=== PATIENT | female | born 1960 | race Caucasian/White ===

== ENCOUNTER 2024-07-15 13:06 | Emergency (ER) | payer BC, MEDICARE, SELFPAY ==
--- NOTE | ~2024-07-15 | CT_ITS ---
EXAMINATION: CTA chest PE abdomen pel DATE: 07/15/2024 15:34 INDICATION: Heart palpitations with elevated d-dimer. Possible incarcerated hernia with nausea, vomit ing and diarrhea. TECHNIQUE: Computed tomography (CT) pulmonary angiogram of the chest was performed with 100 mL Omnipa que-350 intravenous contrast. Additional 3D reconstructions utilizing coronal maximum intensity proje ction (MIP) were performed. CT of the abdomen and pelvis was performed with intravenous contrast util izing the same contrast bolus following a short delay. Automated exposure control and iterative recon struction technique were employed. The dose-length product was 1867.28 mGy-cm. COMPARISON: None FINDINGS: Chest: No pulmonary embolism. Minimal left basilar atelectasis. No pneumonia, pulmonary edema, pleural effus ion or pneumothorax. Heart size is normal. Small amount of atherosclerotic coronary artery calcificat ion. No pericardial effusion. Thoracic aorta is normal in caliber with no dissection. No pathological ly enlarged thoracic lymphadenopathy. Mild upper thoracic levocurvature with severe lower cervical an d upper thoracic spondylosis. Abdomen/pelvis: Liver, gallbladder, spleen, pancreas, bilateral adrenal glands and kidneys are normal. Bladder is nor mal. 8.4 x 4.6 x 6.7 cm umbilical hernia containing omental fat and extending to a 1.5 x 2.5 similar orifice.. Bowels are unremarkable with no herniated bowel or obstruction. The uterus is not identifie d and has likely been surgically resected. Decompressed bladder is unremarkable. No free intraperiton eal gas or fluid. No pathologically enlarged abdominal or pelvic lymphadenopathy. IMPRESSION: 1. No pulmonary embolism or other acute cardiopulmonary disease. 2. Moderate-sized fat-containing umbilical hernia. No herniated bowel or other acute intra-abdominal/ pelvic process. Reviewed, dictated and finalized at location B. IMPRESSION: 1. No pulmonary embolism or other acute cardiopulmonary disease. 2. Moderate-sized fat-containing umbilical hernia. No herniated bowel or other acute intra-abdominal/pelvic process.
[2024-07-15 13:11] VITALS: BP 151/114; PULSE 134; RESP 20; TEMP 36.6; O2SAT 97
--- NOTE | 2024-07-15 13:11 | ECG_ITS ---
Test Date: 2024-07-15 13:17:16 Measurements Intervals Fowler Rate: 123 P: 9 OH: 162 QRS: 5 QRSD: 86 T: 52 QT: 412 QTc: 591 Interpretive Statements SINUS TACHYCARDIA DELAYED PRECORDIAL R/S TRANSITION LEFT VENTRICULAR HYPERTROPHY WITH ST-T CHANGE BASELINE ARTIFACT- I, II, III, AVR, AVL, AVF, V1-V6 ABNORMAL ECG No previous ECG available for comparison Electronically Signed On 07-15-2024 13:21:15 CDT by Nasir Campos D.O.
--- NOTE | 2024-07-15 13:11 | ED.ARRPALP ---
HPI - Arrhythmia/Palpitations General Chief Complaint: Arrhythmia/Palpitations Stated Complaint: fast HR, high BP Time Seen by Provider: 07/15/24 13:15 Focused HPI: Pt is a 63-year-old female who presents to the ER with chest palpations and shortness of breath. She was recently started on Wegovy by her PCP. Pt took her first injection on Monday morning. On Monday morning she experienced headache, nausea, vomiting and racing heart rate. She reports she can't keep anything down. Pt reports she has a history of herniated discs, umbilical hernia, high blood pressure, depression, anxiety, and pre-diabetes. She reports she was at urgent care earlier today and they her here for evaluation. Pt endorses palpations but denies chest pain and denies fevers. GENERAL: Well-appearing, well-nourished, and in no acute distress. HEAD: Normocephalic, atraumatic. CHEST: Clear to auscultation. ?No respiratory distress. HEART: Tachycardia, regular rhythm, mild bilateral lower extremity swelling. NEURO: ?Alert and oriented x3. Patient screened in triage and initial orders placed.? ?Additional care and disposition to be based upon?diagnostic testing and treatment. Related Data Home Medications Medication Instructions Recorded Confirmed alprazolam 0.25 mg tablet (Xanax) 0.25 mg PO DAILY 07/19/21 07/22/21 amitriptyline 25 mg tablet 25 mg PO QHS 07/19/21 07/22/21 benzonatate 200 mg capsule 200 mg PO BID PRN 07/19/21 07/22/21 cefuroxime axetil 500 mg tablet 500 mg PO Q12H 07/19/21 07/22/21 cyclobenzaprine 10 mg tablet 10 mg PO TID 07/19/21 07/22/21 eszopiclone 3 mg tablet (Lunesta) 3 mg PO QHS 07/19/21 07/22/21 gabapentin 300 mg capsule 300 mg PO DAILY 07/19/21 07/22/21 hydrochlorothiazide 25 mg tablet 25 mg PO DAILY 07/19/21 07/22/21 hydrocodone 5 mg-acetaminophen 325 1 tablet PO Q8H PRN 07/19/21 07/22/21 mg tablet lisinopril 20 mg tablet 20 mg PO DAILY 07/19/21 07/22/21 omeprazole 40 mg capsule,delayed 40 mg PO DAILY 07/19/21 07/22/21 release ondansetron HCl 4 mg tablet 4 mg PO Q8H 07/19/21 07/22/21 (Zofran) sucralfate 1 gram tablet (Carafate) PO PRN 07/19/21 07/22/21 trazodone 50 mg tablet 50 mg PO QHS PRN 07/19/21 07/22/21 Allergies Allergy/AdvReac Type Severity Reaction Status Date / Time latex Allergy Unknown Hives Verified 07/15/24 14:10 [facility] Past Medical History Medical History (Updated 07/15/24 @ 18:04 by Raulito Sapp MD) Depression Fibromyalgia AMANDA (generalized anxiety disorder) GERD (gastroesophageal reflux disease) Hypertension Surgical History Surgical History H/O hemorrhoidectomy History of appendectomy History of partial hysterectomy Family History Family History Father Acute myocardial infarction Mother Lung cancer Social History Social History Smoking status: Never smoker Alcohol intake: current Living arrangements: with family Occupation/Education: occupation Additional occupation/education comments: [employer] Course Vital Signs Vital signs: Vital Signs Temperature 97.8 F 07/15/24 13:11 Pulse Rate 134 H 07/15/24 13:11 Respiratory Rate 20 07/15/24 13:11 Blood Pressure 151/114 H 07/15/24 13:11 Pulse Oximetry 97 07/15/24 13:11 Oxygen Delivery Room Air 07/15/24 13:11 Temperature 97.9 F 07/15/24 17:08 Pulse Rate 102 H 07/15/24 17:08 Respiratory Rate 16 07/15/24 17:08 Blood Pressure 136/94 H 07/15/24 17:08 Pulse Oximetry 100 07/15/24 17:08 Oxygen Delivery Room Air 07/15/24 14:11 MDM - Arrhythmia/Palpitations Lab Data 07/15/24 13:55 07/15/24 13:23 Labs: Lab Results 09/16/24 09/16/24 09/16/24 Range/Units 13:23 13:23 13:55 WBC 9.4 (4.5-10.0) K/mm3 RBC 5.08 (4.2-5.4) M/mm3 Hgb 15.8 H (12.0-15.
[2024-07-15] MEDS: ASPIRIN 81 MG CHEWABLE TABLET 324 MG PO (13:44)
[2024-07-15] MEDS: ONDANSETRON HCL ODT 4 MG TABLET PO (13:44)
[2024-07-15 13:55] LABS: Alanine Aminotransferase 18 U/L (6-35); Albumin Level 4.5 g/dL (3.5-5.1); Alkaline Phosphatase 100 U/L (38-126); Anion Gap 14 mmol/L (4-12); Aspartate Amino Transferase 30 U/L (14-36); Blood Urea Nitrogen 11 mg/dL (7-17); Calcium 9.4 mg/dL (8.4-10.2); Carbon Dioxide 21 mmol/L (22-30); Chloride 103 mmol/L (98-107); Estimated CRCL calculation 86 ml/min; Estimated Glomerular Filt Rate > 60; Glucose 124 mg/dL (65-110); Lipase 44 U/L (23-300); Potassium 3.6 mmol/L (3.4-5.0); Sodium 138 mmol/L (137-145)
[2024-07-15 14:05] LABS: NT Pro B Type Natriuretic Pept 332 pg/mL (19.9-100)
[2024-07-15 14:05] LABS: Basophils Percent Auto 0.1 % (0.2-1.2); Eosinophils Absolute Auto 0.1 K/mm3 (0-0.3); Eosinophils Percent Auto 1.3 % (0-4.4); Hematocrit 46.2 % (37.0-47.0); Hemoglobin 15.8 g/dL (12.0-15.0); Immature Granulocyte Absolute 0.03 K/mm3 (0.00-0.031); Immature Granulocyte Percent A 0.3 % (0-0.5); Lymphocytes Absolute Auto 1.87 K/mm3 (0.9-3.2); Lymphocytes Percent Auto 19.9 % (18.3-44.2); Mean Corpuscular HGB Conc 34.2 g/dl (32-36); Mean Corpuscular Hemoglobin 31.1 pg (26-34); Mean Corpuscular Volume 90.9 fl (80-100); Mean Platelet Volume 11.6 fl (7.4-10.4); Monocytes Absolute Auto 0.8 K/mm3 (0.1-0.6); Monocytes Percent Auto 8.2 % (2.6-8.5); Neutrophils Absolute Auto 6.6 K/mm3 (1.3-6.7); Neutrophils Percent Auto 70.2 % (45.5-73.1); Platelet Count Result 245 k/mm3 (150-375); Red Blood Count 5.08 M/mm3 (4.2-5.4); Red Cell Distribution Width 12.7 % (11.5-14.5); White Blood Count 9.4 K/mm3 (4.5-10.0)
[2024-07-15 14:11] VITALS: BP 136/106; PULSE 131; RESP 18; O2SAT 97
[2024-07-15 14:15] VITALS: PULSE 128
[2024-07-15 14:16] LABS: Influenza A QL RT-PCR Negative (Negative); Influenza B QL RT-PCR Negative (Negative); RSV RNA, RT-PCR Negative (Negative); SARS-CoV-2 RNA PCR Negative (Negative)
[2024-07-15 14:16] LABS: Prothrombin Time 13.2 Seconds (11.1-14.7)
[2024-07-15 14:17] LABS: Partial Thromboplastin Time 28.5 Seconds (22.3-36.8)
[2024-07-15 14:23] LABS: D Dimer 0.87 ug/mL (<0.48)
[2024-07-15] MEDS: SODIUM CHLORIDE 0.9% IV 1,000 ML 999 ML IV CONT (14:23)
[2024-07-15] MEDS: MORPHINE SULFATE (*CRX) 4 MG/ML INJ IV PUSH (14:24)
[2024-07-15 14:44] LABS: Add Urine Microscopic? YES; Appearance Urine Clear (Clear); Bacteria Urine None Seen /hpf; Bilirubin Urine Negative (Negative); Blood Urine Negative (Negative); Color Urine Dark Yellow (Yellow); Glucose Urine UA Negative (Negative); Hyaline Casts Urine Present /lpf; Ketones Urine Trace mg/dL (Negative); Leukocyte Esterase Ur Trace LEU/UL (Negative); Need Manual Microscopic Reviewed; Nitrate Urine Negative (Negative); Protein Urine 1+ mg/dL (Negative); RBC Urine 0-2 /hpf (0-2); Specific Grav Ur 1.017 (1.001-1.035); Squamous Epithelial Cell Urine Occasional /hpf (Few); WBC Urine 21-50 /hpf (0-3); pH Urine 5.5 (5.0-9.0)
[2024-07-15 17:08] VITALS: BP 136/94; PULSE 102; RESP 16; TEMP 36.6; O2SAT 100
[2024-07-15] MEDS: SODIUM CHLORIDE 0.9% IV 500 ML 999 ML IV CONT (17:08)
== END 2024-07-15 18:47 | disposition home or self-care (01) ==
PROVIDERS: Registered Nurse; Emergency Provider Emergency Medicine; PCP Physician Assistant Medical
DX: R00.2 Palpitations (principal); R06.02 Shortness of breath; R11.2 Nausea with vomiting, unspecified; T50.995A Adverse effect of other drugs, medicaments and biological substances, initial encounter; E86.0 Dehydration; Z20.822 Contact with and (suspected) exposure to COVID-19; I10 Essential (primary) hypertension; R73.03 Prediabetes; K42.9 Umbilical hernia without obstruction or gangrene; K21.9 Gastro-esophageal reflux disease without esophagitis; M79.7 Fibromyalgia; F32.A Depression, unspecified; F41.1 Generalized anxiety disorder; Z79.899 Other long term (current) drug therapy; Z90.711 Acquired absence of uterus with remaining cervical stump; R00.0 Tachycardia, unspecified; I51.7 Cardiomegaly
CPT/HCPCS: 36415; 71275; 74177; 80053; 81001; 83690; 83735; 83880; 84443; 85025; 85380; 85610; 85730; 87086; 87637; 93005; 96361; 96374; 99284; A9270; J2270; J7030; J7040; Q9967

== ENCOUNTER 2024-07-23 09:37 | Emergency (ER) | payer BC, MEDICARE, SELFPAY ==
--- NOTE | ~2024-07-23 | CT_ITS ---
CT of the Abdomen and Pelvis: Indication: Abdominal pain Technique: 2.5 mm axial scans were obtained through the abdomen and pelvis following intravenous adm inistration of 100 cc of Omnipaque 350. Dose reduction technique was used on this scan by utilizing a utomated exposure control and iterative reconstruction technique. The dose-length product (DLP) was 1 418.87 mGy-cm. COMPARISON: 07/15/2024 Findings: Scans through the lung bases are unremarkable. The liver, spleen, pancreas, gallbladder, right adrenal gland, and kidneys are within normal limits. Small left adrenal myelolipoma noted. There are atherosclerotic calcifications of the aorta. No lymp hadenopathy. There are minimally distended, fluid-filled small bowel loops. No bowel obstruction. There is no evid ence to suggest acute appendicitis. Moderate fat-containing umbilical hernia present. Images through the pelvis were performed. Urinary bladder unremarkable. No pelvic mass seen. Impression: Possible subtle nonspecific small bowel enteritis or diarrheal illness. Moderate fat-containing umbilical hernia. Reviewed, dictated and finalized at [facility]. Impression: Possible subtle nonspecific small bowel enteritis or diarrheal illness. Moderate fat-containing umbilical hernia.
[2024-07-23 09:42] VITALS: BP 137/82; PULSE 70; RESP 16; TEMP 36.6; O2SAT 100
[2024-07-23 10:03] LABS: Basophils Absolute Auto 0.1 K/mm3 (0.0-0.1); Basophils Percent Auto 0.7 % (0.2-1.2); Eosinophils Percent Auto 7.4 % (0-4.4); Hemoglobin 16.2 g/dL (12.0-15.0); Immature Granulocyte Absolute 0.22 K/mm3 (0.00-0.031); Immature Granulocyte Percent A 1.7 % (0-0.5); Lymphocytes Absolute Auto 3.06 K/mm3 (0.9-3.2); Mean Corpuscular HGB Conc 33.8 g/dl (32-36); Mean Corpuscular Hemoglobin 30.9 pg (26-34); Mean Corpuscular Volume 91.6 fl (80-100); Mean Platelet Volume 11.6 fl (7.4-10.4); Monocytes Percent Auto 7.8 % (2.6-8.5); Neutrophils Absolute Auto 7.9 K/mm3 (1.3-6.7); Neutrophils Percent Auto 59.4 % (45.5-73.1); Platelet Count Result 325 k/mm3 (150-375); Red Blood Count 5.24 M/mm3 (4.2-5.4); Red Cell Distribution Width 13.6 % (11.5-14.5); White Blood Count 13.3 K/mm3 (4.5-10.0)
--- NOTE | 2024-07-23 10:08 | ED.NAVMDI ---
HPI - Nausea/Vomiting/Diarrhea General Chief complaint: Nausea/Vomiting/Diarrhea Stated complaint: N/V, abd pain Time Seen by Provider: 07/23/24 10:06 Source: patient Mode of arrival: ambulatory Limitations: no limitations History of Present Illness HPI Narrative: Patient is a 63-year-old female who presents the ED with report of abdominal pain, nausea, vomiting. Patient reports she took a first trial dose of Wegovy on 07/12. She developed nausea, vomiting, diarrhea, abdominal pain the next day. She was seen in the ED here on 07/15, was given fluids/antiemetics, had negative CT scan of her chest/abd/pelvis. Symptoms were thought to be r/t to medication. Patient has not had any further doses of the Wegovy, but states over the past 3-4 days, symptoms have resumed. She c/o N/V, difficulty keeping down food or drink, diffuse abd pain, diarrhea. Denies rectal bleeding, melena, fevers. Denies cough or cold sx's. Related Data Home Medications Medication Instructions Recorded Confirmed alprazolam 0.25 mg tablet (Xanax) 0.25 mg PO DAILY 07/19/21 07/22/21 amitriptyline 25 mg tablet 25 mg PO QHS 07/19/21 07/22/21 benzonatate 200 mg capsule 200 mg PO BID PRN 07/19/21 07/22/21 cefuroxime axetil 500 mg tablet 500 mg PO Q12H 07/19/21 07/22/21 cyclobenzaprine 10 mg tablet 10 mg PO TID 07/19/21 07/22/21 eszopiclone 3 mg tablet (Lunesta) 3 mg PO QHS 07/19/21 07/22/21 gabapentin 300 mg capsule 300 mg PO DAILY 07/19/21 07/22/21 hydrochlorothiazide 25 mg tablet 25 mg PO DAILY 07/19/21 07/22/21 hydrocodone 5 mg-acetaminophen 325 1 tablet PO Q8H PRN 07/19/21 07/22/21 mg tablet lisinopril 20 mg tablet 20 mg PO DAILY 07/19/21 07/22/21 omeprazole 40 mg capsule,delayed 40 mg PO DAILY 07/19/21 07/22/21 release ondansetron HCl 4 mg tablet 4 mg PO Q8H 07/19/21 07/22/21 (Zofran) sucralfate 1 gram tablet (Carafate) PO PRN 07/19/21 07/22/21 trazodone 50 mg tablet 50 mg PO QHS PRN 07/19/21 07/22/21 Allergies Allergy/AdvReac Type Severity Reaction Status Date / Time latex Allergy Unknown Hives Verified 07/23/24 09:46 Review of Systems Review of Systems: All systems reviewed & are unremarkable except as noted in HPI. 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 HEAD: Normocephalic, atraumatic. RESPIRATORY: Airway patent, respirations nonlabored. Clear to auscultation bilaterally, no rales, rhonchi, wheezing. CARDIOVASCULAR: Regular rate and rhythm without murmurs, rubs, or gallops. ABDOMINAL: Soft, diffuse tenderness in several quadrants, no significant focal tenderness. Periumbilical hernia with tenderness, soft. Not easily reducible but again soft. No overlying skin changes. Hyperactive BS. MUSCULOSKELETAL: Moves all extremities. No gross deformities. SKIN: Warm, dry, normal color. NEURO: A&O X3. Speech clear. Cranial nerves II-XII grossly intact. Steady gait. No ataxic movements. PSYCHIATRIC: Appropriate mood and affect. Normal interaction. Course Vital Signs Vital signs:
[2024-07-23 10:16] LABS: Alanine Aminotransferase 23 U/L (6-35); Albumin Level 4.6 g/dL (3.5-5.1); Alkaline Phosphatase 99 U/L (38-126); Anion Gap 11 mmol/L (4-12); Aspartate Amino Transferase 52 U/L (14-36); Bilirubin,Total 0.6 mg/dL (0.2-1.3); Blood Urea Nitrogen 26 mg/dL (7-17); Calcium 9.5 mg/dL (8.4-10.2); Carbon Dioxide 28 mmol/L (22-30); Chloride 96 mmol/L (98-107); Estimated CRCL calculation 59 ml/min; Estimated Glomerular Filt Rate 45; Glucose 122 mg/dL (65-110); Lipase 395 U/L (23-300); Potassium 3.5 mmol/L (3.4-5.0); Sodium 135 mmol/L (137-145)
[2024-07-23] MEDS: SODIUM CHLORIDE 0.9% IV 1,000 ML 999 ML IV CONT (10:45)
[2024-07-23] MEDS: MORPHINE SULFATE (*CRX) 4 MG/ML INJ IV PUSH (10:46)
[2024-07-23] MEDS: PANTOPRAZOLE SODIUM IV 40 MG VIAL IV PUSH (10:46)
[2024-07-23 10:47] LABS: Magnesium 2.1 mg/dL (1.6-2.3)
[2024-07-23] MEDS: ONDANSETRON INJ 4 MG/2 ML VIAL IV PUSH (10:47)
[2024-07-23 11:24] LABS: Add Urine Microscopic? YES; Appearance Urine Clear (Clear); Bacteria Urine None Seen /hpf; Bilirubin Urine Negative (Negative); Blood Urine Negative (Negative); Color Urine Yellow (Yellow); Glucose Urine UA Negative (Negative); Ketones Urine Trace mg/dL (Negative); Leukocyte Esterase Ur 1+ LEU/UL (Negative); Need Manual Microscopic Reviewed; Nitrate Urine Negative (Negative); Protein Urine Trace mg/dL (Negative); RBC Urine 0-2 /hpf (0-2); Specific Grav Ur 1.018 (1.001-1.035); Squamous Epithelial Cell Urine Few /hpf (Few); pH Urine 5.5 (5.0-9.0)
[2024-07-23 11:45] LABS: Influenza A QL RT-PCR Negative (Negative); Influenza B QL RT-PCR Negative (Negative); RSV RNA, RT-PCR Negative (Negative); SARS-CoV-2 RNA PCR Negative (Negative)
[2024-07-23 12:52] VITALS: BP 108/87; PULSE 86; RESP 20; O2SAT 96
[2024-07-23 14:12] VITALS: BP 137/82; PULSE 61; RESP 18; O2SAT 100
[2024-07-23] MEDS: CIPROFLOXACIN 500 MG TAB PO (14:12)
[2024-07-23] MEDS: metroNIDAZOLE 500 MG TABLET PO (14:12)
[2024-07-23] MEDS: DICYCLOMINE HCL 10 MG CAPSULE 20 MG PO (14:12)
[2024-07-23 14:32] VITALS: BP 137/82
== END 2024-07-23 14:33 | disposition home or self-care (01) ==
PROVIDERS: Emergency Medicine; Emergency Provider Physician Assistant; PCP Physician Assistant Medical
DX: K52.9 Noninfective gastroenteritis and colitis, unspecified (principal); E86.0 Dehydration; R11.2 Nausea with vomiting, unspecified; K42.9 Umbilical hernia without obstruction or gangrene; Z20.822 Contact with and (suspected) exposure to COVID-19; F32.A Depression, unspecified; M79.7 Fibromyalgia; F41.9 Anxiety disorder, unspecified; K21.9 Gastro-esophageal reflux disease without esophagitis; I10 Essential (primary) hypertension; R82.998 Other abnormal findings in urine
CPT/HCPCS: 36415; 74177; 80053; 81001; 83690; 83735; 85025; 87086; 87637; 96361; 96374; 96375; 99284; A9270; J2270; J2405; J2470; J7030; Q9967

== ENCOUNTER 2025-04-06 16:52 | Emergency (ER) | payer MEDICARE, SELFPAY ==
--- NOTE | ~2025-04-06 | XR_ITS ---
EXAM: XR knee RT 3V DATE: 04/06/2025 17:28 HISTORY: ALL OVER PAIN AFTER TWISTING . COMPARISON: None available. FINDINGS: Osteopenia. No fracture or dislocation. Loss of the normal valgus alignment. Mild lateral subluxation of the tibia. No lytic or blastic lesion. Tricompartmental knee osteoarthritic arthritis, severe in the patellofemoral compartment and moderate in the medial and lateral compartments. Modera te volume joint effusion. No erosion or periosteal change. Soft tissues within normal limits. IMPRESSION: No acute osseous finding in the right knee. Reviewed, dictated and finalized at location K.
--- OUTSIDE RECORDS SUMMARY | 2025-04-06 16:55 | XMS_ITS | Clinical Summary ---
Author Organization [facility] [address] [facility] Address [address] [place] [address] Care Team Providers Care Shopper'S Aide Name Role Phone Jhon Gatica Primary Care Provider [phone] Natan Pepe MD Unavailable [phone] Bernie Monahan MD Unavailable [phone] Roe Ferrer DO Unavailable [phone] Allergies Active Allergy Reactions Criticality Noted Date Comments Latex Hives Medium 05/20/2019 Whelps Other Swelling Medium 07/22/2019 Lectin Rubber, Unspecified Other (See comments) Low 11/19/2024 whelps Tomato Other (See comments) Low 04/08/2024 Causes joints to be inflamed Semaglutide (Weight Loss) Diarrhea Medium 07/30/2024 Headache, vomiting, diarrhea, palpitations Wool Hives Medium 05/20/2019 Whelps Medications clotrimazole 1 % creamIndications:Tinea pedis of left foot APPLY TO AFFECTED AREA TWICE A DAY 30 g 1 2020 Active potassium chloride ER 10 mEq CR tablet TAKE 1 TABLET (10 MEQ TOTAL) BY MOUTH DAILY 90 tablet 1 2021 Active econazole 1 % cream APPLY TO AFFECTED AREA TWICE A DAY 60 g 1 2021 Active loratadine (CLARITIN) 10 mg tablet TAKE 1 TABLET BY MOUTH EVERY DAY 90 tablet 1 2023 Active sertraline (ZOLOFT) 100 mg tabletIndications:Mode rate episode of recurrent major depressive disorder (HCC) TAKE 1 TABLET BY MOUTH EVERY DAY 90 tablet 2023 Active ondansetron ODT (ZOFRAN-ODT) 4 mg disintegrating tabletIndications:Intr actable vomiting with nausea TAKE 1 TABLET BY MOUTH EVERY 8 HOURS NEEDED FOR NAUSEA AND VOMITING 18 tablet 4 2023 Active hydroCHLOROthiazide (HYDRODIURIL) 25 mg tabletIndications:Pepe gn essential HTN TAKE 1 TABLET BY MOUTH EVERY DAY IN THE MORNING 90 tablet 1 2023 Active amitriptyline (ELAVIL) 25 mg tabletIndications:Prim janet insomnia TAKE 1 TABLET BY MOUTH EVERY DAY AT NIGHT 90 tablet 1 2023 Active lisinopriL (PRINIVIL,ZESTRIL) 40 mg tabletIndications:Esse ntial (primary) hypertension Take 1 tablet (40 mg total) by mouth daily 90 tablet 3 2023 Active omeprazole (PriLOSEC) 40 mg capsuleIndications:Gas troesophageal reflux disease without esophagitis TAKE 1 CAPSULE (40 MG TOTAL) BY MOUTH DAILY. 90 capsule 1 2023 Active furosemide (LASIX) 40 mg tabletIndications:Pepe gn essential HTN TAKE 1 TABLET BY MOUTH EVERY DAY 90 tablet 1 2023 Active gabapentin (NEURONTIN) 300 mg capsuleIndications:Fib romyalgia TAKE 1 CAPSULE (300 MG TOTAL) BY MOUTH 2 TIMES A DAY. 180 capsule 1 2023 Active dicyclomine (BENTYL) 20 mg tabletIndications:Abdo biju cramping Take 1 tablet (20 mg total) by mouth every 8 (eight) hours 90 tablet 2 2023 Active atorvastatin (LIPITOR) 40 mg tabletIndications:Pure hypercholesterolemia TAKE 1 TABLET BY MOUTH EVERY DAY 90 tablet 1 2023 Active celecoxib (CeleBREX) 100 mg capsuleIndications:Fib romyalgia TAKE 1 CAPSULE BY MOUTH EVERY DAY 100 capsule 1 2023 Active propranoloL (INDERAL) 20 mg tabletIndications:Esse ntial tremor TAKE 1 TABLET BY MOUTH TWICE A DAY 180 tablet 1 2023 Active eszopiclone (LUNESTA) 3 mg tabletIndications:Prim janet insomnia Take 1 tablet (3 mg total) by mouth nightly Take immediately before bedtime 90 tablet 2024 Active rimegepant (NURTEC ODT) tablet,disintegratingI ndications:Migraine with aura and without status migrainosus, not intractable Take 1 tablet (75 mg total) by mouth every other day 16 tablet 11 2024 Active albuterol HFA (PROVENTIL HFA,VENTOLIN HFA,PROAIR HFA) 90 mcg/actuation inhaler Inhale 2 puffs every 6 (six) hours as needed for wheezing 3 each 4 11/26 Active benzonatate (TESSALON) 200 mg capsule Take 1 capsule (200 mg total) by mouth 3 (three) times a day as needed for cough 60 capsule 2024 Active ipratropium-albuteroL (DUO-NEB) 0.5-2.5 mg/3 mL nebulizer solutionIndications:Pn eumonia of right lower lobe due to infectious organism INHALE 3 ML BY NEBULIZATION EVERY 6 HOURS NEEDED FOR WHEEZE OR FOR SHORTNESS OF BREATH 90 mL 2 2024 Active busPIRone (BUSPAR) 10 mg tabletIndications:AMANDA (generalized anxiety disorder) TAKE 1 TABLET BY MOUTH TWICE A DAY 180 tablet 2024 Active traMADoL (ULTRAM) 50 mg tablet Take 1 tablet (50 mg total) by mouth every 4 (four) hours as needed for pain 10 tablet 2024 Active tamoxifen (NOLVADEX) 10 mg tabletIndications:Horm one Receptor Positive Breast Cancer Take 1 tablet (10 mg total) by mouth daily Start April 29 tablet 1 2024 Active SUMAtriptan (IMITREX) 100 mg tabletIndications:Migr andre with aura, not intractable, without status migrainosus TAKE 1 TABLET BY MOUTH ONCE NEEDED FOR MIGRAINE MAY REPEAT DOSE ONCE IN 2 HOURS IF NO RELIEF. DO NOT EXCEED 2 DOSES IN 24 HOURS. 9 tablet 1 2024 Active triamcinolone (KENALOG) 0.1 % cream Apply topically 3 (three) times a day 30 g 1 2024 Active azithromycin (ZITHROMAX) 500 mg tablet Take 1 tablet (500 mg total) by mouth daily 6 tablet 2024 Active levothyroxine (SYNTHROID) 50 mcg tabletIndications:Acqu ired hypothyroidism TAKE 1 TABLET BY MOUTH EVERY DAY 90 tablet 1 2024 Active HYDROcodone-acetaminop hen (NORCO) 10-325 mg per tabletIndications:Pain Take 0.5 tablets by mouth every 8 (eight) hours as needed for pain 45 tablet 2024 Active cyclobenzaprine (FLEXERIL) 10 mg tabletIndications:Bila teral sacroiliitis TAKE 1 TABLET BY MOUTH THREE TIMES A DAY NEEDED FOR MUSCLE SPASM 90 tablet 3 2024 Active traZODone (DESYREL) 50 mg tabletIndications:Prim janet insomnia TAKE 1 TABLET (50 MG TOTAL) BY MOUTH NIGHTLY NEEDED FOR SLEEP FOR SLEEP 90 tablet 1 2024 Active traZODone (DESYREL) 50 mg tabletIndications:Prim janet insomnia TAKE 1 TABLET (50 MG TOTAL) BY MOUTH NIGHTLY NEEDED FOR SLEEP FOR SLEEP 90 tablet 1 03/28 Discontinued levothyroxine (SYNTHROID) 50 mcg tabletIndications:Acqu ired hypothyroidism TAKE 1 TABLET BY MOUTH EVERY DAY 90 tablet 1 03/13 Discontinued cyclobenzaprine (FLEXERIL) 10 mg tabletIndications:Bila teral sacroiliitis TAKE 1 TABLET BY MOUTH THREE TIMES A DAY NEEDED FOR MUSCLE SPASM 90 tablet 3 03/26 Discontinued HYDROcodone-acetaminop hen (NORCO) 10-325 mg per tabletIndications:Pain Take 0.5 tablets by mouth every 8 (eight) hours as needed for pain 45 tablet 03/25 Discontinued( Reorder) Active Problems Problem Noted Date Diagnosed Date Malignant neoplasm of left b reast in female, estrogen receptor positive 12/13/2024 Cancer Staging:Pathologic stage from 02/24/2025:Stage IA(pT1b, pN0(sn), cM0, G1, ER+, SC+, HER2-) - Unsigned 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 11/18/2023 Cancer Staging:Clinical stage from 09/18/2024:Stage 0(cTis (DCIS), cN0, cM0, GX, ER+, SC: Not Assessed, HER2: Not Assessed) - Signed by Laduzinsky, Bernie J., MD on 09/18/2024 Left breast mass 07/30/2024 Assessment & Plan (07/30/2024 9:42 AM CDT): Sched for diagnsotic and ultrasound Umbilical hernia without obstruction and without gangrene 07/30/2024 Assessment & Plan (07/30/2024 9:49 AM CDT): Chronic occasionally painful Refer to general surgery Pure hypercholesterolemia 04/08/2024 Borderline diabetic 04/08/2024 Assessment & Plan (11/13/2024 3:16 PM BONE CHAR KILN OPERATOR): Poct A1c today Gastroesophageal reflux disease without esophagi tis 06/05/2023 Assessment & Plan (06/05/2023 11:35 PM CDT): Chornic stable and well controlled Continue omeprazole Moderate episode of recurrent major depressive d isorder 01/23/2023 Assessment & Plan (10/05/2023 9:36 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): Chronic and not well controlled Increase sertraline 100mg Assessment & Plan (06/05/2023 9:57 AM CDT): Chronic stable and well controlled Recent complication with loss of . Continue sertraline Assessment & Plan (01/23/2023 2:14 PM CDT): Chronic uncontrolled Start zoloft 25mg for 4 weeks then increase to 50mg Morbid obesity with BMI of 45.0-49.9, adult 09/30 Assessment & Plan (07/30/2024 9:46 AM CDT): Chronic and not well controlled Intolerant to wegovy with severe gi complications D/c wegovy and add to allergy list Assessment & Plan (07/09/2024 10:04 AM CDT): Chronic and not well controlled Failed multiple diet and unable to exercise. Sample and start wegovy Assessment & Plan (04/08/2024 10:52 AM CDT): Chronic and not well controlled Failed multiple diet and unable to exercise. Start zepbound Assessment & Plan (01/05/2024 10:50 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): Chronic condition she has lost 30 lb in the last 6 months continue with dietary restrictions. Assessment & Plan (10/20/2021 2:49 PM BONE CHAR KILN OPERATOR): Chronic condition she has lost 30 lb in the last 6 months continue with dietary restrictions. Fibromyalgia 04/13/2021 Assessment & Plan (06/05/2023 9:56 AM CDT): Chronic stable and waxes and wanes. Continue celebrex and gabapentin Assessment & Plan (07/14/2021 10:32 AM CDT): Chronic persistnet Start elavil 25mg qhs Assessment & Plan (04/13/2021 2:49 PM CDT): Chronic condition Uncontrolled Start savella. Lymphedema of both lower extremities 01/19/2021 Assessment & Plan (04/13/2021 2:44 PM CDT): Order p.t. for lymphedema and for lymphedema pump Assessment & Plan (01/19/2021 10:42 AM CDT): Patient would benefit form lymphedema pump/compression however her insurance will not cover. Primary insomnia 01/21/2019 Assessment & Plan (11/13/2024 3:14 PM BONE CHAR KILN OPERATOR): Chronic persistent but improved with lunesta Continue current dosing Assessment & Plan (07/30/2024 11:58 PM CDT): Chronic persistent but improved with lunesta Continue current dosing Assessment & Plan (10/05/2023 9:35 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): Chronic not well controlled with increased stress D/c trazadone Continue lunesta Assessment & Plan (06/05/2023 9:55 AM CDT): Chronic persistent Improved with use of lunesta and elavil Continue current regimen Assessment & Plan (01/19/2021 10:44 AM CDT): Chronic condition Stable and responds well to lunesta. Assessment & Plan (10/13/2020 2:27 PM BONE CHAR KILN OPERATOR): Start trazadone 50mg Assessment & Plan (04/06/2020 5:20 PM CDT): Well controlled on current regimen, no rx changes needed. Continue lifestyle modifications AMANDA (generalized anxiety disorder) 09/26/2018 Assessment & Plan (11/13/2024 3:14 PM BONE CHAR KILN OPERATOR): Chronic not well controlled Start buspar 10mg bid Assessment & Plan (04/08/2024 10:50 AM CDT): Chronic and not well controlled with breakthrough anxiety situational Start atarax 25mg every day prn #30 Refer to rosa baca in [facility] Assessment & Plan (10/20/2021 2:50 PM BONE CHAR KILN OPERATOR): Chronic condition Refill Xanax for Assessment & Plan (07/14/2021 10:31 AM CDT): Chronic persistent Refill medications Assessment & Plan (01/19/2021 10:44 AM CDT): Chronic condition Stable and responds well to xanax prn Assessment & Plan (04/06/2020 5:19 PM CDT): Well controlled on current regimen, no rx changes needed. Continue lifestyle modifications Migraine with aura and witho ut status migrainosus, not intractable 09/26/2018 Assessment & Plan (11/13/2024 3:20 PM BONE CHAR KILN OPERATOR): Chronic not well controlled Start Assessment & Plan (10/20/2021 2:50 PM BONE CHAR KILN OPERATOR): Chronic condition not well controlled will increase Imitrex 100 mg Assessment & Plan (04/06/2020 5:20 PM CDT): Well controlled on current regimen, no rx changes needed. Continue lifestyle modifications Thyroid nodule 01/10/2018 Lumbar spondylosis 01/01/2018 Assessment & Plan (07/14/2021 10:34 AM CDT): Chronic persistent . Refill gabapentin. Assessment & Plan (04/06/2020 5:19 PM CDT): Well controlled on current regimen, no rx changes needed. Continue lifestyle modifications Panic disorder without agoraphobia 01/11/2017 Assessment & Plan (04/06/2020 5:20 PM CDT): Well controlled on current regimen, no rx changes needed. Continue lifestyle modifications Bilateral sacroiliitis 10/12/2016 Assessment & Plan (06/05/2023 9:55 AM CDT): Chronic persistent Continue with flexeril Essential (primary) hypertension 09/12/2016 Assessment & Plan (04/08/2024 10:43 AM CDT): Chronic and not well controlled Continue hctz and inderal Increase lisinopril 40mg Labs in 2 weeks Assessment & Plan (07/14/2021 10:31 AM CDT): Chronic condition uncontrolled Start lisinopril 20mg Assessment & Plan (04/14/2021 7:52 AM CDT): Chronic condition stable at goal continue current regimen Assessment & Plan (01/19/2021 10:43 AM CDT): Chronic Condition Stable and well controlled Assessment & Plan (04/06/2020 5:19 PM CDT): Well controlled on current regimen, no rx changes needed. Continue lifestyle modifications Hypothyroidism, unspecified 09/12/2016 Assessment & Plan (07/09/2024 10:04 AM CDT): Chronic not at goal Increaese levothyroxine 50mcg Assessment & Plan (04/06/2020 5:19 PM CDT): Well controlled on current regimen, no rx changes needed. Continue lifestyle modifications Encounters Date Type Department Care Team Description 03/27/2025 7:[address] [facility] Office Building 2 Radiation Oncology [address] [place] [phone] Bernie Monahan MD 03/27/2025 Completion of Therapy [facility] 2 Radiation Oncology [address] [place] [address] [phone] Bernie Monahan MD 03/27/2025 Orders Only RAD ONC TREATMENTS Miscellaneous, Not In File 03/26/2025 8:[address] [facility] Office [facility] 2 Radiation Oncology [address] [place] [phone] 03/26/2025 OTV [facility] 2 Radiation Oncology [address] [place] [address] [phone] Bernie Monahan MD Malignant neoplasm of upper-outer quadrant of left breast in female, estrogen receptor positive (HCC) (Primary Dx) 03/26/2025 Orders Only RAD ONC TREATMENTS Miscellaneous, Not In File 03/25/2025 9:[address] [facility] Office Building 2 Radiation Oncology [address] [place] [phone] 03/25/2025 Orders Only RAD ONC TREATMENTS Miscellaneous, Not In File 03/20/2025 9:[address] [facility] Office [facility] 2 Radiation Oncology [address] [place] [address] [phone] 03/20/2025 Orders Only RAD ONC TREATMENTS Miscellaneous, Not In File 03/19/2025 9:30 AM CDT Treatment [facility] Building 2 Radiation Oncology [address] [place] [phone] 03/19/2025 Orders Only RAD ONC TREATMENTS Miscellaneous, Not In File 03/19/[address] [facility] Medical Office Building 2 Radiation Oncology [address] [place] [phone] Bernie Monahan MD Malignant neoplasm of upper-outer quadrant of left breast in female, estrogen receptor positive (HCC) (Primary Dx) 03/18/2025 9:30 AM CDT Treatment [facility] Office Building 2 Radiation Oncology [address] [place] [address] [phone] 03/18/2025 Orders Only RAD ONC TREATMENTS Miscellaneous, Not In File 03/17/2025 9:30 AM T Treatment [facility] Office Building 2 Radiation Oncology [address] [place] [address] [phone] 03/17/2025 Orders Only RAD ONC TREATMENTS Miscellaneous, Not In File 03/14/2025 9:30 AM T [facility] Office Building 2 Radiation Oncology [address] [place] [phone] 03/14/2025 Orders Only RAD ONC TREATMENTS Miscellaneous, Not In File 03/13/2025 9:30 AM T [facility] Office Building 2 Radiation Oncology [address] [place] [phone] 03/13/2025 Orders Only RAD ONC TREATMENTS Miscellaneous, Not In File 03/12/2025 9:30 AM T [facility] Office Building 2 Radiation Oncology [address] [place] [phone] Malignant neoplasm of upper-outer quadrant of left breast in female, estrogen receptor positive (HCC) (Primary Dx) 03/12/[address] [facility] Office Building 2 Radiation Oncology [address] [place] [address] [phone] Bernie Monahan MD 03/12/2025 Orders Only RAD ONC TREATMENTS Miscellaneous, Not In File 03/10/2025 9:30 AM CDT Treatment [facility] Office Building 2 Radiation Oncology [address] [place] [address] [phone] 03/10/2025 Orders Only RAD ONC TREATMENTS Miscellaneous, Not In File 03/07/2025 9:30 AM CDT Treatment [facility] Office Building 2 Radiation Oncology [address] [place] [address] [phone] 03/07/2025 Orders Only RAD ONC TREATMENTS Miscellaneous, Not In File 03/06/2025 9:30 AM CDT Treatment [facility] Office Building 2 Radiation Oncology [address] [place] [phone] 03/06/2025 Orders Only RAD ONC TREATMENTS Miscellaneous, Not In File 03/05/2025 8:15 AM CDT Treatment [facility] Office Building 2 Radiation Oncology [address] [place] [address] [phone] 03/05/2025 OTV [facility] Office Building 2 Radiation Oncology [address] [place] [address] [phone] Bernie Monahan MD Malignant neoplasm of upper-outer quadrant of left breast in female, estrogen receptor positive (HCC) (Primary Dx) 03/05/2025 Orders Only RAD ONC TREATMENTS Miscellaneous, Not In File 03/04/2025 9:45 AM CDT Treatment [facility] Office Building 2 Radiation Oncology [address] [place] [address] [phone] Bernie Monahan MD 03/04/2025 9:30 AM CDT Treatment [facility] Office Building 2 Radiation Oncology [address] [place] [address] [phone] Bernie Monahan MD 03/04/2025 Orders Only RAD ONC TREATMENTS Miscellaneous, Not In File 02/25/2025 7:45 PM CDT Treatment [facility] Office Building 2 Radiation Oncology [address] [place] [address] [phone] 02/24/2025 9:30 AM CDT Treatment [facility] Office Building 2 Radiation Oncology [address] [place] [address] [phone] Bernie Monahan MD 02/24/2025 9:00 AM CDT Office Visit [facility] Office Building 2 Radiation Oncology [address] [place] [address] [phone] Bernie Monahan MD Malignant neoplasm of upper-outer quadrant of left breast in female, estrogen receptor positive (HCC) (Primary Dx) 02/17/2025 10:15 AM CDT Office Visit [facility] Oncology [address] [place] [phone] Roe Ferrer DO Malignant neoplasm of left breast in female, estrogen receptor positive, unspecified site of breast (HCC) (Primary Dx); Ductal carcinoma in situ (DCIS) of left breast 02/03/[address] [facility] Office Building 2 Radiation Oncology [address] [place] [phone] Polina Parker 01/23/2025 11:00 AM CDT - 01/23/2025 12:30 PM CDT Surgery [facility] OR [address] [place] [phone] Natan Pepe MD LEFT BREAST RE EXCISION LUMPECTOMY 01/23/2025 10:38 AM CDT Anesthesia Event [facility] OR [address] [place] [phone] Adarsh Alegria MD Lee, Walter, MD 01/23/2025 8:36 AM CDT - 01/23/2025 1:30 PM CDT Hospital Encounter [facility] OR [address] [place] [phone] Natan Pepe MD History of left breast cancer Discharge Disposition: Discharge to home or self care 01/20/2025 1:15 PM CDT Lab [facility] Outpatient Lab at [address] [phone] 01/20/2025 1:14 PM CDT - 01/20/2025 11:59 PM CDT Hospital Encounter [address] [address] Pre-op testing Discharge Disposition: Discharge to home or self care 01/20/2025 Orders Only [facility] Pre Admit Testing [address] [place] [address] Adarsh Alegria MD Pre-op testing (Primary Dx) 01/08/2025 7:33 AM CDT - 01/08/2025 11:59 PM CDT Hospital Encounter [facility] Medical Office Bl 1 Breast [facility] [address] [place] [address] Menopausal and perimenopausal disorder Discharge Disposition: Discharge to home or self care from Last 3 Months Immunizations Immunization Administration Dates Next Due Influenza, Quadrivalent, Spl it, Preservative Free, Intramuscular 08/24/2019 Influenza, Unspecified 07/30/2024(Deferr ed: Patient Refused),01/05/2024(Deferred: Patient decision),01/19/2021(Deferred: Patient Refused) Pneumococcal Conjugate Pcv20 01/05/2024 Surgical History Surgery Date Site/Laterality Comments APPENDECTOMY HYSTERECTOMY Ovaries intact BREAST BIOPSY 09/03/2024 Left BREAST SURGERY 10/16/2024 [facility] Left Breast Lumpectomy Needle localization, excision left sentinel node BREAST LUMPECTOMY 01/23/2025 Left Medical History Medical History Date Comments Bulging lumbar disc chronic pain --takes hydrocodone Sciatica Hypothyroidism Essential hypertension PONV (postoperative nausea and vomiting) Motion sickness Sleep apnea does not use cpa p GERD (gastroesophageal reflux disease) Pneumonia had after Covid infection in 2020--still needs occasional neb tx Umbilical hernia Fibromyalgia Family History Medical History Relation Name Comments Breast cancer Daughter 1 Natividad Lupus Daughter 1 Natividad Non-Hodgkin's Lymphoma Daughter 1 Natividad lupus Daughter 1 Natividad No Known Problems Daughter 2 Heart attack Father Breast cancer Grandchild Frandy Alexandra stage 3 Early Grandchild Frandy Alexandra Breast Cance r No Known Problems Maternal Grandfather No Known Problems Maternal Grandmother Lung cancer Mother Cause of Breast cancer Mother's Sister Several mat ernal aunts with h/o breast cancer Bone cancer Other No Known Problems Paternal Grandfather Coronary artery disease Paternal Grandmother No Known Problems Son Relation Name Status Comments Daughter 1 Natividad Alive Daughter 2 Alive Father Grandchild Frandy Alexandra Maternal Grandfather Maternal Grandmother Mother Mother's Sister Other Paternal Grandfather Paternal Grandmother Son Alive Social History Tobacco Use Types Packs/Day Years Used Date Smoking Tobacco: Never Passive Smoke Exposure: Past Smokeless Tobacco: Never Tobacco Cessation:Counseling Given: Not Answered Comments:Was around second hand smoke mostly all her life Alcohol Use Standard Drinks/Week Comments Yes 1 (1 standard drink = 0.6 oz pur e alcohol) on ocassion AUDIT-C Answer Date Recorded Q1: How often do you have a drink containing alc ohol? Monthly or less 01/23/2025 Q2: How many drinks containi ng alcohol do you have on a typical day when you are drinking? 1 or 2 01/23/2025 Q3: How often do you have si x or more drinks on one occasion? Never 01/23/2025 PHQ-2 Answer Date Recorded PHQ-2 Total Score 5 04/08/2024 PHQ-9 Answer Date Recorded PHQ-9 Total Score 18 04/08/2024 Personal Safety Answer Date Recorded Have you ever been in or are you currently in a harmful physical or emotional relationship or is someone making you feel afraid or unsafe? 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 Not on file Not on file Not on file Obstetrics History Para Term AB IAB SAB Ectopic Multiple Livin g Live Births 3 3 3 Date Outcome GA Total Labor Labor/2nd/3rd Weight Sex Type Anes PTL Penny A1 A5 Name Clin Term Term Term Last Filed Vital Signs Vital Sign Reading Time Taken Comments Blood Pressure 135/84 03/26/2025 9:11 AM CDT Pulse 72 03/26/2025 9:11 AM CDT Temperature 36.6 C (97.8 F) 02/17/2025 10:30 AM CDT Respiratory Rate 18 02/17/2025 10:3 0 AM CDT Oxygen Saturation 98% 03/26/2025 9:11 AM CDT Inhaled Oxygen Concentration - - Weight 139.1 kg (306 lb 9.6 oz) 03/26/2025 9:11 AM CDT Height 162.6 cm (5' 4) 01/23/2025 8:44 AM CDT Body Mass Index 52.63 01/23/2025 8:44 AM CDT Plan of Treatment Health Maintenance Due Date Last Done Comments DTaP/Tdap/Td Vaccine (1 - Tdap) 1969 Hepatitis B Screening 1976 Zoster Vaccine (1 of 2) 1977 Covid-19 Vaccine (4 - 2023-2 5 season) 2024 11/18/2021, 05/16/2021, 04/25/2021 Depression Screening 04/08/2025 04/08/2024, 04/08/2024, 10/05/2023, Additional history exists Well Visit 65+ 04/08/2025 04/08/2024 Influenza Vaccine (Season Ended) 2025 08/24/20 19 Breast Cancer Screening-Mammogram 07/26/2025 024 Fall Risk Assessment 01/23/2026 01/23/2025, 09/23/2024, 04/08/2024, Additional history exists Osteoporosis Screening-Bone Density Scan 01/08/2027 01/08/2025 Colon Cancer Screening-DNA Stool 02/05/2027 02/06/20 24 Hepatitis C Screening Completed 01/05/2024 Pneumococcal vaccine 65+ Completed 01/05/2024 Colon Cancer Screening-FIT Discontinued 02/06/2024 Medical Devices Implanted Type Area Wardrobe Image Consultant Device Identifier Shelf Expiration Date Model / Serial / Lot [employer] [employer] 911 [employer] Partnership [employer] 13cm Rigid End Bioabsorbable Net Top It Program Engagement Director Breast Latex Free Bypzs-Cmizg-2b-13 - [id number] Implanted:Qty: 1 on 09/03/2024 by Natan Pepe MD at [facility] Left: Breast [employer] [id number] 11/23/2024 SMARK-ELLEN VA-2S-13 / / [id number] Dyeing Machine [employer] [place] 20ga 5cm Reposition J Curve Wire [employer] Stabilizer [id number] - [id number] Implanted:Qty: 1 on 10/16/2024 by Adam Ford MD at [facility] Left: Breast [employer] [id number] 05/24/2029 [id number] / / [id number] Procedures Procedure Name Priority Date/Time Associated Diagnosis Comments RAD ONC ARIA SESSION SUMMARY 03/27/2025 7:31 AM CDT RAD ONC ARIA SESSION SUMMARY 03/26/2025 8:56 AM CDT RAD ONC ARIA SESSION SUMMARY 03/25/2025 9:37 AM CDT RAD ONC ARIA SESSION SUMMARY 03/20/2025 9:32 AM CDT RAD ONC ARIA SESSION SUMMARY 03/19/2025 9:38 AM CDT RAD ONC ARIA SESSION SUMMARY 03/18/2025 10:02 AM CDT RAD ONC ARIA SESSION SUMMARY 03/17/2025 9:40 AM CDT RAD ONC ARIA SESSION SUMMARY 03/14/2025 9:34 AM CDT RAD ONC ARIA SESSION SUMMARY 03/13/2025 8:55 AM CDT RAD ONC ARIA SESSION SUMMARY 03/12/2025 9:14 AM CDT RAD ONC ARIA SESSION SUMMARY 03/10/2025 9:42 AM CDT RAD ONC ARIA SESSION SUMMARY 03/07/2025 9:44 AM CDT RAD ONC ARIA SESSION SUMMARY 03/06/2025 9:34 AM CDT RAD ONC ARIA SESSION SUMMARY 03/05/2025 8:28 AM CDT RAD ONC ARIA SESSION SUMMARY 03/04/2025 9:36 AM CDT SC AN PROCEDURE PLACEHOLDER Routine 01/23/2025 10:57 AM CDT SC AN ELECTIVE SUPRAGLOTTIC AIRWAY Routine 01/23/2025 10:57 AM CDT SURGICAL PATHOLOGY Routine 01/23/2025 10:53 AM CDT History of left breast cancer LUMPECTOMY 01/23/2025 10:38 AM CDT LEFT BREAST CANCER EGFR Routine 01/20/2025 1:14 PM CDT Pre-op testing BASIC METABOLIC PANEL Routine 01/20/2025 1:14 PM CDT Pre-op testing DEXA AXIAL SKELETON BONE DENSITY 1 OR MORE SITES Schedule Routine, Read Routine (OP Routine) 01/08/2025 7:46 AM CDT Menopausal and perimenopausal disorder SCREENING MAMMOGRAM BILATERAL W JC Schedule Routine, Read Routine (OP Routine) 07/26/2024 8:50 AM CDT Screening mammogram, encounter for STOOL DNA COLOGUARD Routine 02/06/2024 10:30 AM CDT Screening for colon cancer HEPATITIS C ANTIBODY Routine 01/05/2024 11:53 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 Need for hepatitis C screening test from Last 3 Months or Most Recently Relevant to Health Maintenance Results * RAD ONC ARIA SESSION SUMMARY (03/27/2025 7:31 AM CDT) Course Name C1_L_Breast _2024 ARIA Course Plan Date 02/24/2025 10:42 AM ARIA Elapsed Days 23 ARIA Treatment Start Date 03/04/2025 ARIA Treatment Site PRONE LT BREAST ARIA Dose Given To Date (cGy) 4,005 ARIA Session Dosage Given (cGy) 267 ARIA Plan ID PRNE LT BRST ARIA Fractions Treated 15 ARIA Prescribed Dose Per Fraction (cGy) 267 ARIA Prescribed Total Dose (cGy) 4,005 ARIA 03/27/2025 7:31 AM CDT us Not In File Miscellaneous RADIATION ONCOLOGY ORD ERABLES Final Result ARIA * RAD ONC ARIA SESSION SUMMARY (03/26/2025 8:56 AM CDT) Course Name C1_L_Breast _2024 ARIA Course Plan Date 02/24/2025 10:42 AM ARIA Elapsed Days 22 ARIA Treatment Start Date 03/04/2025 ARIA Treatment Site PRONE LT BREAST ARIA Dose Given To Date (cGy) 3,738 ARIA Session Dosage Given (cGy) 267 ARIA Plan ID PRNE LT BRST ARIA Fractions Treated 14 ARIA Prescribed Dose Per Fraction (cGy) 267 ARIA Prescribed Total Dose (cGy) 4,005 ARIA 03/26/2025 8:56 AM CDT us Not In File Miscellaneous RADIATION ONCOLOGY ORD ERABLES Final Result Performing Organization Address [facility] de Phone Number ARIA * RAD ONC ARIA SESSION SUMMARY (03/25/2025 9:37 AM CDT) Course Name C1_L_Breast _2024 ARIA Course Plan Date 02/24/2025 10:42 AM ARIA Elapsed Days 21 ARIA Treatment Start Date 03/04/2025 ARIA Treatment Site PRONE LT BREAST ARIA Dose Given To Date (cGy) 3,471 ARIA Session Dosage Given (cGy) 267 ARIA Plan ID PRNE LT BRST ARIA Fractions Treated 13 ARIA Prescribed Dose Per Fraction (cGy) 267 ARIA Prescribed Total Dose (cGy) 4,005 ARIA 03/25/2025 9:37 AM CDT us Not In File Miscellaneous RADIATION ONCOLOGY ORD ERABLES Final Result ARIA * RAD ONC ARIA SESSION SUMMARY (03/20/2025 9:32 AM CDT) Course Name C1_L_Breast ARIA Course Plan Date 02/24/2025 10:42 AM ARIA Elapsed Days 16 ARIA Treatment Start Date 03/04/2025 ARIA Treatment Site PRONE LT BREAST ARIA Dose Given To Date (cGy) 3,204 ARIA Session Dosage Given (cGy) 267 ARIA Plan ID PRNE LT BRST ARIA Fractions Treated 12 ARIA Prescribed Dose Per Fraction (cGy) 267 ARIA Prescribed Total Dose (cGy) 4,005 ARIA 03/20/2025 9:32 AM CDT us Not In File Miscellaneous RADIATION ONCOLOGY ORD ERABLES Final Result Performing Organization Address [facility]/ZIP Co de Phone Number ARIA * RAD ONC ARIA SESSION SUMMARY (03/19/2025 9:38 AM CDT) Course Name C1_L_Breast ARIA Course Plan Date 02/24/2025 10:42 AM ARIA Elapsed Days 15 ARIA Treatment Start Date 03/04/2025 ARIA Treatment Site PRONE LT BREAST ARIA Dose Given To Date (cGy) 2,937 ARIA Session Dosage Given (cGy) 267 ARIA Plan ID PRNE LT BRST ARIA Fractions Treated 11 ARIA Prescribed Dose Per Fraction (cGy) 267 ARIA Prescribed Total Dose (cGy) 4,005 ARIA 03/19/2025 9:38 AM CDT us Not In File Miscellaneous RADIATION ONCOLOGY ORD ERABLES Final Result ARIA * RAD ONC ARIA SESSION SUMMARY (03/18/2025 10:02 AM CDT) Course Name C1_L_Breast ARIA Course Plan Date 02/24/2025 10:42 AM ARIA Elapsed Days 14 ARIA Treatment Start Date 03/04/2025 ARIA Treatment Site PRONE LT BREAST ARIA Dose Given To Date (cGy) 2,670 ARIA Session Dosage Given (cGy) 267 ARIA Plan ID PRNE LT BRST ARIA Fractions Treated 10 ARIA Prescribed Dose Per Fraction (cGy) 267 ARIA Prescribed Total Dose (cGy) 4,005 ARIA 03/18/2025 10:0 2 AM CDT us Not In File Miscellaneous RADIATION ONCOLOGY ORD ERABLES Final Result Performing Organization Address City/[facility] Co de Phone Number ARIA * RAD ONC ARIA SESSION SUMMARY (03/17/2025 9:40 AM CDT) Course Name C1_L_Breast _2024 ARIA Course Plan Date 02/24/2025 10:42 AM ARIA Elapsed Days 13 ARIA Treatment Start Date 03/04/2025 ARIA Treatment Site PRONE LT BREAST ARIA Dose Given To Date (cGy) 2,403 ARIA Session Dosage Given (cGy) 267 ARIA Plan ID PRNE LT BRST ARIA Fractions Treated 9 ARIA Prescribed Dose Per Fraction (cGy) 267 ARIA Prescribed Total Dose (cGy) 4,005 ARIA 03/17/2025 9:40 AM CDT us Not In File Miscellaneous RADIATION ONCOLOGY ORD ERABLES Final Result Performing Organization Address [facility] Co de Phone Number ARIA * RAD ONC ARIA SESSION SUMMARY (03/14/2025 9:34 AM CDT) Course Name C1_L_Breast _2024 ARIA Course Plan Date 02/24/2025 10:42 AM ARIA Elapsed Days 10 ARIA Treatment Start Date 03/04/2025 ARIA Treatment Site PRONE LT BREAST ARIA Dose Given To Date (cGy) 2,136 ARIA Session Dosage Given (cGy) 267 ARIA Plan ID PRNE LT BRST ARIA Fractions Treated 8 ARIA Prescribed Dose Per Fraction (cGy) 267 ARIA Prescribed Total Dose (cGy) 4,005 ARIA 03/14/2025 9:34 AM CDT us Not In File Miscellaneous RADIATION ONCOLOGY ORD ERABLES Final Result Performing Organization Address [facility] de Phone Number ARIA * RAD ONC ARIA SESSION SUMMARY (03/13/2025 8:55 AM CDT) Course Name C1_L_Breast _2024 ARIA Course Plan Date 02/24/2025 10:42 AM ARIA Elapsed Days 9 ARIA Treatment Start Date 03/04/2025 ARIA Treatment Site PRONE LT BREAST ARIA Dose Given To Date (cGy) 1,869 ARIA Session Dosage Given (cGy) 267 ARIA Plan ID PRNE LT BRST ARIA Fractions Treated 7 ARIA Prescribed Dose Per Fraction (cGy) 267 ARIA Prescribed Total Dose (cGy) 4,005 ARIA 03/13/2025 8:55 AM CDT us Not In File Miscellaneous RADIATION ONCOLOGY ORD ERABLES Final Result Performing Organization Address [facility] de Phone Number ARIA * RAD ONC ARIA SESSION SUMMARY (03/12/2025 9:14 AM CDT) Course Name C1_L_Breast ARIA Course Plan Date 02/24/2025 10:42 AM ARIA Elapsed Days 8 ARIA Treatment Start Date 03/04/2025 ARIA Treatment Site PRONE LT BREAST ARIA Dose Given To Date (cGy) 1,602 ARIA Session Dosage Given (cGy) 267 ARIA Plan ID PRNE LT BRST ARIA Fractions Treated 6 ARIA Prescribed Dose Per Fraction (cGy) 267 ARIA Prescribed Total Dose (cGy) 4,005 ARIA 03/12/2025 9:14 AM CDT us Not In File Miscellaneous RADIATION ONCOLOGY ORD ERABLES Final Result Performing Organization Address [facility] Co de Phone Number ARIA * RAD ONC ARIA SESSION SUMMARY (03/10/2025 9:42 AM CDT) Course Name C1_L_Breast ARIA Course Plan Date 02/24/2025 10:42 AM ARIA Elapsed Days 6 ARIA Treatment Start Date 03/04/2025 ARIA Treatment Site PRONE LT BREAST ARIA Dose Given To Date (cGy) 1,335 ARIA Session Dosage Given (cGy) 267 ARIA Plan ID PRNE LT BRST ARIA Fractions Treated 5 ARIA Prescribed Dose Per Fraction (cGy) 267 ARIA Prescribed Total Dose (cGy) 4,005 ARIA 03/10/2025 9:42 AM CDT us Not In File Miscellaneous RADIATION ONCOLOGY ORD ERABLES Final Result ARIA * RAD ONC ARIA SESSION SUMMARY (03/07/2025 9:44 AM CDT) Course Name C1_L_Breast _2024 ARIA Course Plan Date 02/24/2025 10:42 AM ARIA Elapsed Days 3 ARIA Treatment Start Date 03/04/2025 ARIA Treatment Site PRONE LT BREAST ARIA Dose Given To Date (cGy) 1,068 ARIA Session Dosage Given (cGy) 267 ARIA Plan ID PRNE BRST ARIA Fractions Treated 4 ARIA Prescribed Dose Per Fraction (cGy) 267 ARIA Prescribed Total Dose (cGy) 4,005 ARIA 03/07/2025 9:44 AM CDT us Not In File Miscellaneous RADIATION ONCOLOGY ORD ERABLES Final Result ARIA * RAD ONC ARIA SESSION SUMMARY (03/06/2025 9:34 AM CDT) Course Name C1_L_Breast _2024 ARIA Course Plan Date 02/24/2025 10:42 AM ARIA Elapsed Days 2 ARIA Treatment Start Date 03/04/2025 ARIA Treatment Site PRONE LT BREAST ARIA Dose Given To Date (cGy) 801 ARIA Session Dosage Given (cGy) 267 ARIA Plan ID PRNE LT BRST ARIA Fractions Treated 3 ARIA Prescribed Dose Per Fraction (cGy) 267 ARIA Prescribed Total Dose (cGy) 4,005 ARIA 03/06/2025 9:34 AM CDT us Not In File Miscellaneous RADIATION ONCOLOGY ORD ERABLES Final Result Performing Organization Address City/[facility] Co de Phone Number ARIA * RAD ONC ARIA SESSION SUMMARY (03/05/2025 8:28 AM CDT) Course Name C1_L_Breast _2024 ARIA Course Plan Date 02/24/2025 10:42 AM ARIA Elapsed Days 1 ARIA Treatment Start Date 03/04/2025 ARIA Treatment Site PRONE LT BREAST ARIA Dose Given To Date (cGy) 534 ARIA Session Dosage Given (cGy) 267 ARIA Plan ID PRNE LT BRST ARIA Fractions Treated 2 ARIA Prescribed Dose Per Fraction (cGy) 267 ARIA Prescribed Total Dose (cGy) 4,005 ARIA 03/05/2025 8:28 AM CDT us Not In File Miscellaneous RADIATION ONCOLOGY ORD ERABLES Final Result Performing Organization Address [facility] de Phone Number ARIA * RAD ONC ARIA SESSION SUMMARY (03/04/2025 9:36 AM CDT) Course Name C1_L_Breast ARIA Course Plan Date 02/24/2025 10:42 AM ARIA Elapsed Days 0 ARIA Treatment Start Date 03/04/2025 ARIA Treatment Site PRONE LT BREAST ARIA Dose Given To Date (cGy) 267 ARIA Session Dosage Given (cGy) 267 ARIA Plan ID PRNE LT BRST ARIA Fractions Treated 1 ARIA Prescribed Dose Per Fraction (cGy) 267 ARIA Prescribed Total Dose (cGy) 4,005 ARIA 03/04/2025 9:36 AM CDT us Not In File Miscellaneous RADIATION ONCOLOGY ORD ERABLES Final Result ARIA * SC AN ELECTIVE SUPRAGLOTTIC AIRWAY, SC AN PROCEDURE PLACEHOLDER (01/23/2025 10:57 AM CDT) Narrative Suguitan, Sunitha E., MILL TURNER - 01/23/2025 10:57 AM CDT Sunitha Morle CRNA 01/23/2025 10:57 AM Airway Patient location: OR Urgency: elective Indications for airway management: anesthesia Difficult airway: no Staff: Supervising provider: Adarsh Alegria MD Placed by: MILL TURNER: Sunitha Morel CRNA Emergent airway documentation: Risks and benefits discussed: yes Consent obtained: yes Consent given by: patient Airway prep: Preoxygenated: yes Patient position: sniffing Mask difficulty assessment: 0 - not attempted Spontaneous ventilation during airway: absent Sedation level during airway: deep Final airway details: Final airway type: supraglottic airway Final supraglottic airway: IGel SGA size: 4 Number of attempts: 1 Planned trial extubation: yes us Adarsh Alegria MD ANESTHESIA ORDERAB LES Final Result * Surgical pathology (01/23/2025 10:53 AM CDT) Tissue specimen (specimen) (Breast Additional Margin) 01/23/2025 10:53 AM CDT Narrative PATHOLOGY [facility] - 01/29/2025 10:12 AM CDT [facility] Department of Pathology [address] [place] [address] Note to Patients: This report may contain a detailed description of human tissue sent by a health care provider to the laboratory for pathologic evaluation. The content of this report is essential for diagnosis and may provide important critical findings. This information may be unfamiliar to patients to review without a medical professional present. It is advised that the patient review this report in the presence of a health care provider who can answer questions and explain the details. Final Report Patient Name: ROMANA CARTER : 1960 (Age: 64) Gender: F Address: [facility] [address] [place] [address] Hospital #: [id number] Service: Surgery Location: Patient Type: [facility] OUT[facility] Taken: 01/23/2025 Received: 01/23/2025 Accessioned: 01/23/2025 Reported: 01/29/2025 Physician(s): Giacomo Abel P.A. Diagnosis: Left breast, additional inferior margin, margin re-excision - Benign breast tissue with fibrosis, fat necrosis, and changes consistent with prior surgical procedure - Negative for atypia or malignancy Freida Yates M.D. Report Electronically Reviewed and Signed Out By Freida Yates M.D. 01/29/2025 10:12:20 Specimen(s) Received: A: LEFT BREAST ADDITIONAL INFERIOR MARGIN Microscopic Description: No atypical hyperplasia, carcinoma in situ, or carcinoma is identified. No atypical hyperplasia, carcinoma in situ, or carcinoma is identified. Clinical History: The patient is a 64-year-old woman with left breast cancer. Operative procedure: left breast reexcision lumpectomy. Gross Description Received in a single formalin filled container labeled with the patient's identifiers and left breast additional inferior margin is a 4.7 x 4.0 x 1.8 cm, unoriented, roughly ring shaped portion of friable fibrofatty tissue with multiple defects that was. Inked black. Radially sectioned to show fibrofatty tissue. Labeled A1 to A6. Jar 0. mns12/[id number]/2701/24/2025 10:35 Yanely Erwin MS, PA (ASC Microscopic slide review and interpretation for this case was performed at [facility], Department of Surgical Pathology, [address] [facility] [place], [place] [id number] [address] CLIA # [id number] Natan Pepe MD LAB PATHOLOGY ORDERABLES Final Result PATHOLOGY [facility] * eGFR (01/20/2025 1:14 PM CDT) eGFR 86 >=60 mL/min/1. 73 m2 Comment: Interpretive Data Reference Interval Normal >/= 90 mL/min/1.73m2 Mildly decreased* 60 - 89 mL/min/1.73m2 Mildly to moderately decreased 45 - 59 mL/min/1.73m2 Moderately to severely decreased 30 - 44 mL/min/1.73m2 Severely decreased 15 - 29 mL/min/1.73m2 Kidney Failure < 15 mL/min/1.73m2 *Relative to young adult level Estimated glomerular filtration rate is determined by the 2020 CKD-EPI equation recommended by the National Kidney Foundation (A Unifying Approach to GFR Estimation: Recommendations of the NKF-ASK Task Force on Reassessing the Inclusion of Race in Diagnosing Kidney Disease, JASN 2020). The CKD-EPI equation should not be used for patients with unstable renal function and has not been validated in children and those over 70. Current interpretive data was last reviewed 2021. Blood 01/20/2025 1:14 PM CDT 01/20/2025 8:42 PM CDT us Adarsh Alegria MD LAB BLOOD ORDERABL ES Final Result [facility] [address] Department [place] [address] * Basic metabolic panel (01/20/2025 1:14 PM CDT) Sodium 142 135 - 145 mmol/L Potassium, pl 4.5 3.3 - 4.9 mmol/L [facility] Chloride 102 97 - 110 mmol/L [facility] CO2 27 22 - 32 mmol/L [facility] Anion gap 13 2 - 15 mmol/L [facility] BUN 18 6 - 25 mg/dL [facility] Creatinine 0.76 0.60 - 1.10 mg/dL [facility] Glucose 105 70 - 199 mg/dL [facility] Comment: Interpretive Data Fasting glucose >/= 126 mg/dl is diagnostic for diabetes. Fasting is defined as no caloric intake for at least 8 hours. Fasting glucose between 100 mg/dl to 125 mg/dl is diagnostic of prediabetes. In a patient with classic symptoms of hyperglycemia or hyperglycemic crisis, a random glucose >/= 200 mg/dl is diagnostic for diabetes. In the absence of unequivocal hyperglycemia, results should be confirmed by repeat testing. The classification and Diagnosis of Diabetes Diabetes Care 2021; 46: S19-S40. Current interpretive data was last revised 2022. 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 CLINICAL INFORMATION: Current height: 66 inches Maximum height: 66 inches Weight: 297 pounds Risk factors: Postmenopausal, cancer COMPARISON: 08/29/2007 Dissimilar scan types or analysis methods precludes assessment for calculating a significant change. FINDINGS: AP LUMBAR SPINE L1-L4: Total BMD is 1.079 g/cm2 T-score is 0.3 LEFT HIP: Total BMD is 0.882 g/cm2 T-score is -0.5 Femoral neck BMD is 0.735 g/cm2 T-score is -1.0 FRAX: FRAX not reported due to T-scores of hip, femoral neck and/or spine being at or above -1.0 (Normal). IMPRESSION: Normal bone mass. REFERENCE: Bone mineral density: T-Score: Normal (T-score above or = -1.0) Low bone mass (T-score between -1.0 and -2.5) replaces the previously used term osteopenia Osteoporosis (T-score = or below -2.5) Z-Score: Within the expected range for age (Z-score above -2.0) Below the expected range for age (Z-score is -2.0 or below) Please see below follow up recommendations. Medical evaluation for secondary causes of low bone mineral density may be appropriate. FRAX is a World Health Organization validated fracture risk assessment tool that calculates a person's 10 year probability of a major osteoporosis related fracture and hip fracture. According to the National Osteoporosis Foundation guidelines, postmenopausal women and men age 50 or older with low bone mass and a 10 year probability of a major osteoporosis related fracture = or greater than 20% or a 10 year probability of a hip fracture = or greater than 3% should be considered for pharmacological treatment for the prevention of osteoporosis. For further information, including treatment recommendations, please refer to the 2019 ISCD Official Positions (http://www.iscd.org) and the NOF's Clinician's Guide to Prevention and Treatment of Osteoporosis (http://www.nof.org/professionals/clinical-guidelines) THIS IS AN ELECTRONICALLY VERIFIED FINAL REPORT 01/09/2025 2:47 PM - Electronically signed by Natan Block M.D. 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 CLINICAL INFORMATION: Current height: 66 inches Maximum height: 66 inches Weight: 297 pounds Risk factors: Postmenopausal, cancer COMPARISON: 08/29/2007 Dissimilar scan types or analysis methods precludes assessment for calculating a significant change. FINDINGS: AP LUMBAR SPINE L1-L4: Total BMD is 1.079 g/cm2 T-score is 0.3 LEFT HIP: Total BMD is 0.882 g/cm2 T-score is -0.5 Femoral neck BMD is 0.735 g/cm2 T-score is -1.0 FRAX: FRAX not reported due to T-scores of hip, femoral neck and/or spine beingat or above -1.0 (Normal). IMPRESSION: Normal bone mass. REFERENCE: Bone mineral density: T-Score: Normal (T-score above or = -1.0) Low bone mass (T-score between -1.0 and -2.5) replaces thepreviously used term osteopenia Osteoporosis (T-score = or below -2.5) Z-Score: Within the expected range for age (Z-score above -2.0) Below the expected range for age (Z-score is -2.0 or below) Please see below follow up recommendations. Medical evaluation forsecondary causes of low bone mineral density may be appropriate. FRAX is a World Health Organization validated fracture risk assessmenttool that calculates a person's 10 year probability of a major osteoporosisrelated fracture and hip fracture. According to the National OsteoporosisFoundation guidelines, postmenopausal women and men age 50 or older with low bonemass and a 10 year probability of a major osteoporosis related fracture = or greater than 20% or a 10 year probability of a hip fracture = or greaterthan 3% should be considered for pharmacological treatment for the preventionof osteoporosis. For further information, including treatment recommendations, please referto the 2019 ISCD Official Positions (http://www.iscd.org) and the NOF's Clinician's Guide to Prevention and Treatment of Osteoporosis (http://www.nof.org/professionals/clinical-guidelines) THIS IS AN ELECTRONICALLY VERIFIED FINAL REPORT 01/09/2025 2:47 PM - Electronically signed by Natan Block M.D. MF: [email or web address] Report ID: [id number] Reading Location: [place] [address] Jhon CHAN IMSumanth DXA PROCEDURES Final Result * (ABNORMAL) Screening Mammogram Bilateral W Jc (07/26/2024 8:50 AM CDT) Anatomical Region Laterality Modality Breast Bilateral Mammography Impressions 07/26/2024 9:23 AM CDT BI-RADS ATLAS category (overall): 0 - Incomplete: Needs Additional Imaging Evaluation 1. Left breast spiculated mass.Further evaluation with diagnostic left mammography and possible diagnostic left breast ultrasound is recommended. 2. No mammographic evidence of malignancy in the right breast. Routine screening mammography of the right breast is recommended in 1 year. The patient has been or will be contacted. Narrative 07/26/2024 9:23 AM CDT Screening Mammogram Bilateral W Jc: 07/26/24 The study was acquired using full field digital technology and interpreted from soft copy. 2D digital mammographic views, as well as 3D digital tomosynthesis were performed in the CC and MLO projections. CLINICAL: Screening mammogram, encounter for (imaging center [facility]). No relevant medical history has been documented for this patient. History of breast cancer in Daughter, Mother's Sister, Grandchild. COMPARISONS: 08/01/2007 Screening Mammogram 2D Bilateral BREAST TISSUE: There are scattered areas of fibroglandular density. FINDINGS: There is a spiculated mass in the upper outer left breast, middle breast. There is no new suspicious finding in the right breast on mammogram. us Jhon CHAN IMG MAMMO PROCEDURES Final Resu lt * Stool DNA - Cologuard (02/06/2024 10:30 AM CDT) Stool DNA - Cologuard Negative Negative [employer] (CLIA #:[id number]) Comment: NEGATIVE TEST RESULT. A negative Cologuard result indicates a low likelihood that a colorectal cancer (CRC) or advanced adenoma (adenomatous polyps with more advanced pre-malignant features) is present. The chance that a person with a negative Cologuard test has a colorectal cancer is less than 1 in 1500 (negative predictive value >99.9%) or has an advanced adenoma is less than 5.3% (negative predictive value 94.7%). These data are based on a prospective cross-sectional study of 10,000 individuals at average risk for colorectal cancer who were screened with both Cologuard and colonoscopy. (Yahir Naik al, N Engl J Med 2014;370(14):4778-3036) The normal value (reference range) for this assay is negative. COLOGUARD RE-SCREENING RECOMMENDATION: Periodic colorectal cancer screening is an important part of preventive healthcare for asymptomatic individuals at average risk for colorectal cancer. Following a negative Cologuard result, the [place] [employer] and U.S. Multi-Society Task Force screening guidelines recommend a Cologuard re-screening interval of 3 years. References: [place] [employer] Guideline for Colorectal Cancer Screening: https://www.cancer.org/cancer/oyyzb-yoaslq-pembkb/uwsjwtfql-lhpggmmhd-vyqqiid/ac s-rec ommendations.html.; Donell DK, Evelio CR, Trino AvelarK, Colorectal Cancer Screening: Recommendations for Physicians and Patients from the U.S. Multi-Society Task Force on Colorectal Cancer Screening , Am J Gastroenterology 2017; 112:4153-7399. TEST DESCRIPTION: Composite algorithmic analysis of stool DNA-biomarkers with hemoglobin immunoassay. Quantitative values of individual biomarkers are not reportable and are not associated with individual biomarker result reference ranges. Cologuard is intended for colorectal cancer screening of adults of either sex, 45 years or older, who are at average-risk for colorectal cancer (CRC). Cologuard has been approved for use by the [place] FDA. The performance of Cologuard was established in a cross sectional study of average-risk adults aged 50-84. Cologuard performance in patients ages 45 to 49 years was estimated by sub-group analysis of near-age groups. Colonoscopies performed for a positive result may find as the most clinically significant lesion: colorectal cancer [4.0%], advanced adenoma (including sessile serrated polyps greater than or equal to 1cm diameter) [20%] or non- advanced adenoma [31%]; or no colorectal neoplasia [45%]. These estimates are derived from a prospective cross-sectional screening study of 10,000 individuals at average risk for colorectal cancer who were screened with both Cologuard and colonoscopy. (Yahir Naik al, N Engl J Med 2014;370(14):4968-5244.) Cologuard may produce a false negative or false positive result (no colorectal cancer or precancerous polyp present at colonoscopy follow up). A negative Cologuard test result does not guarantee the absence of CRC or advanced adenoma (pre-cancer). The current Cologuard screening interval is every 3 years. ([place] [employer] and U.S. Multi-Society Task Force). Cologuard performance data in a 10,000 patient pivotal study using colonoscopy as the reference method can be accessed at the following location: www.[employer].com/results. Additional description of the Cologuard test process, warnings and precautions can be found at www.cologuard.com. Stool 02/06/2024 10:3 0 AM CDT 02/07/2024 10:09 AM CDT [facility] [place] Final Result [facility] (CLIA #:[id number]) [address] [place] [address] * Hepatitis C antibody Blood (01/05/2024 11:53 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) Hep C Ab Nonreactive Nonreactive Comment: Antibodies to HCV not detected. Does NOT exclude the possibility of recent exposure to HCV. Current interpretive data was last revised on 22 Interpretive Data Nonreactive: Antibodies to HCV not detected. Does NOT exclude the possibility of recent exposure to HCV. Equivocal: Equivocal for HCV antibodies. Supplemental molecular testing will be automatically performed to determine infection status in accordance with current CDC screening recommendations. Reactive: Positive for HCV antibodies. This may represent current or past HCV infection. Supplemental molecular testing will be automatically performed to determine current infection status in accordance with current CDC screening recommendations. Interpretive data was last revised on 2020. Blood 01/05/2024 11:5 3 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 01/05/2024 12:37 PM BONE CHAR KILN OPERATOR us [facility] MICROBIOLOGY - GENERAL ORDTricia RABNEHA Final Result [facility] [address] [facility] Department [place] [address] from Last 3 Months or Most Recently Relevant to Health Maintenance Insurance [facility] MEDICARE ADVANTAGE [facility] MEDICARE ADVANTAGE [place] [employer] [facility] Advance Directives For more information, please contact: [phone] * Full Code (Latest Code Status on File) Date Activated Date Inactivated Comments 01/23/2025 11:14 AM 01/23/2025 5:41 PM * Full Code Date Activated Date Inactivated Comments 10/16/2024 2:46 PM 10/16/2024 10:06 PM Care Teams Shopper'S Aide Relationship Specialty Start Date End Date Jhon Gatica PA PCP - General Family Medicine 07/26/22 Natan Pepe MD [address] [place] [address] [address] [place], [place] [id number] Surgeon General Surgery 09/12/24 Bernie Monahan MD [address] [place] [id number] Radiation Oncologist Radiation Oncology 09/12/24 Roe Ferrer DO [address] [place] [address] [id number] Medical Oncologist/Cath Lab Radiology Technician Hematology and Oncology 02/24/25
--- OUTSIDE RECORDS SUMMARY | 2025-04-06 16:55 | XMS_ITS | Referral Summary ---
Author Organization [facility] [address] [facility] Address [address] [place] [address] Care Team Providers Care Drum Attendant Name Role Phone Jhon Gatica Primary Care Provider [phone] Natan Pepe MD Unavailable [phone] Bernie Monahan MD Unavailable [phone] Roe Ferrer DO Unavailable [phone] Encounters Date Type Department Care Team Description 03/27/[address] [facility] Office Building 2 Radiation Oncology [address] [place] [address] Bernie Monahan MD 03/27/2025 Orders Only RAD ONC TREATMENTS Miscellaneous, Not In File 03/27/2025 7:[address] [facility] Office Building 2 Radiation Oncology [address] [place] [address] Bernie Monahan MD 03/26/[address] [facility] Office Building 2 Radiation Oncology [address] [place] [address] Bernie Monahan MD Malignant neoplasm of upper-outer quadrant of left breast in female, estrogen receptor positive (HCC) (Primary Dx) 03/26/2025 Orders Only RAD ONC TREATMENTS Miscellaneous, Not In File 03/26/2025 8:45 AM CDT Treatment [facility] Office Building 2 Radiation Oncology [address] [place] [address] 03/25/2025 Orders Only RAD ONC TREATMENTS Miscellaneous, Not In File 03/25/2025 9:30 AM CDT Treatment [facility] Office Building 2 Radiation Oncology [address] [place] [address] 86607 03/20/2025 Orders Only RAD ONC TREATMENTS Miscellaneous, Not In File 03/20/2025 9:30 AM CDT Treatment [facility] Office Building 2 Radiation Oncology [address] [place] [address] 57[address] 03/19/2025 Orders Only RAD ONC TREATMENTS Miscellaneous, Not In File 03/19/2025 OTV [facility] Office Building 2 Radiation Oncology [address] [place] [address] 9[address]35 Bernie Monahan MD Malignant neoplasm of upper-outer quadrant of left breast in female, estrogen receptor positive (HCC) (Primary Dx) 03/19/2025 9:30 AM CDT Treatment [facility] Office Building 2 Radiation Oncology [address] [place] [address] 03/18/2025 Orders Only RAD ONC TREATMENTS Miscellaneous, Not In File 03/18/2025 9:30 AM CDT Treatment [facility] Office Building 2 Radiation Oncology [address] [place] [address] 43835 03/17/2025 Orders Only RAD ONC TREATMENTS Miscellaneous, Not In File 03/17/2025 9:30 AM CDT Treatment [facility] Office Building 2 Radiation Oncology [address] [place] [address] 66616 03/14/2025 Orders Only RAD ONC TREATMENTS Miscellaneous, Not In File 03/14/2025 9:30 AM CDT Treatment [facility] Office Building 2 Radiation Oncology [address] [place] [address] 53232 03/13/2025 Orders Only RAD ONC TREATMENTS Miscellaneous, Not In File 03/13/2025 9:30 AM CDT Treatment [facility] Office Building 2 Radiation Oncology [address] [place] [address] 31591 03/12/2025 [facility] Building 2 Radiation Oncology [address] [place] [address] 86526 Bernie Monahan MD 03/12/2025 Orders Only RAD ONC TREATMENTS Miscellaneous, Not In File 03/12/2025 9:30 AM CDT Treatment [facility] Office Building 2 Radiation Oncology [address] [place] [address] 49482 Malignant neoplasm of upper-outer quadrant of left breast in female, estrogen receptor positive (HCC) (Primary Dx) 03/10/2025 Orders Only RAD ONC TREATMENTS Miscellaneous, Not In File 03/10/2025 9:30 AM T [facility] Medical Office [facility] 2 Radiation Oncology [address] [place] [address] 25023 03/07/2025 Orders Only RAD ONC TREATMENTS Miscellaneous, Not In File 03/07/2025 9:30 AM CDT Treatment [facility] Medical Office [facility] 2 Radiation Oncology [address] [place] [address] 76436 03/06/2025 Orders Only RAD ONC TREATMENTS Miscellaneous, Not In File 03/06/2025 9:30 AM T [facility] Medical Office Building 2 Radiation Oncology [address] [place] [address] 62[address] 03/05/2025 [facility] Office Building 2 Radiation Oncology [address] [place] [address] Bernie Monahan MD Malignant neoplasm of upper-outer quadrant of left breast in female, estrogen receptor positive (HCC) (Primary Dx) 03/05/2025 Orders Only RAD ONC TREATMENTS Miscellaneous, Not In File 03/05/2025 8:15 AM T Treatment [facility] Office Building 2 Radiation Oncology [address] [place] [address] 25346 03/04/2025 Orders Only RAD ONC TREATMENTS Miscellaneous, Not In File 03/04/2025 9:30 AM CDT Treatment [facility] Office Building 2 Radiation Oncology [address] [place] [address] 079[address] Bernie Monahan MD 03/04/2025 9:45 AM CDT Treatment [facility] Office Building 2 Radiation Oncology [address] [place] [address] 54452 Bernie Monahan MD 02/25/2025 7:45 PM CDT Treatment [facility] Office Building 2 Radiation Oncology [address] [place] [address] 58682 02/24/2025 9:30 AM CDT Treatment [facility] Office Building 2 Radiation Oncology [address] [place] [address] 29558 Bernie Monahan MD 02/24/2025 9:00 AM CDT Office Visit [facility] Office Building 2 Radiation Oncology [address] [place] [address] 12170 Bernie Monahan MD Malignant neoplasm of upper-outer quadrant of left breast in female, estrogen receptor positive (HCC) (Primary Dx) 02/17/2025 10:15 AM CDT Office Visit [facility] Oncology [address] [place] [phone] Roe Ferrer DO Malignant neoplasm of left breast in female, estrogen receptor positive, unspecified site of breast (HCC) (Primary Dx); Ductal carcinoma in situ (DCIS) of left breast 02/03/2025 Telephone [facility] Office Building 2 Radiation Oncology [address] [place] [address] Polina Parker 01/23/2025 11:00 AM CDT - 01/23/2025 12:30 PM CDT Surgery [facility] Main OR [facility] [place] [address] Natan Pepe MD LEFT BREAST RE EXCISION LUMPECTOMY 01/23/2025 10:38 AM CDT Anesthesia Event [facility] Main OR [address] [place] [address] Adarsh Alegria MD Lee, Walter, MD 01/23/2025 8:36 AM CDT - 01/23/2025 1:30 PM CDT Hospital Encounter [facility] Main OR [address] [place] [address] Natan Pepe MD History of left breast cancer Discharge Disposition: Discharge to home or self care 01/20/2025 1:14 PM CDT - 01/20/2025 11:59 PM CDT Hospital Encounter [address] [address] Pre-op testing Discharge Disposition: Discharge to home or self care 01/20/2025 1:15 PM CDT Lab [facility] Outpatient Lab at [address] [phone] 01/20/2025 Orders Only [facility] Pre Admit Testing [address] [place] [address] Adarsh Alegria MD Pre-op testing (Primary Dx) 01/08/2025 7:33 AM CDT - 01/08/2025 11:59 PM CDT Hospital Encounter [facility] Medical Office Bl 1 [facility] [address] [address] Menopausal and perimenopausal disorder Discharge Disposition: Discharge to home or self care from Last 3 Months Allergies Active Allergy Reactions Criticality Noted Date [...] from 02/24/2025:Stage IA(pT1b, pN0(sn), cM0, G1, ER+, WV+, HER2-) - Unsigned 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 11/18/2023 Cancer Staging:Clinical stage from 09/18/2024:Stage 0(cTis (DCIS), cN0, cM0, GX, ER+, WV: Not Assessed, HER2: Not Assessed) - Signed by eBrnie Monahan MD on 09/18/2024 Left breast mass 07/30/2024 Assessment & Plan (07/30/2024 9:42 AM CDT): Sched for diagnsotic and ultrasound Umbilical hernia without obstruction and without gangrene 07/30/2024 Assessment & Plan (07/30/2024 9:49 AM CDT): Chronic occasionally painful Refer to general surgery Pure hypercholesterolemia 04/08/2024 Borderline diabetic 04/08/2024 Assessment & Plan (11/13/2024 3:16 PM PRODUCT MANAGER): Poct A1c today Gastroesophageal reflux disease without esophagi tis 06/05/2023 Assessment & Plan (06/05/2023 11:35 PM CDT): Chornic stable and well controlled Continue omeprazole Moderate episode of recurrent major depressive d isorder 01/23/2023 Assessment & Plan (10/05/2023 9:36 AM PRODUCT MANAGER): Chronic and not well controlled Increase sertraline [...] zepbound Assessment & Plan (01/05/2024 10:50 AM PRODUCT MANAGER): Chronic condition she has lost 30 lb in the last 6 months continue with dietary restrictions. Assessment & Plan (10/20/2021 2:49 PM PRODUCT MANAGER): Chronic condition she has lost 30 lb in the last 6 months continue with dietary restrictions. Fibromyalgia 04/13/2021 Assessment & Plan (06/05/2023 9:56 AM CDT): Chronic stable and waxes and wanes. Continue celebrex and gabapentin Assessment & Plan (07/14/2021 10:32 AM CDT): Chronic persistnet Start elavil 25mg q Assessment & Plan (04/13/2021 2:49 PM CDT): Chronic condition Uncontrolled Start savella. Lymphedema of both lower extremities 01/19/2021 Assessment & Plan (04/13/2021 2:44 PM CDT): Order p.t. for lymphedema and for lymphedema pump Assessment & Plan (01/19/2021 10:42 AM CDT): Patient would benefit form lymphedema pump/compression however her insurance will not cover. Primary insomnia 01/21/2019 Assessment & Plan (11/13/2024 3:14 PM PRODUCT MANAGER): Chronic persistent but improved with lunesta Continue current dosing Assessment & Plan (07/30/2024 11:58 PM CDT): Chronic persistent but improved with lunesta Continue current dosing Assessment & Plan (10/05/2023 9:35 AM PRODUCT MANAGER): Chronic not well controlled with increased stress D/c trazadone Continue lunesta Assessment & Plan (06/05/2023 9:55 AM CDT): Chronic persistent Improved with use of lunesta and elavil Continue current regimen Assessment & Plan (01/19/2021 10:44 AM CDT): Chronic condition Stable and responds well to lunesta. Assessment & Plan (10/13/2020 2:27 PM PRODUCT MANAGER): Start trazadone 50mg Assessment & Plan (04/06/2020 5:20 PM CDT): Well controlled on current regimen, no rx changes needed. Continue lifestyle modifications AMANDA (generalized anxiety disorder) 09/26/2018 Assessment & Plan (11/13/2024 3:14 PM PRODUCT MANAGER): Chronic not well controlled Start buspar 10mg bid Assessment & Plan (04/08/2024 10:50 AM CDT): Chronic and not well controlled with breakthrough anxiety situational Start atarax 25mg every day prn #30 Refer to rosa baca in [facility] Assessment & Plan (10/20/2021 2:50 PM PRODUCT MANAGER): Chronic condition Refill Xanax for Assessment & [...] 09/26/2018 Assessment & Plan (11/13/2024 3:20 PM PRODUCT MANAGER): Chronic not well controlled Start Assessment & Plan (10/20/2021 2:50 PM PRODUCT MANAGER): Chronic condition not well controlled will increase [...] no rx changes needed. 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 Not on file Not on file Not on file Last Filed Vital Signs Vital Sign Reading [...] 01/23/2025 8:44 AM CDT Plan of Treatment Not on file Medical Devices Implanted Type Area Rn Occupational Health Device Identifier Shelf Expiration Date Model / Serial / Lot [employer] 13cm Rigid End Bioabsorbable Net Top Sales Service Executive Breast Latex Free [id number] - [id number] Implanted:Qty: 1 on 09/03/2024 by Natan Pepe MD at [facility] Left: Breast [employer] [id number] 11/23/2024 SMARK[employer]ELLEN VA-2S-[id number] / / [id number] 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 [employer] [place] 20ga 5cm Reposition J Curve Wire [employer] Stabilizer [id number] - [id number] Implanted:Qty: 1 on 10/16/2024 by Adam Ford MD at [facility] Left: Breast [employer] [id number] 05/24/2029 [id number] / / [id number] Procedures Procedure Name Priority Date/Time Associated Diagnosis [...] ARIA SESSION SUMMARY 03/04/2025 9:36 AM CDT WV AN PROCEDURE PLACEHOLDER Routine 01/23/2025 10:57 AM CDT WV AN ELECTIVE SUPRAGLOTTIC AIRWAY Routine 01/23/2025 10:57 [...] HEPATITIS C ANTIBODY Routine 01/05/2024 11:53 AM PRODUCT MANAGER Need for hepatitis C screening test from [...] (03/26/2025 8:56 AM CDT) Course Name C1_L_Breast _2025 ARIA Course Plan Date 02/24/2025 10:42 AM [...] ORD ERABLES Final Result Performing Organization Address City/[facility]/ZIP Co de Phone Number ARIA * RAD ONC ARIA SESSION SUMMARY (03/25/2025 9:37 AM CDT) Course Name C1_L_Breast ARIA Course [...] ORD ERABLES Final Result Performing Organization Address City/[facility] Co de Phone Number NAV * RAD ONC ARIA SESSION SUMMARY (03/19/2025 9:38 AM CDT) Course Name C1_L_Breast _2024 ARIA [...] ORD ERABLES Final Result Performing Organization Address [facility] de Phone Number NAV * RAD ONC ARIA SESSION SUMMARY (03/18/2025 10:02 AM CDT) Course Name C1_L_Breast _2024 ARIA [...] Miscellaneous RADIATION ONCOLOGY ORD ERABLES Final Result NAV * RAD ONC ARIA SESSION SUMMARY (03/17/2025 9:40 AM CDT) Course Name C1_L_Breast ARIA Course [...] ORD ERABLES Final Result Performing Organization Address [facility] Co de Phone Number ARIA * RAD ONC ARIA SESSION SUMMARY (03/14/2025 9:34 AM CDT) Course Name C1_L_Breast ARIA Course [...] (03/13/2025 8:55 AM CDT) Course Name C1_L_Breast ARIA Course Plan Date 02/24/2025 10:42 AM ARIA Elapsed Days 9 ARIA Treatment Start Date 03/04/2025 ARIA Treatment Site PRONE LT BREAST ARIA Dose Given To Date (cGy) 1,869 ARIA Session Dosage Given (cGy) 267 ARIA Plan ID PRNE BRST ARIA Fractions Treated 7 ARIA Prescribed Dose Per Fraction (cGy) 267 ARIA Prescribed Total Dose (cGy) 4,005 ARIA 03/13/2025 8:55 AM CDT us Not In File Miscellaneous RADIATION ONCOLOGY ORD ERABLES Final Result Performing Organization Address [facility] Co de Phone Number ARIA * RAD ONC ARIA SESSION SUMMARY (03/12/2025 9:14 AM CDT) Course Name C1_L_Breast _2024 ARIA Course Plan Date 02/24/2025 10:42 AM ARIA Elapsed Days 8 ARIA Treatment Start Date 03/04/2025 ARIA Treatment Site PRONE LT BREAST ARIA Dose Given To Date (cGy) 1,602 ARIA Session Dosage Given (cGy) 267 ARIA [facility] ARIA Fractions Treated 6 ARIA Prescribed Dose Per Fraction (cGy) 267 ARIA Prescribed Total Dose (cGy) 4,005 ARIA 03/12/2025 9:14 AM CDT us Not In File Miscellaneous RADIATION ONCOLOGY ORD ERABLES Final Result Performing Organization Address [facility] de Phone Number ARIA * RAD ONC ARIA SESSION SUMMARY (03/10/2025 9:42 AM CDT) Course Name C1_L_Breast _2024 ARIA [...] ORD ERABLES Final Result Performing Organization Address City/[facility]/ZIP Co de Phone Number NAV * RAD ONC ARIA SESSION SUMMARY (03/07/2025 9:44 AM CDT) Course Name C1_L_Breast _2024 ARIA Course Plan Date 02/24/2025 10:42 AM ARIA Elapsed Days 3 ARIA Treatment Start Date 03/04/2025 ARIA Treatment Site PRONE LT BREAST ARIA Dose Given To Date (cGy) 1,068 ARIA Session Dosage Given (cGy) 267 ARIA Plan ID PRNE LT BRST ARIA Fractions Treated 4 ARIA Prescribed Dose Per Fraction (cGy) 267 ARIA Prescribed Total Dose (cGy) 4,005 ARIA 03/07/2025 9:44 AM CDT us Not In File Miscellaneous RADIATION ONCOLOGY ORD ERABLES Final Result Performing Organization Address [facility] de Phone Number ARIChaya * RAD ONC ARIA SESSION SUMMARY (03/06/2025 9:34 AM CDT) Course Name C1_L_Breast ARIA Course [...] ORD ERABLES Final Result Performing Organization Address City/[facility] Co de Phone Number ARIA * RAD ONC ARIA SESSION SUMMARY (03/05/2025 8:28 AM CDT) Course Name C1_L_Breast _2025 ARIA Course Plan Date 02/24/2025 10:42 AM [...] Miscellaneous RADIATION ONCOLOGY ORD ERABLES Final Result ARIChaya * RAD ONC ARIA SESSION SUMMARY (03/04/2025 9:36 AM CDT) Course Name C1_L_Breast _2024 ARIA [...] ONCOLOGY ORD ERABLES Final Result ARIA * WV AN ELECTIVE SUPRAGLOTTIC AIRWAY, WV AN PROCEDURE PLACEHOLDER (01/23/2025 10:57 AM CDT) Narrative Sunitha Morel CRNA - 01/23/2025 10:57 AM CDT Sunitha Morel CRNA 01/23/2025 10:57 AM Airway Patient location: OR Urgency: elective Indications for airway management: anesthesia Difficult airway: no Staff: Supervising provider: Adarsh Alegria MD Placed by: ZEKE: Sunitha Morel CRNA Emergent airway documentation: Risks [...] of attempts: 1 Planned trial extubation: yes Adarsh Alegria MD ANESTHESIA ORDERAB LES Final Result * Surgical pathology (01/23/2025 10:53 AM CDT) Tissue specimen (specimen) (Breast Additional Margin) 01/23/2025 10:53 AM CDT Narrative PATHOLOGY [facility] - 01/29/2025 10:12 AM CDT [facility] Department of Pathology [address] [place] [address] Note to Patients: This report may contain [...] : 1960 (Age: 64) Gender: F Address: [address] [place] [address] [place] [address] Hospital #: [id number] Service: Surgery Location: Patient Type: [facility] OUTPATIENT Taken: 01/23/2025 Received: 01/23/2025 Accessioned: 01/23/2025 [...] interpretation for this case was performed at [facility], Department of Surgical Pathology, [address] [facility] [place], [place] [id number], [place] [address] CLIA # [id number] Natan Pepe MD LAB PATHOLOGY ORDERABLES Final Result PATHOLOGY [facility] * eGFR (01/20/2025 1:14 PM CDT) [...] 1:14 PM CDT 01/20/2025 8:42 PM CDT Adarsh Alegria MD LAB BLOOD ORDERABL ES Final Result Performing Organization Address City/[facility]/ZIP Co de Phone Number [facility] [address] [place] [address] * Basic metabolic panel (01/20/2025 1:14 PM CDT) Sodium 142 135 - 145 mmol/L Potassium, pl 4.5 3.3 - 4.9 mmol/L [facility] Chloride 102 97 - 110 mmol/L [facility] CO2 27 22 - 32 mmol/L [facility] Anion gap 13 2 - 15 mmol/L [facility] BUN 18 6 - 25 mg/dL [facility] Creatinine 0.76 0.60 - 1.10 mg/dL [facility] Glucose 105 70 - 199 mg/dL [facility] Comment: Interpretive Data Fasting glucose >/= [...] classification and Diagnosis of Diabetes Diabetes Care 202; 46: S19-S40. Current interpretive data was last revised 2022. Calcium 9.5 8.5 - 10.3 mg/dL [facility] Blood 01/20/2025 1:14 PM CDT 01/20/2025 8:38 PM CDT us Adarsh Alegria MD LAB BLOOD ORDERABL ES Final Result [facility] [address] [address] [place] [address] * Dexa Axial Skeleton Bone Density 1 or 2 Site (01/08/2025 7:46 AM CDT) Anatomical Region Laterality Modality Body N/A Mammography 01/09/2025 2:45 PM CDT Narrative 01/09/2025 2:47 PM CDT EXAM DESCRIPTION: DEXA AXIAL SKELETON BONE DENSITY 1 OR MORE SITES REASON FOR STUDY: 64 y/o year old F with given history of: screening Rn Occupational Health/Model: Antengo A (S/N [id number]) Facility LSC value of 0.022 for the [...] Natan Block M.D. 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 MF: LEONILA Report ID: [id number] Reading Location: [place] [address] Jhon CHAN IM DXA PROCEDURES Final Result * (ABNORMAL) Screening [...] Screening mammogram, encounter for (imaging center [facility]). No relevant medical history has been documented [...] CDT) Stool DNA - Cologuard Negative Negative [facility] (CLIA #:[id number]) Comment: NEGATIVE TEST RESULT. A negative Cologuard [...] screened with both Cologuard and colonoscopy. (Yahir Watt et al, N Engl J Med 2014;370(14):8638-8000) The normal value (reference range) for this assay is negative. COLOGUARD RE-SCREENING RECOMMENDATION: Periodic colorectal cancer screening is an important part of preventive healthcare for asymptomatic individuals at average risk for colorectal cancer. Following a negative Cologuard result, the [place] Cancer Society and U.S. Multi-Society Task Force screening guidelines recommend a Cologuard re-screening interval of 3 years. References: [place] [employer] Guideline for Colorectal Cancer Screening: https://www.cancer.org/cancer/soppf-kikyua-mgwtqt/wcvqzopky-mkmgfbulb-iblvuek/ac s-rec ommendations.html.; Donell DK, Evelio GAINES, Dominitz JK, Colorectal Cancer Screening: Recommendations for Physicians and Patients from the U.S. Multi-Society Task Force on Colorectal Cancer Screening , Am J Gastroenterology 2017; 112:7206-9746. TEST DESCRIPTION: Composite algorithmic analysis of stool [...] screened with both Cologuard and colonoscopy. (Yahir Vasquez. et al, N Engl J Med 2014;370(14):7826-5875.) Cologuard may produce a false negative or false positive result (no colorectal cancer or precancerous polyp present at colonoscopy follow up). A negative Cologuard test result does not guarantee the absence of CRC or advanced adenoma (pre-cancer). The current Cologuard screening interval is every 3 years. ([place] [employer] Society and U.S. Multi-Society Task Force). Cologuard performance data in a 10,000 patient pivotal study using colonoscopy as the reference method can be accessed at the following location: www.[employer]/results. Additional description of the Cologuard test process, warnings and precautions can be found at www.cartmioguard.com. Stool 02/06/2024 10:3 0 AM CDT 02/07/2024 10:09 AM CDT Jhon CHAN LAB BODY FLUIDS AND STOOLS BONG [place] Final Result [employer]. (CLIA #:[id number]) [place] [address] * Hepatitis C antibody Blood (01/05/2024 11:53 AM PRODUCT MANAGER) Hep C Ab Nonreactive Nonreactive Comment: Antibodies [...] on 2020. Blood 01/05/2024 11:5 3 AM PRODUCT MANAGER 01/05/2024 12:37 PM PRODUCT MANAGER Jhon CHAN LAB MICROBIOLOGY - GENERAL BONG [place] Final Result Performing Organization Address [facility] Co de Phone Number JOHN [address] [facility] Department [place] [address] from Last 3 Months or Most Recently Relevant to Health Maintenance Insurance [facility] MEDICARE ADVANTAGE [facility] MEDICARE ADVANTAGE BLUE ACCESS OOS Advance Directives For more information, please contact: [phone] * Full Code (Latest Code Status on File) Date Activated Date Inactivated Comments 01/23/2025 11:14 AM 01/23/2025 5:41 PM * Full Code Date Activated Date Inactivated Comments 10/16/2024 2:46 PM 10/16/2024 10:06 PM Care Teams Drum Attendant Relationship Specialty Start Date End Date Jhon Gatica PA PCP - General Family Medicine 07/26/22 Natan Pepe MD [address] [place] [address] Surgeon General Surgery 09/12/24 Bernie Monahan MD [address] [place] [address] [address] [place] [address] Radiation Oncologist Radiation Oncology 09/12/24 Roe Ferrer DO [address] [place] [address] Medical Oncologist/Repair Specialist Hematology and Oncology 02/24/25
--- OUTSIDE RECORDS SUMMARY | 2025-04-06 16:55 | XMS_ITS | Encounter Summary ---
Author Organization [facility] Care Team Providers Care Hat Lining Paster Name Role Phone Nathan Johnson MD Primary Care Provider [phone] Jhon Gatica Primary Care Provider [phone] Natan Pepe MD Unavailable [phone] Bernie Monahan MD Unavailable [phone] Roe Ferrer DO Unavailable [phone] Encounter Details Date Type Department Care Team (Latest Contact Info) Description 08/20/2018 Orders Only [facility]G CLINCONV ProviderJazlyn MD [address] [place] [address] Social History Tobacco Use Types Packs/Day Years Used Date Smoking Tobacco: Never Assessed Comments Unknown Sex and Gender Information Value Date Recorded Sex Assigned at Not on file Legal Sex Female 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 Historical Provider Final Res ult documented in this encounter Visit Diagnoses Not on filedocumented in this encounter Additional Health Concerns Infection Onset Date Last Indicated Resolved Time COVID: Suspected 01/03/2023 01/03/2023 01/03/2023 10:35 AM HARVEST WORKER FIELD CROP COVID: Suspected 01/03/2023 01/03/2023 01/03/2023 10:37 AM HARVEST WORKER FIELD CROP COVID: Suspected 10/13/2023 10/13/2023 10/13/2023 4:05 PM HARVEST WORKER FIELD CROP COVID: Suspected 12/20/2024 12/20/2024 12/20/2024 12:05 PM HARVEST WORKER FIELD CROP documented as of this encounter Care Teams Hat Lining Paster Relationship Specialty Start Date End Date Nathan Johnson MD PCP - General Family Medicine 01/21/19 07/25/22 Jhon Gatica PA PCP - General Family Medicine 07/26/22 Natan Pepe MD [address] [place] [address] [id number] Surgeon General Surgery 09/12/24 Bernie Mnoahan MD [address] [place] [address] [address] [place], [place] [id number] Radiation Oncologist Radiation Oncology 09/12/24 Roe Ferrer DO [address] [place] [id number] Medical Oncologist/Finish Opener Hematology and Oncology 02/24/25 documented as of this encounter
--- OUTSIDE RECORDS SUMMARY | 2025-04-06 16:55 | XMS_ITS ---
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, estrogen receptor positive 12/13/2024 Cancer Staging:Pathologic stage from 02/24/2025:Stage IA(pT1b, pN0(sn), cM0, G1, ER+, NE+, HER2-) - Unsigned 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 11/18/2023 Cancer Staging:Clinical stage from 09/18/2024:Stage 0(cTis (DCIS), cN0, cM0, GX, ER+, NE: Not Assessed, HER2: Not Assessed) - Signed by Bernie Monahan MD on 09/18/2024 Left breast mass 07/30/2024 Assessment & Plan (07/30/2024 9:42 AM CDT): Sched for diagnsotic and ultrasound Umbilical hernia without obstruction and without gangrene 07/30/2024 Assessment & Plan (07/30/2024 9:49 AM CDT): Chronic occasionally painful Refer to general surgery Pure hypercholesterolemia 04/08/2024 Borderline diabetic 04/08/2024 Assessment & Plan (11/13/2024 3:16 PM SOFTWARE TEST SPECIALIST): Poct A1c today Gastroesophageal reflux disease without esophagi tis 06/05/2023 Assessment & Plan (06/05/2023 11:35 PM CDT): Chornic stable and well controlled Continue omeprazole Moderate episode of recurrent major depressive d isorder 01/23/2023 Assessment & Plan (10/05/2023 9:36 AM SOFTWARE TEST SPECIALIST): Chronic and not well controlled Increase sertraline [...] zepbound Assessment & Plan (01/05/2024 10:50 AM SOFTWARE TEST SPECIALIST): Chronic condition she has lost 30 lb in the last 6 months continue with dietary restrictions. Assessment & Plan (10/20/2021 2:49 PM SOFTWARE TEST SPECIALIST): Chronic condition she has lost 30 lb [...] 01/21/2019 Assessment & Plan (11/13/2024 3:14 PM SOFTWARE TEST SPECIALIST): Chronic persistent but improved with lunesta Continue current dosing Assessment & Plan (07/30/2024 11:58 PM CDT): Chronic persistent but improved with lunesta Continue current dosing Assessment & Plan (10/05/2023 9:35 AM SOFTWARE TEST SPECIALIST): Chronic not well controlled with increased stress D/c trazadone Continue lunesta Assessment & Plan (06/05/2023 9:55 AM CDT): Chronic persistent Improved with use of lunesta and elavil Continue current regimen Assessment & Plan (01/19/2021 10:44 AM CDT): Chronic condition Stable and responds well to lunesta. Assessment & Plan (10/13/2020 2:27 PM SOFTWARE TEST SPECIALIST): Start trazadone 50mg Assessment & Plan (04/06/2020 5:20 PM CDT): Well controlled on current regimen, no rx changes needed. Continue lifestyle modifications AMANDA (generalized anxiety disorder) 09/26/2018 Assessment & Plan (11/13/2024 3:14 PM SOFTWARE TEST SPECIALIST): Chronic not well controlled Start buspar 10mg bid Assessment & Plan (04/08/2024 10:50 AM CDT): Chronic and not well controlled with breakthrough anxiety situational Start atarax 25mg every day prn #30 Refer to rosa baca in [facility] Assessment & Plan (10/20/2021 2:50 PM SOFTWARE TEST SPECIALIST): Chronic condition Refill Xanax for Assessment & [...] 09/26/2018 Assessment & Plan (11/13/2024 3:20 PM SOFTWARE TEST SPECIALIST): Chronic not well controlled Start Assessment & Plan (10/20/2021 2:50 PM SOFTWARE TEST SPECIALIST): Chronic condition not well controlled will increase [...] no rx changes needed. Continue lifestyle modifications Current Treatment and Therapy Plans No current plan information found. Past Treatment and Therapy Plans No past plan information found. Current Radiation Episodes * Radiation Oncology - Radiation Therapy - January 2025Overview* First Treatment Date Latest Treatment Date Treatment Site Technique Goal Episode Provider 03/04/2025 03/27/2025 Treatment Courses* Course [id number]_202403/04/2025 - 03/27/2025 Treatment Period Fraction Dose Fractions Total Dose Plans Planned PRNE LT BRST 03/04/2025 - 03/27/2025 267 15 / ,005 Reference Points Delivered PRONE LT BREAST 03/04/2025 - 03/27/2025 4,005
--- OUTSIDE RECORDS SUMMARY | 2025-04-06 16:55 | XMS_ITS | Continuity of Care Document ---
Author Organization [facility] Address [address] [place] [address] Phone Care Team Providers Care Educational Program Director Name Role Phone [facility] Unavailable Unavail able Isabel Conteh Unavailable Unavailable Procedures Procedure Date Vision Svcs Frames Purchases Progressive Lens, Polycarb Anti-reflective Coating Tax - Medical Advance Directives Directive Yes / No Effective Date File Name No Information Encounters Encounter Description Practice Location Reason(s) For Visit Diagnoses Date Provider Providers Copied on Encounter [facility], [address] [place] [address] [address], [place], [place], [id number], [place] tel:[phone] [facility] [place] No Information [address] [facility] [address] [facility], [facility] [address], [place], [place], [id number] , [place]. tel:[phone] Referring Provider: Nathan Tate MD , [address] [facility] [address], [place], [address]. tel:[phone] g Provider: Isabel Conteh, [address] [place] [address], [address]. tel:[phone] Family History Family Member Type Diagnosis Age [...]
--- OUTSIDE RECORDS SUMMARY | 2025-04-06 16:55 | XMS_ITS | Encounter Summary ---
Author Organization [facility] Care Team Providers Care Chemistry Research Assistant Name Role Phone Nathan Johnson MD Primary Care Provider [phone] Jhon Gatica Primary Care Provider [phone] Natan Pepe MD Unavailable [phone] Bernie Monahan MD Unavailable [phone] Roe Ferrer DO Unavailable [phone] Encounter Details Date Type Department Care Team (Latest Contact Info) Description 02/08/2018 Orders Only [facility]G CLINCONV ProviderJazlyn MD [address] [place] [address] Social History Tobacco Use Types Packs/Day Years Used Date Smoking Tobacco: Never Assessed Comments Unknown Sex and Gender Information Value Date Recorded Sex Assigned at Not on file Legal Sex Female 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 Historical Provider Final Res ult documented in this encounter Visit Diagnoses Not on filedocumented in this encounter Additional Health Concerns Infection Onset Date Last Indicated Resolved Time COVID: Suspected 01/03/2023 01/03/2023 01/03/2023 10:35 AM RADIOTELEGRAPH OPERATOR COVID: Suspected 01/03/2023 01/03/2023 01/03/2023 10:37 AM RADIOTELEGRAPH OPERATOR COVID: Suspected 10/13/2023 10/13/2023 10/13/2023 4:05 PM RADIOTELEGRAPH OPERATOR COVID: Suspected 12/20/2024 12/20/2024 12/20/2024 12:05 PM RADIOTELEGRAPH OPERATOR documented as of this encounter Care Teams Chemistry Research Assistant Relationship Specialty Start Date End Date Nathan Johnson MD PCP - General Family Medicine 01/21/19 07/25/22 Jhon Gatica PA PCP - General Family Medicine 07/26/22 Natan Pepe MD [address] [place] [address] [address] [place], [place] [id number] Surgeon General Surgery 09/12/24 Bernie Monahan MD [address] [place] [address] [address] [place], [place] [address] Radiation Oncologist Radiation Oncology 09/12/24 Roe Ferrer DO [address] [place] [id number] Medical Oncologist/Cake Tester Hematology and Oncology 02/24/25 documented as of this encounter
--- OUTSIDE RECORDS SUMMARY | 2025-04-06 16:55 | XMS_ITS | Encounter Summary ---
Author Organization [facility] Facility Care Team Providers Care Knockout Machine Operator Name Role Phone Nathan Johnson MD Primary Care Provider [phone] Jhon Gatica Primary Care Provider [phone] Natan Pepe MD Unavailable [phone] Bernie Monahan MD Unavailable [phone] Roe Ferrer DO Unavailable [phone] Encounter Details Date Type Department Care Team (Latest Contact Info) Description 11/21/2017 Orders Only MMG CLINCONV ProviderJazlyn MD [address] [place] [address] Social History Tobacco Use Types Packs/Day Years Used Date Smoking Tobacco: Never Assessed Comments Unknown Sex and Gender Information Value Date Recorded Sex Assigned at Not on file Legal Sex Female 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 us Historical Provider Final Res ult * SCAN - LABS (11/22/2017 12:00 AM BATTERY LOADER) Narrative 11/22/2017 12:00 AM BATTERY LOADER Ordered by an unspecified provider. Historical Provider Final Res ult documented in this encounter Visit Diagnoses Not on filedocumented in this encounter Additional Health Concerns Infection Onset Date Last Indicated Resolved Time COVID: Suspected 01/03/2023 01/03/2023 01/03/2023 10:35 AM BATTERY LOADER COVID: Suspected 01/03/2023 01/03/2023 01/03/2023 10:37 AM BATTERY LOADER COVID: Suspected 10/13/2023 10/13/2023 10/13/2023 4:05 PM BATTERY LOADER COVID: Suspected 12/20/2024 12/20/2024 12/20/2024 12:05 PM BATTERY LOADER documented as of this encounter Care Teams Knockout Machine Operator Relationship Specialty Start Date End Date Nathan Johnson MD PCP - General Family Medicine 01/21/19 07/25/22 Jhon Gatica PA PCP - General Family Medicine 07/26/22 Natan Pepe MD [facility] [address] [place], [place] [id number] Surgeon General Surgery 09/12/24 Bernie Monahan MD [address] [facility] [address] [place] [address] Radiation Oncologist Radiation Oncology 09/12/24 Roe Ferrer DO [address] [facility] [address] [place], [place] [phone] Medical Oncologist/Tank Builder Hematology and Oncology 02/24/25 documented as of this encounter
[2025-04-06 17:09] VITALS: BP 136/85; PULSE 118; TEMP 36.2; O2SAT 96
--- NOTE | 2025-04-06 17:12 | ED.LOWEXIN ---
HPI - Extremity Injury (Lower) General Chief Complaint: Extremity Injury, Lower Stated Complaint: twisted R. knee Time Seen by Provider: 04/06/25 17:06 Source: patient Mode of arrival: ambulatory Limitations: no limitations History of Present Illness HPI Narrative: TWISTED RIGHT KNEE WHILE COMING OUT OF A TRUCK 3 DAYS AGO. RIGHT KNEE PAIN, UNABLE TO PUT WEIGHT ON IT. Related Data Home Medications ?Medication ?Instructions ?Recorded ?Confirmed ?Last Taken ?Type alprazolam 0.25 mg tablet (Xanax) 0.25 mg PO DAILY 07/19/21 07/22/21 Unknown History amitriptyline 25 mg tablet 25 mg PO QHS 07/19/21 07/22/21 Unknown History benzonatate 200 mg capsule 200 mg PO BID PRN 07/19/21 07/22/21 Unknown History cefuroxime axetil 500 mg tablet 500 mg PO Q12H 07/19/21 07/22/21 Unknown History cyclobenzaprine 10 mg tablet 10 mg PO TID 07/19/21 07/22/21 Unknown History eszopiclone 3 mg tablet (Lunesta) 3 mg PO QHS 07/19/21 07/22/21 Unknown History gabapentin 300 mg capsule 300 mg PO DAILY 07/19/21 07/22/21 Unknown History hydrochlorothiazide 25 mg tablet 25 mg PO DAILY 07/19/21 07/22/21 Unknown History hydrocodone 5 mg-acetaminophen 325 1 tablet PO Q8H PRN 07/19/21 07/22/21 Unknown History mg tablet lisinopril 20 mg tablet 20 mg PO DAILY 07/19/21 07/22/21 Unknown History omeprazole 40 mg capsule,delayed 40 mg PO DAILY 07/19/21 07/22/21 Unknown History release ondansetron HCl 4 mg tablet 4 mg PO Q8H 07/19/21 07/22/21 Unknown History (Zofran) sucralfate 1 gram tablet (Carafate) PO PRN 07/19/21 07/22/21 Unknown History trazodone 50 mg tablet 50 mg PO QHS PRN 07/19/21 07/22/21 Unknown History Allergies Allergy/AdvReac Type Severity Reaction Status Date / Time tomato Allergy Severe Swelling Verified 04/06/25 16:56 of Lip/Tongue/Throat wool Allergy Intermediate Hives Verified 04/06/25 16:56 semaglutide (From Wegovy) Allergy Mild Vomiting Verified 04/06/25 16:56 latex Allergy Unknown Hives Verified 04/06/25 16:56 Review of Systems Review of Systems: All systems reviewed & are unremarkable except as noted in HPI and below PMFSH Past Medical History Medical History Fibromyalgia Hypertension GERD (gastroesophageal reflux disease) AMANDA (generalized anxiety disorder) Depression Surgical History Surgical History History of appendectomy History of partial hysterectomy H/O hemorrhoidectomy Family History Family History Father Acute myocardial infarction Mother Lung cancer Social History Social History Smoking status: Never smoker Alcohol intake: current Living arrangements: with family Occupation/Education: occupation 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 MUSCULOSKELETAL: RIGHT KNEE EXAM SHOWED DIFFUSE TENDERNESS MEDIALLY AND POSTERIORLY, NO SWELLING, NO BRUISES, NO DEFORMITY NEUROLOGIC: ALERT AND ORIENTED ?3, SENIOR SQL DBA IS NORMAL TESTED, NO GROSS MOTOR DEFICIT Course Vital Signs Vital signs: Vital Signs Temperature 36.2 C L 04/06/25 17:09 Pulse Rate 118 H 04/06/25 17:09 Blood Pressure 136/85 04/06/25 17:09 Pulse Oximetry 96 04/06/25 17:09 Temperature 36.2 C L 04/06/25 17:09 Pulse Rate 118 H 04/06/25 17:09 Blood Pressure 136/85 04/06/25 17:09 Pulse Oximetry 96 04/06/25 17:09 MDM - Extremity Injury (Lower) MDM Narrative Medical decision making narrative: DIFFERENTIAL DIAGNOSIS INCLUDES SPRAIN/STRAIN VERSUS FRACTURE X-RAY OF THE RIGHT KNEE SHOWED NO ACUTE OSSEOUS ABNORMALITY DISCHARGED ON IMMOBILIZER, TYLENOL, ANTI-INFLAMMATORY MEDICINE THERE IS NO IMPROVEMENT IN 1 WEEK TO FOLLOW-UP WITH ORTHOPEDIC FOR POSSIBLE MRI Imaging Data Radiologist's impression: Impressions Knee X-Ray 04/06/25 17:55 IMPRESSION: No acute osseous finding in the right knee. Critical Care Time Critical Care Time Critical Care Time: No Discharge Plan Discharge Clinical Impression: Right knee sprain Patient Disposition: Home Condition: Stable Instructions: Knee Sprain (ED) Patient Language: Palestinian Prescriptions: No Action eszopiclone [Lunesta] 3 mg tablet 3 mg PO QHS alprazolam [Xanax] 0.25 mg tablet 0.25 mg PO DAILY amitriptyline 25 mg tablet 25 mg PO QHS benzonatate 200 mg capsule 200 mg PO BID PRN cefuroxime axetil 500 mg tablet 500 mg PO Q12H cyclobenzaprine 10 mg tablet 10 mg PO TID hydrocodone-acetaminophen 5-325 mg tablet 1 tablet PO Q8H PRN ondansetron HCl [Zofran] 4 mg tablet 4 mg PO Q8H hydrochlorothiazide 25 mg tablet 25 mg PO DAILY gabapentin 300 mg capsule 300 mg PO DAILY lisinopril 20 mg tablet 20 mg PO DAILY omeprazole 40 mg capsule,delayed release(DR/EC) 40 mg PO DAILY sucralfate [Carafate] 1 gram tablet PO PRN trazodone 50 mg tablet 50 mg PO QHS PRN dicyclomine 20 mg tablet 20 mg PO QID Qty: 20 0RF ondansetron 4 mg tablet,disintegrating 4 mg PO Q6H PRN (Reason: nausea and vomiting) Qty: 10 0RF dicyclomine 20 mg tablet 20 mg PO TID PRN (Reason: Abdominal Discomfort) Qty: 15 0RF ondansetron 4 mg tablet,disintegrating 4 mg PO Q8H PRN (Reason: nausea and vomiting) Qty: 15 0RF metronidazole 500 mg tablet 500 mg PO Q8H 7 Days Qty: 21 0RF ciprofloxacin HCl 500 mg tablet 500 mg PO Q12H 7 Days Qty: 14 0RF Follow-up/Referrals: En,DUSTIN Ferreira [Primary Care Provider] - Stand Alone Forms: Work/School Release IP
--- OUTSIDE RECORDS SUMMARY | 2025-04-06 17:20 | XMS_ITS | Clinical Summary ---
Author Organization [facility] [address] [facility] Address [address] [place] [address] Care Team Providers Care Software Requirements Engineer Name Role Phone Jhon Gatica Primary Care Provider [phone] Natan Pepe MD Unavailable [phone] Bernie Monahan MD Unavailable [phone] Roe Ferrer DO Unavailable [phone] Allergies Active Allergy Reactions Criticality Noted Date [...] from 02/24/2025:Stage IA(pT1b, pN0(sn), cM0, G1, ER+, AL+, HER2-) - Unsigned 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 11/18/2023 Cancer Staging:Clinical stage from 09/18/2024:Stage 0(cTis (DCIS), cN0, cM0, GX, ER+, AL: Not Assessed, HER2: Not Assessed) - Signed [...] Assessment & Plan (11/13/2024 3:16 PM SOFTWARE ENGINEERING SUPERVISOR): Poct A1c today Gastroesophageal reflux disease without esophagi tis 06/05/2023 Assessment & Plan (06/05/2023 11:35 PM CDT): Chornic stable and well controlled Continue omeprazole Moderate episode of recurrent major depressive d isorder 01/23/2023 Assessment & Plan (10/05/2023 9:36 AM SOFTWARE ENGINEERING SUPERVISOR): Chronic and not well controlled Increase sertraline [...] Assessment & Plan (01/05/2024 10:50 AM SOFTWARE ENGINEERING SUPERVISOR): Chronic condition she has lost 30 lb in the last 6 months continue with dietary restrictions. Assessment & Plan (10/20/2021 2:49 PM SOFTWARE ENGINEERING SUPERVISOR): Chronic condition she has lost 30 lb [...] Assessment & Plan (11/13/2024 3:14 PM SOFTWARE ENGINEERING SUPERVISOR): Chronic persistent but improved with lunesta Continue current dosing Assessment & Plan (07/30/2024 11:58 PM CDT): Chronic persistent but improved with lunesta Continue current dosing Assessment & Plan (10/05/2023 9:35 AM SOFTWARE ENGINEERING SUPERVISOR): Chronic not well controlled with increased stress D/c trazadone Continue lunesta Assessment & Plan (06/05/2023 9:55 AM CDT): Chronic persistent Improved with use of lunesta and elavil Continue current regimen Assessment & Plan (01/19/2021 10:44 AM CDT): Chronic condition Stable and responds well to lunesta. Assessment & Plan (10/13/2020 2:27 PM SOFTWARE ENGINEERING SUPERVISOR): Start trazadone 50mg Assessment & Plan (04/06/2020 5:20 PM CDT): Well controlled on current regimen, no rx changes needed. Continue lifestyle modifications AMANDA (generalized anxiety disorder) 09/26/2018 Assessment & Plan (11/13/2024 3:14 PM SOFTWARE ENGINEERING SUPERVISOR): Chronic not well controlled Start buspar 10mg bid Assessment & Plan (04/08/2024 10:50 AM CDT): Chronic and not well controlled with breakthrough anxiety situational Start atarax 25mg every day prn #30 Refer to rosa baca in [facility] Assessment & Plan (10/20/2021 2:50 PM SOFTWARE ENGINEERING SUPERVISOR): Chronic condition Refill Xanax for Assessment & [...] Assessment & Plan (11/13/2024 3:20 PM SOFTWARE ENGINEERING SUPERVISOR): Chronic not well controlled Start Assessment & Plan (10/20/2021 2:50 PM SOFTWARE ENGINEERING SUPERVISOR): Chronic condition not well controlled will increase [...] Team Description 03/27/2025 7:15 AM CDT Treatment [facility] Office Building 2 Radiation Oncology [address] [place] [address] Bernie Monahan MD 03/27/2025 Completion of Therapy [facility] 2 Radiation Oncology [address] [place] [address] 760[address] Bernie Monahan MD 03/27/2025 Orders Only RAD ONC TREATMENTS Miscellaneous, Not In File 03/26/2025 8:45 AM CDT Treatment [facility] Office [facility] 2 Radiation Oncology [address] [place] [address] 546[address] 03/26/2025 OTV [facility] 2 Radiation Oncology [address] [place] [address] 76033 Bernie Monahan MD Malignant neoplasm of upper-outer quadrant of left breast in female, estrogen receptor positive (HCC) (Primary Dx) 03/26/2025 Orders Only RAD ONC TREATMENTS Miscellaneous, Not In File 03/25/2025 9:30 AM CDT Treatment [facility] Office Building 2 Radiation Oncology [address] [place] [address] 95959 03/25/2025 Orders Only RAD ONC TREATMENTS Miscellaneous, Not In File 03/20/2025 9:30 AM CDT Treatment [facility] Office [facility] 2 Radiation Oncology [address] [place] [address] 43196 03/20/2025 Orders Only RAD ONC TREATMENTS Miscellaneous, Not In File 03/19/2025 9:30 AM CDT Treatment [facility] Office Building 2 Radiation Oncology [address] [place] [address] 89085 03/19/2025 Orders Only RAD ONC TREATMENTS Miscellaneous, Not In File 03/19/2025 [facility] Office Building 2 Radiation Oncology [address] [place] [address] 65204 Bernie Monahan MD Malignant neoplasm of upper-outer quadrant of left breast in female, estrogen receptor positive (HCC) (Primary Dx) 03/18/2025 9:30 AM CDT Treatment [facility] Medical Office Building 2 Radiation Oncology [address] [place] [address] 07757 03/18/2025 Orders Only RAD ONC TREATMENTS Miscellaneous, Not In File 03/17/2025 9:30 AM T Treatment [facility] Medical Office Building 2 Radiation Oncology [address] [place] [address] 28567 03/17/2025 Orders Only RAD ONC TREATMENTS Miscellaneous, Not In File 03/14/2025 9:30 AM T [facility] Medical Office Building 2 Radiation Oncology [address] [place] [address] 68873 03/14/2025 Orders Only RAD ONC TREATMENTS Miscellaneous, Not In File 03/13/2025 9:30 AM T [facility] Medical Office Building 2 Radiation Oncology [address] [place] [address] 15199 03/13/2025 Orders Only RAD ONC TREATMENTS Miscellaneous, Not In File 03/12/2025 9:30 AM T [facility] Medical Office Building 2 Radiation Oncology [address] [place] [address] 31308 Malignant neoplasm of upper-outer quadrant of left breast in female, estrogen receptor positive (HCC) (Primary Dx) 03/12/2025 [facility] Office Building 2 Radiation Oncology [address] [place] [address] 44648 Bernie Monahan MD 03/12/2025 Orders Only RAD ONC TREATMENTS Miscellaneous, Not In File 03/10/2025 9:30 AM CDT Treatment [facility] Medical Office Building 2 Radiation Oncology [address] [place] [address] 31876 03/10/2025 Orders Only RAD ONC TREATMENTS Miscellaneous, Not In File 03/07/2025 9:30 AM CDT Treatment [facility] Medical Office Building 2 Radiation Oncology [address] [place] [address] 94881 03/07/2025 Orders Only RAD ONC TREATMENTS Miscellaneous, Not In File 03/06/2025 9:30 AM CDT Treatment [facility] Medical Office Building 2 Radiation Oncology [address] [place] [address] 85065 03/06/2025 Orders Only RAD ONC TREATMENTS Miscellaneous, Not In File 03/05/2025 8:15 AM CDT Treatment [facility] Medical Office Building 2 Radiation Oncology [address] [place] [address] 48683 03/05/2025 OTV [facility] Medical Office Building 2 Radiation Oncology [address] [place] [address] 76251 Bernie Monahan MD Malignant neoplasm of upper-outer quadrant of left breast in female, estrogen receptor positive (HCC) (Primary Dx) 03/05/2025 Orders Only RAD ONC TREATMENTS Miscellaneous, Not In File 03/04/2025 9:45 AM CDT Treatment [facility] Medical Office Building 2 Radiation Oncology [address] [place] [address] 31877 Bernie Monahan MD 03/04/2025 9:30 AM CDT Treatment [facility] Medical Office Building 2 Radiation Oncology [address] [place] [address] 24162 Bernie Monahan MD 03/04/2025 Orders Only RAD ONC TREATMENTS Miscellaneous, Not In File 02/25/2025 7:45 PM CDT Treatment [facility] Medical Office Building 2 Radiation Oncology [address] [place] [address] 98241 02/24/2025 9:30 AM CDT Treatment [facility] Medical Office Building 2 Radiation Oncology [address] [place] [address] 02338 Bernie Monahan MD 02/24/2025 9:00 AM CDT Office Visit [facility] Office Building 2 Radiation Oncology [address] [place] [address] 61560 Bernie Monahan MD Malignant neoplasm of upper-outer quadrant of left breast in female, estrogen receptor positive (HCC) (Primary Dx) 02/17/2025 10:15 AM CDT Office Visit [facility] Oncology [address] [place] [phone] Roe Ferrer DO Malignant neoplasm of left breast in female, estrogen receptor positive, unspecified site of breast (HCC) (Primary Dx); Ductal carcinoma in situ (DCIS) of left breast 02/03/2025 Telephone [facility] Office Building 2 Radiation Oncology [address] [place] [address] 07019 Polina Parker 01/23/2025 11:00 AM CDT - 01/23/2025 12:30 PM CDT Surgery [facility] [place] [address] [place] [address] 66[address] Natan Pepe MD LEFT BREAST RE EXCISION LUMPECTOMY 01/23/2025 10:38 AM CDT Anesthesia Event [facility] [place] [address] [place] [address] 54368 Adarsh Alegria MD Lee, Walter, MD 01/23/2025 8:36 AM CDT - 01/23/2025 1:30 PM CDT Hospital Encounter [facility] [place] [address] [place] [address] 59655 Natan Pepe MD History of left breast cancer Discharge Disposition: Discharge to home or self care 01/20/2025 1:[address] [facility] Outpatient Lab at [address] [phone] 01/20/2025 1:14 PM CDT - 01/20/2025 11:59 PM CDT Hospital Encounter [address] [address] Pre-op testing Discharge Disposition: Discharge to home or self care 01/20/2025 Orders Only [facility] Pre Admit Testing [address] [place] [address] Adarsh Alegria MD Pre-op testing (Primary Dx) 01/08/2025 7:33 AM CDT - 01/08/2025 11:59 PM CDT Hospital Encounter [facility] Medical Office Bl 1 Breast [facility] [address] [place] [address] Menopausal and perimenopausal disorder Discharge Disposition: Discharge [...] on file Legal Sex Female 2:20 PM SOFTWARE ENGINEERING SUPERVISOR Gender Identity Not on file Sexual Orientation [...] Discontinued 02/06/2024 Medical Devices Implanted Type Area Executive Talent Acquisition Consultant Device Identifier Shelf Expiration Date Model / Serial / Lot Hol[employer] Securmark 13cm Rigid End Bioabsorbable Net [employer] Mill Order Scheduler Breast Latex Free Onhlb-Korgv-2e-13 - [id number] Implanted:Qty: 1 on 09/03/2024 by Natan Pepe MD at [facility] Left: Breast [employer] [id number] 11/23/2024 SMARK-ELLEN VA-2S-13 / / [id number] [employer] Excav[employer] [place] 20ga 5cm Reposition J Curve Wire Centimeter Davidson Stabilizer [id number] - [id number] Implanted:Qty: 1 on 10/16/2024 by Adam Ford MD at [facility] Left: Breast [employer] [id number] 05/24/2029 [id number] / / [id number] Procedures Procedure Name Priority Date/Time Associated Diagnosis [...] ARIA SESSION SUMMARY 03/04/2025 9:36 AM CDT AL AN PROCEDURE PLACEHOLDER Routine 01/23/2025 10:57 AM CDT AL AN ELECTIVE SUPRAGLOTTIC AIRWAY Routine 01/23/2025 10:57 [...] HEPATITIS C ANTIBODY Routine 01/05/2024 11:53 AM SOFTWARE ENGINEERING SUPERVISOR Need for hepatitis C screening test from [...] ORD ERABLES Final Result Performing Organization Address [facility] de Phone Number ARIA * RAD [...] ORD ERABLES Final Result Performing Organization Address [facility]/ZIP Co de Phone Number ARIA * RAD [...] ORD ERABLES Final Result Performing Organization Address City/[facility] Co de Phone Number ARIA * RAD [...] ORD ERABLES Final Result Performing Organization Address [facility] Co de Phone Number ARIA * RAD [...] ORD ERABLES Final Result Performing Organization Address [facility] de Phone Number ARIA * RAD [...] ORD ERABLES Final Result Performing Organization Address [facility] de Phone Number ARIA * RAD [...] ORD ERABLES Final Result Performing Organization Address [facility] Co de Phone Number ARIA * RAD [...] ORD ERABLES Final Result Performing Organization Address City/[facility] Co de Phone Number ARIA * RAD [...] ORD ERABLES Final Result Performing Organization Address [facility] de Phone Number ARIA * RAD [...] ONCOLOGY ORD ERABLES Final Result ARIA * AL AN ELECTIVE SUPRAGLOTTIC AIRWAY, AL AN PROCEDURE PLACEHOLDER (01/23/2025 10:57 AM CDT) Narrative Suguitan, Sunitha E., RAGS LABORER - 01/23/2025 10:57 AM CDT Sunitha Morel CRNA 01/23/2025 10:57 AM Airway Patient location: OR Urgency: elective Indications for airway management: anesthesia Difficult airway: no Staff: Supervising provider: Adarsh Alegria MD Placed by: RAGS LABORER: Sunitha Morel CRNA Emergent airway documentation: Risks [...] Margin) 01/23/2025 10:53 AM CDT Narrative PATHOLOGY [facility] - 01/29/2025 10:12 AM CDT [facility] Department of Pathology [address] [place] [address] Note to Patients: This report may contain [...] : 1960 (Age: 64) Gender: F Address: [facility] [address] [place] [address] Hospital #: [id number] Service: Surgery Location: Patient Type: [facility] OUTPATIENT Taken: 01/23/2025 Received: 01/23/2025 Accessioned: 01/23/2025 [...] interpretation for this case was performed at [facility], Department of Surgical Pathology, [address] [facility] [place], [place] [id number] [address] CLIA # [id number] Natan Pepe MD LAB PATHOLOGY ORDERABLES Final Result PATHOLOGY [facility] * eGFR (01/20/2025 1:14 PM CDT) eGFR [...] LAB BLOOD ORDERABL ES Final Result [facility] [address] [address] Department [place] [address] * Basic metabolic panel (01/20/2025 1:14 PM CDT) Sodium 142 135 - 145 mmol/L Potassium, pl 4.5 3.3 - 4.9 mmol/L [facility] Chloride 102 97 - 110 mmol/L [facility] CO2 27 22 - 32 mmol/L [facility] Anion gap 13 2 - 15 mmol/L [facility] BUN 18 6 - 25 mg/dL [facility] Creatinine 0.76 0.60 - 1.10 mg/dL [facility] Glucose 105 70 - 199 mg/dL [facility] Comment: Interpretive Data Fasting glucose >/= 126 [...] 2022. Calcium 9.5 8.5 - 10.3 mg/dL [facility] Blood 01/20/2025 1:14 PM CDT 01/20/2025 8:38 PM CDT us Adarsh Alegria MD LAB BLOOD ORDERABL ES Final Result [facility] [address] [address] [place] [address] * Dexa Axial Skeleton Bone Density 1 or 2 Site (01/08/2025 7:46 AM CDT) Anatomical Region Laterality Modality Body N/A Mammography 01/09/2025 2:45 PM CDT Narrative 01/09/2025 2:47 PM CDT EXAM DESCRIPTION: DEXA AXIAL SKELETON BONE DENSITY 1 OR MORE SITES REASON FOR STUDY: 64 y/o year old F with given history of: screening Executive Talent Acquisition Consultant/Model: Tupalo A (S/N [id number]) Facility LSC value of 0.022 for the [...] Natan Block M.D. MF: [email or web address] Report ID: [id number] Reading Location: [place] [address] Procedure Note Natan Block MD - 01/09/2025 EXAM DESCRIPTION: DEXA AXIAL SKELETON BONE DENSITY 1 OR MORE SITES REASON FOR STUDY: 64 y/o year old F with given history of: screening Executive Talent Acquisition Consultant/Model: Tupalo A (S/N [id number]) Facility LSC value of 0.022 for the [...] 01/09/2025 2:47 PM - Electronically signed by aNtan Block M.D. MF: [email or web address] Report ID: [id number] Reading Location: [place] [address] Jhon [facility] IMSum[facility] DXA PROCEDURES Final Result [...] CDT) Stool DNA - Cologuard Negative Negative [facility] (CLIA #:[id number]) Comment: NEGATIVE TEST RESULT. A negative Cologuard [...] (Yahir Naik al, N Engl J Med 2014;370(14):7524-8740) The normal value (reference range) for this assay is negative. COLOGUARD RE-SCREENING RECOMMENDATION: Periodic colorectal cancer screening is an important part of preventive healthcare for asymptomatic individuals at average risk for colorectal cancer. Following a negative Cologuard result, the [place] Cancer Society and U.S. Multi-Society Task Force screening guidelines recommend a Cologuard re-screening interval of 3 years. References: [place] [employer] Guideline for Colorectal Cancer Screening: https://www.cancer.org/cancer/vrxxa-fdqcnl-xfvatx/twxogxwwn-byyxsecgk-xbkmekq/ac s-rec ommendations.html.; Donell DK, Evelio CR, Trino AvelarK, Colorectal Cancer Screening: Recommendations for Physicians and Patients from the U.S. Multi-Society Task Force on Colorectal Cancer Screening , Am J Gastroenterology 2017; 112:3107-6348. TEST DESCRIPTION: Composite algorithmic analysis of stool [...] (Yahir Naik al, N Engl J Med 2014;370(14):0473-7567.) Cologuard may produce a false negative or false positive result (no colorectal cancer or precancerous polyp present at colonoscopy follow up). A negative Cologuard test result does not guarantee the absence of CRC or advanced adenoma (pre-cancer). The current Cologuard screening interval is every 3 years. ([place] [employer] Society and U.S. Multi-Society Task Force). Cologuard performance data in a 10,000 patient pivotal study using colonoscopy as the reference method can be accessed at the following location: www.Spontaneously.com/results. Additional description of the Cologuard test process, warnings and precautions can be found at www.cologuard.com. Stool 02/06/2024 10:3 0 AM CDT 02/07/2024 10:09 AM CDT Jhon [facility] LAB BODY FLUIDS AND STOOLS BONG [place] Final Result [facility] (CLIA #:[id number]) [place] [place] [address] * Hepatitis C antibody Blood (01/05/2024 11:53 AM SOFTWARE ENGINEERING SUPERVISOR) Hep C Ab Nonreactive Nonreactive Comment: Antibodies [...] on 2020. Blood 01/05/2024 11:5 3 AM SOFTWARE ENGINEERING SUPERVISOR 01/05/2024 12:37 PM SOFTWARE ENGINEERING SUPERVISOR us Jhon [facility] LAB MICROBIOLOGY - GENERAL ORDTricia RABNEHA Final Result [facility] [address] [facility] [place] [address] from Last 3 Months or Most Recently Relevant to Health Maintenance Insurance [facility] MEDICARE ADVANTAGE [facility] MEDICARE ADVANTAGE [place] [facility] Advance Directives For more information, please contact: [phone] * Full Code (Latest Code Status on File) Date Activated Date Inactivated Comments 01/23/2025 11:14 AM 01/23/2025 5:41 PM * Full Code Date Activated Date Inactivated Comments 10/16/2024 2:46 PM 10/16/2024 10:06 PM Care Teams Software Requirements Engineer Relationship Specialty Start Date End Date Jhon Gatica PA PCP - General Family Medicine 07/26/22 Natan Pepe MD [address] [place] [address] [address] [place], [place] [id number] Surgeon General Surgery 09/12/24 Bernie Monahan MD [address] [place] [address] Radiation Oncologist Radiation Oncology 09/12/24 Roe Ferrer DO [address] [place] [address] [phone] Medical Oncologist/Surgical Rn Hematology and Oncology 02/24/25
--- OUTSIDE RECORDS SUMMARY | 2025-04-06 17:20 | XMS_ITS | Referral Summary ---
Author Organization [facility] [facility] Address [address] [place] [address] Care Team Providers Care Weaving Teacher Name Role Phone Jhon Gatica Primary Care Provider [phone] Natan Pepe MD Unavailable [phone] Bernie Monahan MD Unavailable [phone] Roe Ferrer DO Unavailable [phone] Encounters Date Type Department Care Team Description 03/27/2025 Completion of Therapy [facility] Office Building 2 Radiation Oncology [address] [place] [address] Bernie Monahan MD 03/27/2025 Orders Only RAD ONC TREATMENTS Miscellaneous, Not In File 03/27/2025 7:15 AM CDT Treatment [facility] 2 Radiation Oncology [address] [place] [address] Bernie Monahan MD 03/26/2025 OTV [facility] Building 2 Radiation Oncology [address] [place] [address] 10553 Bernie Monahan MD Malignant neoplasm of upper-outer quadrant of left breast in female, estrogen receptor positive (HCC) (Primary Dx) 03/26/2025 Orders Only RAD ONC TREATMENTS Miscellaneous, Not In File 03/26/2025 8:45 AM CDT Treatment [facility] Office Building 2 Radiation Oncology [address] [place] [address] 03/25/2025 Orders Only RAD ONC TREATMENTS Miscellaneous, Not In File 03/25/2025 9:30 AM CDT Treatment [facility] Office Building 2 Radiation Oncology [address] [place] [address] 38343 03/20/2025 Orders Only RAD ONC TREATMENTS Miscellaneous, Not In File 03/20/2025 9:30 AM CDT Treatment [facility] Office Building 2 Radiation Oncology [address] [place] [address] 29987 03/19/2025 Orders Only RAD ONC TREATMENTS Miscellaneous, Not In File 03/19/2025 OTV [facility] Office Building 2 Radiation Oncology [address] [place] [address] Bernie Monahan MD Malignant neoplasm of upper-outer quadrant of left breast in female, estrogen receptor positive (HCC) (Primary Dx) 03/19/2025 9:30 AM CDT Treatment [facility] Office Building 2 Radiation Oncology [address] [place] [address] 6[address] 03/18/2025 Orders Only RAD ONC TREATMENTS Miscellaneous, Not In File 03/18/2025 9:30 AM CDT Treatment [facility] Office Building 2 Radiation Oncology [address] [place] [address] 71034 03/17/2025 Orders Only RAD ONC TREATMENTS Miscellaneous, Not In File 03/17/2025 9:30 AM CDT Treatment [facility] Office Building 2 Radiation Oncology [address] [place] [address] 12080 03/14/2025 Orders Only RAD ONC TREATMENTS Miscellaneous, Not In File 03/14/2025 9:30 AM CDT Treatment [facility] Office Building 2 Radiation Oncology [address] [place] [address] 95862 03/13/2025 Orders Only RAD ONC TREATMENTS Miscellaneous, Not In File 03/13/2025 9:30 AM CDT Treatment [facility] Office Building 2 Radiation Oncology [address] [place] [address] 59169 03/12/2025 [facility] 2 Radiation Oncology [address] [place] [address] 13794 Bernie Monahan MD 03/12/2025 Orders Only RAD ONC TREATMENTS Miscellaneous, Not In File 03/12/2025 9:30 AM CDT Treatment [facility] Office Building 2 Radiation Oncology [address] [place] [address] Malignant neoplasm of upper-outer quadrant of left breast in female, estrogen receptor positive (HCC) (Primary Dx) 03/10/2025 Orders Only RAD ONC TREATMENTS Miscellaneous, Not In File 03/10/2025 9:30 AM T [facility] 2 Radiation Oncology [address] [place] [address] 58535 03/07/2025 Orders Only RAD ONC TREATMENTS Miscellaneous, Not In File 03/07/2025 9:30 AM CDT Treatment [facility] Office [facility] 2 Radiation Oncology [address] [place] [address] 21187 03/06/2025 Orders Only RAD ONC TREATMENTS Miscellaneous, Not In File 03/06/2025 9:30 AM T [facility] Office Building 2 Radiation Oncology [address] [place] [address] 637[address] 03/05/2025 [facility] Building 2 Radiation Oncology [address] [place] [address] 59511 Bernie Monahan MD Malignant neoplasm of upper-outer quadrant of left breast in female, estrogen receptor positive (HCC) (Primary Dx) 03/05/2025 Orders Only RAD ONC TREATMENTS Miscellaneous, Not In File 03/05/2025 8:15 AM T Treatment [facility] Office Building 2 Radiation Oncology [address] [place] [address] 93406 03/04/2025 Orders Only RAD ONC TREATMENTS Miscellaneous, Not In File 03/04/2025 9:30 AM CDT Treatment [facility] Office Building 2 Radiation Oncology [address] [place] [address] 45884 Bernie Monahan MD 03/04/2025 9:45 AM CDT Treatment [facility] Building 2 Radiation Oncology [address] [place] [address] 36739 Bernie Monahan MD 02/25/2025 7:45 PM CDT Treatment [facility] Office Building 2 Radiation Oncology [address] [place] [address] 73102 02/24/2025 9:30 AM CDT Treatment [facility] Building 2 Radiation Oncology [address] [place] [address] 14320 Bernie Monahan MD 02/24/2025 9:00 AM CDT Office Visit [facility] Office Building 2 Radiation Oncology [address] [place] [address] 22131 Bernie Monahan MD Malignant neoplasm of upper-outer quadrant of left breast in female, estrogen receptor positive (HCC) (Primary Dx) 02/17/2025 10:15 AM CDT Office Visit [facility] Oncology [address] [place] [phone] Roe Ferrer DO Malignant neoplasm of left breast in female, estrogen receptor positive, unspecified site of breast (HCC) (Primary Dx); Ductal carcinoma in situ (DCIS) of left breast 02/03/2025 Telephone [facility] Office Building 2 Radiation Oncology [address] [place] [address] Polina Parker 01/23/2025 11:00 AM CDT - 01/23/2025 12:30 PM CDT Surgery [facility] Main OR [facility] [place] [address] Natan Pepe MD LEFT BREAST RE EXCISION LUMPECTOMY 01/23/2025 10:38 AM CDT Anesthesia Event [facility] Main OR [address] [place] [address] Adarsh Alegria MD Lee, Walter, MD 01/23/2025 8:36 AM CDT - 01/23/2025 1:30 PM CDT Hospital Encounter [facility] Main OR [address] [place] [address] Natan Pepe MD History of left breast cancer Discharge Disposition: Discharge to home or self care 01/20/2025 1:14 PM CDT - 01/20/2025 11:59 PM CDT Hospital Encounter [address] [address] Pre-op testing Discharge Disposition: Discharge to home or self care 01/20/2025 1:15 PM CDT Lab [facility] Out[facility] Lab at [address] [phone] 01/20/2025 Orders Only [facility] Pre Admit Testing [address] [place] [address] Adarsh Alegria MD Pre-op testing (Primary Dx) 01/08/2025 7:33 AM CDT - 01/08/2025 11:59 PM CDT Hospital Encounter [facility] Office Bl 1 [facility] [address] [address] Menopausal and perimenopausal disorder Discharge Disposition: Discharge [...] from 02/24/2025:Stage IA(pT1b, pN0(sn), cM0, G1, ER+, IL+, HER2-) - Unsigned 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 11/18/2023 Cancer Staging:Clinical stage from 09/18/2024:Stage 0(cTis (DCIS), cN0, cM0, GX, ER+, IL: Not Assessed, HER2: Not Assessed) - Signed by Bernie Monahan MD on 09/18/2024 Left breast mass 07/30/2024 Assessment & Plan (07/30/2024 9:42 AM CDT): Sched for diagnsotic and ultrasound Umbilical hernia without obstruction and without gangrene 07/30/2024 Assessment & Plan (07/30/2024 9:49 AM CDT): Chronic occasionally painful Refer to general surgery Pure hypercholesterolemia 04/08/2024 Borderline diabetic 04/08/2024 Assessment & Plan (11/13/2024 3:16 PM [employer]): Poct A1c today Gastroesophageal reflux disease without esophagi tis 06/05/2023 Assessment & Plan (06/05/2023 11:35 PM CDT): Chornic stable and well controlled Continue omeprazole Moderate episode of recurrent major depressive d isorder 01/23/2023 Assessment & Plan (10/05/2023 9:36 AM [employer]): Chronic and not well controlled Increase sertraline [...] zepbound Assessment & Plan (01/05/2024 10:50 AM [employer]): Chronic condition she has lost 30 lb in the last 6 months continue with dietary restrictions. Assessment & Plan (10/20/2021 2:49 PM [employer]): Chronic condition she has lost 30 lb [...] 01/21/2019 Assessment & Plan (11/13/2024 3:14 PM [employer]): Chronic persistent but improved with lunesta Continue current dosing Assessment & Plan (07/30/2024 11:58 PM CDT): Chronic persistent but improved with lunesta Continue current dosing Assessment & Plan (10/05/2023 9:35 AM [employer]): Chronic not well controlled with increased stress D/c trazadone Continue lunesta Assessment & Plan (06/05/2023 9:55 AM CDT): Chronic persistent Improved with use of lunesta and elavil Continue current regimen Assessment & Plan (01/19/2021 10:44 AM CDT): Chronic condition Stable and responds well to lunesta. Assessment & Plan (10/13/2020 2:27 PM [employer]): Start trazadone 50mg Assessment & Plan (04/06/2020 5:20 PM CDT): Well controlled on current regimen, no rx changes needed. Continue lifestyle modifications AMANDA (generalized anxiety disorder) 09/26/2018 Assessment & Plan (11/13/2024 3:14 PM [employer]): Chronic not well controlled Start buspar 10mg bid Assessment & Plan (04/08/2024 10:50 AM CDT): Chronic and not well controlled with breakthrough anxiety situational Start atarax 25mg every day prn #30 Refer to rosa baca in [facility] Assessment & Plan (10/20/2021 2:50 PM [employer]): Chronic condition Refill Xanax for Assessment & [...] 09/26/2018 Assessment & Plan (11/13/2024 3:20 PM [employer]): Chronic not well controlled Start Assessment & Plan (10/20/2021 2:50 PM [employer]): Chronic condition not well controlled will increase [...] on file Legal Sex Female 2:20 PM [employer] Gender Identity Not on file Sexual Orientation [...] on file Medical Devices Implanted Type Area Leaf Sucker Operator Device Identifier Shelf Expiration Date Model / Serial / Lot [employer] 13cm Rigid End Bioabsorbable Net Top Surgery Manager Breast Latex Free [id number] - [id number] Implanted:Qty: 1 on 09/03/2024 by Natan Pepe MD at [facility] Left: Breast [employer] [id number] 11/23/2024 SMARK-ELLEN VA-2S-13 / / [id number] Color Control Operator [employer] [place] 20ga 5cm Reposition J Curve Wire [employer] Stabilizer [id number] - [id number] Implanted:Qty: 1 on 10/16/2024 by Adam Ford MD at [facility] Left: Breast [employer] [id number] 05/24/2029 [id number] / / [id number] Procedures Procedure Name Priority Date/Time Associated Diagnosis [...] ARIA SESSION SUMMARY 03/04/2025 9:36 AM CDT [place] AN PROCEDURE PLACEHOLDER Routine 01/23/2025 10:57 AM CDT [place] AN ELECTIVE SUPRAGLOTTIC AIRWAY Routine 01/23/2025 10:57 [...] HEPATITIS C ANTIBODY Routine 01/05/2024 11:53 AM [employer] Need for hepatitis C screening test from [...] ORD ERABLES Final Result Performing Organization Address City/[facility]/ZIP Co de Phone Number ARIA * RAD [...] ORD ERABLES Final Result Performing Organization Address City/[facility] Co de Phone Number NAV * RAD [...] ORD ERABLES Final Result Performing Organization Address [facility] de Phone Number NAV * RAD ONC [...] ORD ERABLES Final Result Performing Organization Address [facility] Co de Phone Number ARIA * RAD [...] ORD ERABLES Final Result Performing Organization Address [facility] Co de Phone Number ARIA * RAD ONC ARIA SESSION SUMMARY (03/12/2025 9:14 AM CDT) Course Name [id number] _2024 ARIA Course Plan Date 02/24/2025 10:42 AM ARIA Elapsed Days 8 ARIA Treatment Start Date 03/04/2025 ARIA Treatment Site PRONE LT BREAST ARIA Dose Given To Date (cGy) 1,602 ARIA Session Dosage Given (cGy) 267 ARIA Plan ID [facility] ARIA Fractions Treated 6 ARIA Prescribed Dose Per Fraction (cGy) 267 ARIA Prescribed Total Dose (cGy) 4,005 ARIA 03/12/2025 9:14 AM CDT us Not In File Miscellaneous RADIATION ONCOLOGY ORD ERABLES Final Result Performing Organization Address [facility] de Phone Number ARIA * RAD [...] ORD ERABLES Final Result Performing Organization Address City/[facility]/ZIP Co de Phone Number NAV * RAD [...] ORD ERABLES Final Result Performing Organization Address [facility] de Phone Number ARIChaya * RAD ONC [...] ORD ERABLES Final Result Performing Organization Address City/[facility] Co de Phone Number ARIA * RAD [...] ONCOLOGY ORD ERABLES Final Result ARIA * [place] AN ELECTIVE SUPRAGLOTTIC AIRWAY, [place] AN PROCEDURE PLACEHOLDER (01/23/2025 10:57 AM CDT) [...] Margin) 01/23/2025 10:53 AM CDT Narrative PATHOLOGY [facility] - 01/29/2025 10:12 AM CDT [facility] Department of Pathology [address] [place] [address] Note to Patients: This report may contain [...] : 1960 (Age: 64) Gender: F Address: [address] [place] [address] [place] [address] Hospital #: [id number] Service: Surgery Location: [facility] Taken: 01/23/2025 Received: 01/23/2025 Accessioned: [...] interpretation for this case was performed at [facility], Department of Surgical Pathology, [address] [facility] [place], [place] [id number], [place] [address] CLIA # [id number] Natan Pepe MD LAB PATHOLOGY ORDERABLES Final Result PATHOLOGY [facility] * eGFR (01/20/2025 1:14 PM [...] ORDERABL ES Final Result Performing Organization Address City/[facility]/ZIP Co de Phone Number [facility] [address] [place] [address] * Basic metabolic panel (01/20/2025 1:14 PM CDT) Sodium 142 135 - 145 mmol/L Potassium, pl 4.5 3.3 - 4.9 mmol/L [facility] Chloride 102 97 - 110 mmol/L [facility] CO2 27 22 - 32 mmol/L [facility] Anion gap 13 2 - 15 mmol/L [facility] BUN 18 6 - 25 mg/dL [facility] Creatinine 0.76 0.60 - 1.10 mg/dL [facility] Glucose 105 70 - 199 mg/dL [facility] Comment: Interpretive Data Fasting glucose >/= 126 [...] 2022. Calcium 9.5 8.5 - 10.3 mg/dL [facility] Blood 01/20/2025 1:14 PM CDT 01/20/2025 8:38 PM CDT us Adarsh Alegria MD LAB BLOOD ORDERABL ES Final Result [facility] [address] [place] [address] * Dexa Axial Skeleton Bone Density 1 or 2 Site (01/08/2025 7:46 AM CDT) Anatomical Region Laterality Modality Body N/A Mammography 01/09/2025 2:45 PM CDT Narrative 01/09/2025 2:47 PM CDT EXAM DESCRIPTION: DEXA AXIAL SKELETON BONE DENSITY 1 OR MORE SITES REASON FOR STUDY: 64 y/o year old F with given history of: screening Leaf Sucker Operator/Model: Armor5 A (S/N [id number]) Facility LSC value of 0.022 for the [...] Natan Block M.D. MF: LEONILA Report ID: [id number] Reading Location: [place] [address] Procedure Note Natan Block MD - 01/09/2025 EXAM DESCRIPTION: DEXA AXIAL SKELETON BONE DENSITY 1 OR MORE SITES REASON FOR STUDY: 64 y/o year old F with given history of: screening Leaf Sucker Operator/Model: Armor5 A (S/N [id number]) Facility LSC value of 0.022 for the [...] Natan Block M.D. MF: LEONILA Report ID: [id number] Reading Location: [place] [address] Jhon CHAN IM DXA PROCEDURES Final Result [...] CDT) Stool DNA - Cologuard Negative Negative [employer] (CLIA #:[id number]) Comment: NEGATIVE TEST RESULT. A negative Cologuard [...] Watt et al, N Engl J Med 2014;370(14):1809-7480) The normal value (reference range) for this assay is negative. COLOGUARD RE-SCREENING RECOMMENDATION: Periodic colorectal cancer screening is an important part of preventive healthcare for asymptomatic individuals at average risk for colorectal cancer. Following a negative Cologuard result, the [employer] Cancer Society and U.S. Multi-Society Task Force screening guidelines recommend a Cologuard re-screening interval of 3 years. References: [place] Guideline for Colorectal Cancer Screening: https://www.cancer.org/cancer/fldjs-ojuqss-omfzkr/bmqpcflwh-sumxvafqv-xrvtuks/ac s-rec ommendations.html.; Donell DK, Evelio GAINES, Dominitz JK, Colorectal Cancer Screening: Recommendations for Physicians and Patients from the U.S. Multi-Society Task Force on Colorectal Cancer Screening , Am J Gastroenterology 2017; 112:1695-3578. TEST DESCRIPTION: Composite algorithmic analysis of stool [...] Vasquez. et al, N Engl J Med 2014;370(14):7067-2833.) Cologuard may produce a false negative or false positive result (no colorectal cancer or precancerous polyp present at colonoscopy follow up). A negative Cologuard test result does not guarantee the absence of CRC or advanced adenoma (pre-cancer). The current Cologuard screening interval is every 3 years. ([employer] Cancer Society and U.S. Multi-Society Task Force). Cologuard performance data in a 10,000 patient pivotal study using colonoscopy as the reference method can be accessed at the following location: www.Pipewise/results. Additional description of the Cologuard test process, warnings and precautions can be found at www.Rerecipeoguard.com. Stool 02/06/2024 10:3 0 AM CDT 02/07/2024 10:09 AM CDT Jhon CHAN LAB BODY FLUIDS AND STOOLS BONG [place]YTON Final Result [employer] (CLIA #:[id number]) [place] [address] * Hepatitis C antibody Blood (01/05/2024 11:53 AM [employer]) Hep C Ab Nonreactive Nonreactive Comment: Antibodies [...] on 2020. Blood 01/05/2024 11:5 3 AM [employer] 01/05/2024 12:37 PM [employer] Jhon CHAN LAB MICROBIOLOGY - GENERAL BONG TATA Final Result Performing Organization Address [facility] Co de Phone Number JOHN [address] [facility] Department [place] [address] from Last 3 Months or Most Recently Relevant to Health Maintenance Insurance [facility] MEDICARE ADVANTAGE [facility]ICARE Address: [address] [address] [place] [address] [facility] MEDICARE ADVANTAGE [facility]IC[facility] Address: [address] [address] [place] [address] BLUE ACCESS [employer] Advance Directives For more information, please contact: [phone] * Full Code (Latest Code Status on File) Date Activated Date Inactivated Comments 01/23/2025 11:14 AM 01/23/2025 5:41 PM * Full Code Date Activated Date Inactivated Comments 10/16/2024 2:46 PM 10/16/2024 10:06 PM Care Teams Weaving Teacher Relationship Specialty Start Date End Date Jhon Gatica PA PCP - General Family Medicine 07/26/22 Natan Pepe MD [address] [place] [address] Surgeon General Surgery 09/12/24 Bernie Monahan MD [address] [place] [address] [address] [place] [address] Radiation Oncologist Radiation Oncology 09/12/24 Roe Ferrer DO [address] [place] [address] Medical Oncologist/Psychologist Educational Hematology and Oncology 02/24/25
--- OUTSIDE RECORDS SUMMARY | 2025-04-06 17:20 | XMS_ITS ---
Author Organization [facility] [address] [facility] Address [address] [place] [address] Care Team Providers Care Strap Buckler Machine Name Role Phone Jhon Gatica Primary Care Provider [phone] Natan Pepe MD Unavailable [phone] Bernie Monahan MD Unavailable [phone] Roe Ferrer DO Unavailable [phone] Active Problems Problem Noted Date Diagnosed Date Malignant neoplasm of left b reast in female, estrogen receptor positive 12/13/2024 Cancer Staging:Pathologic stage from 02/24/2025:Stage IA(pT1b, pN0(sn), cM0, G1, ER+, OR+, HER2-) - Unsigned 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 11/18/2023 Cancer Staging:Clinical stage from 09/18/2024:Stage 0(cTis (DCIS), cN0, cM0, GX, ER+, OR: Not Assessed, HER2: Not Assessed) - Signed by Bernie Monahan MD on 09/18/2024 Left breast mass 07/30/2024 Assessment & Plan (07/30/2024 9:42 AM CDT): Sched for diagnsotic and ultrasound Umbilical hernia without obstruction and without gangrene 07/30/2024 Assessment & Plan (07/30/2024 9:49 AM CDT): Chronic occasionally painful Refer to general surgery Pure hypercholesterolemia 04/08/2024 Borderline diabetic 04/08/2024 Assessment & Plan (11/13/2024 3:16 PM INSIDE TECHNICAL SALES REPRESENTATIVE): Poct A1c today Gastroesophageal reflux disease without esophagi tis 06/05/2023 Assessment & Plan (06/05/2023 11:35 PM CDT): Chornic stable and well controlled Continue omeprazole Moderate episode of recurrent major depressive d isorder 01/23/2023 Assessment & Plan (10/05/2023 9:36 AM INSIDE TECHNICAL SALES REPRESENTATIVE): Chronic and not well controlled Increase sertraline [...] zepbound Assessment & Plan (01/05/2024 10:50 AM INSIDE TECHNICAL SALES REPRESENTATIVE): Chronic condition she has lost 30 lb in the last 6 months continue with dietary restrictions. Assessment & Plan (10/20/2021 2:49 PM INSIDE TECHNICAL SALES REPRESENTATIVE): Chronic condition she has lost 30 lb [...] 01/21/2019 Assessment & Plan (11/13/2024 3:14 PM INSIDE TECHNICAL SALES REPRESENTATIVE): Chronic persistent but improved with lunesta Continue current dosing Assessment & Plan (07/30/2024 11:58 PM CDT): Chronic persistent but improved with lunesta Continue current dosing Assessment & Plan (10/05/2023 9:35 AM INSIDE TECHNICAL SALES REPRESENTATIVE): Chronic not well controlled with increased stress D/c trazadone Continue lunesta Assessment & Plan (06/05/2023 9:55 AM CDT): Chronic persistent Improved with use of lunesta and elavil Continue current regimen Assessment & Plan (01/19/2021 10:44 AM CDT): Chronic condition Stable and responds well to lunesta. Assessment & Plan (10/13/2020 2:27 PM INSIDE TECHNICAL SALES REPRESENTATIVE): Start trazadone 50mg Assessment & Plan (04/06/2020 5:20 PM CDT): Well controlled on current regimen, no rx changes needed. Continue lifestyle modifications AMANDA (generalized anxiety disorder) 09/26/2018 Assessment & Plan (11/13/2024 3:14 PM INSIDE TECHNICAL SALES REPRESENTATIVE): Chronic not well controlled Start buspar 10mg bid Assessment & Plan (04/08/2024 10:50 AM CDT): Chronic and not well controlled with breakthrough anxiety situational Start atarax 25mg every day prn #30 Refer to rosa baca in [facility] Assessment & Plan (10/20/2021 2:50 PM INSIDE TECHNICAL SALES REPRESENTATIVE): Chronic condition Refill Xanax for Assessment & [...] 09/26/2018 Assessment & Plan (11/13/2024 3:20 PM INSIDE TECHNICAL SALES REPRESENTATIVE): Chronic not well controlled Start Assessment & Plan (10/20/2021 2:50 PM INSIDE TECHNICAL SALES REPRESENTATIVE): Chronic condition not well controlled will increase [...]
--- OUTSIDE RECORDS SUMMARY | 2025-04-06 17:20 | XMS_ITS | Continuity of Care Document ---
Author Organization [facility] Address [address] [place] [address] Phone Care Team Providers Care Licensing Services Clerk Name Role Phone [facility] Unavailable Unavail able Isabel Conteh Unavailable Unavailable Procedures Procedure Date Vision Svcs Frames Purchases Progressive Lens, Polycarb Anti-reflective Coating Tax - Medical Advance Directives Directive Yes / No Effective Date File Name No Information Encounters Encounter Description Practice Location Reason(s) For Visit Diagnoses Date Provider Providers Copied on Encounter [facility], [address] [place] [address] [address], [place], [place], [id number], [place] tel:[phone] [facility] [place] No Information [address] [facility] [address] [facility], [facility] [address], [place], [place], [id number] , [place]. tel:[phone] Referring Provider: Nathan Tate MD , [address] [facility] [address], [place], [address]. tel:[phone] g Provider: Isabel Conteh, [address] [place] [address], [address]. tel:[phone] Family History Family Member Type Diagnosis Age [...]
--- OUTSIDE RECORDS SUMMARY | 2025-04-06 17:20 | XMS_ITS | Encounter Summary ---
Author Organization [facility] Facility Care Team Providers Care Agricultural Produce Packer Name Role Phone Nathan Johnson MD Primary Care Provider [phone] Jhon Gatica Primary Care Provider [phone] Natan Pepe MD Unavailable [phone] Bernie Monahan MD Unavailable [phone] Roe Ferrer DO Unavailable [phone] Encounter Details Date Type Department Care Team (Latest Contact Info) Description 02/08/2018 Orders Only [facility] CLINCONV ProviderJazlyn MD [address] [place] [address] Social History Tobacco Use Types Packs/Day Years Used Date Smoking Tobacco: Never Assessed Comments Unknown Sex and Gender Information Value Date Recorded Sex Assigned at Not on file Legal Sex Female 2:20 PM PATTERN WORKER Gender Identity Not on file Sexual Orientation [...] COVID: Suspected 01/03/2023 01/03/2023 01/03/2023 10:35 AM PATTERN WORKER COVID: Suspected 01/03/2023 01/03/2023 01/03/2023 10:37 AM PATTERN WORKER COVID: Suspected 10/13/2023 10/13/2023 10/13/2023 4:05 PM PATTERN WORKER COVID: Suspected 12/20/2024 12/20/2024 12/20/2024 12:05 PM PATTERN WORKER documented as of this encounter Care Teams Agricultural Produce Packer Relationship Specialty Start Date End Date Nathan Johnson MD PCP - General Family Medicine 01/21/19 07/25/22 Jhon Gatica PA PCP - General Family Medicine 07/26/22 Natan Pepe MD [address] [place] [address] [address] [place], [place] [phone] Surgeon General Surgery 09/12/24 Bernie Monahan MD [address] [place] [address] [address] [place], [place] [address] Radiation Oncologist Radiation Oncology 09/12/24 Roe Ferrer DO [address] [place] [address] Medical Oncologist/Community Services Manager Hematology and Oncology 02/24/25 documented as of this encounter
--- OUTSIDE RECORDS SUMMARY | 2025-04-06 17:20 | XMS_ITS | Encounter Summary ---
Author Organization [facility] Facility Care Team Providers Care Grinder Operator Automatic Name Role Phone Nathan Johnson MD Primary Care Provider [phone] Jhon Gatica Primary Care Provider [phone] Natan Pepe MD Unavailable [phone] Bernie Monahan MD Unavailable [phone] Roe Ferrer DO Unavailable [phone] Encounter Details Date Type Department Care Team (Latest Contact Info) Description 08/20/2018 Orders Only [facility] CLINCONV ProviderJazlyn MD [address] [place] [address] Social History Tobacco Use Types Packs/Day Years Used Date Smoking Tobacco: Never Assessed Comments Unknown Sex and Gender Information Value Date Recorded Sex Assigned at Not on file Legal Sex Female 2:20 PM SOFTWARE BUSINESS ANALYST Gender Identity Not on file Sexual Orientation [...] COVID: Suspected 01/03/2023 01/03/2023 01/03/2023 10:35 AM SOFTWARE BUSINESS ANALYST COVID: Suspected 01/03/2023 01/03/2023 01/03/2023 10:37 AM SOFTWARE BUSINESS ANALYST COVID: Suspected 10/13/2023 10/13/2023 10/13/2023 4:05 PM SOFTWARE BUSINESS ANALYST COVID: Suspected 12/20/2024 12/20/2024 12/20/2024 12:05 PM SOFTWARE BUSINESS ANALYST documented as of this encounter Care Teams Grinder Operator Automatic Relationship Specialty Start Date End Date Nathan Johnson MD PCP - General Family Medicine 01/21/19 07/25/22 Jhon Gatica PA PCP - General Family Medicine 07/26/22 Natan Pepe MD [address] [place] [id number] Surgeon General Surgery 09/12/24 Bernie Monahan MD [address] [place] [address] [address] [place], [place] [address] Radiation Oncologist Radiation Oncology 09/12/24 Roe Ferrer DO [address] [place] [address] Medical Oncologist/Conference Director Hematology and Oncology 02/24/25 documented as of this encounter
--- OUTSIDE RECORDS SUMMARY | 2025-04-06 17:20 | XMS_ITS | Encounter Summary ---
Author Organization [facility] Facility Care Team Providers Care Aluminum Welder Name Role Phone Nathan Johnson MD Primary Care Provider [phone] Jhon Gatica Primary Care Provider [phone] Natan Pepe MD Unavailable [phone] Bernie Monahan MD Unavailable [phone] Roe Ferrer DO Unavailable [phone] Encounter Details Date Type Department Care Team (Latest Contact Info) Description 11/21/2017 Orders Only [facility] CLINCONV ProviderJazlyn MD [address] [place] [address] Social History Tobacco Use Types Packs/Day Years Used Date Smoking Tobacco: Never Assessed Comments Unknown Sex and Gender Information Value Date Recorded Sex Assigned at Not on file Legal Sex Female 2:20 PM GENERAL UTILITY MACHINE OPERATOR Gender Identity Not on file Sexual Orientation Not on file documented as of this encounter Plan of Treatment Not on file documented as of this encounter Procedures Procedure Name Priority Date/Time Associated Diagnosis Comments SCAN - LABS 11/23/2017 12:00 AM GENERAL UTILITY MACHINE OPERATOR SCAN - LABS 11/22/2017 12:00 AM GENERAL UTILITY MACHINE OPERATOR documented in this encounter Results * SCAN - LABS (11/23/2017 12:00 AM GENERAL UTILITY MACHINE OPERATOR) Narrative 11/23/2017 12:00 AM GENERAL UTILITY MACHINE OPERATOR Ordered by an unspecified provider. us Historical Provider Final Res ult * SCAN - LABS (11/22/2017 12:00 AM GENERAL UTILITY MACHINE OPERATOR) Narrative 11/22/2017 12:00 AM GENERAL UTILITY MACHINE OPERATOR Ordered by an unspecified provider. Historical Provider Final Res ult documented in this encounter Visit Diagnoses Not on filedocumented in this encounter Additional Health Concerns Infection Onset Date Last Indicated Resolved Time COVID: Suspected 01/03/2023 01/03/2023 01/03/2023 10:35 AM GENERAL UTILITY MACHINE OPERATOR COVID: Suspected 01/03/2023 01/03/2023 01/03/2023 10:37 AM GENERAL UTILITY MACHINE OPERATOR COVID: Suspected 10/13/2023 10/13/2023 10/13/2023 4:05 PM GENERAL UTILITY MACHINE OPERATOR COVID: Suspected 12/20/2024 12/20/2024 12/20/2024 12:05 PM GENERAL UTILITY MACHINE OPERATOR documented as of this encounter Care Teams Aluminum Welder Relationship Specialty Start Date End Date Nathan Johnson MD PCP - General Family Medicine 01/21/19 07/25/22 Jhon Gatica PA PCP - General Family Medicine 07/26/22 Natan Pepe MD [facility] [address] [place], [place] [phone] Surgeon General Surgery 09/12/24 Bernie Monahan MD [address] [facility] 160 [place] [address] Radiation Oncologist Radiation Oncology 09/12/24 Roe Ferrer DO [address] [facility] 180 [place], [place] [phone] Medical Oncologist/Water Resources Business Segment Leader Hematology and Oncology 02/24/25 documented as of this encounter
[2025-04-06] MEDS: HYDROcodone/acetaminophen (*CRX) 5-325 MG TABLET 1 TAB PO (18:52)
[2025-04-06] MEDS: IBUPROFEN 600 MG TABLET PO (18:53)
== END 2025-04-06 19:11 | disposition home or self-care (01) ==
PROVIDERS: Emergency Provider Emergency Medicine; PCP Physician Assistant Medical
DX: S83.91XA Sprain of unspecified site of right knee, initial encounter (principal); X50.1XXA Overexertion from prolonged static or awkward postures, initial encounter; I10 Essential (primary) hypertension; K21.9 Gastro-esophageal reflux disease without esophagitis; F41.8 Other specified anxiety disorders
CPT/HCPCS: 73562; 99283; A9270

== ENCOUNTER 2025-06-19 19:09 | Inpatient (IN) | payer BC, MEDICARE, SELFPAY ==
--- OUTSIDE RECORDS SUMMARY | 2007-05-18 04:51 | XMS_ITS | Continuity of Care Document ---
Author Organization [facility] Address [address] [place] [address] Phone Care Team Providers Care Glove Printer Name Role Phone [facility] Unavailable Unavail able Isabel Conteh Unavailable Unavailable Procedures Procedure Date Vision Svcs Frames Purchases Progressive Lens, Polycarb Anti-reflective Coating Tax - Medical Advance Directives Directive Yes / No Effective Date File Name No Information Encounters Encounter Description Practice Location Reason(s) For Visit Diagnoses Date Provider Providers Copied on Encounter [facility], [address] [place] [address] [address], [place], [place], [id number], [place] tel:[phone] SEC [facility] No Information [address] [facility] [address] [facility], [facility] [address], [place], [place], [address] , [place]. tel:[phone] Referring Provider: Nathan Tate MD , [address] [facility] [address], [place], [address]. tel:[phone] g Provider: Isabel Conteh, [address] [place] [address], [address]. tel:[phone] Family History Family Member Type Diagnosis Age At Onset No Information Payers Payer name Insurance type Covered green party ID Authoriza tion(s) No Information Social History Type Description Quantity Date Captured Comments Sex Female Smoking Status No Information Chief Complaint And Reason For Visit No Information Reason For Referral Reason For Referral No Information History Of Present Illness Encounter Date Complaint History Of Prese nt Illness No Information Functional Status Date Functional Assessmen t No Information Instructions Date Instruction Additional Infor mation No Information Assessments Type Assessment Date No Information Patient Care Teams Name Effective Dates (start - stop) Status Members No Information
--- OUTSIDE RECORDS SUMMARY | 2007-05-18 04:51 | XMS_ITS | Continuity of Care Document ---
Author Organization [facility] Address [address] [place] [address] Phone Care Team Providers Care Ramp Service Agent Name Role Phone [facility] Unavailable Unavail able Isabel Conteh Unavailable Unavailable Procedures Procedure Date [facility] S[facility]cs Frames Purchases Progressive Lens, Polycarb Anti-reflective Coating Tax - Medical Advance Directives Directive Yes / No Effective Date File Name No Information Encounters Encounter Description Practice Location Reason(s) For Visit Diagnoses Date Provider Providers Copied on Encounter [facility], [address] [place] [address] [address], [place], [place], [id number], [place] tel:[phone] SEC [facility] No Information 0[address] [facility] [address] [facility], [facility] [address], [place], [place], [address] , [place]. tel:[phone] Referring Provider: Nathan Tate MD , [address] [facility] [address], [place], [address]. tel:[phone] g Provider: Isabel Conteh, [address] [place] [address], [address]. tel:[phone] Family History Family Member Type Diagnosis Age At Onset No Information Payers Payer name Insurance type Covered republican ID Authoriza tion(s) No Information Social History [...]
--- OUTSIDE RECORDS SUMMARY | 2007-05-18 04:51 | XMS_ITS | Continuity of Care Document ---
Author Organization [facility] Address [address] [place] [address] Phone Care Team Providers Care Sprigger Name Role Phone [facility] Unavailable Unavail able Isabel Conteh Unavailable Unavailable Procedures Procedure Date [facility] Frames Purchases Progressive Lens, Polycarb Anti-reflective Coating Tax - Medical Advance Directives Directive Yes / No Effective Date File Name No Information Encounters Encounter Description Practice Location Reason(s) For Visit Diagnoses Date Provider Providers Copied on Encounter [facility], [address] [place] [address] [address], [place], [place], [id number], [place] tel:[phone] SEC [facility] No Information [address] [facility] [address] [facility], [facility] [address], [place], [place], [address] , [place]. tel:[phone] Referring Provider: Nathan Tate MD , [address] [facility] [address], [place], [address]. tel:[phone] g Provider: Isabel Conteh, [address] [place] [address], [address]. tel:[phone] Family History Family Member Type Diagnosis Age [...]
--- NOTE | ~2025-06-19 | CT_ITS ---
CLINICAL INDICATION: Periumbilical pain COMPARISON: 07/23/2024. TECHNIQUE: Multiple contiguous axial images of the abdomen and pelvis were performed following the administration of with 100 mL Omnipaque-350 intravenous contrast The dose-length product (DLP) was 1421.18 mGy-cm. Automated exposure control and iterative reconstruction technique were employed. FINDINGS/OBSERVATIONS: Visualized lower thorax: The bilateral lung bases are clear. The heart is of enlarged, without pericardial effusion. Small hiatal hernia is present. Liver: The liver demonstrates homogeneous enhancement and is enlarged measuring 21 cm in longitudinal dimension, unchanged from prior. Gallbladder and biliary system: The gallbladder is only minimally distended, and otherwise unremarkable. Pancreas: Fatty atrophy of the pancreas. Spleen: The spleen enhances homogeneously and is not enlarged. Kidneys: The bilateral kidneys enhance symmetrically without hydronephrosis or renal calculi. Adrenal glands: Unremarkable. Gastrointestinal tract: Redemonstration of a fat-containing umbilical hernia, now containing a short segment of mid transverse colon with significant fluid-filled dilatation and distal decompression consistent with a high-grade bowel obstruction and possible strangulation given the degree of surrounding inflammatory change within the hernia sac. Skin induration is identified surrounding the umbilical hernia with edematous mural thickening of the distal transverse colon. The short segment of transverse colon within the hernia sac demonstrates hyperemia, suggesting venous compression. Appendix: Surgically absent. Vasculature: Unremarkable. Lymph nodes: No pathologically enlarged or morphologically suspicious lymph nodes within the retroperitoneum or at the root of the mesentery. Pelvic structures: The bladder is decompressed, limiting its evaluation. The uterus is surgically absent. Musculoskeletal: Age-appropriate degenerative disease within the lower thoracic and lumbosacral spines. IMPRESSION: High-grade bowel obstruction secondary to an umbilical hernia containing a short segment of transverse colon which demonstrates significant hyperemia suggesting venous compression, for which early strangulation is suspected. Reviewed, dictated and finalized at location A. IMPRESSION: High-grade bowel obstruction secondary to an umbilical hernia containing a shor t segment of transverse colon which demonstrates significant hyperemia suggesti ng venous compression, for which early strangulation is suspected.
--- OUTSIDE RECORDS SUMMARY | 2025-06-19 19:12 | XMS_ITS | Encounter Summary ---
Author Organization [facility] Facility Care Team Providers Care Booking Prizer Name Role Phone Nathan Johnson MD Primary Care Provider [phone] Jhon Gatica Primary Care Provider [phone] Natan Pepe MD Unavailable [phone] Bernie Monahan MD Unavailable [phone] Roe Ferrer DO Unavailable [phone] Encounter Details Date Type Department Care Team (Latest Contact Info) Description 08/20/2018 Orders Only [facility] CLINCONV ProviderJazlyn MD [address] [place] [address] Social History Tobacco Use Types Packs/Day Years Used Date Smoking Tobacco: Never Assessed Comments Unknown Sex and Gender Information Value Date Recorded Sex Assigned at Not on file Legal Sex Female 2:20 PM HEEL WASHER STRINGING MACHINE OPERATOR Gender Identity Not on file [...] COVID: Suspected 01/03/2023 01/03/2023 01/03/2023 10:35 AM HEEL WASHER STRINGING MACHINE OPERATOR COVID: Suspected 01/03/2023 01/03/2023 01/03/2023 10:37 AM HEEL WASHER STRINGING MACHINE OPERATOR COVID: Suspected 10/13/2023 10/13/2023 10/13/2023 4:05 PM HEEL WASHER STRINGING MACHINE OPERATOR COVID: Suspected 12/20/2024 12/20/2024 12/20/2024 12:05 PM HEEL WASHER STRINGING MACHINE OPERATOR documented as of this encounter Care Teams Booking Prizer Relationship Specialty Start Date End Date Nathan Johnson MD PCP - General Family Medicine 01/21/19 07/25/22 Jhon Gatica PA PCP - General Family Medicine 07/26/22 Natan Pepe MD [address] [place] [address] [address] [place], [place] [id number] Surgeon General Surgery 09/12/24 Bernie Monahan MD [address] [place] [address] [address] [place], [place] [address] Radiation Oncologist Radiation Oncology 09/12/24 Roe Ferrer DO [facility]8 [facility] 180 [place], [place] [address] Medical Oncologist/Well Logging Operator Mud Analysis Hematology and Oncology 02/24/25 documented as of this encounter
--- OUTSIDE RECORDS SUMMARY | 2025-06-19 19:12 | XMS_ITS | Encounter Summary ---
Author Organization [facility] Facility Care Team Providers Care Scarf And Anneal Operator Name Role Phone Nathan Johnson MD Primary Care Provider [phone] Jhon Gatica Primary Care Provider [phone] Natan Pepe MD Unavailable [phone] Bernie Monahan MD Unavailable [phone] Roe Ferrer DO Unavailable [phone] Encounter Details Date Type Department Care Team (Latest Contact Info) Description 11/21/2017 Orders Only [facility] CLINCONV ProviderJazlyn MD [address] [place], [place] [id number] Social History Tobacco Use Types Packs/Day Years Used Date Smoking Tobacco: Never Assessed Comments Unknown Sex and Gender Information Value Date Recorded Sex Assigned at Not on file Legal Sex Female 2:20 PM PASTRY COOK HELPER Gender Identity Not on file Sexual Orientation Not on file documented as of this encounter Plan of Treatment Not on file documented as of this encounter Procedures Procedure Name Priority Date/Time Associated Diagnosis Comments SCAN - LABS 11/23/2017 12:00 AM PASTRY COOK HELPER SCAN - LABS 11/22/2017 12:00 AM PASTRY COOK HELPER documented in this encounter Results * SCAN - LABS (11/23/2017 12:00 AM PASTRY COOK HELPER) Narrative 11/23/2017 12:00 AM PASTRY COOK HELPER Ordered by an unspecified provider. us Historical Provider Final Res ult * SCAN - LABS (11/22/2017 12:00 AM PASTRY COOK HELPER) Narrative 11/22/2017 12:00 AM PASTRY COOK HELPER Ordered by an unspecified provider. us Historical Provider Final Res ult documented in this encounter Visit Diagnoses Not on filedocumented in this encounter Additional Health Concerns Infection Onset Date Last Indicated Resolved Time COVID: Suspected 01/03/2023 01/03/2023 01/03/2023 10:35 AM PASTRY COOK HELPER COVID: Suspected 01/03/2023 01/03/2023 01/03/2023 10:37 AM PASTRY COOK HELPER COVID: Suspected 10/13/2023 10/13/2023 10/13/2023 4:05 PM PASTRY COOK HELPER COVID: Suspected 12/20/2024 12/20/2024 12/20/2024 12:05 PM PASTRY COOK HELPER documented as of this encounter Care Teams Scarf And Anneal Operator Relationship Specialty Start Date End Date Nathan Johnson MD PCP - General Family Medicine 01/21/19 07/25/22 Jhon Gatica PA PCP - General Family Medicine 07/26/22 Natan Pepe MD [facility] 330 [place], [place] [address] Surgeon General Surgery 09/12/24 Bernie Monahan MD [address] [facility] 160 [place], [place] [phone] Radiation Oncologist Radiation Oncology 09/12/24 Roe Ferrer DO 14[address] [facility] 180 [place], [place] [phone] Medical Oncologist/Tire Classifier Hematology and Oncology 02/24/25 documented as of this encounter
--- OUTSIDE RECORDS SUMMARY | 2025-06-19 19:12 | XMS_ITS | Clinical Summary ---
Author Organization [address] Address [address] [place] [address] Care Team Providers Care Aircraft Electronics Technical Officer Name Role Phone Jhon Gatica Primary Care Provider [phone] Natan Pepe MD Unavailable [phone] Bernie Monahan MD Unavailable [phone] Roe Ferrer DO Unavailable [phone] Allergies Active Allergy Reactions Criticality Noted Date [...] THE MORNING 90 tablet 1 2023 Active omeprazole (PriLOSEC) 40 mg capsuleIndications:Gas troesophageal reflux disease without esophagitis TAKE 1 CAPSULE (40 MG TOTAL) BY MOUTH DAILY. 90 capsule 1 2023 Active furosemide (LASIX) 40 mg tabletIndications:Eppe gn essential HTN TAKE 1 TABLET BY MOUTH EVERY DAY 90 tablet 1 2023 Active gabapentin (NEURONTIN) 300 mg capsuleIndications:Fib romyalgia TAKE 1 CAPSULE (300 MG TOTAL) BY MOUTH 2 TIMES A DAY. 180 capsule 1 2023 Active dicyclomine (BENTYL) 20 mg tabletIndications:Abdo biju cramping Take 1 tablet (20 mg total) by mouth every 8 (eight) hours 90 tablet 2 2023 Active eszopiclone (LUNESTA) 3 mg tabletIndications:Prim [...] OF BREATH 90 mL 2 2024 Active tamoxifen (NOLVADEX) 10 mg tabletIndications:Horm one Receptor Positive Breast Cancer Take 1 tablet (10 mg total) by mouth daily Start April 29 tablet 1 2024 Active triamcinolone (KENALOG) 0.1 % cream Apply topically 3 (three) times a day 30 g 1 2024 Active levothyroxine (SYNTHROID) 50 mcg tabletIndications:Acqu ired hypothyroidism TAKE 1 TABLET BY MOUTH EVERY DAY 90 tablet 1 2024 Active cyclobenzaprine (FLEXERIL) 10 mg tabletIndications:Bila teral sacroiliitis TAKE 1 TABLET BY MOUTH THREE TIMES A DAY NEEDED FOR MUSCLE SPASM 90 tablet 3 2024 Active lisinopriL (PRINIVIL,ZESTRIL) 40 mg tabletIndications:Esse ntial (primary) hypertension TAKE 1 TABLET BY MOUTH EVERY DAY 90 tablet 3 2024 Active propranoloL (INDERAL) 40 mg tabletIndications:Esse ntial (primary) hypertension Take 1 tablet (40 mg total) by mouth 2 (two) times a day 180 tablet 1 2024 Active atorvastatin (LIPITOR) 80 mg tabletIndications:Pure hypercholesterolemia Take 1 tablet (80 mg total) by mouth daily 90 tablet 3 2024 Active SUMAtriptan (IMITREX) 100 mg tabletIndications:Migr andre with aura, not intractable, without status migrainosus TAKE 1 TAB BY MOUTH ONCE NEEDED FOR MIGRAINE MAY REPEAT IN 2 HOURS IF NO RELIEF. MAX 2/24 HOURS 100 tablet 1 2024 Active busPIRone (BUSPAR) 10 mg tabletIndications:AMANDA (generalized anxiety disorder) TAKE 1 TABLET BY MOUTH TWICE A DAY 180 tablet 2024 Active HYDROcodone-acetaminop hen (NORCO) 10-325 mg per tabletIndications:Pain Take 0.5 tablets by mouth every 8 (eight) hours as needed for pain 45 tablet 2024 Active celecoxib (CeleBREX) 100 mg capsuleIndications:Fib romyalgia TAKE 1 CAPSULE BY MOUTH EVERY DAY 100 capsule 1 2024 Active celecoxib (CeleBREX) 100 mg capsuleIndications:Fib romyalgia TAKE 1 CAPSULE BY MOUTH EVERY DAY 100 capsule 1 06/18 Discontinued HYDROcodone-acetaminop hen (NORCO) 10-325 mg per tabletIndications:Pain Take 0.5 tablets by mouth every 8 (eight) hours as needed for pain 45 tablet 06/06 Discontinued( Reorder) Active Problems Problem Noted Date Diagnosed Date Personal history of radiation therapy 04/30/2025 Malignant neoplasm of left b reast in female, estrogen receptor positive 12/13/2024 Cancer Staging:Pathologic stage from 02/24/2025:Stage IA(pT1b, pN0(sn), cM0, G1, ER+, DC+, HER2-) - Unsigned 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 11/18/2023 Cancer Staging:Clinical stage from 09/18/2024:Stage 0(cTis (DCIS), cN0, cM0, GX, ER+, DC: Not Assessed, HER2: Not Assessed) - Signed by Bernie Monahan MD on 09/18/2024 Left breast mass 07/30/2024 Assessment & Plan (07/30/2024 9:42 AM CDT): Sched for diagnsotic and ultrasound Umbilical hernia without obstruction and without gangrene 07/30/2024 Assessment & Plan (07/30/2024 9:49 AM CDT): Chronic occasionally painful Refer to general surgery Pure hypercholesterolemia 04/08/2024 Borderline diabetic 04/08/2024 Assessment & Plan (11/13/2024 3:16 PM SENIOR SOFTWARE ARCHITECT): Poct A1c today Gastroesophageal reflux disease without esophagi tis 06/05/2023 Assessment & Plan (06/05/2023 11:35 PM CDT): Chornic stable and well controlled Continue omeprazole Moderate episode of recurrent major depressive d isorder 01/23/2023 Assessment & Plan (10/05/2023 9:36 AM SENIOR SOFTWARE ARCHITECT): Chronic and not well controlled Increase sertraline [...] zepbound Assessment & Plan (01/05/2024 10:50 AM SENIOR SOFTWARE ARCHITECT): Chronic condition she has lost 30 lb in the last 6 months continue with dietary restrictions. Assessment & Plan (10/20/2021 2:49 PM SENIOR SOFTWARE ARCHITECT): Chronic condition she has lost 30 lb [...] 01/21/2019 Assessment & Plan (11/13/2024 3:14 PM SENIOR SOFTWARE ARCHITECT): Chronic persistent but improved with lunesta Continue current dosing Assessment & Plan (07/30/2024 11:58 PM CDT): Chronic persistent but improved with lunesta Continue current dosing Assessment & Plan (10/05/2023 9:35 AM SENIOR SOFTWARE ARCHITECT): Chronic not well controlled with increased stress D/c trazadone Continue lunesta Assessment & Plan (06/05/2023 9:55 AM CDT): Chronic persistent Improved with use of lunesta and elavil Continue current regimen Assessment & Plan (01/19/2021 10:44 AM CDT): Chronic condition Stable and responds well to lunesta. Assessment & Plan (10/13/2020 2:27 PM SENIOR SOFTWARE ARCHITECT): Start trazadone 50mg Assessment & Plan (04/06/2020 5:20 PM CDT): Well controlled on current regimen, no rx changes needed. Continue lifestyle modifications AMANDA (generalized anxiety disorder) 09/26/2018 Assessment & Plan (11/13/2024 3:14 PM SENIOR SOFTWARE ARCHITECT): Chronic not well controlled Start buspar 10mg bid Assessment & Plan (04/08/2024 10:50 AM CDT): Chronic and not well controlled with breakthrough anxiety situational Start atarax 25mg every day prn #30 Refer to [facility] in [facility] Assessment & Plan (10/20/2021 2:50 PM SENIOR SOFTWARE ARCHITECT): Chronic condition Refill Xanax for Assessment & [...] 09/26/2018 Assessment & Plan (11/13/2024 3:20 PM SENIOR SOFTWARE ARCHITECT): Chronic not well controlled Start Assessment & Plan (10/20/2021 2:50 PM SENIOR SOFTWARE ARCHITECT): Chronic condition not well controlled will increase [...] Encounters Date Type Department Care Team Description 05/23/2025 Telephone [facility] Family Medicine at [address] [place] [address] Jhon Gatica PA Test Results 05/20/2025 8:12 AM CDT - 05/20/2025 11:59 PM CDT Hospital Encounter [facility] MRI [address] [place] [id number] Primary osteoarthritis of right knee Discharge Disposition: Discharge to home or self care 05/08/2025 8:00 AM CDT Office Visit [facility] Medical Office Building 2 Radiation Oncology [address] [place] [address] Marisol Rutledge PA Malignant neoplasm of upper-outer quadrant of left breast in female, estrogen receptor positive (HCC) (Primary Dx); Personal history of radiation therapy 05/08/2025 Telephone [facility] Family Medicine at [address] [place] [address] Jhon Gatica PA Recommendation Request 04/14/2025 Telephone [facility] Family Medicine at [address] [place] [address] Jhon Gatica PA Forms Request 04/10/2025 10:30 AM CDT Lab [facility] Office Bldg [address] [place] [address] Borderline diabetic; Essential (primary) hypertension; Pure hypercholesterolemia; Acquired hypothyroidism; Primary insomnia; Gastroesophageal reflux disease without esophagitis 04/10/2025 9:00 AM CDT Office Visit [facility] Family Medicine at [address] [place] [address] Jhon Gatica PA Essential (primary) hypertension (Primary Dx); Borderline diabetic; Pure hypercholesterolemia; Acquired hypothyroidism; Primary insomnia; Gastroesophageal reflux disease without esophagitis; Primary osteoarthritis of right knee 04/10/2025 Results Follow-Up [facility] Family Medicine at [address] [place] [phone] Jhon Gatica PA Hemoglobin A1c, Vitamin B12, TSH, Additional followed-up results: 7 04/06/2025 Orders Only [facility] Information [facility] [address] [place] [phone] Masha Alba MD 03/27/2025 7:15 AM CDT Treatment [facility] 2 Radiation Oncology [address] [place] [phone] Bernie Monahan MD 03/27/2025 Completion of Therapy [facility] Building 2 Radiation Oncology [address] [place] [address] Bernie Monahan MD 03/27/2025 Orders Only RAD ONC TREATMENTS Miscellaneous , Not In File 03/26/2025 8:45 AM [facility] Medical Office Building 2 Radiation Oncology [address] [place] [address] 03/[facility]20[facility] On[facility] [address] [place] [address] Bernie Monahan MD Malignant neoplasm of upper-outer quadrant of left breast in female, estrogen receptor positive (HCC) (Primary Dx) 03/26/2025 Orders Only RAD ONC TREATMENTS Miscellaneous , Not In File 03/25/2025 9:30 AM [facility] Medical Office Building 2 Radiation Oncology [address] [place] [address] 03/25/2025 Orders Only RAD ONC TREATMENTS Miscellaneous , Not In File 03/20/2025 9:30 AM [facility] Medical Office Building 2 Radiation Oncology [address] [place] [address] 03/20/2025 Orders Only RAD ONC TREATMENTS Miscellaneous , Not In File 03/19/2025 9:30 AM [facility] Medical Office Building 2 Radiation Oncology [address] [place] [address] 03/19/2025 Orders Only RAD ONC TREATMENTS Miscellaneous , Not In File 03/19/2025 [facility]iation Oncology [address] [place] [address] Bernie Monahan MD Malignant neoplasm of upper-outer quadrant of left breast in female, estrogen receptor positive (HCC) (Primary Dx) from Last 3 Months Immunizations Immunization Administration Dates Next Due Influenza, Quadrivalent, Spl it, Preservative Free, Intramuscular 08/24/2019 Influenza, Unspecified 07/30/2024(Deferr ed: Patient Refused),01/05/2024(Deferred: Patient decision),01/19/2021(Deferred: Patient Refused) Pneumococcal Conjugate Pcv20 01/05/2024 Surgical History Surgery Date Site/Laterality Comments APPENDECTOMY HYSTERECTOMY Ovaries intact BREAST BIOPSY 09/03/2024 Left BREAST SURGERY 10/16/2024 [facility] Left Breast Lumpectomy Needle localization, excision left sentinel node BREAST LUMPECTOMY 01/23/2025 Left x 2, had radiation Medical History Medical History Date Comments Bulging [...] often do you have a drink containing alcohol? Never 04/10/2025 Q2: How many drinks containi ng alcohol do you have on a typical day when you are drinking? Patient does not drink Q3: How often do you have si x or more drinks on one occasion? Never 04/10/2025 PHQ-2 Answer Date Recorded PHQ-2 Total Score (If total score is 3 or more points, staff should administer the PHQ-9) 5 04/10/2025 PHQ-9 Answer Date Recorded PHQ-9 Total Score 18 04/08/2024 Personal Safety Answer Date Recorded Have you ever been in or are you currently in a harmful physical or emotional relationship or is someone making you feel afraid or unsafe? 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 Not on file Not on file Not on file Obstetrics History Para Term AB IAB SAB Ectopic Multiple Livin g Live Births 3 3 3 Date Outcome GA Total Labor Labor//3rd Weight Sex Type Anes PTL Penny A1 A5 Name Clin Term Term Term Last Filed Vital Signs Vital Sign Reading Time Taken Comments Blood Pressure 170/93 05/08/2025 8:01 AM CDT Pulse 101 05/08/2025 8:01 AM CDT Temperature 36.3 C (97.3 F) 04/10/2025 9:18 AM CDT Respiratory Rate 18 02/17/2025 10:30 AM CDT Oxygen Saturation 98% 05/08/2025 8:01 AM CDT Inhaled Oxygen Concentration - - Weight 140.2 kg (309 lb) 05/08/2025 8:01 AM CDT Height 162.6 cm (5' 4) 04/10/2025 9:18 AM CDT Body Mass Index 53.04 04/10/2025 9:18 AM CDT Plan of Treatment Health Maintenance Due Date Last Done Comments DTaP/Tdap/Td Vaccine (1 - Tdap) 1969 Hepatitis B Screening 1976 Zoster Vaccine (1 of 2) 1977 Covid-19 Vaccine (4 - 2023-2 5 season) 2024 11/18/2021, 05/16/2021, 04/25/2021 Influenza Vaccine (#1) 2025 08/24/2019 Breast Cancer Screening-Mammogram 07/26/2025 024 Depression Screening 04/10/2026 04/10/2025, 04/08/2024, 04/08/2024, Additional history exists Fall Risk Assessment 04/10/2026 04/10/2025, 01/23/2025, 09/23/2024, Additional history exists Well Visit 65+ 04/10/2026 04/10/2025, 04/08/2024 Osteoporosis Screening-Bone Density Scan 01/08/2027 01/08/2025 Colon Cancer Screening-DNA Stool 02/05/2027 02/06/20 Hepatitis C Screening Completed 01/05/2024 Pneumococcal vaccine 65+ Completed 01/05/2024 Colon Cancer Screening-FIT Discontinued 02/06/2024 Medical Devices Implanted Type Area Public Area Supervisor Device Identifier Shelf Expiration Date Model / Serial / Lot [employer] 13cm Rigid End Bioabsorbable Net Top Transfer Specialist Breast Latex Free [id number] - [id number] Implanted:Qty: 1 on 09/03/2024 by Natan Pepe MD at [facility] Left: Breast [employer] [id number] 11/23/2024 SMARK-ELLEN VA-[id number]-[id number] / / [id number] Chrome [employer] [place] 20ga 5cm Reposition J Curve Wire [employer] Stabilizer [id number] - [id number] Implanted:Qty: 1 on 10/16/2024 by Adam Ford MD at [facility] Left: Breast [employer] [id number] 05/24/2029 [id number] / / [id number] Procedures Procedure Name Priority Date/Time Associated Diagnosis Comments MRI KNEE RIGHT WO CONTRAST Schedule Routine, Read Routine (OP Routine) 05/20/2025 9:12 AM CDT Primary osteoarthritis of right knee EGFR Routine 04/10/2025 10:36 AM CDT Essential (primary) hypertension Pure hypercholesterolemia Acquired hypothyroidism Primary insomnia Gastroesophageal reflux disease without esophagitis DIFFERENTIAL AUTO Routine 04/10/2025 10:36 AM CDT Essential (primary) hypertension Pure hypercholesterolemia Acquired hypothyroidism Primary insomnia Gastroesophageal reflux disease without esophagitis BILIRUBIN, DIRECT Routine 04/10/2025 10:36 AM CDT Essential (primary) hypertension Pure hypercholesterolemia Acquired hypothyroidism Primary insomnia Gastroesophageal reflux disease without esophagitis CBC WITH AUTO DIFFERENTIAL Routine 04/10/2025 10:36 AM CDT Essential (primary) hypertension Pure hypercholesterolemia Acquired hypothyroidism Primary insomnia Gastroesophageal reflux disease without esophagitis COMPREHENSIVE METABOLIC PANEL Routine 04/10/2025 10:36 AM CDT Essential (primary) hypertension Pure hypercholesterolemia Acquired hypothyroidism Primary insomnia Gastroesophageal reflux disease without esophagitis LIPID PANEL Routine 04/10/2025 10:36 AM CDT Essential (primary) hypertension Pure hypercholesterolemia Acquired hypothyroidism Primary insomnia Gastroesophageal reflux disease without esophagitis TSH Routine 04/10/2025 10:36 AM CDT Essential (primary) hypertension Pure hypercholesterolemia Acquired hypothyroidism Primary insomnia Gastroesophageal reflux disease without esophagitis VITAMIN B12 Routine 04/10/2025 10:36 AM CDT Essential (primary) hypertension Pure hypercholesterolemia Acquired hypothyroidism Primary insomnia Gastroesophageal reflux disease without esophagitis HEMOGLOBIN A1C Routine 04/10/2025 10:36 AM CDT Borderline diabetic SCAN - RADIOLOGY/IMAGING 04/06/2025 RAD ONC ARIA SESSION SUMMARY 03/27/2025 7:31 AM CDT RAD ONC ARIA SESSION SUMMARY 03/26/2025 8:56 AM CDT RAD ONC ARIA SESSION SUMMARY 03/25/2025 9:37 AM CDT RAD ONC ARIA SESSION SUMMARY 03/20/2025 9:32 AM CDT RAD ONC ARIA SESSION SUMMARY 03/19/2025 9:38 AM CDT DEXA AXIAL SKELETON BONE DENSITY 1 OR MORE SITES Schedule Routine, Read Routine (OP Routine) 01/08/2025 7:46 AM CDT Menopausal and perimenopausal disorder SCREENING MAMMOGRAM BILATERAL W JC Schedule Routine, Read Routine (OP Routine) 07/26/2024 8:50 AM CDT Screening mammogram, encounter for STOOL DNA COLOGUARD Routine 02/06/2024 10:30 AM CDT Screening for colon cancer HEPATITIS C ANTIBODY Routine 01/05/2024 11:53 AM SENIOR SOFTWARE ARCHITECT Need for hepatitis C screening test from Last 3 Months or Most Recently Relevant to Health Maintenance Results * MRI Knee Right WO Contrast (05/20/2025 9:12 AM CDT) Anatomical Region Laterality Modality Lower Extremities Right Magnetic Reson ance 05/20/2025 1:39 PM CDT Narrative 05/20/2025 1:43 PM CDT EXAM DESCRIPTION: MRI KNEE RIGHT WO CONTRAST REASON FOR STUDY: pain PT stated that she twisted her knee a few months ago, still has pain, TECHNIQUE: Multiplanar, multisequence MRI of the right knee was performed without contrast. COMPARISON: Right knee radiographs 11/16/2007. FINDINGS: The anterior cruciate ligament is not definitely visualized suggestive of high-grade chronic anterior cruciate ligament tear. The posterior cruciate ligament, medial collateral ligament and lateral collateral ligament complex are intact. Severe tricompartmental knee osteoarthritis is present with osteophytes in all 3 compartments and medial and lateral meniscal degenerative tearing. Subchondral marrow edema and subchondral cystic change are present in a large osteophyte along the anterior margin of the lateral femoral condyle. Mild multifocal lateral tibial plateau subchondral marrow edema. The quadriceps and patellar tendons are intact. No fracture or aggressive marrow replacing lesion. Small knee joint effusion with synovitis. Soft tissue edema is present about the knee. IMPRESSION: 1. Severe tricompartmental right knee osteoarthritis with medial and lateral meniscus degenerative tears. 2. Subchondral cystic change and subchondral marrow edema in a large osteophyte along the anterior margin of the lateral femoral condyle. Multifocal lateral tibial plateau subchondral marrow edema. No discrete fracture. 3. 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 4. Small knee joint effusion with synovitis. THIS IS AN ELECTRONICALLY VERIFIED FINAL REPORT 05/20/2025 1:43 PM - Electronically signed by Ulysses Kern M.D. TH T: Report ID: [id number] Reading Location: [id number] Procedure Note Ulysses Kern MD - 05/20/2025 EXAM DESCRIPTION: MRI KNEE RIGHT WO CONTRAST REASON FOR STUDY: pain PT stated that she twisted her knee a few months ago, still has pain, TECHNIQUE: Multiplanar, multisequence MRI of the right knee wasperformed without contrast. COMPARISON: Right knee radiographs 11/16/2007. FINDINGS: The anterior cruciate ligament is not definitely visualized suggestive of high-grade chronic anterior cruciate ligament tear. The posterior cruciate ligament, medial collateral ligament and lateralcollateral ligament complex are intact. Severe tricompartmental knee osteoarthritis is present with osteophytes inall 3 compartments and medial and lateral meniscal degenerative tearing. Subchondral marrow edema and subchondral cystic change are present in alarge osteophyte along the anterior margin of the lateral femoral condyle. Mild multifocal lateral tibial plateau subchondral marrow edema. The quadriceps and patellar tendons are intact. No fracture or aggressive marrow replacing lesion. Small knee joint effusion with synovitis. Soft tissue edema is presentabout the knee. IMPRESSION: 1. Severe tricompartmental right knee osteoarthritis with medial andlateral meniscus degenerative tears. 2. Subchondral cystic change and subchondral marrow edema in a large osteophyte along the anterior margin of the lateral femoral condyle. Multifocal lateral tibial plateau subchondral marrow edema. No discrete fracture. 3. 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 4. Small knee joint effusion with synovitis. THIS IS AN ELECTRONICALLY VERIFIED FINAL REPORT 05/20/2025 1:43 PM - Electronically signed by Ulysses Kern M.D. T: Report ID: [id number] Reading Location: [id number] Jhon CHAN [facility] [place] MRI PROCEDURES Final Result * eGFR (04/10/2025 10:36 AM CDT) eGFR 86 >=60 mL/min/1. 73 m2 [...] interpretive data was last reviewed 2021. Blood 04/10/2025 10:3 6 AM CDT 04/10/2025 12:24 PM CDT us Jhon CHAN LAB BLOOD ORDERABLES Final Resu lt [facility] [address] [facility] [place] [address] * Differential, auto (04/10/2025 10:36 AM CDT) Pathologist [facility] Neutrophil abs 3.68 1.50 - 6.50 K/cumm Imm gran abs 0.03 0.00 - 0.10 K/cumm [facility] Lymphocyte abs 1.62 0.80 - 3.30 K/cumm [facility] Monocyte abs 0.48 0.20 - 0.80 K/cumm [facility] Eosinophil abs 0.13 0.00 - 0.50 K/cumm [facility] Basophil abs 0.03 0.00 - 0.10 K/cumm [facility] Neutrophil pct 61.7 % [facility] Comment: Interpretive Data Percent cell count reference ranges are not reported, since discordance with absolute values may lead to misinterpretation of CBC data. Current Interpretive Data was last revised on 2018. Imm gran pct 0.5 % [facility] Comment: Interpretive Data Percent cell count reference ranges are not reported, since discordance with absolute values may lead to misinterpretation of CBC data. Current Interpretive Data was last revised on 2018. Lymphocyte pct 27.1 % [facility] Comment: Interpretive Data Percent cell count reference ranges are not reported, since discordance with absolute values may lead to misinterpretation of CBC data. Current Interpretive Data was last revised on 2018. Monocyte pct 8.0 % [facility] Comment: Interpretive Data Percent cell count reference ranges are not reported, since discordance with absolute values may lead to misinterpretation of CBC data. Current Interpretive Data was last revised on 2018. Eosinophil pct 2.2 % [facility] Comment: Interpretive Data Percent cell count reference ranges are not reported, since discordance with absolute values may lead to misinterpretation of CBC data. Current Interpretive Data was last revised on 2018. Basophil pct 0.5 % [facility] Comment: Interpretive Data Percent cell count reference ranges are not reported, since discordance with absolute values may lead to misinterpretation of CBC data. Current Interpretive Data was last revised on 2018. Blood 04/10/2025 10:3 6 AM CDT 04/10/2025 12:25 PM CDT us Jhon CHAN LAB BLOOD ORDERABLES Final Resu lt [facility] [address] [facility] [place] [address] * CBC with auto differential (04/10/2025 10:36 AM CDT) WBC 5.97 3.80 - 9.90 K/cumm Hgb 14.3 11.9 - 15.5 g/dL [facility] Hct 43.2 35.6 - 45.5 % [facility] Plt 237 150 - 400 K/cumm [facility] MPV 11.4 9.1 - 12.3 fL [facility] RBC 4.70 3.90 - 5.20 M/cumm [facility] MCV 91.9 81.3 - 96.4 fL [facility] MCH 30.4 27.1 - 33.3 pg [facility] MCHC 33.1 32.3 - 35.7 g/dL [facility] RDW CV 12.5 11.1 - 14.9 % [facility] RDW SD 41.8 35.7 - 48.1 fL JOHN NRBC abs 0.00 0.00 - 0.01 K/cumm JOHN Blood 04/10/2025 10:3 6 AM CDT 04/10/2025 12:25 PM CDT Jhon CHAN LAB BLOOD ORDERABLES Final Resu lt Performing Organization Address [facility] de Phone Number JOHN [address] [employer] [place] [address] * TSH (04/10/2025 10:36 AM CDT) Thyroid Stimulating Hormone 2.75 0.30 - 4.20 mcIUnit/mL Blood 04/10/2025 10:3 6 AM CDT 04/10/2025 12:24 PM CDT Jhon CHAN LAB BLOOD ORDERABLES Final Resu lt Performing Organization Address [facility] Phone Number [address] [place] [address] * (ABNORMAL) Hemoglobin A1c (04/10/2025 10:36 AM CDT) Hgb A1C 5.9(H) 4.0 - 5.6 % Estimated Average Glucose 123 mg/dL JOHN Comment: The ADA recommends reporting an estimated Average Glucose (eAG) with all Hemoglobin A1c results using the equation derived from a study of 507 normal and diabetic adults. Minority populations were underrepresented and children were not included. (Diabetes Care 31:7349-7057, 2008). The eAG is not equivalent to a fasting glucose. Blood 04/10/2025 10:3 6 AM CDT 04/10/2025 12:25 PM CDT Jhon CHAN LAB BLOOD ORDERABLES Final Resu lt Performing Organization Address [facility] de Phone Number [address] [place] [address] * Vitamin B12 (04/10/2025 10:36 AM CDT) Vitamin B12 574 230 - 1,250 pg/mL Blood 04/10/2025 10:3 6 AM CDT 04/10/2025 12:24 PM CDT Jhon CHAN LAB BLOOD ORDERABLES Final Resu lt Performing Organization Address [facility] Co de Phone Number [address] [address] * Bilirubin, direct (04/10/2025 10:36 AM CDT) Bilirubin, direct 0.2 0.1 - 0.3 mg/dL Blood 04/10/2025 10:3 6 AM CDT 04/10/2025 12:24 PM CDT Jhon CHAN LAB BLOOD ORDERABLES Final Resu lt Performing Organization Address City/[facility] de Phone Number [address] [address] * (ABNORMAL) Lipid panel (04/10/2025 10:36 AM CDT) Cholesterol 245(H) 30 - 199 mg/dL Comment: Interpretive Data Ages < or = 19 years Acceptable: <170 mg/dL Borderline high: 170-199 mg/dL High: >or= 200 mg/dL Ages > or = 20 years Desirable: <200 mg/dL Borderline high: 200-239 mg/dL High: >or= 240 mg/dL Literature References: 1. Expert Panel on Integrated Guidelines for Cardiovascular Health and Risk Reduction in Children and Adolescents. Pediatrics 2011;128:S213 2. NCEP Expert Panel. Circulation 2004;110:227 Current Interpretive Data was last revised on 2018. Triglycerides 226(H) <=149 mg/dL JOHN Comment: Interpretive Data Ages < or = 9 years Acceptable: <75 mg/dL Borderline high: 75-99 mg/dL High: >or= 100 mg/dL Ages 10 to 20 years Acceptable: <90 mg/dL Borderline high: 90-129 mg/dL High: >or= 130 mg/dL Ages > or = 20 years Desirable: <150 mg/dL Borderline high: 150-199 mg/dL High: 200-499 mg/dL Very high: >or= 499 mg/dL Literature References: 1. Expert Panel on Integrated Guidelines for Cardiovascular Health and Risk Reduction in Children and Adolescents. Pediatrics 2011;128:S213 2. NCEP Expert Panel. Circulation 2004;110:227 Current Interpretive Data was last revised on 2018. HDL 51 >=40 mg/dL JOHN Comment: Interpretive Data Ages < or = 19 years Acceptable: >45 mg/dL Borderline low: 40-45 mg/dL Low: <40 mg/dL Ages > or = 20 years Desirable: >or= 60 mg/dL Low: <40 mg/dL Literature References: 1. Expert Panel on Integrated Guidelines for Cardiovascular Health and Risk Reduction in Children and Adolescents. Pediatrics 2011;128:S213 2. NCEP Expert Panel. Circulation 2004;110:227 Current Interpretive Data was last revised on 2018. LDL, calculated 153(H) <=129 mg/dL JOHN PEREZ Comment: Interpretive Data Ages < or = 19 years Acceptable: <110 mg/dL Borderline high: 110-129 mg/dL High: >or= 130 mg/dL Ages > or = 20 years Optimal: <100 mg/dL Near optimal: 100-129 mg/dL Borderline high: 130-159 mg/dL High: >160 mg/dL Calculated using the Zeyad LDL-C estimating equation. This equation was implemented on 2024. Prior to this date LDL-C was estimated using the Friedewald equation. Literature References: 1. Expert Panel on Integrated Guidelines for Cardiovascular Health and Risk Reduction in Children and Adolescents. Pediatrics 2011;128:S213 2. NCEP Expert Panel. Circulation 2004;110:227 3. Zeyad Faith al. JONI Cardiol. 2020 February 27;5(5):540-548. doi: 10.1001/jamacardio.2020.0013 Current Interpretive Data was last revised on 2024. Non-HDL Cholesterol 194 mg/dL [facility] Comment: Interpretive Data Ages < or = 19 years Acceptable: <120 mg/dL Borderline high: 120-144 mg/dL High: >145 mg/dL Ages > or = 20 years When triglycerides are >200 mg/dL, Non-HDL cholesterol is a secondary target of therapy with treatment goals that are 30 mg/dL greater than the LDL cholesterol target. Literature References: 1. Expert Panel on Integrated Guidelines for Cardiovascular Health and Risk Reduction in Children and Adolescents. Pediatrics 2011;128:S213 2. NCEP Expert Panel. Circulation 2004;110:227 Current Interpretive Data was last revised on 2018. Chol/HDL ratio 5 [facility] Blood 04/10/2025 10:3 6 AM CDT 04/10/2025 12:24 PM CDT us Jhon CHAN LAB BLOOD ORDERABLES Final Resu lt [facility] [address] [facility] Department [place] [address] * Comprehensive metabolic panel (04/10/2025 10:36 AM CDT) Sodium 143 135 - 145 mmol/L Potassium, pl 4.4 3.3 - 4.9 mmol/L [facility] Chloride 105 97 - 110 mmol/L [facility] CO2 27 22 - 32 mmol/L [facility] Anion gap 11 2 - 15 mmol/L [facility] BUN 12 6 - 25 mg/dL [facility] Creatinine 0.76 0.60 - 1.10 mg/dL [facility] Glucose 107 70 - 199 mg/dL [facility] Comment: Interpretive Data Fasting glucose >/= [...] interpretive data was last revised 2022. Calcium 9.8 8.5 - 10.3 mg/dL [facility] Bilirubin, total 0.7 0.1 - 1.2 mg/dL [facility] Protein, pl 7.2 6.5 - 8.5 g/dL [facility] Albumin 4.2 3.5 - 5.0 g/dL [facility] Alk phos 91 40 - 130 Units/L [facility] ALT 15 7 - 45 Units/L [facility] AST 25 10 - 45 Units/L [facility] Blood 04/10/2025 10:3 6 AM CDT 04/10/2025 12:24 PM CDT us Jhon CHAN LAB BLOOD ORDERABLES Final Resu lt [facility] [address] [facility] Department [place] [address] * SCAN - RADIOLOGY/IMAGING (04/06/2025) Anatomical Region Laterality Modality Other us Masha Alba MD Final Result * RAD ONC ARIA SESSION SUMMARY (03/27/2025 7:31 AM CDT) Course Name C1_L_Breast ARIA Course [...] Performing Organization Address City/[facility]/ZIP Co de Phone Number ARIA * RAD ONC ARIA SESSION SUMMARY (03/25/2025 9:37 AM CDT) Course Name C1_L_Breast ARIA Course Plan Date 02/24/2025 10:42 AM ARIA Elapsed Days 21 ARIA Treatment Start Date 03/04/2025 ARIA Treatment Site PRONE LT BREAST ARIA Dose Given To Date (cGy) 3,471 ARIA Session Dosage Given (cGy) 267 ARIA Plan ID PRNE BRST ARIA Fractions Treated 13 ARIA Prescribed [...] Plan ID PRNE BRST ARIA Fractions Treated 12 ARIA Prescribed Dose Per Fraction (cGy) 267 ARIA Prescribed Total Dose (cGy) 4,005 ARIA 03/20/2025 9:32 AM CDT us Not In File Miscellaneous RADIATION ONCOLOGY ORD ERABLES Final Result Performing Organization Address [facility] de Phone Number NAV * RAD [...] ERABLES Final Result Performing Organization Address 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 MF: LEONILA Report ID: [id number] Reading Location: [address] Note Natan Block MD - 01/09/2025 EXAM DESCRIPTION: DEXA AXIAL SKELETON BONE DENSITY 1 OR MORE SITES REASON FOR STUDY: 64 y/o year old F with given history of: screening Public Area Supervisor/Model: [employer] A (S/N [id number]) Facility LSC value of 0.022 for the [...] Natan Block M.D. MF: LEONILA Report ID: [id number] Reading Location: [place] [address] Jhon CHAN IM DXA PROCEDURES Final Result [...] CLINICAL: Screening mammogram, encounter for (imaging center [facility]). No relevant medical history has been documented for this patient. History of breast cancer in Daughter, Mother's Sister, Grandchild. COMPARISONS: 08/01/2007 Screening Mammogram 2D Bilateral BREAST TISSUE: There are scattered areas of fibroglandular density. FINDINGS: There is a spiculated mass in the upper outer left breast, middle breast. There is no new suspicious finding in the right breast on mammogram. us Jhon CHAN [facility] MAMMO PROCEDURES Final Resu lt * Stool DNA - Cologuard (02/06/2024 10:30 AM CDT) Stool DNA - Cologuard Negative Negative [employer] (CLIA #:[id number]) Comment: NEGATIVE TEST RESULT. A negative Cologuard [...] (Yahir Naik al, N Engl J Med 2014;370(14):0161-5840) The normal value (reference range) for this assay is negative. COLOGUARD RE-SCREENING RECOMMENDATION: Periodic colorectal cancer screening is an important part of preventive healthcare for asymptomatic individuals at average risk for colorectal cancer. Following a negative Cologuard result, the Indian Cancer Society and U.S. Multi-Society Task Force screening guidelines recommend a Cologuard re-screening interval of 3 years. References: Indian Cancer Society Guideline for Colorectal Cancer Screening: https://www.cancer.org/cancer/trdtk-qgqwth-jixovr/larfrtttn-loeujchpc-mveiuuh/ac s-rec ommendations.html.; Donell DK, Evelio GAINES, Trino AvelarK, Colorectal Cancer Screening: Recommendations for Physicians and Patients from the U.S. Multi-Society Task Force on Colorectal Cancer Screening , Am J Gastroenterology 2017; 112:5405-5092. TEST DESCRIPTION: Composite algorithmic analysis of stool [...] (Yahir Naik al, N Engl J Med 2014;370(14):8133-5790.) Cologuard may produce a false negative or false positive result (no colorectal cancer or precancerous polyp present at colonoscopy follow up). A negative Cologuard test result does not guarantee the absence of CRC or advanced adenoma (pre-cancer). The current Cologuard screening interval is every 3 years. (Indian Cancer Society and U.S. Multi-Society Task Force). Cologuard performance data in a 10,000 patient pivotal study using colonoscopy as the reference method can be accessed at the following location: www.[employer]/results. Additional description of the Cologuard test process, warnings and precautions can be found at www.[employer].com. Stool 02/06/2024 10:3 0 AM CDT 02/07/2024 10:09 AM CDT us Jhon CHAN LAB BODY FLUIDS AND STOOLS BONG [place]YTON Final Result [employer] (CLIA #:[id number]) [place] [address] * Hepatitis C antibody Blood (01/05/2024 11:53 AM SENIOR SOFTWARE ARCHITECT) Hep C Ab Nonreactive Nonreactive Comment: Antibodies [...] on 2020. Blood 01/05/2024 11:5 3 AM SENIOR SOFTWARE ARCHITECT 01/05/2024 12:37 PM SENIOR SOFTWARE ARCHITECT us Jhon CHAN LAB MICROBIOLOGY - GENERAL BONG [place]YTON Final Result Performing Organization Address City/State/[facility] Co mi Phone Number JOHN [address] [facility] Department [place] [address] from Last 3 Months or Most Recently Relevant to Health Maintenance Insurance [email or web address] OOS [facility] MEDICARE ADVANTAGE [email or web address] OOS Advance Directives For more information, please contact: [phone] * Full Code (Latest Code Status on File) Date Activated Date Inactivated Comments 01/23/2025 11:14 AM 01/23/2025 5:41 PM * Full Code Date Activated Date Inactivated Comments 10/16/2024 2:46 PM 10/16/2024 10:06 PM Care Teams Aircraft Electronics Technical Officer Relationship Specialty Start Date End Date Jhon Gatica PA PCP - General Family Medicine 07/26/22 Natan Pepe MD [address] [facility] [address] [place] [address] Surgeon General Surgery 09/12/24 Bernie Monahan MD [address] [facility] [address] [place] [address] Radiation Oncologist Radiation Oncology 09/12/24 Roe Ferrer DO [address] [place] [address] Medical Oncologist/Dance Choreographer Hematology and Oncology 02/24/25
--- OUTSIDE RECORDS SUMMARY | 2025-06-19 19:12 | XMS_ITS | Encounter Summary ---
Author Organization [facility] Facility Care Team Providers Care Mat Sewer Name Role Phone Nathan Johnson MD Primary Care Provider [phone] Jhon Gatica Primary Care Provider [phone] Natan Pepe MD Unavailable [phone] Bernie Monahan MD Unavailable [phone] Roe Ferrer DO Unavailable [phone] Encounter Details Date Type Department Care Team (Latest Contact Info) Description 02/08/2018 Orders Only MMG CLINCONV ProviderJazlyn MD [address] [place] [address] Social History Tobacco Use Types Packs/Day Years Used Date Smoking Tobacco: Never Assessed Comments Unknown Sex and Gender Information Value Date Recorded Sex Assigned at Not on file Legal Sex Female 2:20 PM DIRECTOR ENTERPRISE DATA ARCHITECTURE Gender Identity Not on file Sexual Orientation [...] COVID: Suspected 01/03/2023 01/03/2023 01/03/2023 10:35 AM DIRECTOR ENTERPRISE DATA ARCHITECTURE COVID: Suspected 01/03/2023 01/03/2023 01/03/2023 10:37 AM DIRECTOR ENTERPRISE DATA ARCHITECTURE COVID: Suspected 10/13/2023 10/13/2023 10/13/2023 4:05 PM DIRECTOR ENTERPRISE DATA ARCHITECTURE COVID: Suspected 12/20/2024 12/20/2024 12/20/2024 12:05 PM DIRECTOR ENTERPRISE DATA ARCHITECTURE documented as of this encounter Care Teams Mat Sewer Relationship Specialty Start Date End Date Nathan Johnson MD PCP - General Family Medicine 01/21/19 07/25/22 Jhon Gatica PA PCP - General Family Medicine 07/26/22 Natan Pepe MD [facility] [address] [place], [place] [id number] Surgeon General Surgery 09/12/24 [place] [address] [place] [address] [address] [place], [place] [address] Radiation Oncologist Radiation Oncology 09/12/24 Roe Ferrer DO [address] [facility] [address] [place], [place] [address] Medical Oncologist/Mucker Operator Hematology and Oncology 02/24/25 documented as of this encounter
--- OUTSIDE RECORDS SUMMARY | 2025-06-19 19:12 | XMS_ITS ---
Author Organization [facility] [address] [facility] Address [address] [place] [address] Care Team Providers Care Kitchen Stewardess Name Role Phone Jhno Gatica Primary Care Provider [phone] Natan Pepe MD Unavailable [phone] Bernie Monahan MD Unavailable [phone] Roe Ferrer DO Unavailable [phone] Active Problems Problem Noted Date Diagnosed Date Personal history of radiation therapy 04/30/2025 Malignant neoplasm of left b reast in female, estrogen receptor positive 12/13/2024 Cancer Staging:Pathologic stage from 02/24/2025:Stage IA(pT1b, pN0(sn), cM0, G1, ER+, AK+, HER2-) - Unsigned 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 11/18/2023 Cancer Staging:Clinical stage from 09/18/2024:Stage 0(cTis (DCIS), cN0, cM0, GX, ER+, AK: Not Assessed, HER2: Not Assessed) - Signed by Bernie Monahan MD on 09/18/2024 Left breast mass 07/30/2024 Assessment & Plan (07/30/2024 9:42 AM CDT): Sched for diagnsotic and ultrasound Umbilical hernia without obstruction and without gangrene 07/30/2024 Assessment & Plan (07/30/2024 9:49 AM CDT): Chronic occasionally painful Refer to general surgery Pure hypercholesterolemia 04/08/2024 Borderline diabetic 04/08/2024 Assessment & Plan (11/13/2024 3:16 PM WINE BOTTLE INSPECTOR): Poct A1c today Gastroesophageal reflux disease without esophagi tis 06/05/2023 Assessment & Plan (06/05/2023 11:35 PM CDT): Chornic stable and well controlled Continue omeprazole Moderate episode of recurrent major depressive d isorder 01/23/2023 Assessment & Plan (10/05/2023 9:36 AM WINE BOTTLE INSPECTOR): Chronic and not well controlled Increase sertraline [...] zepbound Assessment & Plan (01/05/2024 10:50 AM WINE BOTTLE INSPECTOR): Chronic condition she has lost 30 lb in the last 6 months continue with dietary restrictions. Assessment & Plan (10/20/2021 2:49 PM WINE BOTTLE INSPECTOR): Chronic condition she has lost 30 lb [...] 01/21/2019 Assessment & Plan (11/13/2024 3:14 PM WINE BOTTLE INSPECTOR): Chronic persistent but improved with lunesta Continue current dosing Assessment & Plan (07/30/2024 11:58 PM CDT): Chronic persistent but improved with lunesta Continue current dosing Assessment & Plan (10/05/2023 9:35 AM WINE BOTTLE INSPECTOR): Chronic not well controlled with increased stress D/c trazadone Continue lunesta Assessment & Plan (06/05/2023 9:55 AM CDT): Chronic persistent Improved with use of lunesta and elavil Continue current regimen Assessment & Plan (01/19/2021 10:44 AM CDT): Chronic condition Stable and responds well to lunesta. Assessment & Plan (10/13/2020 2:27 PM WINE BOTTLE INSPECTOR): Start trazadone 50mg Assessment & Plan (04/06/2020 5:20 PM CDT): Well controlled on current regimen, no rx changes needed. Continue lifestyle modifications AMANDA (generalized anxiety disorder) 09/26/2018 Assessment & Plan (11/13/2024 3:14 PM WINE BOTTLE INSPECTOR): Chronic not well controlled Start buspar 10mg bid Assessment & Plan (04/08/2024 10:50 AM CDT): Chronic and not well controlled with breakthrough anxiety situational Start atarax 25mg every day prn #30 Refer to [facility] Assessment & Plan (10/20/2021 2:50 PM WINE BOTTLE INSPECTOR): Chronic condition Refill Xanax for Assessment & [...] 09/26/2018 Assessment & Plan (11/13/2024 3:20 PM WINE BOTTLE INSPECTOR): Chronic not well controlled Start Assessment & Plan (10/20/2021 2:50 PM WINE BOTTLE INSPECTOR): Chronic condition not well controlled will increase [...] PRNE LT BRST 03/04/2025 - 03/27/2025 267 / ,005 Reference Points Delivered PRONE LT BREAST 03/04/2025 - 03/27/2025,005
[2025-06-19 19:18] VITALS: BP 168/110; PULSE 120; RESP 22; TEMP 36.7; O2SAT 97
[2025-06-19 19:27] VITALS: BP 153/102; PULSE 108; RESP 16; O2SAT 97
[2025-06-19 19:37] LABS: Hematocrit 42.9 % (37.0-47.0); Hemoglobin 14.5 g/dL (12.0-15.0); Immature Granulocyte Percent A 0.3 % (0-0.5); Lymphocytes Absolute Auto 1.65 K/mm3 (0.9-3.2); Mean Corpuscular HGB Conc 33.8 g/dl (32-36); Mean Corpuscular Hemoglobin 30.9 pg (26-34); Mean Corpuscular Volume 91.5 fl (80-100); Nucleated Red Blood Cells Absolute Auto 0.000 K/mm3 (0.0-0.012); Nucleated Red Blood Cells Perc 0.0 % (0.0-0.2); Platelet Count Result 224 k/mm3 (150-375); Red Blood Count 4.69 M/mm3 (4.2-5.4); White Blood Count 6.2 K/mm3 (4.5-10.0)
[2025-06-19] MEDS: SODIUM CHLORIDE 0.9% IV 1,000 ML 999 ML IV CONT (19:37)
[2025-06-19] MEDS: MORPHINE SULFATE (*CRX) 4 MG/ML INJ IV PUSH (19:53)
[2025-06-19 19:54] LABS: Alanine Aminotransferase 18 U/L (6-35); Albumin Level 4.2 g/dL (3.5-5.1); Alkaline Phosphatase 90 U/L (38-126); Anion Gap 8 mmol/L (4-12); Aspartate Amino Transferase 28 U/L (14-36); Bilirubin,Total 0.8 mg/dL (0.2-1.3); Blood Urea Nitrogen 12 mg/dL (7-17); Calcium 9.6 mg/dL (8.4-10.2); Carbon Dioxide 26 mmol/L (22-30); Chloride 105 mmol/L (98-107); Estimated CRCL calculation 92 ml/min; Estimated Glomerular Filt Rate > 60; Glucose 144 mg/dL (65-110); Lipase 79 U/L (23-300); Magnesium 2.1 mg/dL (1.6-2.3); Potassium 3.9 mmol/L (3.4-5.0); Sodium 139 mmol/L (137-145); Total Protein 7.3 g/dL (6.3-8.2)
[2025-06-19] MEDS: ONDANSETRON INJ 4 MG/2 ML VIAL IV PUSH (19:54)
--- OUTSIDE RECORDS SUMMARY | 2025-06-19 20:01 | XMS_ITS ---
Author Organization [facility] [address] [facility] Address [address] [place] [address] Care Team Providers Care Pipe Liner Name Role Phone Jhon Gatica Primary Care Provider [phone] Natan Pepe MD Unavailable [phone] Bernie Monahan MD Unavailable [phone] Roe Ferrer DO Unavailable [phone] Active Problems Problem Noted Date Diagnosed Date [...] 04/08/2024 Assessment & Plan (11/13/2024 3:16 PM COMPRESSED AIR PILE DRIVER OPERATOR): Poct A1c today Gastroesophageal reflux disease without esophagi tis 06/05/2023 Assessment & Plan (06/05/2023 11:35 PM CDT): Chornic stable and well controlled Continue omeprazole Moderate episode of recurrent major depressive d isorder 01/23/2023 Assessment & Plan (10/05/2023 9:36 AM COMPRESSED AIR PILE DRIVER OPERATOR): Chronic and not well controlled Increase [...] zepbound Assessment & Plan (01/05/2024 10:50 AM COMPRESSED AIR PILE DRIVER OPERATOR): Chronic condition she has lost 30 lb in the last 6 months continue with dietary restrictions. Assessment & Plan (10/20/2021 2:49 PM COMPRESSED AIR PILE DRIVER OPERATOR): Chronic condition she has lost 30 [...] 01/21/2019 Assessment & Plan (11/13/2024 3:14 PM COMPRESSED AIR PILE DRIVER OPERATOR): Chronic persistent but improved with lunesta Continue current dosing Assessment & Plan (07/30/2024 11:58 PM CDT): Chronic persistent but improved with lunesta Continue current dosing Assessment & Plan (10/05/2023 9:35 AM COMPRESSED AIR PILE DRIVER OPERATOR): Chronic not well controlled with increased stress D/c trazadone Continue lunesta Assessment & Plan (06/05/2023 9:55 AM CDT): Chronic persistent Improved with use of lunesta and elavil Continue current regimen Assessment & Plan (01/19/2021 10:44 AM CDT): Chronic condition Stable and responds well to lunesta. Assessment & Plan (10/13/2020 2:27 PM COMPRESSED AIR PILE DRIVER OPERATOR): Start trazadone 50mg Assessment & Plan (04/06/2020 5:20 PM CDT): Well controlled on current regimen, no rx changes needed. Continue lifestyle modifications AMANDA (generalized anxiety disorder) 09/26/2018 Assessment & Plan (11/13/2024 3:14 PM COMPRESSED AIR PILE DRIVER OPERATOR): Chronic not well controlled Start buspar 10mg bid Assessment & Plan (04/08/2024 10:50 AM CDT): Chronic and not well controlled with breakthrough anxiety situational Start atarax 25mg every day prn #30 Refer to [facility] in [facility] Assessment & Plan (10/20/2021 2:50 PM COMPRESSED AIR PILE DRIVER OPERATOR): Chronic condition Refill Xanax for Assessment [...] 09/26/2018 Assessment & Plan (11/13/2024 3:20 PM COMPRESSED AIR PILE DRIVER OPERATOR): Chronic not well controlled Start Assessment & Plan (10/20/2021 2:50 PM COMPRESSED AIR PILE DRIVER OPERATOR): Chronic condition not well controlled will [...]
--- OUTSIDE RECORDS SUMMARY | 2025-06-19 20:01 | XMS_ITS | Encounter Summary ---
Author Organization [facility] Facility Care Team Providers Care Top Steep Tender Name Role Phone Nathan Johnson MD Primary Care Provider [phone] Jhon Gatica Primary Care Provider [phone] Natan Pepe MD Unavailable [phone] Bernie Monahan MD Unavailable [phone] Roe Ferrer DO Unavailable [phone] Encounter Details Date Type Department Care Team (Latest Contact Info) Description 08/20/2018 Orders Only MMG CLINCONV ProviderJazlyn MD [address] [place] [address] Social History Tobacco Use Types Packs/Day Years Used Date Smoking Tobacco: Never Assessed Comments Unknown Sex and Gender Information Value Date Recorded Sex Assigned at Not on file Legal Sex Female 2:20 PM INTERVENTION TEACHER Gender Identity Not on file Sexual Orientation [...] COVID: Suspected 01/03/2023 01/03/2023 01/03/2023 10:35 AM INTERVENTION TEACHER COVID: Suspected 01/03/2023 01/03/2023 01/03/2023 10:37 AM INTERVENTION TEACHER COVID: Suspected 10/13/2023 10/13/2023 10/13/2023 4:05 PM INTERVENTION TEACHER COVID: Suspected 12/20/2024 12/20/2024 12/20/2024 12:05 PM INTERVENTION TEACHER documented as of this encounter Care Teams Top Steep Tender Relationship Specialty Start Date End Date Nathan Johnson MD PCP - General Family Medicine 01/21/19 07/25/22 Jhon Gatica PA PCP - General Family Medicine 07/26/22 Natan Pepe MD [address] [place] [address] [address] [place], [place] [id number] Surgeon General Surgery 09/12/24 Bernie Monahan MD [address] [place] [address] [address] [place], [place] [address] Radiation Oncologist Radiation Oncology 09/12/24 Roe Ferrer DO [facility] [facility] [address] [place], [place] [address] Medical Oncologist/Tinsel Machine Operator Hematology and Oncology 02/24/25 documented as of this encounter
--- OUTSIDE RECORDS SUMMARY | 2025-06-19 20:01 | XMS_ITS | Encounter Summary ---
Author Organization [facility] Facility Care Team Providers Care Stock Preparer Name Role Phone Nathan Johnson MD Primary Care Provider [phone] Jhon Gatica Primary Care Provider [phone] Natan Pepe MD Unavailable [phone] Bernie Monahan MD Unavailable [phone] Roe Ferrer DO Unavailable [phone] Encounter Details Date Type Department Care Team (Latest Contact Info) Description 02/08/2018 Orders Only [facility] CLINCONV ProviderJazlyn MD [address] [place] [id number] Social History Tobacco Use Types Packs/Day Years Used Date Smoking Tobacco: Never Assessed Comments Unknown Sex and Gender Information Value Date Recorded Sex Assigned at Not on file Legal Sex Female 2:20 PM RETAIL SALES VITAMIN CONSULTANT Gender Identity Not on file Sexual Orientation [...] COVID: Suspected 01/03/2023 01/03/2023 01/03/2023 10:35 AM RETAIL SALES VITAMIN CONSULTANT COVID: Suspected 01/03/2023 01/03/2023 01/03/2023 10:37 AM RETAIL SALES VITAMIN CONSULTANT COVID: Suspected 10/13/2023 10/13/2023 10/13/2023 4:05 PM RETAIL SALES VITAMIN CONSULTANT COVID: Suspected 12/20/2024 12/20/2024 12/20/2024 12:05 PM RETAIL SALES VITAMIN CONSULTANT documented as of this encounter Care Teams Stock Preparer Relationship Specialty Start Date End Date Nathan Johnson MD PCP - General Family Medicine 01/21/19 07/25/22 Jhon Gatica PA PCP - General Family Medicine 07/26/22 Natan Pepe MD [facility] [address] [place], [place] [id number] Surgeon General Surgery 09/12/24 [place] [address] [place] [address] [address] [place], [place] [id number] Radiation Oncologist Radiation Oncology 09/12/24 Roe Ferrer DO [address] [facility] [address] [place], [place] [address] Medical Oncologist/Resident Physician Hematology and Oncology 02/24/25 documented as of this encounter
--- OUTSIDE RECORDS SUMMARY | 2025-06-19 20:01 | XMS_ITS | Encounter Summary ---
Author Organization [facility] Facility Care Team Providers Care Teamsite Developer Name Role Phone Nathan Johnson MD Primary Care Provider [phone] Jhon Gatica Primary Care Provider [phone] Natan Pepe MD Unavailable [phone] Bernie Monahan MD Unavailable [phone] Roe Ferrer DO Unavailable [phone] Encounter Details Date Type Department Care Team (Latest Contact Info) Description 11/21/2017 Orders Only [facility] CLINCONV ProviderJazlyn MD [address] [place], [place] [id number] Social History Tobacco Use Types Packs/Day Years Used Date Smoking Tobacco: Never Assessed Comments Unknown Sex and Gender Information Value Date Recorded Sex Assigned at Not on file Legal Sex Female 2:20 PM TACKER OFF Gender Identity Not on file Sexual Orientation Not on file documented as of this encounter Plan of Treatment Not on file documented as of this encounter Procedures Procedure Name Priority Date/Time Associated Diagnosis Comments SCAN - LABS 11/23/2017 12:00 AM TACKER OFF SCAN - LABS 11/22/2017 12:00 AM TACKER OFF documented in this encounter Results * SCAN - LABS (11/23/2017 12:00 AM TACKER OFF) Narrative 11/23/2017 12:00 AM TACKER OFF Ordered by an unspecified provider. us Historical Provider Final Res ult * SCAN - LABS (11/22/2017 12:00 AM TACKER OFF) Narrative 11/22/2017 12:00 AM TACKER OFF Ordered by an unspecified provider. us Historical Provider Final Res ult documented in this encounter Visit Diagnoses Not on filedocumented in this encounter Additional Health Concerns Infection Onset Date Last Indicated Resolved Time COVID: Suspected 01/03/2023 01/03/2023 01/03/2023 10:35 AM TACKER OFF COVID: Suspected 01/03/2023 01/03/2023 01/03/2023 10:37 AM TACKER OFF COVID: Suspected 10/13/2023 10/13/2023 10/13/2023 4:05 PM TACKER OFF COVID: Suspected 12/20/2024 12/20/2024 12/20/2024 12:05 PM TACKER OFF documented as of this encounter Care Teams Teamsite Developer Relationship Specialty Start Date End Date Nathan Johnson MD PCP - General Family Medicine 01/21/19 07/25/22 Jhon Gatica PA PCP - General Family Medicine 07/26/22 Natan Pepe MD [facility] [address] [place], [place] [address] Surgeon General Surgery 09/12/24 Bernie Monahan MD [address] [facility] [address] [place], [place] [phone] Radiation Oncologist Radiation Oncology 09/12/24 Roe Ferrer DO [address] [facility] [address] [place], [place] [phone] Medical Oncologist/Poultry Killer Hematology and Oncology 02/24/25 documented as of this encounter
--- NOTE | 2025-06-19 20:19 | ED.ABDPAIN ---
HPI - Abdominal Pain General Chief Complaint: Abdominal Pain Stated Complaint: umbilical hernia pain since fall yesterday Time Seen by Provider: 06/19/25 19:29 History of Present Illness HPI narrative: Patient is a 64-year-old female who presents the emergency department this evening complaining of mid abdominal /periumbilical pain. States that the pain started 2 days ago after she had a ground level fall. Patient states that she fell forward hitting her abdomen on the ground. States that she has been having some nausea and vomiting since then as well. Denies any diarrhea. Denies any sick contacts at home or anyone home with similar symptoms. Patient states that she was supposed to have this umbilical hernia taking care of but she has had a lot of other health issues arise that has kept her busy so she never got to it. Related Data Home Medications ?Medication ?Instructions ?Recorded ?Confirmed ?Last Taken ?Type alprazolam 0.25 mg tablet (Xanax) 0.25 mg PO DAILY 07/19/21 07/22/21 Unknown History amitriptyline 25 mg tablet 25 mg PO QHS 07/19/21 07/22/21 Unknown History benzonatate 200 mg capsule 200 mg PO BID PRN 07/19/21 07/22/21 Unknown History cefuroxime axetil 500 mg tablet 500 mg PO Q12H 07/19/21 07/22/21 Unknown History cyclobenzaprine 10 mg tablet 10 mg PO TID 07/19/21 07/22/21 Unknown History eszopiclone 3 mg tablet (Lunesta) 3 mg PO QHS 07/19/21 07/22/21 Unknown History gabapentin 300 mg capsule 300 mg PO DAILY 07/19/21 07/22/21 Unknown History hydrochlorothiazide 25 mg tablet 25 mg PO DAILY 07/19/21 07/22/21 Unknown History hydrocodone 5 mg-acetaminophen 325 1 tablet PO Q8H PRN 07/19/21 07/22/21 Unknown History mg tablet lisinopril 20 mg tablet 20 mg PO DAILY 07/19/21 07/22/21 Unknown History omeprazole 40 mg capsule,delayed 40 mg PO DAILY 07/19/21 07/22/21 Unknown History release ondansetron HCl 4 mg tablet 4 mg PO Q8H 07/19/21 07/22/21 Unknown History (Zofran) sucralfate 1 gram tablet (Carafate) PO PRN 07/19/21 07/22/21 Unknown History trazodone 50 mg tablet 50 mg PO QHS PRN 07/19/21 07/22/21 Unknown History Allergies Allergy/AdvReac Type Severity Reaction Status Date / Time tomato Allergy Severe Swelling Verified 06/19/25 19:35 of Lip/Tongue/Throat wool Allergy Intermediate Hives Verified 06/19/25 19:35 semaglutide (From Wegovy) Allergy Mild Vomiting Verified 06/19/25 19:35 latex Allergy Unknown Hives Verified 06/19/25 19:35 Review of Systems Review of Systems: All systems are reviewed and are negative unless stated otherwise in the HPI. 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 HEENT: PERRL, no rhinorrhea, no post nasal drip, oropharynx clear. Neck: Trachea midline, no JVD, no lymphadenopathy. Cardiovascular: Regular rate and rhythm, no murmurs, rubs or gallops, no peripheral edema. Respiratory: Clear to auscultation bilaterally, no tachypnea, no wheezing, no rhonchi, no rubs, no respiratory distress. Abdomen: Soft, periumbilical tenderness palpation, umbilical hernia palpated, no evidence of incarceration or strangulation, nondistended, no rebound, no guarding, no peritoneal signs. Musculoskeletal: No joint swelling or deformity, normal muscle tone. Skin: No rashes or petechia, no signs of infection. Psychiatric: Alert and oriented, normal behavior and judgment for situation. Neurological: Alert and oriented to person, place, and time. Follows all commands. No focal deficits, speech is clear and fluent. Course Vital Signs Vital signs: Vital Signs Temperature 98.0 F 06/19/25 19:18 Pulse Rate 120 H 06/19/25 19:18 Respiratory Rate 22 H 06/19/25 19:18 Blood Pressure 168/110 H 06/19/25 19:18 Pulse Oximetry 97 06/19/25 19:18 Oxygen Delivery Room Air 06/19/25 19:18 Temperature 98.0 F 06/19/25 19:18 Pulse Rate 106 H 06/19/25 23:35 Respiratory Rate 14 06/19/25 23:35 Blood Pressure 135/92 H 06/19/25 23:35 Pulse Oximetry 100 06/19/25 23:35 Oxygen Delivery Room Air 06/19/25 19:18 MDM - Abdominal Pain MDM Narrative Medical decision making narrative: The patient was evaluated by myself in the emergency department. History is obtained from patient who is an independent historian and physical exam was performed. External medical records were reviewed at this time. IV was established and pertinent tests were ordered. Patient was administered 1 L IV fluid bolus with normal saline and 4 mg IV Zofran for nausea, 4 mg IV for pain for pain. Laboratory results obtained revealing no acute process. Imaging studies obtained included CT abdomen pelvis with IV contrast which was independently interpreted by me revealing: IMPRESSION: High-grade bowel obstruction secondary to an umbilical hernia containing a short segment of transverse colon which demonstrates significant hyperemia suggesting venous compression, for which early strangulation is suspected. at this time, case was discussed with the on-call general surgeon Dr. Gatica at 2141 and giving the patient's body habitus, history of complicated appendectomy and CT findings, he did recommend transferring the patient to a tertiary center for higher level of care. I did contact [facility] and was informed regarding transfer line after they presented the case to the on-call general surgeon they contacted me again at 2238 and informed me thatsince we have an on-call general surgeon with the CT findings of possible strangulation, the on-call general surgeon is recommending against transfer as this will delay care and may compromise bowel, recommending that patient is taken to the OR immediately by the general surgeon. Dr. Gatica contacted again at 2249 and informed of this information. At this time he did inform me to attempt to transfer the patient to [facility], if IM unsuccessful in getting the patient transferred to [facility] he wants the patient admitted to our hospitalist, MEREDITH, started on IV antibiotics and he will consult in the morning. patient has not had any vomiting episodes in the 6 hours that she has been in the emergency department. [facility] transfer line was contacted at 2250 and after multiple attempts to reach their on-call general surgeon, the transfer line did contact us again a few hours later to inform us that they are unable to get a hold of the on-call surgeon. Differential diagnosis considerations include strangulated/incarcerated hernia, abdominal contusion, hematoma, pancreatitis, gastritis, gastroenteritis. Comorbidities impacting this visit include history of umbilical hernia. I have evaluated and discussed social determinants of health with the patient that could potentially impact subsequent diagnosis and treatment plans. On repeat assessment of the patient, reevaluation revealed that the patient is doing well and is in no acute distress. Patient symptoms have improved since she arrived to our emergency department. Repeat vital signs were all reviewed and noted to be stable. Differential diagnosis and treatment plan were discussed with the patient at bedside. Patient agrees with discussion and after shared medical decision making agrees with admission. All questions were answered to the patient's satisfaction. Case was discussed with the on-call hospitalist KALYN Ding multiple times throughout the process of attempting to transfer the patient and she accepted admission. Patient was started on Zosyn after blood cultures were obtained continued on maintenance fluids with normal saline at a rate of 100 cc/hour. Lab Data 06/19/25 19:33 06/19/25 19:33 Labs: Lab Results 06/19/25 06/19/25 Range/Units 19:33 21:48 WBC 6.2 (4.5-10.0) K/mm3 RBC 4.69 (4.2-5.4) M/mm3 Hgb 14.5 (12.0-15.0) g/dL Hct 42.9 (37.0-47.0) % MCV 91.5 (80-100) fl MCH 30.9 (26-34) pg MCHC 33.8 (32-36) g/dl RDW 12.3 (11.5-14.5) % Plt Count 224 (150-375) k/mm3 MPV 11.3 H (7.4-10.4) fl Immature Gran % (Auto) 0.3 (0-0.5) % Neut % (Auto) 63.2 (45.5-73.1) % Lymph % (Auto) 26.6 (18.3-44.2) % [place] % (Auto) 7.6 (2.6-8.5) % Eos % (Auto) 1.8 (0-4.4) % Baso % (Auto) 0.5 (0.2-1.2) % Lymph # (Auto) 1.65 (0.9-3.2) K/mm3 [place] # (Auto) 0.5 (0.1-0.6) K/mm3 Eos # (Auto) 0.1 (0-0.3) K/mm3 Baso # (Auto) 0.0 (0.0-0.1) K/mm3 Abs Immat Gran (auto) 0.02 (0.00-0.031) K/mm3 Absolute Neuts (auto) 3.9 (1.3-6.7) K/mm3 Absolute Nucleated RBC 0.000 (0.0-0.012) K/mm3 Nucleated RBC % 0.0 (0.0-0.2) % Sodium 139 (137-145) mmol/L Potassium 3.9 (3.4-5.0) mmol/L Chloride 105 (98-107) mmol/L Carbon Dioxide 26 (22-30) mmol/L Anion Gap 8 (4-12) mmol/L BUN 12 D (7-17) mg/dL Creatinine 0.72 (0.7-1.0) mg/dL Estim Creat Clear Calc 92 ml/min Estimated GFR > 60 (59 - ) Glucose 144 H (65-110) mg/dL Lactic Acid 1.9 (0.7-2.0) mmol/L Calcium 9.6 (8.4-10.2) mg/dL Magnesium 2.1 (1.6-2.3) mg/dL Total Bilirubin 0.8 (0.2-1.3) mg/dL AST 28 (14-36) U/L ALT 18 (6-35) U/L Alkaline Phosphatase 90 (38-126) U/L Total Protein 7.3 (6.3-8.2) g/dL Albumin 4.2 (3.5-5.1) g/dL Lipase 79 (23-300) U/L Urine Color Yellow (Yellow) Urine Appearance Clear (Clear) Urine pH 6.0 (5.0-9.0) Ur Specific [place] > 1.045 H (1.001-1.035) Urine Protein Trace (Negative) mg/dL Urine Glucose (UA) Negative (Negative) mg/dL Urine Ketones Negative (Negative) mg/dL Ur Blood (Man) Negative (Negative) Urine Nitrate Negative (Negative) Urine Bilirubin Negative (Negative) Urine Urobilinogen 0.2 (<2.0) mg/dL Add Ur Microanalysis Reviewed Leukocyte Esterase Rfl Negative (Negative) TERRELL/UL Urine RBC 0-2 (0-2) /hpf Urine WBC 11-20 H (0-3) /hpf Ur Squamous Epith Cells Occasional (Few) /hpf Urine Bacteria 1+ H /hpf Urine Casts 0-2 Imaging Data Radiologist's impression: ITS Impressions Abdomen/Pelvis CT 06/19/25 20:51 IMPRESSION: High-grade bowel obstruction secondary to an umbilical hernia containing a short segment of transverse colon which demonstrates significant hyperemia suggesting venous compression, for which early strangulation is suspected. Discharge Plan Discharge Clinical Impression: Morbid obesity with BMI of 45.0-49.9, adult, Umbilical hernia with obstruction but no gangrene, SBO (small bowel obstruction) Patient Disposition: Still a Patient Condition: Improved Instructions: Antibiotic Form Patient Language: Nigerien Prescriptions: No Action eszopiclone [Lunesta] 3 mg tablet 3 mg PO QHS alprazolam [Xanax] 0.25 mg tablet 0.25 mg PO DAILY amitriptyline 25 mg tablet 25 mg PO QHS benzonatate 200 mg capsule 200 mg PO BID PRN cefuroxime axetil 500 mg tablet 500 mg PO Q12H cyclobenzaprine 10 mg tablet 10 mg PO TID hydrocodone-acetaminophen 5-325 mg tablet 1 tablet PO Q8H PRN ondansetron HCl [Zofran] 4 mg tablet 4 mg PO Q8H hydrochlorothiazide 25 mg tablet 25 mg PO DAILY gabapentin 300 mg capsule 300 mg PO DAILY lisinopril 20 mg tablet 20 mg PO DAILY omeprazole 40 mg capsule,delayed release(DR/EC) 40 mg PO DAILY sucralfate [Carafate] 1 gram tablet PO PRN trazodone 50 mg tablet 50 mg PO QHS PRN dicyclomine 20 mg tablet 20 mg PO QID Qty: 20 0RF ondansetron 4 mg tablet,disintegrating 4 mg PO Q6H PRN (Reason: nausea and vomiting) Qty: 10 0RF dicyclomine 20 mg tablet 20 mg PO TID PRN (Reason: Abdominal Discomfort) Qty: 15 0RF ondansetron 4 mg tablet,disintegrating 4 mg PO Q8H PRN (Reason: nausea and vomiting) Qty: 15 0RF metronidazole 500 mg tablet 500 mg PO Q8H 7 Days Qty: 21 0RF ciprofloxacin HCl 500 mg tablet 500 mg PO Q12H 7 Days Qty: 14 0RF Follow-up/Referrals: En,DUSTIN Ferreira [Primary Care Provider, Unknown] Time of Disposition: 01:42
--- NOTE | 2025-06-19 21:30 | PC.NURSE ---
Per JORGE Ballard, straight cath is not needed to obtain urine sample. Just collect it whenever she can go.
[2025-06-19 22:10] LABS: Add Urine Microscopic? YES; Appearance Urine Clear (Clear); Glucose Urine UA Negative (Negative); Leukocyte Esterase Ur Negative LEU/UL (Negative); Need Manual Microscopic Reviewed; Nitrate Urine Negative (Negative); Non Pathogenic Casts 0-2; Specific Grav Ur > 1.045 (1.001-1.035)
[2025-06-19 22:46] VITALS: BP 133/99; PULSE 109; RESP 18; O2SAT 95
[2025-06-19 23:35] VITALS: BP 135/92; PULSE 106; RESP 14; O2SAT 100
[2025-06-20] VITALS (22 sets, daily range): BP systolic 121–170; BP diastolic 71–138; PULSE 66–106; RESP 12–20; TEMP 35.7–36.9; O2SAT 94–100; BMI 52.0; BMI 53.5
[2025-06-20] MEDS: PIPERACILLIN/TAZOBACTAM SOD 4.5 GM in SODIUM CHLORIDE 0.9% IV 100 ML 200 ML IVPB (01:09)
[2025-06-20] MEDS: SODIUM CHLORIDE 0.9% IV 1,000 ML 100 ML IV CONT (01:10)
[2025-06-20] MEDS: MORPHINE SULFATE (*CRX) 4 MG/ML INJ IV PUSH ×4 (01:40→18:25)
[2025-06-20] MEDS: ONDANSETRON INJ 4 MG/2 ML VIAL IV PUSH ×3 (01:40→18:16)
--- NOTE | 2025-06-20 02:08 | PM.IMHP ---
H&P: HPI History of Present Illness Date/Time: 06/20/25 02:08 Chief Complaint: Abdominal pain Narrative: This is a very pleasant 64-year-old female patient with past medical history significant of a known umbilical hernia, fibromyalgia, hypertension, GERD, anxiety, depression and breast cancer status post radiation and on oral chemo who presented to the emergency room today with complaints of persistent abdominal pain. Patient states that in July of last year her primary care provider started her on Wegovy and it made her very ill. Throughout the time that she was on the medication it was found that she had an umbilical hernia. She was to reach out and have a hernia evaluated by a surgeon and repaired, however she subsequently was told that she had breast cancer and that was no longer the prior or any as she had to undergo radiation for her breast cancer. Patient completed all of her radiation and did not require any Chemotherapy. She states she had upcoming appointment to be evaluated regarding her hernia in late June. Patient reports that 2 days ago she sustained a ground level fall and fell directly on to her abdomen by accident and ever since that fall she has had increasing periumbilical pain, enlargement of the hernia and onset of nausea and vomiting. As it has worsened over the course of the past couple of days made her present to the emergency room overnight for evaluation. In the emergency room workup was performed that consisted of labs and imaging. CBC is noted to be normal as is metabolic panel, lactic acid, magnesium and lipase. Vital signs were noted with elevated blood pressure of 153/102. CT scan of the abdomen and pelvis was performed that shows a high-grade bowel obstruction secondary to umbilical hernia with short segment transverse colon which demonstrates significant hyperemia suggestive of venous compression for which early strangulation is suspected. ER physician reached at to general surgeon Dr. Gatica who agrees to accept patient here for further evaluation and management. Patient is being admitted in the current setting for continued management, pain control and definitive treatment. Review of Systems Review of Systems: All systems reviewed & are unremarkable except as noted in HPI and below [facility] Past Medical History Medical History (Updated 06/20/25 @ 02:21 by SABA Mistry) Breast cancer Anxiety Fibromyalgia Hypertension GERD (gastroesophageal reflux disease) AMANDA (generalized anxiety disorder) Depression Surgical History Surgical History History of appendectomy History of partial hysterectomy H/O hemorrhoidectomy Family History Family History Father Acute myocardial infarction Mother Lung cancer Social History Social History Smoking status: Never smoker Alcohol intake: current Living arrangements: with family Occupation/Education: occupation Additional occupation/education comments: [employer] Meds Home Medications and Allergies Home Medications ?Medication ?Instructions ?Recorded ?Confirmed ?Type alprazolam 0.25 mg tablet (Xanax) 0.25 mg PO DAILY 07/19/21 07/22/21 History amitriptyline 25 mg tablet 25 mg PO QHS 07/19/21 07/22/21 History benzonatate 200 mg capsule 200 mg PO BID PRN 07/19/21 07/22/21 History cefuroxime axetil 500 mg tablet 500 mg PO Q12H 07/19/21 07/22/21 History cyclobenzaprine 10 mg tablet 10 mg PO TID 07/19/21 07/22/21 History eszopiclone 3 mg tablet (Lunesta) 3 mg PO QHS 07/19/21 07/22/21 History gabapentin 300 mg capsule 300 mg PO DAILY 07/19/21 07/22/21 History hydrochlorothiazide 25 mg tablet 25 mg PO DAILY 07/19/21 07/22/21 History hydrocodone 5 mg-acetaminophen 325 1 tablet PO Q8H PRN 07/19/21 07/22/21 History mg tablet lisinopril 20 mg tablet 20 mg PO DAILY 07/19/21 07/22/21 History omeprazole 40 mg capsule,delayed 40 mg PO DAILY 07/19/21 07/22/21 History release ondansetron HCl 4 mg tablet 4 mg PO Q8H 07/19/21 07/22/21 History (Zofran) sucralfate 1 gram tablet (Carafate) PO PRN 07/19/21 07/22/21 History trazodone 50 mg tablet 50 mg PO QHS PRN 07/19/21 07/22/21 History dicyclomine 20 mg tablet 20 mg PO QID #20 tabs 07/15/24 Rx ondansetron 4 mg disintegrating 4 mg PO Q6H PRN nausea and 07/15/24 Rx tablet vomiting #10 tabs ciprofloxacin HCl 500 mg tablet 500 mg PO Q12H 7 days #14 tabs 07/23/24 Rx dicyclomine 20 mg tablet 20 mg PO TID PRN Abdominal 07/23/24 Rx Discomfort #15 tabs metronidazole 500 mg tablet 500 mg PO Q8H 7 days #21 tabs 07/23/24 Rx ondansetron 4 mg disintegrating 4 mg PO Q8H PRN nausea and 07/23/24 Rx tablet vomiting #15 tabs Allergies Allergy/AdvReac Type Severity Reaction Status Date / Time tomato Allergy Severe Swelling Verified 06/19/25 19:35 of Lip/Tongue/Throat wool Allergy Intermediate Hives Verified 06/19/25 19:35 semaglutide (From [facility]) Allergy Mild Vomiting Verified 06/19/25 19:35 latex Allergy Unknown Hives Verified 06/19/25 19:35 Vital Signs Vital Signs - 24 hr 06/19/25 19:18 06/19/25 19:27 06/19/25 22:46 Temperature 98.0 F Pulse Rate 120 H 108 H 109 H Respiratory Rate 22 H 16 18 Blood Pressure 168/110 H 153/102 H 133/99 H Pulse Oximetry 97 97 95 Oxygen Delivery Room Air 06/19/25 23:35 Temperature Pulse Rate 106 H Respiratory Rate 14 Blood Pressure 135/92 H Pulse Oximetry 100 Oxygen Delivery Exam Const: General: uncomfortable Other: Obese female patient sitting on stretcher at this time appearing acutely uncomfortable. She is pleasant to converse with. HENMT: Face/Nose/Sinus: Normal nares present Mouth: Yes dry mucous membranes Eyes: General: appearance normal, both eyes and all related structures Sclera: sclerae normal Pupils: Equal, round and reactive pupils present EOM: EOMs intact bilaterally Neck: Neck: supple and no JVD Lymphatic: lymphadenopathy not noted Chest: Other: Nontender Resp: Effort & Inspection: normal respiratory effort Auscultation: clear to auscultation bilaterally Cardio: Rate: regular rate Rhythm: regular rhythm Heart sounds: no gallops, no murmurs and no rubs GI: Inspection: non-distended GI Palp: Yes Firmness to palpation present (GI) (Firm in the periumbilical region along with tenderness), Yes Tenderness to palpation present (GI) and Yes Hernia present umbilical (Appears incarcerated/strangulated) 3-10 cm Auscultation: normal bowel sounds Skin: General skin exam: normal color, no rashes or lesions noted and no erythema Wounds: no wounds Neuro: Speech: normal speech Motor exam (neuro): 5/5 motor strength present throughout and Normal motor muscle tone present throughout Sensory Exam: normal sensation Extrem: Other: Moves all extremities well without any deficits. Psych: Mental Status: mental status grossly normal Affect: normal affect H&P: Results Labs Labs: Short CBC 06/19/25 Range/Units 19:33 WBC 6.2 (4.5-10.0) K/mm3 Hgb 14.5 (12.0-15.0) g/dL Hct 42.9 (37.0-47.0) % Plt Count 224 (150-375) k/mm3 BMP 06/19/25 19:33 Sodium 139 Potassium 3.9 Chloride 105 Carbon Dioxide 26 BUN 12 D Creatinine 0.72 Glucose 144 H Calcium 9.6 Liver Function 06/19/25 Range/Units 19:33 Total Bilirubin 0.8 (0.2-1.3) mg/dL AST 28 (14-36) U/L ALT 18 (6-35) U/L Alkaline Phosphatase 90 (38-126) U/L Albumin 4.2 (3.5-5.1) g/dL Urine 06/19/25 Range/Units 21:48 Urine Color Yellow (Yellow) Urine Appearance Clear (Clear) Urine pH 6.0 (5.0-9.0) Ur Specific [place] > 1.045 H (1.001-1.035) Urine Protein Trace (Negative) mg/dL Urine Glucose (UA) Negative (Negative) mg/dL Assessment and Plan Assessment and plan (1) Umbilical hernia with obstruction but no gangrene: Code(s): K42.0 - Umbilical hernia with obstruction, without gangrene Status: Acute Assessment and Plan: As evidence per CT scan and independently reviewed by this provider. NPO Normal saline at 100 mL/hour for hydration Consult general surgery, Dr. Gatica P.r.n. pain control with morphine 4 mg IV push q.4 hours p.r.n. Antiemetics of Zofran 4 mg IV push q.6 hours p.r.n. (2) Hypertension: Code(s): I10 - Essential (primary) hypertension Status: Chronic Assessment and Plan: Chronic in nature Most recent blood pressure 135/92 Restart home medications once that had been confirmed and verified (3) Morbid obesity with BMI of 45.0-49.9, adult: Code(s): E66.01 - Morbid (severe) obesity due to excess calories; Z68.42 - Body mass index [BMI] 45.0-49.9, adult Status: Chronic Assessment and Plan: Recommend lifestyle changes upon discharge (4) GERD (gastroesophageal reflux disease): Code(s): K21.9 - Gastro-esophageal reflux disease without esophagitis Status: Chronic Assessment and Plan: Hold oral meds in current setting of being NPO Protonix 40 mg IV push daily (5) Fibromyalgia: Code(s): M79.7 - Fibromyalgia Status: Chronic Assessment and Plan: Restart amitriptyline 25 mg q.h.s. once dose is confirmed and verified Restart gabapentin once home dose is confirmed and verified. (6) Anxiety: Code(s): F41.9 - Anxiety disorder, unspecified Status: Chronic Assessment and Plan: Hold oral p.r.n. anxiety meds at this time. Valium 2.5 mg IV push q.6 hours p.r.n. anxiety ordered. (7) Breast cancer: Code(s): C50.919 - Malignant neoplasm of unspecified site of unspecified female breast Status: Chronic Assessment and Plan: Currently in remission. Plan Full code SCDs NPO Quality VTE Prophylaxis VTE prophylaxis: mechanical ordered Hospitalist MIPS Advance Care Plan I have confirmed that the patient's Advanced Care Plan is present, code status is documented, or surrogate decision maker is listed in patient medical record.: Yes Medication Reconciliation I have utilized all available resources to obtain, update and review the patients current medications (includes all prescriptions, OTC, herbals, cannabis, and nutritional supplements).: Yes
--- NOTE | 2025-06-20 03:43 | ADMGEN ---
This patient, Romana Mcclendon, was admitted to 3 [facility] Surg Room 312-01. Patient/family oriented to hospital policies and general routines including ID bracelet, bed and alarms, visiting hours, pain management, procedures, bathroom and other care routines, personal items, smoking policy, room service/diet, and visiting hours. Information on how to activate the Rapid Response Team has been discussed. Patient/Family are encouraged to report perceived risks to care and to ask questions if they do not understand what they are told or what they should do.
--- NOTE | 2025-06-20 07:37 | PM.CNGS ---
Assessment and Plan Assessment and plan (1) Incisional hernia, with obstruction, without gangrene: Code(s): K43.0 - Incisional hernia with obstruction, without gangrene Status: Acute Assessment and Plan: Patient with chronic umbilical hernia, recently became increased and is now in incisional her hernia with transverse colon involvement. There was evidence of obstruction and I suspect strangulation but no gangrene as she does not have signs of that type of systemic illness. I will continue her on IV Zosyn, repeat her labs, and plan to proceed with repair of incisional hernia today. I discussed the procedure with the patient including the possibility of colon resection, colostomy or ileostomy, possible removal of her umbilicus. I also discussed the typical time of recovery. All questions were answered. She agrees to go ahead as soon as possible today. (2) Morbid obesity with BMI of 50.0-59.9, adult: Code(s): E66.01 - Morbid (severe) obesity due to excess calories; Z68.43 - Body mass index [BMI] 50.0-59.9, adult Status: Chronic Assessment and Plan: Increases surgical risk (3) Breast cancer: Qualifiers: Breast location: unspecified site of breast Estrogen receptor status: unspecified Patient sex: female Laterality: unspecified laterality Qualified Code(s): C50.919 - Malignant neoplasm of unspecified site of unspecified female breast Code(s): C50.919 - Malignant neoplasm of unspecified site of unspecified female breast Status: Chronic Assessment and Plan: Treated elsewhere. (4) Fibromyalgia: Code(s): M79.7 - Fibromyalgia Status: Chronic Assessment and Plan: On medication (5) Hypertension: Qualifiers: Hypertension type: primary hypertension Qualified Code(s): I10 - Essential (primary) hypertension Code(s): I10 - Essential (primary) hypertension Status: Chronic Assessment and Plan: On medication History of Present Illness Consult details Consult date: 06/20/25 Requesting physician: Layne Ballard MD Narrative: Patient is a 64-year-old woman who is known she had an umbilical hernia for at least a couple of years. She has had various personal tragedies a and was planning on seeking elective repair in the near future. Three days ago, she tripped at home and fell anteriorly, including her stomach. She states that after that, she noticed the bulge that is at the umbilicus chronically was bigger and was painful. She went to work the next day but had to leave about an hour early because she was having vomiting. She went home and decided that with some rest, this may get better. The vomiting stopped but she has not had a bowel movement in 3 days. The pain has continued and probably gotten worse. She decided to come to the emergency room yesterday evening. Evaluation there showed an incarcerated incisional hernia with a portion of the transverse colon incarcerated and with signs of inflammation, possibly ischemia. Patient has morbid obesity, she has a history of a complicated appendectomy at the age of 8 as well as a partial hysterectomy, all through a lower abdominal incision. She takes diuretics, inhalers, beta blockers and has a history of fibromyalgia. Her BMI is 53.5. I requested the patient be transferred but she was not accepted at either [facility] or [facility]. She has been admitted and started on IV antibiotics. She is seen now in consultation. She is continuing to have abdominal pain which is pretty much relieved by morphine. She has not had any further vomiting. Her lab work shows a normal white blood cell count in the emergency room last night. She is not acidotic and her serum lactate was normal at 1.9. Plans are to proceed with repair of incarcerated incisional hernia with obstruction and strangulation. Review of Systems Review of Systems: All systems reviewed & are unremarkable except as noted in HPI and below (HPI) [facility] Past Medical History Medical History Breast cancer Anxiety Fibromyalgia Hypertension GERD (gastroesophageal reflux disease) AMANDA (generalized anxiety disorder) Depression Surgical History Surgical History History of appendectomy History of partial hysterectomy H/O hemorrhoidectomy Family History Family History Father Acute myocardial infarction Mother Lung cancer Social History Social History Smoking status: Never smoker Second hand tobacco smoke exposure: Yes Alcohol intake: former Substance use: never Substance use type: does not use Lack of Transportation: No Lack of Food: Never True Current Housing: I Have Housing Concerned About Future Housing: No Difficulty Paying Gas/Electric Bills: No Difficulty Paying for Meds: No Currently Unemployed: No Education: High School Diploma/GED Difficulty w/ Childcare or Family Care: No Living arrangements: with family Occupation/Education: occupation Additional occupation/education comments: [employer] Spiritual care concerns: No Meds Home Medications and Allergies Home Medications ?Medication ?Instructions ?Recorded ?Confirmed ?Type benzonatate 200 mg capsule 200 mg PO BID PRN cough 07/19/21 06/20/25 History cefuroxime axetil 500 mg tablet 500 mg PO Q12H 07/19/21 06/20/25 History cyclobenzaprine 10 mg tablet 10 mg PO TID 07/19/21 06/20/25 History eszopiclone 3 mg tablet (Lunesta) 3 mg PO QHS 07/19/21 06/20/25 History hydrochlorothiazide 25 mg tablet 25 mg PO DAILY 07/19/21 06/20/25 History lisinopril 20 mg tablet 20 mg PO DAILY 07/19/21 06/20/25 History ondansetron HCl 4 mg tablet 4 mg PO Q8H 07/19/21 06/20/25 History (Zofran) ondansetron 4 mg disintegrating 4 mg PO Q6H PRN nausea and 07/15/24 06/20/25 Rx tablet vomiting #10 tabs ondansetron 4 mg disintegrating 4 mg PO Q8H PRN nausea and 07/23/24 06/20/25 Rx tablet vomiting #15 tabs albuterol sulfate 90 mcg/actuation 2 puff inhalation Q4-6H PRN 06/20/25 06/20/25 History aerosol inhaler shortness of breath or wheezing atorvastatin 40 mg tablet 80 mg PO QPM 06/20/25 06/20/25 History buspirone 10 mg tablet 10 mg PO BID 06/20/25 06/20/25 History celecoxib 100 mg capsule 100 mg PO Q24H 06/20/25 06/20/25 History furosemide 40 mg tablet 40 mg PO QID 06/20/25 06/20/25 History hydrocodone 10 mg-acetaminophen 1 tablet PO Q8H PRN pain 06/20/25 06/20/25 History 325 mg tablet hydroxyzine HCl 25 mg tablet 25 mg PO QID PRN itching 06/20/25 06/20/25 History ipratropium 0.5 mg-albuterol 3 mg 3 ml inhalation Q6H PRN shortness 06/20/25 06/20/25 History (2.5 mg base)/3 mL nebulization of breath or wheezing soln levothyroxine 25 mcg tablet 50 mcg PO DAILY 06/20/25 06/20/25 History propranolol 20 mg tablet 40 mg PO BID 06/20/25 06/20/25 History sumatriptan succinate 100 mg tablet 100 mg PO Q2H PRN migraine headache 06/20/25 06/20/25 History tamoxifen 10 mg tablet 10 mg PO DAILY 06/20/25 06/20/25 History triamcinolone acetonide 0.1 % 1 applic topical QID 06/20/25 06/20/25 History topical cream Allergies Allergy/AdvReac Type Severity Reaction Status Date / Time tomato Allergy Severe Swelling Verified 06/19/25 19:35 of Lip/Tongue/Throat wool Allergy Intermediate Hives Verified 06/19/25 19:35 [facility] Allergy Mild Vomiting Verified 06/19/25 19:35 latex Allergy Unknown Hives Verified 06/19/25 19:35 Vital Signs Vital Signs - 24 hr 06/19/25 19:18 06/19/25 19:27 06/19/25 22:46 Temperature 36.7 C Pulse Rate 120 H 108 H 109 H Respiratory Rate 22 H 16 18 Blood Pressure 168/110 H 153/102 H 133/99 H Pulse Oximetry 97 97 95 Oxygen Delivery Room Air 06/19/25 23:35 06/20/25 01:29 06/20/25 03:07 Temperature Pulse Rate 106 H 106 H 96 Respiratory Rate 14 12 18 Blood Pressure 135/92 H 137/87 121/80 Pulse Oximetry 100 97 96 Oxygen Delivery 06/20/25 03:39 Temperature 36.4 C L Pulse Rate 97 Respiratory Rate 18 Blood Pressure 124/71 Pulse Oximetry 99 Oxygen Delivery Exam Const: General: cooperative, comfortable, no acute distress, alert, awake and well nourished Nutritional Appearance: overweight Orientation/consciousness: patient oriented x3 and No confusion HENMT: Head: normocephalic and atraumatic Mouth: Yes Normal oral and palatal mucosa present Eyes: Conjunctivae: conjunctivae normal Pupils: Equal, round and reactive pupils present EOM: EOMs intact bilaterally Neck: Neck: normal visual inspection, no lymphadenopathy and nontender Resp: Effort & Inspection: normal respiratory effort Auscultation: clear to auscultation bilaterally Cardio: Rate: regular rate Rhythm: regular rhythm Heart sounds: no gallops, no murmurs and no rubs GI: Inspection: non-distended, obesity, scar (Wide lower abdominal midline scar ) and visible herniation (Umbilicus and top of midline incision) GI Palp: Yes Soft to palpation, Yes Tenderness to palpation present (GI) (At the palpable herniated mass), No Hepatomegaly present, No Splenomegaly present, Yes Hernia present incisional > 10 cm (Palpable herniated mass is 15 by 12 cm), No Pulsatile mass present and No Ascites present Auscultation: Hypoactive bowel sounds present Skin: Lesions: no lesions Rashes: no rashes Neuro: General: no focal motor deficits and CN's II-XI intact bilaterally Cranial nerves: Yes Equal, round and reactive pupils present, Yes Bilaterally intact EOM present, Yes facial symmetry and Yes Midline tongue present Speech: normal speech Motor exam (neuro): 5/5 motor strength present throughout and Motor abnormalities not present Extrem: General: no clubbing, cyanosis or edema and edema Psych: Affect: normal affect Thought process: Normal thought process present Insight: Good insight present (Psych) Results Labs 06/19/25 19:33 06/19/25 19:33 Labs: Abnormal lab results 06/19/25 06/19/25 Range/Units 19:33 21:48 MPV 11.3 H (7.4-10.4) fl Glucose 144 H (65-110) mg/dL Ur Specific [place] > 1.045 H (1.001-1.035) Urine WBC 11-20 H (0-3) /hpf Urine Bacteria 1+ H /hpf Diabetes panel 06/19/25 Range/Units 19:33 Sodium 139 (137-145) mmol/L Potassium 3.9 (3.4-5.0) mmol/L Chloride 105 (98-107) mmol/L Carbon Dioxide 26 (22-30) mmol/L BUN 12 D (7-17) mg/dL Creatinine 0.72 (0.7-1.0) mg/dL Glucose 144 H (65-110) mg/dL Calcium 9.6 (8.4-10.2) mg/dL AST 28 (14-36) U/L ALT 18 (6-35) U/L Alkaline Phosphatase 90 (38-126) U/L Total Protein 7.3 (6.3-8.2) g/dL Albumin 4.2 (3.5-5.1) g/dL Calcium panel 06/19/25 Range/Units 19:33 Calcium 9.6 (8.4-10.2) mg/dL Albumin 4.2 (3.5-5.1) g/dL Pituitary panel 06/19/25 Range/Units 19:33 Sodium 139 (137-145) mmol/L Potassium 3.9 (3.4-5.0) mmol/L Chloride 105 (98-107) mmol/L Carbon Dioxide 26 (22-30) mmol/L BUN 12 D (7-17) mg/dL Creatinine 0.72 (0.7-1.0) mg/dL Glucose 144 H (65-110) mg/dL Calcium 9.6 (8.4-10.2) mg/dL Adrenal panel 06/19/25 Range/Units 19:33 Sodium 139 (137-145) mmol/L Potassium 3.9 (3.4-5.0) mmol/L Chloride 105 (98-107) mmol/L Carbon Dioxide 26 (22-30) mmol/L BUN 12 D (7-17) mg/dL Creatinine 0.72 (0.7-1.0) mg/dL Glucose 144 H (65-110) mg/dL Calcium 9.6 (8.4-10.2) mg/dL Total Bilirubin 0.8 (0.2-1.3) mg/dL AST 28 (14-36) U/L ALT 18 (6-35) U/L Alkaline Phosphatase 90 (38-126) U/L Total Protein 7.3 (6.3-8.2) g/dL Albumin 4.2 (3.5-5.1) g/dL All other labs normal. Imaging Abdomen CT scan report/results: report reviewed and image reviewed (Incarcerated incisional hernia at level of umbilicus with colon involvement, defect is 4 x 5 cm) CT scan - pelvis: report reviewed and image reviewed
--- OUTSIDE RECORDS SUMMARY | 2025-06-20 07:46 | XMS_ITS | Encounter Summary ---
Author Organization [facility] Care Team Providers Care Cake Puller Name Role Phone Nathan Johnson MD Primary Care Provider [phone] Jhon Gatica Primary Care Provider [phone] Natan Pepe MD Unavailable [phone] Bernie Monahan MD Unavailable [phone] Roe Ferrer DO Unavailable [phone] Encounter Details Date Type Department Care Team (Latest Contact Info) Description 08/20/2018 Orders Only [facility]INCON[facility] ProvideraJzlyn MD [address] [place] [id number] Social History Tobacco Use Types Packs/Day Years Used Date Smoking Tobacco: Never Assessed Comments Unknown Sex and Gender Information Value Date Recorded Sex Assigned at Not on file Legal Sex Female 2:20 PM WAX BLENDER Gender Identity Not on file Sexual Orientation [...] COVID: Suspected 01/03/2023 01/03/2023 01/03/2023 10:35 AM WAX BL[employer]ER COVID: Suspected 01/03/2023 01/03/2023 01/03/2023 10:37 AM WAX BLENDER COVID: Suspected 10/13/2023 10/13/2023 10/13/2023 4:05 PM WAX BLENDER COVID: Suspected 12/20/2024 12/20/2024 12/20/2024 12:05 PM WAX BLENDER documented as of this encounter Care Teams Cake Puller Relationship Specialty Start Date End Date Nathan Johnson MD PCP - General Family Medicine 01/21/19 07/25/22 Jhon Gatica PA PCP - General Family Medicine 07/26/22 Natan Pepe MD [address] [place] [address] [address] [place], [place] [id number] Surgeon General Surgery 09/12/24 Bernie Monahan MD [address] [place] [address] [address] [place], [place] [id number] Radiation Oncologist Radiation Oncology 09/12/24 Roe Ferrer DO [facility] [address] [place], [place] [id number] Medical Oncologist/[facility] H[facility]ology and Oncology 02/24/25 documented as of this encounter
--- OUTSIDE RECORDS SUMMARY | 2025-06-20 07:46 | XMS_ITS | Encounter Summary ---
Author Organization [facility] Facility Care Team Providers Care Cement Car Dumper Name Role Phone Nathan Johnson MD Primary Care Provider [phone] Jhon Gatica Primary Care Provider [phone] Natan Pepe MD Unavailable [phone] Bernie Monahan MD Unavailable [phone] Roe Ferrer DO Unavailable [phone] Encounter Details Date Type Department Care Team (Latest Contact Info) Description 11/21/2017 Orders Only [facility] CLINCONV ProviderJazlyn MD [address] [place], [place] [id number] Social History Tobacco Use Types Packs/Day Years Used Date Smoking Tobacco: Never Assessed Comments Unknown Sex and Gender Information Value Date Recorded Sex Assigned at Not on file Legal Sex Female 2:20 PM STULL INSTALLER Gender Identity Not on file Sexual Orientation Not on file documented as of this encounter Plan of Treatment Not on file documented as of this encounter Procedures Procedure Name Priority Date/Time Associated Diagnosis Comments SCAN - LABS 11/23/2017 12:00 AM STULL INSTALLER SCAN - LABS 11/22/2017 12:00 AM STULL INSTALLER documented in this encounter Results * SCAN - LABS (11/23/2017 12:00 AM STULL INSTALLER) Narrative 11/23/2017 12:00 AM STULL INSTALLER Ordered by an unspecified provider. us Historical Provider Final Res ult * SCAN - LABS (11/22/2017 12:00 AM STULL INSTALLER) Narrative 11/22/2017 12:00 AM STULL INSTALLER Ordered by an unspecified provider. us Historical Provider Final Res ult documented in this encounter Visit Diagnoses Not on filedocumented in this encounter Additional Health Concerns Infection Onset Date Last Indicated Resolved Time COVID: Suspected 01/03/2023 01/03/2023 01/03/2023 10:35 AM STULL INSTALLER COVID: Suspected 01/03/2023 01/03/2023 01/03/2023 10:37 AM STULL INSTALLER COVID: Suspected 10/13/2023 10/13/2023 10/13/2023 4:05 PM STULL INSTALLER COVID: Suspected 12/20/2024 12/20/2024 12/20/2024 12:05 PM STULL INSTALLER documented as of this encounter Care Teams Cement Car Dumper Relationship Specialty Start Date End Date Nathan Johnson MD PCP - General Family Medicine 01/21/19 07/25/22 Jhon Gatica PA PCP - General Family Medicine 07/26/22 Natan Pepe MD [facility] [address] [place], [place] [address] Surgeon General Surgery 09/12/24 Bernie Monahan MD [address] [facility] [address] [place], [place] [id number] Radiation Oncologist Radiation Oncology 09/12/24 Roe Ferrer DO [address] [facility] [address] [place], [place] [id number] Medical Oncologist/Hot Saw Operator Hematology and Oncology 02/24/25 documented as of this encounter
--- OUTSIDE RECORDS SUMMARY | 2025-06-20 07:46 | XMS_ITS | Encounter Summary ---
Author Organization [facility] Facility Care Team Providers Care Telephone Interviewer Name Role Phone Nathan Johnson MD Primary Care Provider [phone] Jhon Gatica Primary Care Provider [phone] Natan Pepe MD Unavailable [phone] Bernie Monahan MD Unavailable [phone] Roe Ferrer DO Unavailable [phone] Encounter Details Date Type Department Care Team (Latest Contact Info) Description 02/08/2018 Orders Only [facility] CLINCONV ProviderJazlyn MD [address] [place] [id number] Social History Tobacco Use Types Packs/Day Years Used Date Smoking Tobacco: Never Assessed Comments Unknown Sex and Gender Information Value Date Recorded Sex Assigned at Not on file Legal Sex Female 2:20 PM MEDICAL PHYSICS PROFESSOR Gender Identity Not on file Sexual Orientation [...] COVID: Suspected 01/03/2023 01/03/2023 01/03/2023 10:35 AM MEDICAL PHYSICS PROFESSOR COVID: Suspected 01/03/2023 01/03/2023 01/03/2023 10:37 AM MEDICAL PHYSICS PROFESSOR COVID: Suspected 10/13/2023 10/13/2023 10/13/2023 4:05 PM MEDICAL PHYSICS PROFESSOR COVID: Suspected 12/20/2024 12/20/2024 12/20/2024 12:05 PM MEDICAL PHYSICS PROFESSOR documented as of this encounter Care Teams Telephone Interviewer Relationship Specialty Start Date End Date Nathan Johnson MD PCP - General Family Medicine 01/21/19 07/25/22 Jhon Gatica PA PCP - General Family Medicine 07/26/22 Natan Pepe MD [facility] [address] [place], [place] [id number] Surgeon General Surgery 09/12/24 [place] [address] [place] [address] [address] [place], [place] [address] Radiation Oncologist Radiation Oncology 09/12/24 Roe Ferrer DO [address] [facility] [address] [place], [place] [address] Medical Oncologist/Raw Shellfish Preparer Hematology and Oncology 02/24/25 documented as of this encounter
--- OUTSIDE RECORDS SUMMARY | 2025-06-20 07:46 | XMS_ITS ---
Author Organization [facility] [address] [facility] Address [address] [place] [address] Care Team Providers Care School Library Media Program Director Name Role Phone Jhon Gatica Primary Care Provider [phone] aNtan Pepe MD Unavailable [phone] Bernie Monahan MD Unavailable [phone] Roe Ferrer DO Unavailable [phone] Active Problems Problem Noted Date Diagnosed Date Personal history of radiation therapy 04/30/2025 Malignant neoplasm of left b reast in female, estrogen receptor positive 12/13/2024 Cancer Staging:Pathologic stage from 02/24/2025:Stage IA(pT1b, pN0(sn), cM0, G1, ER+, MT+, HER2-) - Unsigned 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 11/18/2023 Cancer Staging:Clinical stage from 09/18/2024:Stage 0(cTis (DCIS), cN0, cM0, GX, ER+, MT: Not Assessed, HER2: Not Assessed) - Signed by Bernie Monahan MD on 09/18/2024 Left breast mass 07/30/2024 Assessment & Plan (07/30/2024 9:42 AM CDT): Sched for diagnsotic and ultrasound Umbilical hernia without obstruction and without gangrene 07/30/2024 Assessment & Plan (07/30/2024 9:49 AM CDT): Chronic occasionally painful Refer to general surgery Pure hypercholesterolemia 04/08/2024 Borderline diabetic 04/08/2024 Assessment & Plan (11/13/2024 3:16 PM JIGGER ARTISAN): Poct A1c today Gastroesophageal reflux disease without esophagi tis 06/05/2023 Assessment & Plan (06/05/2023 11:35 PM CDT): Chornic stable and well controlled Continue omeprazole Moderate episode of recurrent major depressive d isorder 01/23/2023 Assessment & Plan (10/05/2023 9:36 AM JIGGER ARTISAN): Chronic and not well controlled Increase sertraline [...] zepbound Assessment & Plan (01/05/2024 10:50 AM JIGGER ARTISAN): Chronic condition she has lost 30 lb in the last 6 months continue with dietary restrictions. Assessment & Plan (10/20/2021 2:49 PM JIGGER ARTISAN): Chronic condition she has lost 30 lb [...] 01/21/2019 Assessment & Plan (11/13/2024 3:14 PM JIGGER ARTISAN): Chronic persistent but improved with lunesta Continue current dosing Assessment & Plan (07/30/2024 11:58 PM CDT): Chronic persistent but improved with lunesta Continue current dosing Assessment & Plan (10/05/2023 9:35 AM JIGGER ARTISAN): Chronic not well controlled with increased stress D/c trazadone Continue lunesta Assessment & Plan (06/05/2023 9:55 AM CDT): Chronic persistent Improved with use of lunesta and elavil Continue current regimen Assessment & Plan (01/19/2021 10:44 AM CDT): Chronic condition Stable and responds well to lunesta. Assessment & Plan (10/13/2020 2:27 PM JIGGER ARTISAN): Start trazadone 50mg Assessment & Plan (04/06/2020 5:20 PM CDT): Well controlled on current regimen, no rx changes needed. Continue lifestyle modifications AMANDA (generalized anxiety disorder) 09/26/2018 Assessment & Plan (11/13/2024 3:14 PM JIGGER ARTISAN): Chronic not well controlled Start buspar 10mg bid Assessment & Plan (04/08/2024 10:50 AM CDT): Chronic and not well controlled with breakthrough anxiety situational Start atarax 25mg every day prn #30 [facility] Assessment & Plan (10/20/2021 2:50 PM JIGGER ARTISAN): Chronic condition Refill Xanax for Assessment & [...] 09/26/2018 Assessment & Plan (11/13/2024 3:20 PM JIGGER ARTISAN): Chronic not well controlled Start Assessment & Plan (10/20/2021 2:50 PM JIGGER ARTISAN): Chronic condition not well controlled will increase [...]
--- OUTSIDE RECORDS SUMMARY | 2025-06-20 07:46 | XMS_ITS | Clinical Summary ---
Author Organization [address] Address [address] [place] [address] Care Team Providers Care Manager Risk Name Role Phone Jhon Gatica Primary Care Provider [phone] Natan Pepe MD Unavailable [phone] Bernie Monahan MD Unavailable [phone] Roe Ferrer DO Unavailable [phone] Allergies Active Allergy Reactions Criticality Noted [...] from 02/24/2025:Stage IA(pT1b, pN0(sn), cM0, G1, ER+, SD+, HER2-) - Unsigned 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 11/18/2023 Cancer Staging:Clinical stage from 09/18/2024:Stage 0(cTis (DCIS), cN0, cM0, GX, ER+, SD: Not Assessed, HER2: Not Assessed) - Signed by Bernie Monahan MD on 09/18/2024 Left breast mass 07/30/2024 Assessment & Plan (07/30/2024 9:42 AM CDT): Sched for diagnsotic and ultrasound Umbilical hernia without obstruction and without gangrene 07/30/2024 Assessment & Plan (07/30/2024 9:49 AM CDT): Chronic occasionally painful Refer to general surgery Pure hypercholesterolemia 04/08/2024 Borderline diabetic 04/08/2024 Assessment & Plan (11/13/2024 3:16 PM WINDOWS MIGRATION TECHNICIAN): Poct A1c today Gastroesophageal reflux disease without esophagi tis 06/05/2023 Assessment & Plan (06/05/2023 11:35 PM CDT): Chornic stable and well controlled Continue omeprazole Moderate episode of recurrent major depressive d isorder 01/23/2023 Assessment & Plan (10/05/2023 9:36 AM WINDOWS MIGRATION TECHNICIAN): Chronic and not well controlled Increase sertraline [...] zepbound Assessment & Plan (01/05/2024 10:50 AM WINDOWS MIGRATION TECHNICIAN): Chronic condition she has lost 30 lb in the last 6 months continue with dietary restrictions. Assessment & Plan (10/20/2021 2:49 PM WINDOWS MIGRATION TECHNICIAN): Chronic condition she has lost 30 lb [...] 01/21/2019 Assessment & Plan (11/13/2024 3:14 PM WINDOWS MIGRATION TECHNICIAN): Chronic persistent but improved with lunesta Continue current dosing Assessment & Plan (07/30/2024 11:58 PM CDT): Chronic persistent but improved with lunesta Continue current dosing Assessment & Plan (10/05/2023 9:35 AM WINDOWS MIGRATION TECHNICIAN): Chronic not well controlled with increased stress D/c trazadone Continue lunesta Assessment & Plan (06/05/2023 9:55 AM CDT): Chronic persistent Improved with use of lunesta and elavil Continue current regimen Assessment & Plan (01/19/2021 10:44 AM CDT): Chronic condition Stable and responds well to lunesta. Assessment & Plan (10/13/2020 2:27 PM WINDOWS MIGRATION TECHNICIAN): Start trazadone 50mg Assessment & Plan (04/06/2020 5:20 PM CDT): Well controlled on current regimen, no rx changes needed. Continue lifestyle modifications AMANDA (generalized anxiety disorder) 09/26/2018 Assessment & Plan (11/13/2024 3:14 PM WINDOWS MIGRATION TECHNICIAN): Chronic not well controlled Start buspar 10mg bid Assessment & Plan (04/08/2024 10:50 AM CDT): Chronic and not well controlled with breakthrough anxiety situational Start atarax 25mg every day prn #30 Refer to [facility] in [facility] Assessment & Plan (10/20/2021 2:50 PM WINDOWS MIGRATION TECHNICIAN): Chronic condition Refill Xanax for Assessment & [...] 09/26/2018 Assessment & Plan (11/13/2024 3:20 PM WINDOWS MIGRATION TECHNICIAN): Chronic not well controlled Start Assessment & Plan (10/20/2021 2:50 PM WINDOWS MIGRATION TECHNICIAN): Chronic condition not well controlled will increase [...] Type Department Care Team Description 05/23/2025 Telephone [facility] Family Medicine at [address] [place] [address] Jhon Gatica PA Test Results 05/20/2025 8:12 AM CDT - 05/20/2025 11:59 PM CDT Hospital Encounter [facility] MRI [address] [place] [address] Primary osteoarthritis of right knee Discharge Disposition: Discharge to home or self care 05/08/2025 8:00 AM CDT Office Visit [facility] Medical Office Building 2 Radiation Oncology [address] [place] [address] Marisol Rutledge PA Malignant neoplasm of upper-outer quadrant of left breast in female, estrogen receptor positive (HCC) (Primary Dx); Personal history of radiation therapy 05/08/2025 Telephone [facility] Family Medicine at [address] [place] [address] Jhon Gatica PA Recommendation Request 04/14/2025 Telephone [facility] Family Medicine at [address] [place] [address] Jhon Gatica PA Forms Request 04/10/2025 10:[address] [facility] Office Bldg [address] OP [address] [place] [address] Borderline diabetic; Essential (primary) hypertension; Pure hypercholesterolemia; Acquired hypothyroidism; Primary insomnia; Gastroesophageal reflux disease without esophagitis 04/10/2025 9:00 AM CDT Office Visit [facility] Family Medicine at [address] [place] [address] Jhon Gatica PA Essential (primary) hypertension (Primary Dx); Borderline diabetic; Pure hypercholesterolemia; Acquired hypothyroidism; Primary insomnia; Gastroesophageal reflux disease without esophagitis; Primary osteoarthritis of right knee 04/10/2025 Results Follow-Up [facility] Family Medicine at [address] [place] [phone] Jhon Gatica PA Hemoglobin A1c, Vitamin B12, TSH, Additional followed-up results: 7 04/06/2025 Orders Only [facility] Information Management [address] [place] [address] Masha Alba MD 03/27/2025 7:15 AM CDT Treatment [facility] Medical Office Building 2 Radiation Oncology [address] [place] [address] Bernie Monahan MD 03/27/2025 Completion of Therapy [facility] Medical Office Building 2 Radiation Oncology [address] [place] [address] Bernie Monahan MD 03/27/2025 Orders Only RAD ONC TREATMENTS Miscellaneous , Not In File 03/26/2025 8:45 AM CDT Treatment [facility] Medical Office Building 2 Radiation Oncology [address] [place] [address] 03/26/2025 OTV [facility] Medical Office Building 2 Radiation Oncology [address] [place] [address] Bernie Monahan MD Malignant neoplasm of upper-outer quadrant of left breast in female, estrogen receptor positive (HCC) (Primary Dx) 03/26/2025 Orders Only RAD ONC TREATMENTS Miscellaneous , Not In File 03/25/2025 9:30 AM CDT Treatment [facility] Medical Office Building 2 Radiation Oncology [address] [place] [address] 03/25/2025 Orders Only RAD ONC TREATMENTS Miscellaneous , Not In File 03/20/2025 9:[address] [facility] Office Building 2 Radiation Oncology [address] [place] [address] 03/20/2025 Orders Only RAD ONC TREATMENTS Miscellaneous , Not In File from Last 3 Months Immunizations Immunization Administration [...] on file Legal Sex Female 2:20 PM WINDOWS MIGRATION TECHNICIAN Gender Identity Not on file Sexual Orientation [...] Discontinued 02/06/2024 Medical Devices Implanted Type Area Resident Medical Officer Device Identifier Shelf Expiration Date Model / Serial / Lot [employer] Partnership Securmark 13cm Rigid End Bioabsorbable Net Top Brush Filler Hand Breast Latex Free [id number] - [id number] Implanted:Qty: 1 on 09/03/2024 by Natan Pepe MD at [facility] Left: Breast [employer] [id number] 11/23/2024 SMARK-ELLEN VA-2S-[id number] / / [id number] Medical Research Scientist [employer] [place] 20ga 5cm Reposition J Curve Wire Centimeter Davidson Stabilizer [id number] - [id number] Implanted:Qty: 1 on 10/16/2024 by Adam Ford MD at [facility] Left: Breast [employer] [id number] 05/24/2029 [id number] / / [id number] Procedures Procedure Name Priority Date/Time Associated Diagnosis [...] ARIA SESSION SUMMARY 03/20/2025 9:32 AM CDT DEXA AXIAL SKELETON BONE DENSITY 1 OR MORE SITES Schedule Routine, Read Routine (OP Routine) 01/08/2025 7:46 AM CDT Menopausal and perimenopausal disorder SCREENING MAMMOGRAM BILATERAL W JC Schedule Routine, Read Routine (OP Routine) 07/26/2024 8:50 AM CDT Screening mammogram, encounter for STOOL DNA COLOGUARD Routine 02/06/2024 10:30 AM CDT Screening for colon cancer HEPATITIS C ANTIBODY Routine 01/05/2024 11:53 AM WINDOWS MIGRATION TECHNICIAN Need for hepatitis C screening test from [...] 1:43 PM - Electronically signed by Ulysses Kenr M.D. T: Report ID: [id number] Reading Location: [id number] Procedure Note Ulysses Kern MD - 05/20/2025 [...] by Ulysses Kern M.D. T: Report ID: [id number] Reading Location: [place] [address] Jhon CHAN IMG MRI PROCEDURES Final Result * eGFR (04/10/2025 [...] CHAN LAB BLOOD ORDERABLES Final Resu lt JOHN [address] [facility] [place] [address] * Differential, auto (04/10/2025 10:36 AM CDT) Pathologist [facility] Neutrophil abs 3.68 1.50 - 6.50 K/cumm Imm gran abs 0.03 0.00 - 0.10 K/cumm [facility] Lymphocyte abs 1.62 0.80 - 3.30 K/cumm [facility] Monocyte abs 0.48 0.20 - 0.80 K/cumm [facility] Eosinophil abs 0.13 0.00 - 0.50 K/cumm [facility] Basophil abs 0.03 0.00 - 0.10 K/cumm [facility] Neutrophil pct 61.7 % [facility] Comment: Interpretive Data Percent cell count reference ranges are not reported, since discordance with absolute values may lead to misinterpretation of CBC data. Current Interpretive Data was last revised on 2018. Imm gran pct 0.5 % [facility] Comment: Interpretive Data Percent cell count reference ranges are not reported, since discordance with absolute values may lead to misinterpretation of CBC data. Current Interpretive Data was last revised on 2018. Lymphocyte pct 27.1 % [facility] Comment: Interpretive Data Percent cell count reference ranges are not reported, since discordance with absolute values may lead to misinterpretation of CBC data. Current Interpretive Data was last revised on 2018. Monocyte pct 8.0 % [facility] Comment: Interpretive Data Percent cell count reference ranges are not reported, since discordance with absolute values may lead to misinterpretation of CBC data. Current Interpretive Data was last revised on 2018. Eosinophil pct 2.2 % [facility] Comment: Interpretive Data Percent cell count reference ranges are not reported, since discordance with absolute values may lead to misinterpretation of CBC data. Current Interpretive Data was last revised on 2018. Basophil pct 0.5 % [facility] Comment: Interpretive Data Percent cell count reference ranges are not reported, since discordance with absolute values may lead to misinterpretation of CBC data. Current Interpretive Data was last revised on 2018. Blood 04/10/2025 10:3 6 AM CDT 04/10/2025 12:25 PM CDT Jhon CHAN LAB BLOOD ORDERABLES Final Resu lt Performing Organization Address City/[facility] Co de Phone Number [address] [place] [address] * CBC with auto differential (04/10/2025 10:36 AM CDT) Pathologist [facility] WBC 5.97 3.80 - 9.90 K/cumm Hgb 14.3 11.9 - 15.5 g/dL [facility] Hct 43.2 35.6 - 45.5 % [facility] Plt 237 150 - 400 K/cumm [facility] MPV 11.4 9.1 - 12.3 fL [facility] RBC 4.70 3.90 - 5.20 M/cumm [facility] MCV 91.9 81.3 - 96.4 fL [facility] MCH 30.4 27.1 - 33.3 pg [facility] MCHC 33.1 32.3 - 35.7 g/dL [facility] RDW CV 12.5 11.1 - 14.9 % [facility] RDW SD 41.8 35.7 - 48.1 fL [facility] NRBC abs 0.00 0.00 - 0.01 K/cumm [facility] Blood 04/10/2025 10:3 6 AM CDT 04/10/2025 12:25 PM CDT Jhon CHAN LAB BLOOD ORDERABLES Final Resu lt Performing Organization Address City/[facility] Co de Phone Number [facility] [address] [email or web address] [address] * TSH (04/10/2025 10:36 AM CDT) Thyroid Stimulating Hormone 2.75 0.30 - 4.20 mcIUnit/mL Blood 04/10/2025 10:3 6 AM CDT 04/10/2025 12:24 PM CDT Jhon CHAN LAB BLOOD ORDERABLES Final Resu lt Performing Organization Address [facility] de Phone Number [address] [place] [address] * (ABNORMAL) Hemoglobin A1c (04/10/2025 10:36 AM CDT) Pathologist [facility] Hgb A1C 5.9(H) 4.0 - 5.6 % Estimated Average Glucose 123 mg/dL JOHN Comment: The ADA recommends reporting an estimated Average Glucose (eAG) with all Hemoglobin A1c results using the equation derived from a study of 507 normal and diabetic adults. Minority populations were underrepresented and children were not included. (Diabetes Care 31:2708-9633, 2008). The eAG is not equivalent to a fasting glucose. Blood 04/10/2025 10:3 6 AM CDT 04/10/2025 12:25 PM CDT us Jhon CHAN LAB BLOOD ORDERABLES Final Resu lt Performing Organization Address [facility] Co de Phone Number [address] [place] [address] * Vitamin B12 (04/10/2025 10:36 AM CDT) Pathologist [facility] Vitamin B12 574 230 - 1,250 pg/mL Blood 04/10/2025 10:3 6 AM CDT 04/10/2025 12:24 PM CDT Jhon CHAN LAB BLOOD ORDERABLES Final Resu lt Performing Organization Address [facility] Co de Phone Number [place] [phone] [facility] [place] [address] * Bilirubin, direct (04/10/2025 10:36 AM CDT) Bilirubin, direct 0.2 0.1 - 0.3 mg/dL Blood 04/10/2025 10:3 6 AM CDT 04/10/2025 12:24 PM CDT us Jhon CHAN LAB BLOOD ORDERABLES Final Resu lt JOHN [address] [facility] Department [place] [address] * (ABNORMAL) Lipid panel (04/10/2025 10:36 AM [...] on 2018. Triglycerides 226(H) <=149 mg/dL JOHN PEREZ Comment: Interpretive Data Ages [...] on 2018. HDL 51 >=40 mg/dL JOHN PEREZ Comment: Interpretive Data Ages [...] NCEP Expert Panel. Circulation 2004;110:227 3. Zeyad M et al. JONI Cardiol. 2019February 27;5(5):540-548. doi: 10.1001/jamacardio.2020.0013 Current Interpretive Data was last revised on 2024. Non-HDL Cholesterol 194 mg/dL JOHN PEREZ Comment: Interpretive Data Ages [...] last revised on 2018. Chol/HDL ratio 5 JOHN PEREZ Blood 04/10/2025 10:3 6 AM CDT 04/10/2025 12:24 PM CDT Jhon CHAN LAB BLOOD ORDERABLES Final Resu lt JOHN [address] [facility] Department [place] [address] * Comprehensive metabolic panel (04/10/2025 10:36 AM CDT) Sodium 143 135 - 145 mmol/L Potassium, pl 4.4 3.3 - 4.9 mmol/L [facility] Chloride 105 97 - 110 mmol/L [facility] CO2 27 22 - 32 mmol/L [facility] Anion gap 11 2 - 15 mmol/L [facility] BUN 12 6 - 25 mg/dL [facility] Creatinine 0.76 0.60 - 1.10 mg/dL [facility] Glucose 107 70 - 199 mg/dL [facility] Comment: Interpretive Data Fasting glucose [...] 2022. Calcium 9.8 8.5 - 10.3 mg/dL [facility] Bilirubin, total 0.7 0.1 - 1.2 mg/dL [facility] Protein, pl 7.2 6.5 - 8.5 g/dL [facility] Albumin 4.2 3.5 - 5.0 g/dL [facility] Alk phos 91 40 - 130 Units/L [facility] ALT 15 7 - 45 Units/L [facility] AST 25 10 - 45 Units/L [facility] Blood 04/10/2025 10:3 6 AM CDT 04/10/2025 12:24 PM CDT Jhon CHAN LAB BLOOD ORDERABLES Final Resu lt JOHN [address] [facility] [place] [address] * SCAN - RADIOLOGY/IMAGING (04/06/2025) Anatomical Region [...] ORD ERABLES Final Result Performing Organization Address City/[facility]/ZIP Co de Phone Number ARIChaya * RAD ONC ARIA SESSION SUMMARY (03/26/2025 8:56 AM CDT) Course Name C1_L_Breast ARIA Course [...] Result Performing Organization Address [facility] Co de Phone Number ARIChaya * RAD ONC ARIA SESSION SUMMARY (03/20/2025 [...] ORD ERABLES Final Result Performing Organization Address City/[facility]/ZIP Co de Phone Number NAV * Dexa Axial Skeleton Bone Density 1 or 2 Site (01/08/2025 7:46 AM CDT) Anatomical Region Laterality Modality Body N/A Mammography 01/09/2025 2:45 PM CDT Narrative 01/09/2025 2:47 PM CDT EXAM DESCRIPTION: DEXA AXIAL SKELETON BONE DENSITY 1 OR MORE SITES REASON FOR STUDY: 64 y/o year old F with given history of: screening Resident Medical Officer/Model: [employer] A (S/N [id number]) Facility LSC value of 0.022 for the [...] Natan Block M.D. MF: LEONILA Report ID: [id number] Reading Location: [place] [address] Procedure Note Natan Block MD - 01/09/2025 EXAM DESCRIPTION: DEXA AXIAL SKELETON BONE DENSITY 1 OR MORE SITES REASON FOR STUDY: 64 y/o year old F with given history of: screening Resident Medical Officer/Model: [employer] A ([id number]/N [id number]) Facility LSC value of 0.022 for the [...] Natan Block M.D. MF: LEONILA Report ID: [id number] Reading Location: [place] [address] us Jhon CHAN IMG DXA PROCEDURES Final Result * (ABNORMAL) Screening [...] MLO projections. CLINICAL: Screening mammogram, encounter for ([facility]). No relevant medical history has been [...] CDT) Stool DNA - Cologuard Negative Negative Door 6 (CLIA #:[id number]) Comment: NEGATIVE TEST RESULT. A negative Cologuard [...] Watt et al, N Engl J Med 2014;370(14):5859-9844) The normal value (reference range) for this assay is negative. COLOGUARD RE-SCREENING RECOMMENDATION: Periodic colorectal cancer screening is an important part of preventive healthcare for asymptomatic individuals at average risk for colorectal cancer. Following a negative Cologuard result, the [place] [employer] Society and U.S. Multi-Society Task Force screening guidelines recommend a Cologuard re-screening interval of 3 years. References: [place] [employer] Guideline for Colorectal Cancer Screening: https://www.cancer.org/cancer/bawut-ccplvv-rjvatp/edtrnidxi-yetswkral-ffeplog/ac s-rec ommendations.html.; Donell DK, Evelio CR, Trino AvelarK, Colorectal Cancer Screening: Recommendations for Physicians and Patients from the U.S. Multi-Society Task Force on Colorectal Cancer Screening , Am J Gastroenterology 2017; 112:2727-4510. TEST DESCRIPTION: Composite algorithmic analysis of stool [...] Watt et al, N Engl J Med 2014;370(14):4679-2624.) Cologuard may produce a false negative or false positive result (no colorectal cancer or precancerous polyp present at colonoscopy follow up). A negative Cologuard test result does not guarantee the absence of CRC or advanced adenoma (pre-cancer). The current Cologuard screening interval is every 3 years. ([place] [employer] Society and U.S. Multi-Society Task Force). Cologuard performance data in a 10,000 patient pivotal study using colonoscopy as the reference method can be accessed at the following location: www.[email or web address].FlowPay/results. Additional description of the Cologuard test process, warnings and precautions can be found at www.cologAgora Mobilerd.com. Stool 02/06/2024 10:3 0 AM CDT 02/07/2024 10:09 AM CDT us Jhon CHAN LAB BODY FLUIDS AND STOOLS BONG [place]YTON Final Result [facility] (CLIA #:[id number]) [place] [address] * Hepatitis C antibody Blood (01/05/2024 11:53 AM WINDOWS MIGRATION TECHNICIAN) Hep C Ab Nonreactive Nonreactive Comment: Antibodies [...] on 2020. Blood 01/05/2024 11:5 3 AM WINDOWS MIGRATION TECHNICIAN 01/05/2024 12:37 PM WINDOWS MIGRATION TECHNICIAN Jhon CHAN LAB MICROBIOLOGY - GENERAL BONG [place]YTON Final Result Performing Organization Address City/State/ZIP Co ri Phone Number [facility] [address] [facility] Department of Laboratories [place], [place] [phone] from Last 3 Months or Most Recently Relevant to Health Maintenance Insurance [employer] OOS [facility] MEDICARE ADVANTAGE BLUE ACCESS OOS BLUE ACCESS OOS Advance Directives For more information, please contact: [phone] * Full Code (Latest Code Status on File) Date Activated Date Inactivated Comments 01/23/2025 11:14 AM 01/23/2025 5:41 PM * Full Code Date Activated Date Inactivated Comments 10/16/2024 2:46 PM 10/16/2024 10:06 PM Care Teams Manager Risk Relationship Specialty Start Date End Date Jhon Gatica PA PCP - General Family Medicine 9/27/22 Natan Pepe MD [address] [facility] [address] [place], [place] [address] Surgeon General Surgery 09/12/24 Bernie Monahan MD [address] [place] [address] [address] [place], [place] [address] Radiation Oncologist Radiation Oncology 09/12/24 Roe Ferrer DO [address] [id number] Medical Oncologist/Edger Machine Setter Hematology and Oncology 02/24/25
[2025-06-20 07:59] LABS: Hematocrit 39.5 % (37.0-47.0); Hemoglobin 12.6 g/dL (12.0-15.0); Mean Corpuscular HGB Conc 31.9 g/dl (32-36); Mean Corpuscular Hemoglobin 30.7 pg (26-34); Mean Corpuscular Volume 96.1 fl (80-100); Platelet Count Result 188 k/mm3 (150-375); Red Blood Count 4.11 M/mm3 (4.2-5.4); White Blood Count 6.2 K/mm3 (4.5-10.0)
--- NOTE | 2025-06-20 07:59 | WPDHPUPDATE1 ---
History and Physical Update Update Date/Time: 06/20/25 07:59 History and Physical has been reviewed, including an updated exam of the patient. There are NO changes in the patient's condition. Risks, benefits, and alternatives have been discussed and questions answered. Patient agrees to proceed with procedure.
[2025-06-20] MEDS: PROPRANOLOL HCL 40 MG TABLET PO (08:15)
[2025-06-20] MEDS: ENOXAPARIN 40 MG/0.4 ML SYRINGE SUB-Q (08:16)
[2025-06-20] MEDS: PIPERACILLIN/TAZOBACTAM SOD 3.375 GM in SODIUM CHLORIDE 0.9% IV 50 ML 100 ML IVPB ×3 (08:16→18:26)
[2025-06-20 08:22] LABS: Anion Gap 5 mmol/L (4-12); Blood Urea Nitrogen 11 mg/dL (7-17); Calcium 8.7 mg/dL (8.4-10.2); Carbon Dioxide 26 mmol/L (22-30); Chloride 107 mmol/L (98-107); Estimated CRCL calculation 91 ml/min; Estimated Glomerular Filt Rate > 60; Glucose 123 mg/dL (65-110); Potassium 3.7 mmol/L (3.4-5.0); Sodium 138 mmol/L (137-145)
[2025-06-20] MEDS: PANTOPRAZOLE SODIUM IV 40 MG VIAL IV PUSH (08:24)
--- NOTE | 2025-06-20 08:33 | P.PNIM_ITS ---
Progress Note: A&P Assessment and Plan (1) Umbilical hernia with obstruction but no gangrene: Code(s): K42.0 - Umbilical hernia with obstruction, without gangrene Status: Acute Assessment and Plan: - presented with worsening abdominal pain, nausea/vomiting in setting of known umbilical hernia - CT A/P showed high-grade bowel obstruction secondary to umbilical hernia containing short segment of transverse colon, early strangulation suspected -general surgery consulted and planning for OR today - NPO -Normal saline at 100 mL/hour for hydration -PRN antiemetics and analgesics (2) Hypertension: Qualifiers: Hypertension type: primary hypertension Qualified Code(s): I10 - [place] tial (primary) hypertension Code(s): I10 - Essential (primary) hypertension Status: Chronic Assessment and Plan: -Chronic in nature -BP stable -Restart home medications as able (3) Morbid obesity with BMI of 45.0-49.9, adult: Code(s): E66.01 - Morbid (severe) obesity due to excess calories; Z68.42 - Body mass index [BMI] 45.0-49.9, adult Status: Chronic Assessment and Plan: -Recommend lifestyle changes upon discharge (4) GERD (gastroesophageal reflux disease): Code(s): K21.9 - Gastro-esophageal reflux disease without esophagitis Status: Chronic Assessment and Plan: -Hold oral meds in current setting of being NPO -Protonix 40 mg IV push daily (5) Fibromyalgia: Code(s): M79.7 - Fibromyalgia Status: Chronic Assessment and Plan: -continue home amitriptyline and gabapentin (6) Anxiety: Code(s): F41.9 - Anxiety disorder, unspecified Status: Chronic Assessment and Plan: -Hold oral p.r.n. anxiety meds at this time. -Valium 2.5 mg IV push q.6 hours p.r.n. anxiety ordered. (7) Breast cancer: Qualifiers: Breast location: unspecified site of breast Estrogen receptor status: unspecified Laterality: unspecified laterality Patient sex: female Qualified Code(s): C50.919 - Malignant neoplasm of unspecified site of unspecified female breast Code(s): C50.919 - Malignant neoplasm of unspecified site of unspecified female breast Status: Chronic Assessment and Plan: -Currently in remission. (8) Abnormal urinalysis: Code(s): R82.90 - Unspecified abnormal findings in urine Status: Acute Assessment and Plan: - UA with 11-20 WBC, 1+ bacteria - patient denies urinary symptoms other than some hesitancy - urine culture pending Plan DVT prophylaxis: SCDs Dispoistion: TBD post-op Subjective Date/time seen: 06/20/25 08:33 Interval history: 64-year-old female patient with past medical history significant of a known umbilical hernia, fibromyalgia, hypertension, GERD, anxiety, depression and breast cancer status post radiation and on oral chemo who presented to the emergency with complaints of persistent abdominal pain. Patient seen and examined at bedside. Still having 7/10 abdominal pain. Review of Systems Review of Systems: All systems reviewed & are unremarkable except as noted in HPI and below Exam Narrative: General: appears uncomfortable, obese Eyes: EOMI ENT: neck supple Cardiovascular: Regular rate and rhythm Respiratory: Clear to auscultation, respirations even and unlabored on RA Gastrointestinal: midlly distended, umbilical hernia, not reducible. Moderate periumbilical tenderness. Bowel sounds hypoactive. Genitourinary: no suprapubic tenderness Musculoskeletal: BLE lymphedema Skin: warm, dry Neuro: Alert. Psych: Mood appropriate Objective Data Vital Signs Vital Signs: Vital Signs - 24 hr 06/19/25 19:18 06/19/25 19:27 06/19/25 22:46 Temperature 98.0 F Pulse Rate 120 H 108 H 109 H Respiratory Rate 22 H 16 18 Blood Pressure 168/110 H 153/102 H 133/99 H Pulse Oximetry 97 97 95 Oxygen Delivery Room Air 06/19/25 23:35 06/20/25 01:29 06/20/25 03:07 Temperature Pulse Rate 106 H 106 H 96 Respiratory Rate 14 12 18 Blood Pressure 135/92 H 137/87 121/80 Pulse Oximetry 100 97 96 Oxygen Delivery 06/20/25 03:39 06/20/25 08:00 06/20/25 08:15 Temperature 97.5 F L 97.6 F Pulse Rate 97 90 90 Respiratory Rate 18 18 Blood Pressure 124/71 136/105 H Pulse Oximetry 99 99 Oxygen Delivery 06/20/25 08:16 Temperature Pulse Rate 90 Respiratory Rate Blood Pressure Pulse Oximetry Oxygen Delivery Intake/Output Intake/Output: Intake & Output 06/17/25 06/18/25 06/19/25 06/20/25 23:59 23:59 23:59 23:59 Intake Total 1000 100 Balance 1000 100 Meds/Results Medications: Active Medications Generic Name Dose Route Start Last Admin Trade Name Freq PRN Reason Stop Dose Admin Diazepam 2.5 mg 06/20/25 02:21 Diazepam Inj (*Crx) 10 Mg/2 Ml Syringe IV PUSH Q6HR PRN Anxiety Sodium Chloride 1,000 mls @ 100 mls/hr 06/20/25 00:14 06/20/25 01:10 Normal Saline Iv IV CONT 06/20/25 10:13 100 mls/hr .Q10H STA Administration Ibuprofen 800 mg in 200 mls @ 400 mls/hr 06/20/25 07:29 Caldolor 800 Mg/200 Ml IVPB Q6H PRN Breakthrough Pain Rated 1-3 or NPO Piperacillin Sod/Tazobactam 50 mls @ 100 mls/hr 06/20/25 07:30 06/20/25 08:16 Sod 3.375 gm/ Sodium Chloride IVPB 100 mls/hr Q6HR ATTILA Administration Labetalol HCl 5 mg 06/20/25 07:35 06/20/25 08:16 Labetalol Hcl Inj 100 Mg/20 Ml Vial IV PUSH 5 mg Q6H ATTILA Administration Morphine Sulfate 2 mg 06/20/25 07:29 Morphine Sulfate (*Crx) 2 Mg/Ml Inj IV PUSH Q2H PRN Breakthrough Pain Rated 4-6 or NPO Morphine Sulfate 4 mg 06/20/25 07:29 Morphine Sulfate (*Crx) 4 Mg/Ml Inj IV PUSH Q2H PRN Breakthrough Pain Rated 7-10 or NPO Ondansetron HCl 4 mg 06/20/25 02:21 06/20/25 04:32 Ondansetron Inj 4 Mg/2 Ml Vial IV PUSH 4 mg Q6HR PRN Administration Nausea And Vomiting Pantoprazole Sodium 40 mg 06/20/25 09:00 06/20/25 08:24 Pantoprazole Sodium Iv 40 Mg Vial IV PUSH 40 mg DAILY ATTILA Administration Radiology Results: ITS Impressions Abdomen/Pelvis CT 06/19/25 20:51 IMPRESSION: High-grade bowel obstruction secondary to an umbilical hernia containing a short segment of transverse colon which demonstrates significant hyperemia suggesting venous compression, for which early strangulation is suspected. Labs Labs: Laboratory Results - last 24 hr 06/19/25 06/19/25 06/20/25 19:33 21:48 07:52 WBC 6.2 6.2 RBC 4.69 4.11 L Hgb 14.5 12.6 Hct 42.9 39.5 MCV 91.5 96.1 D MCH 30.9 30.7 MCHC 33.8 31.9 L RDW 12.3 12.7 Plt Count 224 188 MPV 11.3 H 11.3 H Immature Gran % (Auto) 0.3 Neut % (Auto) 63.2 Lymph % (Auto) 26.6 [place] % (Auto) 7.6 Eos % (Auto) 1.8 Baso % (Auto) 0.5 Lymph # (Auto) 1.65 [place] # (Auto) 0.5 Eos # (Auto) 0.1 Baso # (Auto) 0.0 Abs Immat Gran (auto) 0.02 Absolute Neuts (auto) 3.9 Absolute Nucleated RBC 0.000 Nucleated RBC % 0.0 Sodium 139 138 Potassium 3.9 3.7 Chloride 105 107 Carbon Dioxide 26 26 Anion Gap 8 5 BUN 12 D 11 Creatinine 0.72 0.74 Estim Creat Clear Calc 92 91 Estimated GFR > 60 > 60 Glucose 144 H 123 H Lactic Acid 1.9 Calcium 9.6 8.7 Magnesium 2.1 Total Bilirubin 0.8 AST 28 ALT 18 Alkaline Phosphatase 90 Total Protein 7.3 Albumin 4.2 Lipase 79 Urine Color Yellow Urine Appearance Clear Urine pH 6.0 Ur Specific [place] > 1.045 H Urine Protein Trace Urine Glucose (UA) Negative Urine Ketones Negative Ur Blood (Man) Negative Urine Nitrate Negative Urine Bilirubin Negative Urine Urobilinogen 0.2 Add Ur Microanalysis Reviewed Leukocyte Esterase Rfl Negative Urine RBC 0-2 Urine WBC 11-20 H Ur Squamous Epith Cells Occasional Urine Bacteria 1+ H Urine Casts 0-2 Quality VTE Prophylaxis VTE prophylaxis: mechanical ordered
[2025-06-20] MEDS: diazePAM INJ (*CRX) 10 MG/2 ML SYRINGE 2.5 MG IV PUSH ×2 (08:36→21:28)
--- NOTE | 2025-06-20 14:30 | WPDANESEPPF ---
Anes - Initial Pre Proc Eval Procedure: Operation Date: 06/20/25 15:00 Proposed Procedures p Open Repair Incarcerated Incisional Hernia With Bowel Obstruction And Strangulation - Ulysses Gatica MD Date/Time: 06/20/25 14:30 Surgeon: Ulysses Gatica MD Pre Op Diagnosis: Incarcerated incisional hernia with obstruction Patient Data Age: 64 Gender: F Height: 1.63 m Weight: 141.5 kg Last Vital Signs Temp 36.4 C 06/20/25 08:00 Pulse 77 06/20/25 13:16 Resp 18 06/20/25 13:15 BP 141/95 H 06/20/25 13:15 Pulse Ox 98 06/20/25 13:15 O2 Del Method Room Air 06/20/25 08:00 Allergies Allergy/AdvReac Type Severity Reaction Status Date / Time tomato Allergy Severe Swelling Verified 06/20/25 14:30 of Lip/Tongue/Throat wool Allergy Intermediate Hives Verified 06/20/25 14:30 [facility] Allergy Mild Vomiting Verified 06/20/25 14:30 latex Allergy Unknown Hives Verified 06/20/25 14:30 Home Medications ?Medication ?Instructions ?Recorded ?Confirmed ?Type benzonatate 200 mg capsule 200 mg PO BID PRN cough 07/19/21 06/20/25 History cefuroxime axetil 500 mg tablet 500 mg PO Q12H 07/19/21 06/20/25 History cyclobenzaprine 10 mg tablet 10 mg PO TID 07/19/21 06/20/25 History eszopiclone 3 mg tablet (Lunesta) 3 mg PO QHS 07/19/21 06/20/25 History hydrochlorothiazide 25 mg tablet 25 mg PO DAILY 07/19/21 06/20/25 History lisinopril 20 mg tablet 20 mg PO DAILY 07/19/21 06/20/25 History ondansetron HCl 4 mg tablet 4 mg PO Q8H 07/19/21 06/20/25 History (Zofran) ondansetron 4 mg disintegrating 4 mg PO Q6H PRN nausea and 07/15/24 06/20/25 Rx tablet vomiting #10 tabs ondansetron 4 mg disintegrating 4 mg PO Q8H PRN nausea and 07/23/24 06/20/25 Rx tablet vomiting #15 tabs albuterol sulfate 90 mcg/actuation 2 puff inhalation Q4-6H PRN 06/20/25 06/20/25 History aerosol inhaler shortness of breath or wheezing atorvastatin 40 mg tablet 80 mg PO QPM 06/20/25 06/20/25 History buspirone 10 mg tablet 10 mg PO BID 06/20/25 06/20/25 History celecoxib 100 mg capsule 100 mg PO Q24H 06/20/25 06/20/25 History furosemide 40 mg tablet 40 mg PO QID 06/20/25 06/20/25 History hydrocodone 10 mg-acetaminophen 1 tablet PO Q8H PRN pain 06/20/25 06/20/25 History 325 mg tablet hydroxyzine HCl 25 mg tablet 25 mg PO QID PRN itching 06/20/25 06/20/25 History ipratropium 0.5 mg-albuterol 3 mg 3 ml inhalation Q6H PRN shortness 06/20/25 06/20/25 History (2.5 mg base)/3 mL nebulization of breath or wheezing soln levothyroxine 25 mcg tablet 50 mcg PO DAILY 06/20/25 06/20/25 History propranolol 20 mg tablet 40 mg PO BID 06/20/25 06/20/25 History sumatriptan succinate 100 mg tablet 100 mg PO Q2H PRN migraine headache 06/20/25 06/20/25 History tamoxifen 10 mg tablet 10 mg PO DAILY 06/20/25 06/20/25 History triamcinolone acetonide 0.1 % 1 applic topical QID 06/20/25 06/20/25 History topical cream Laboratory Tests 06/19/25 06/19/25 06/20/25 19:33 21:48 07:52 WBC 6.2 K/mm3 6.2 K/mm3 (4.5-10.0) (4.5-10.0) RBC 4.69 M/mm3 4.11 L M/mm3 (4.2-5.4) (4.2-5.4) Hgb 14.5 g/dL 12.6 g/dL (12.0-15.0) (12.0-15.0) Hct 42.9 % 39.5 % (37.0-47.0) (37.0-47.0) MCV 91.5 fl 96.1 D fl (80-100) (80-100) MCH 30.9 pg 30.7 pg (26-34) (26-34) MCHC 33.8 g/dl 31.9 L g/dl (32-36) (32-36) RDW 12.3 % 12.7 % (11.5-14.5) (11.5-14.5) Plt Count 224 k/mm3 188 k/mm3 (150-375) (150-375) MPV 11.3 H fl 11.3 H fl (7.4-10.4) (7.4-10.4) Immature Gran % (Auto) 0.3 % (0-0.5) Neut % (Auto) 63.2 % (45.5-73.1) Lymph % (Auto) 26.6 % (18.3-44.2) [place] % (Auto) 7.6 % (2.6-8.5) Eos % (Auto) 1.8 % (0-4.4) Baso % (Auto) 0.5 % (0.2-1.2) Lymph # (Auto) 1.65 K/mm3 (0.9-3.2) [place] # (Auto) 0.5 K/mm3 (0.1-0.6) Eos # (Auto) 0.1 K/mm3 (0-0.3) Baso # (Auto) 0.0 K/mm3 (0.0-0.1) Abs Immat Gran (auto) 0.02 K/mm3 (0.00-0.031) Absolute Neuts (auto) 3.9 K/mm3 (1.3-6.7) Absolute Nucleated RBC 0.000 K/mm3 (0.0-0.012) Nucleated RBC % 0.0 % (0.0-0.2) Sodium 139 mmol/L 138 mmol/L (137-145) (137-145) Potassium 3.9 mmol/L 3.7 mmol/L (3.4-5.0) (3.4-5.0) Chloride 105 mmol/L 107 mmol/L (98-107) (98-107) Carbon Dioxide 26 mmol/L 26 mmol/L (22-30) (22-30) Anion Gap 8 mmol/L 5 mmol/L (4-12) (4-12) BUN 12 D mg/dL 11 mg/dL (7-17) (7-17) Creatinine 0.72 mg/dL 0.74 mg/dL (0.7-1.0) (0.7-1.0) Estim Creat Clear Calc 92 ml/min 91 ml/min Estimated GFR > 60 > 60 (59 - ) (59 - ) Glucose 144 H mg/dL 123 H mg/dL (65-110) (65-110) Lactic Acid 1.9 mmol/L (0.7-2.0) Calcium 9.6 mg/dL 8.7 mg/dL (8.4-10.2) (8.4-10.2) Magnesium 2.1 mg/dL (1.6-2.3) Total Bilirubin 0.8 mg/dL (0.2-1.3) AST 28 U/L (14-36) ALT 18 U/L (6-35) Alkaline Phosphatase 90 U/L (38-126) Total Protein 7.3 g/dL (6.3-8.2) Albumin 4.2 g/dL (3.5-5.1) Lipase 79 U/L (23-300) Urine Color Yellow (Yellow) Urine Appearance Clear (Clear) Urine pH 6.0 (5.0-9.0) Ur Specific [place] > 1.045 H (1.001-1.035) Urine Protein Trace mg/dL (Negative) Urine Glucose (UA) Negative mg/dL (Negative) Urine Ketones Negative mg/dL (Negative) Ur Blood (Man) Negative (Negative) Urine Nitrate Negative (Negative) Urine Bilirubin Negative (Negative) Urine Urobilinogen 0.2 mg/dL (<2.0) Add Ur Microanalysis Reviewed Leukocyte Esterase Rfl Negative TERRELL/UL (Negative) Urine RBC 0-2 /hpf (0-2) Urine WBC 11-20 H /hpf (0-3) Ur Squamous Epith Cells Occasional /hpf (Few) Urine Bacteria 1+ H /hpf Urine Casts 0-2 Blood Type O Positive Antibody Screen Negative Patient hx anesthesia problems: none Family hx anesthesia problems: none Results Review: All pre-operative results and documents have been reviewed as part of the pre-operative evaluation. [facility] Past Medical History Medical History Breast cancer Anxiety Fibromyalgia Hypertension GERD (gastroesophageal reflux disease) AMANDA (generalized anxiety disorder) Depression Surgical History Surgical History History of appendectomy History of partial hysterectomy H/O hemorrhoidectomy Family History Family History Father Acute myocardial infarction Mother Lung cancer Social History Social History Smoking status: Never smoker Second hand tobacco smoke exposure: Yes Alcohol intake: former Substance use: never Substance use type: does not use Lack of Transportation: No Lack of Food: Never True Current Housing: I Have Housing Concerned About Future Housing: No Difficulty Paying Gas/Electric Bills: No Difficulty Paying for Meds: No Currently Unemployed: No Education: High School Diploma/GED Difficulty w/ Childcare or Family Care: No Living arrangements: with family Occupation/Education: occupation 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 Informed Consent: The patient's anesthetic plan and its attendant risks and benefits were discussed with the patient/family/POA. Questions were solicited and answers provided to the satisfaction of the patient/family/POA.
--- NOTE | 2025-06-20 15:28 | S_PTH ---
PATIENT: Romana Mcclendon LOC: [id number] U#:[id number] AGE/SX: 64/F ROOM: 312 RE06/20/[address]: Brennen Gnozales PA-C : 1960 BED: 01 DIS: 06/25/2025 SPEC #: [id number] RECD: 06/23/25 07:54 STATUS: [place] REAmy #: [id number] [place]: 06/20/25 15:[address]: Ulysses Gatica DEPT: [facility] Surgical RECD BY: Keri Bran ENTERED: 06/23/25 07:54 SP TYPE: Surgical OTHR DR: MD Jhon Chaves, DUSTIN Meraz Tissues: A - Hernia Sac Procedures: Gross and Microscopic Level 2 Hematoxylin and Eosin Stain
[2025-06-20] MEDS: LACTATED RINGERS 1,000 ML 30 ML IV CONT ×2 (16:26)
--- NOTE | 2025-06-20 16:27 | W.PM.PROC2 ---
Procedure Note - Detailed Date of Procedure 06/20/25 Pre-op Diagnosis Incarcerated incisional hernia with obstruction Post-op Diagnosis Same Procedure Performed Open repair 5 cm incarcerated incisional hernia with obstruction Surgeon Ulysses Gatica MD [employer] Director Ayla Chapa [facility] Anesthesia General Indications Patient fell at home 3 days ago. She noticed an increased bulge in the area where she had an umbilical hernia for at least 2 years. This was painful and associated with vomiting. She came to the emergency room last night and was noted to have an incarcerated ventral incisional hernia. CT scan showed transverse colon trapped in the hernia with inflammatory changes. She is taken to surgery now for repair. Findings There was a large loop of transverse colon incarcerated in the hernia. Fortunately, the colon was inflamed but not infarcted. The hernia defect itself was approximately 5 cm in length. It was an extension of the long-standing umbilical hernia. It was located at the upper aspect of her previous lower abdominal midline incision. No other significant findings were noted. Description of Procedure Patient was taken to surgery and induced into general anesthesia. Montague catheter was placed. The abdomen was prepped and draped. Most of the previous lower abdominal scar was excised. The scar was discarded. We then dissected down to the midline fascia at the edge of the hernia defect. We opened the incision to expose the fascia the length of the wound. I then dissected down to the fascia just above the hernia defect. I was able to enter the peritoneal cavity and place a finger through the ring of the hernia and divide the fascia over my finger releasing the compression on the herniated contents. I then divided the hernia sac from the fascia towards the anterior upper aspect. After opening the sac, I was able to see the incarcerated transverse colon. It was inflamed but had no signs of strangulation or infarction. I was able to slowly remove the transverse colon from the hernia sac and reduce it. I cut some additional adhesions of omentum to the anterior abdominal wall so that I could palpate circumferentially directly under the abdominal wall all around the wound. I then removed the hernia sac taking care not to injure the umbilical skin. The sac was sent to the pathologist in formalin. I then took down some lower abdominal midline omental adhesions with the cautery. Cautery was used for hemostasis. I then exposed the area of the adhesions on the anterior abdominal wall in the lower abdomen. Some additional cautery was used here for hemostasis as well. I then divided some omental adhesions that were surrounding the herniated aspect of the transverse colon. This allowed the transverse colon to lie end its more normal position rather than being held together in a loop. I then re-examined all areas of dissection as well as the omentum. Cautery was used for hemostasis. All looked good. I then closed the midline fascia with bidirectional running 1. PDS suture. The subcu was closed with interrupted 3-0 Vicryl suture. The umbilical skin was sutured to the fascia with interrupted 3-0 Vicryl suture. I used 4-0 Vicryl subcuticular skin sutures to loosely approximate the skin. We then closed the skin using wide riaz. The wound was dressed with Xeroform gauze gauze, fluffs, ABD, and Medipore tape. The patient's Montague catheter was removed. She was awakened and extubated. She transferred to recovery in good condition. Sponge needle counts were correct x2. Estimated Blood Loss -50 Drains No Packing No Pathology Yes (Hernia sac) Complications None Condition Stable Disposition PACU [facility] Billing Surgery - Charge Forward: Surgery Billing (Open repair 5 cm incarcerated incisional hernia with obstruction)
[2025-06-20] MEDS: fentaNYL CITRATE INJ (*CRX) 100 MCG/2 ML VIAL 25 MCG IV PUSH ×5 (16:44→17:47)
[2025-06-20] MEDS: ATORVASTATIN 40 MG TABLET 80 MG PO (18:27)
[2025-06-20] MEDS: CYCLOBENZAPRINE HCL 10 MG TABLET PO (18:27)
[2025-06-20] MEDS: KCL 20 MEQ/D5/0.9% SOD CHL 1,000 ML 100 ML IV CONT (18:34)
[2025-06-20] MEDS: PROPRANOLOL HCL 20 MG TABLET 40 MG PO (20:42)
[2025-06-20] MEDS: SENNA/DOCUSATE SODIUM TABLET 2 TAB PO (20:44)
[2025-06-20] MEDS: MORPHINE SULFATE (*CRX) 2 MG/ML INJ IV PUSH (21:28)
[2025-06-21] VITALS (9 sets, daily range): BP systolic 120–171; BP diastolic 51–107; PULSE 65–93; RESP 14–20; TEMP 36.1–36.6; O2SAT 93–100
[2025-06-21] MEDS: PIPERACILLIN/TAZOBACTAM SOD 3.375 GM in SODIUM CHLORIDE 0.9% IV 50 ML 100 ML IVPB ×2 (00:08→05:36)
[2025-06-21] MEDS: MORPHINE SULFATE (*CRX) 4 MG/ML INJ IV PUSH ×2 (00:08→20:27)
[2025-06-21] MEDS: MORPHINE SULFATE (*CRX) 2 MG/ML INJ IV PUSH ×2 (05:22→15:58)
[2025-06-21] MEDS: ONDANSETRON INJ 4 MG/2 ML VIAL IV PUSH (05:23)
[2025-06-21] MEDS: LEVOTHYROXINE SODIUM 50 MCG TABLET PO (05:37)
[2025-06-21 06:10] LABS: Hematocrit 40.2 % (37.0-47.0); Hemoglobin 12.9 g/dL (12.0-15.0); Immature Granulocyte Percent A 0.8 % (0-0.5); Lymphocytes Absolute Auto 1.07 K/mm3 (0.9-3.2); Mean Corpuscular HGB Conc 32.1 g/dl (32-36); Mean Corpuscular Hemoglobin 30.5 pg (26-34); Mean Corpuscular Volume 95.0 fl (80-100); Nucleated Red Blood Cells Absolute Auto 0.000 K/mm3 (0.0-0.012); Nucleated Red Blood Cells Perc 0.0 % (0.0-0.2); Platelet Count Result 199 k/mm3 (150-375); Red Blood Count 4.23 M/mm3 (4.2-5.4); White Blood Count 11.2 K/mm3 (4.5-10.0)
[2025-06-21 06:20] LABS: INR 1.1; Partial Thromboplastin Time 30.5 Seconds (22.3-36.8); Prothrombin Time 14.6 Seconds (11.1-14.7)
[2025-06-21 06:30] LABS: Alanine Aminotransferase 16 U/L (6-35); Albumin Level 3.7 g/dL (3.5-5.1); Alkaline Phosphatase 76 U/L (38-126); Anion Gap 4 mmol/L (4-12); Aspartate Amino Transferase 28 U/L (14-36); Bilirubin,Total 1.0 mg/dL (0.2-1.3); Blood Urea Nitrogen 10 mg/dL (7-17); Calcium 8.9 mg/dL (8.4-10.2); Carbon Dioxide 27 mmol/L (22-30); Chloride 106 mmol/L (98-107); Estimated CRCL calculation 90 ml/min; Estimated Glomerular Filt Rate > 60; Glucose 141 mg/dL (65-110); Magnesium 2.2 mg/dL (1.6-2.3); Potassium 4.4 mmol/L (3.4-5.0); Sodium 137 mmol/L (137-145); Total Protein 6.6 g/dL (6.3-8.2)
--- NOTE | 2025-06-21 08:00 | P.PNIM_ITS ---
Progress Note: A&P Assessment and Plan (1) Umbilical hernia with obstruction but no gangrene: Code(s): K42.0 - Umbilical hernia with obstruction, without gangrene Status: Acute Assessment and Plan: - presented with worsening abdominal pain, nausea/vomiting in setting of known umbilical hernia after a fall onto her abdomen - CT A/P showed high-grade bowel obstruction secondary to umbilical hernia containing short segment of transverse colon, early strangulation suspected -s/p open repair of 5cm incarcerated incisional hernia with obstruction by Dr. Gatica 06/20/25 - advance diet per general surgery -PRN antiemetics and analgesics - on IV Zosyn (2) Hypertension: Qualifiers: Hypertension type: primary hypertension Qualified Code(s): I10 - Essential (primary) hypertension Code(s): I10 - Essential (primary) hypertension Status: Chronic Assessment and Plan: -BP trend high in setting of pain and missed medications -resume home lisinopril, propnalol - IV hydralazine ordered for SBP >180 (3) Morbid obesity with BMI of 45.0-49.9, adult: Code(s): E66.01 - Morbid (severe) obesity due to excess calories; Z68.42 - Body mass index [BMI] 45.0-49.9, adult Status: Chronic Assessment and Plan: -Recommend lifestyle changes upon discharge (4) GERD (gastroesophageal reflux disease): Code(s): K21.9 - Gastro-esophageal reflux disease without esophagitis Status: Chronic Assessment and Plan: -Hold oral meds in current setting of being NPO -Protonix 40 mg IV push daily (5) Fibromyalgia: Code(s): M79.7 - Fibromyalgia Status: Chronic Assessment and Plan: -continue home amitriptyline and gabapentin. [place] resumed (PDMP reviewed, patient states she takes 1/2 of a [place] 10-325 q8H PRN) (6) Anxiety: Code(s): F41.9 - Anxiety disorder, unspecified Status: Chronic Assessment and Plan: -continue home Buspar (7) Breast cancer: Qualifiers: Breast location: unspecified site of breast Estrogen receptor status: unspecified Laterality: unspecified laterality Patient sex: female Qualified Code(s): C50.919 - Malignant neoplasm of unspecified site of unspecified female breast Code(s): C50.919 - Malignant neoplasm of unspecified site of unspecified female breast Status: Chronic Assessment and Plan: -Currently in remission. (8) Abnormal urinalysis: Code(s): R82.90 - Unspecified abnormal findings in urine Status: Acute Assessment and Plan: - UA with 11-20 WBC, 1+ bacteria - patient denies urinary symptoms other than some hesitancy - urine culture pending (9) Lymphedema: Code(s): I89.0 - Lymphedema, not elsewhere classified Status: Acute Assessment and Plan: - resume home Lasix and HCTZ once taking better PO Plan DVT prophylaxis: lovenox Dispoistion: TBD pending clinical course. PT/OT ordered. Subjective Date/time seen: 06/21/25 08:00 Interval history: 64-year-old female patient with past medical history significant of a known umbilical hernia, fibromyalgia, hypertension, GERD, anxiety, depression and breast cancer status post radiation and on oral chemo who presented to the emergency with complaints of persistent abdominal pain. Patient seen and examined at bedside. Having a lot of pain this AM. Vomited this AM after pills. Urinating without difficulty. Passing some flatus. No BM. Review of Systems Review of Systems: All systems reviewed & are unremarkable except as noted in HPI and below Exam Narrative: General: appears uncomfortable, obese Eyes: EOMI ENT: neck supple Cardiovascular: Regular rate and rhythm Respiratory: Clear to auscultation, respirations even and unlabored on RA Gastrointestinal: surgical dressing CDI. Mild TTP. Bowel sounds hypoactive. Genitourinary: no suprapubic tenderness Musculoskeletal:mild BLE lymphedema Skin: warm, dry Neuro: Alert. Psych: Mood appropriate Objective Data Vital Signs Vital Signs: Vital Signs - 24 hr 06/20/25 08:15 06/20/25 08:16 06/20/25 13:15 Temperature Pulse Rate 90 90 77 Respiratory Rate 18 Blood Pressure 141/95 H Pulse Oximetry 98 Oxygen Delivery Oxygen Flow Rate 06/20/25 13:16 06/20/25 14:15 06/20/25 16:26 Temperature 98.3 F 98.4 F Pulse Rate 77 74 85 Respiratory Rate 16 15 Blood Pressure 147/80 H 149/105 H Pulse Oximetry 95 98 Oxygen Delivery Room Air Room Air Oxygen Flow Rate 06/20/25 16:30 06/20/25 16:45 06/20/25 17:00 Temperature Pulse Rate 66 78 70 Respiratory Rate 14 16 14 Blood Pressure 166/103 H 170/84 H 150/73 H Pulse Oximetry 94 97 94 Oxygen Delivery Simple Face Mask Simple Face Mask Nasal Cannula Oxygen Flow Rate 8 8 2 06/20/25 17:15 06/20/25 17:30 06/20/25 17:45 Temperature Pulse Rate 66 78 84 Respiratory Rate 14 16 14 Blood Pressure 150/88 H 168/90 H 153/83 H Pulse Oximetry 97 97 100 Oxygen Delivery Nasal Cannula Nasal Cannula Oxygen Flow Rate 2 2 2 06/20/25 17:56 06/20/25 18:11 06/20/25 18:41 Temperature 97.7 F 97.8 F 97.4 F L Pulse Rate 86 73 82 Respiratory Rate 18 18 16 Blood Pressure 150/91 H 155/115 H 153/138 H Pulse Oximetry 97 96 97 Oxygen Delivery Oxygen Flow Rate 06/20/25 19:41 06/20/25 20:42 06/20/25 20:44 Temperature 96.2 F L Pulse Rate 76 77 77 Respiratory Rate 20 Blood Pressure 155/90 H Pulse Oximetry 96 Oxygen Delivery Oxygen Flow Rate 06/20/25 20:44 06/21/25 00:25 06/21/25 01:01 Temperature 97.4 F L Pulse Rate 68 65 Respiratory Rate 20 Blood Pressure 171/107 H Pulse Oximetry 99 99 Oxygen Delivery Nasal Cannula Oxygen Flow Rate 1 06/21/25 05:47 Temperature 97.9 F Pulse Rate 74 Respiratory Rate 14 Blood Pressure 142/78 H Pulse Oximetry 98 Oxygen Delivery Oxygen Flow Rate Intake/Output Intake/Output: Intake & Output 06/18/25 06/19/25 06/20/25 06/21/25 23:59 23:59 23:59 23:59 Intake Total 1000 900 250 Balance 1000 900 250 Meds/Results Medications: Active Medications Generic Name Dose Route Start Last Admin Trade Name Freq PRN Reason Stop Dose Admin Hydrocodone Bitart/Acetaminophen 1 tab 06/20/25 13:50 Hydrocodone/Acetaminophen (*Crx) 10-325 Mg Tablet PO Q8H PRN Pain 4-6 Albuterol/Ipratropium 3 ml 06/20/25 13:50 Ipratropium 0.5 Mg/Albuterol Sulfate 2.5 Mg Ampul.Neb 3 Ml INHALATION Q6H PRN Shortness Of Breath Or Wheezing Atorvastatin Calcium 80 mg 06/20/25 18:00 06/20/25 18:27 Atorvastatin 40 Mg Tablet PO 80 mg QPM [facility]ILA Administration Buspirone HCl 10 mg 06/20/25 17:00 06/20/25 18:27 Buspirone Hcl 10 Mg Tablet PO 10 mg BID [facility]ILA Administration Celecoxib 100 mg 06/21/25 08:00 Celecoxib 100 Mg Capsule PO Q24H [facility]ILA Cyclobenzaprine HCl 10 mg 06/20/25 17:00 06/20/25 18:27 Cyclobenzaprine Hcl 10 Mg Tablet PO 10 mg TID [facility] Administration Diazepam 2.5 mg 06/20/25 02:21 06/20/25 21:28 Diazepam Inj (*Crx) 10 Mg/2 Ml Syringe IV PUSH 2.5 mg Q6HR PRN Administration Anxiety Enoxaparin Sodium 40 mg 06/21/25 09:00 Enoxaparin 40 Mg/0.4 Ml Syringe SUB-Q DAILY [facility] Piperacillin Sod/Tazobactam 50 mls @ 100 mls/hr 06/20/25 07:30 06/21/25 05:36 Sod 3.375 gm/ Sodium Chloride IVPB 100 mls/hr Q6HR [facility]ILA Administration Potassium Chloride/Dextrose/Sod Cl 1,000 mls @ 100 mls/hr 06/20/25 17:56 06/20/25 18:34 Kcl 20 Meq/D5/0.9% Sod Chl IV CONT 100 mls/hr .Q10H [facility] Administration Labetalol HCl 5 mg 06/20/25 07:35 06/21/25 01:01 Labetalol Hcl Inj 100 Mg/20 Ml Vial IV PUSH 5 mg Q6H [facility]IL[facility] Administration Levothyroxine Sodium 50 mcg 06/21/25 06:30 06/21/25 05:37 Levothyroxine Sodium 50 Mcg Tablet PO 50 mcg DAILY@0630 [facility]IL[facility] Administration Lisinopril 20 mg 06/21/25 09:00 Lisinopril 20 Mg Tablet PO DAILY [facility] Miscellaneous Information 0 each 06/20/25 00:01 Lunesta = Nonformulary. Suggest Zolpidem While Hospitalized XX 07/20/25 00:00 CLARIFY [facility] Morphine Sulfate 2 mg 06/20/25 07:29 06/21/25 05:22 Morphine Sulfate (*Crx) 2 Mg/Ml Inj IV PUSH 2 mg Q2H PRN Administration Breakthrough Pain Rated 4-6 or NPO Morphine Sulfate 4 mg 06/20/25 07:29 06/21/25 00:08 Morphine Sulfate (*Crx) 4 Mg/Ml Inj IV PUSH 4 mg Q2H PRN Administration Breakthrough Pain Rated 7-10 or NPO Naloxone HCl 0.1 mg 06/20/25 17:56 Naloxone Hcl 0.4 Mg/Ml Vial IV PUSH Q2M PRN Opiate Reversal Non-Formulary Medication 3 mg 06/20/25 21:00 Eszopiclone [Lunesta] PO 07/20/25 20:59 QHS [facility] Ondansetron HCl 4 mg 06/20/25 02:21 06/21/25 05:23 Ondansetron Inj 4 Mg/2 Ml Vial IV PUSH 4 mg Q6HR PRN Administration Nausea And Vomiting Pantoprazole Sodium 40 mg 06/20/25 09:00 06/20/25 08:24 Pantoprazole Sodium Iv 40 Mg Vial IV PUSH 40 mg DAILY [facility] Administration Polyethylene Glycol 17 gm 06/21/25 09:00 Polyethylene Glycol 3350 17 Gm Powd.Pack PO QAM [facility] Propranolol HCl 40 mg 06/20/25 21:00 06/20/25 20:42 Propranolol Hcl 20 Mg Tablet PO 40 mg Q12HR [facility] Administration Senna/Docusate Sodium 2 tab 06/20/25 21:00 06/20/25 20:44 Senna/Docusate Sodium Tablet PO 2 tab HS [facility]ILA Administration Sumatriptan Succinate 100 mg 06/20/25 17:56 06/21/25 05:20 Sumatriptan Succinate 25 Mg Tablet PO 100 mg Q2H PRN Administration Migraine Headache Tamoxifen Citrate 10 mg 06/21/25 09:00 Tamoxifen Citrate (*Chemo) 10 Mg Tablet PO DAILY [facility] Radiology Results: ITS Impressions Abdomen/Pelvis CT 06/19/25 20:51 IMPRESSION: High-grade bowel obstruction secondary to an umbilical hernia containing a short segment of transverse colon which demonstrates significant hyperemia suggesting venous compression, for which early strangulation is suspected. Labs Labs: Laboratory Results - last 24 hr 06/20/25 06/21/25 07:52 05:48 WBC 6.2 11.2 H RBC 4.11 L 4.23 Hgb 12.6 12.9 Hct 39.5 40.2 MCV 96.1 D 95.0 MCH 30.7 30.5 MCHC 31.9 L 32.1 RDW 12.7 12.4 Plt Count 188 199 MPV 11.3 H 11.8 H Immature Gran % (Auto) 0.8 H Neut % (Auto) 81.4 H Lymph % (Auto) 9.5 L [place] % (Auto) 8.1 Eos % (Auto) 0.0 Baso % (Auto) 0.2 Lymph # (Auto) 1.07 [place] # (Auto) 0.9 H Eos # (Auto) 0.0 Baso # (Auto) 0.0 Abs Immat Gran (auto) 0.09 H Absolute Neuts (auto) 9.1 H Absolute Nucleated RBC 0.000 Nucleated RBC % 0.0 PT 14.6 INR 1.1 APTT 30.5 Sodium 138 137 Potassium 3.7 4.4 Chloride 107 106 Carbon Dioxide 26 27 Anion Gap 5 4 BUN 11 10 Creatinine 0.74 0.75 Estim Creat Clear Calc 91 90 Estimated GFR > 60 > 60 Glucose 123 H 141 H Calcium 8.7 8.9 Magnesium 2.2 Total Bilirubin 1.0 AST 28 ALT 16 Alkaline Phosphatase 76 Total Protein 6.6 Albumin 3.7 Blood Type O Positive Antibody Screen Negative Quality VTE Prophylaxis VTE prophylaxis: mechanical ordered
[2025-06-21] MEDS: TAMOXIFEN CITRATE (*CHEMO) 10 MG TABLET PO (08:53)
[2025-06-21] MEDS: CYCLOBENZAPRINE HCL 10 MG TABLET PO ×3 (08:54→17:02)
[2025-06-21] MEDS: CELECOXIB 100 MG CAPSULE PO (08:54)
[2025-06-21] MEDS: HYDROcodone/acetaminophen (*CRX) 10-325 MG TABLET 1 TAB PO ×2 (08:54→17:02)
[2025-06-21] MEDS: ENOXAPARIN 40 MG/0.4 ML SYRINGE SUB-Q (08:56)
[2025-06-21] MEDS: PANTOPRAZOLE SODIUM IV 40 MG VIAL IV PUSH (08:56)
[2025-06-21] MEDS: PROPRANOLOL HCL 20 MG TABLET 40 MG PO ×2 (08:56→20:18)
[2025-06-21] MEDS: KCL 20 MEQ/D5/0.9% SOD CHL 1,000 ML 100 ML IV CONT ×2 (09:31→15:59)
--- NOTE | 2025-06-21 11:23 | PM.PNGS ---
Progress Note: A&P Assessment and Plan (1) Incisional hernia, with obstruction, without gangrene: Code(s): K43.0 - Incisional hernia with obstruction, without gangrene Status: Acute Assessment and Plan: Repair intact and wound healing well. Patient not getting out of bed and so uncomfortable that she does not even feel like eating. 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 She also has her [place] 08/01/2025 that she takes q.8 hours on a chronic basis. I have encouraged her to try that as well. Otherwise looks good but needs to have better pain control, use spirometer, get out of bed and ambulate more. (2) Opioid dependence with current use: Code(s): F11.20 - Opioid dependence, uncomplicated Status: Acute Assessment and Plan: [place] 08/01/2025 q.8 hours used chronically. Subjective Subjective Date/Time Seen: 06/21/25 11:23 Post Op day: 1 Patient reports: still having pain, no flatus, no bowel movement and afebrile Exam Const: General: cooperative, comfortable, no acute distress, alert, awake, lethargic and well nourished GI: Inspection: incision (Healing well), obesity and no visible herniation GI Palp: Yes Soft to palpation, Yes Tenderness to palpation present (GI), No Hernia present and No Palpable mass present Auscultation: normal bowel sounds Objective Data Vital Signs Vital Signs: Vital Signs - 24 hr 06/20/25 13:15 06/20/25 13:16 06/20/25 14:15 Temperature 36.8 C Pulse Rate 77 77 74 Respiratory Rate 18 16 Blood Pressure 141/95 H 147/80 H Pulse Oximetry 98 95 Oxygen Delivery Room Air Oxygen Flow Rate 06/20/25 16:26 06/20/25 16:30 06/20/25 16:45 Temperature 36.9 C Pulse Rate 85 66 78 Respiratory Rate 15 14 16 Blood Pressure 149/105 H 166/103 H 170/84 H Pulse Oximetry 98 94 97 Oxygen Delivery Room Air Simple Face Mask Simple Face Mask Oxygen Flow Rate 8 8 06/20/25 17:00 06/20/25 17:15 06/20/25 17:30 Temperature Pulse Rate 70 66 78 Respiratory Rate 14 14 16 Blood Pressure 150/73 H 150/88 H 168/90 H Pulse Oximetry 94 97 97 Oxygen Delivery Nasal Cannula Nasal Cannula Oxygen Flow Rate 2 2 2 06/20/25 17:45 06/20/25 17:56 06/20/25 18:11 Temperature 36.5 C 36.6 C Pulse Rate 84 86 73 Respiratory Rate 14 18 18 Blood Pressure 153/83 H 150/91 H 155/115 H Pulse Oximetry 100 97 96 Oxygen Delivery Nasal Cannula Oxygen Flow Rate 2 06/20/25 18:41 06/20/25 19:41 06/20/25 20:42 Temperature 36.3 C L 35.7 C L Pulse Rate 82 76 77 Respiratory Rate 16 20 Blood Pressure 153/138 H 155/90 H Pulse Oximetry 97 96 Oxygen Delivery Oxygen Flow Rate 06/20/25 20:44 06/20/25 20:44 06/21/25 00:25 Temperature 36.3 C L Pulse Rate 77 68 Respiratory Rate 20 Blood Pressure 171/107 H Pulse Oximetry 99 99 Oxygen Delivery Nasal Cannula Oxygen Flow Rate 1 06/21/25 01:01 06/21/25 05:47 06/21/25 07:41 Temperature 36.6 C 36.1 C L Pulse Rate 65 74 71 Respiratory Rate 14 16 Blood Pressure 142/78 H 141/73 H Pulse Oximetry 98 100 Oxygen Delivery Oxygen Flow Rate 06/21/25 08:00 06/21/25 08:56 Temperature Pulse Rate 71 Respiratory Rate Blood Pressure Pulse Oximetry 98 Oxygen Delivery Room Air Oxygen Flow Rate Intake/Output Intake/Output: Intake & Output 06/18/25 06/19/25 06/20/25 06/21/25 23:59 23:59 23:59 23:59 Intake Total 9446 926 1008 Balance 4069 796 7917 Meds/Results Medications: Active Medications Generic Name Dose Route Start Last Admin Trade Name Freq PRN Reason Stop Dose Admin Hydrocodone Bitart/Acetaminophen 1 tab 06/20/25 13:50 06/21/25 08:54 Hydrocodone/Acetaminophen (*Crx) 10-325 Mg Tablet PO 1 tab Q8H PRN Administration Pain Rated 6 or Greater Albuterol 2 puff 06/21/25 08:05 Albuterol Sulfate (*Sp) Aerosol 1 Puff INHALATION Q6H PRN Shortness Of Breath Or Wheezing Albuterol/Ipratropium 3 ml 06/20/25 13:50 Ipratropium 0.5 Mg/Albuterol Sulfate 2.5 Mg Ampul.Neb 3 Ml INHALATION Q6H PRN Shortness Of Breath Or Wheezing Atorvastatin Calcium 80 mg 06/20/25 18:00 06/20/25 18:27 Atorvastatin 40 Mg Tablet PO 80 mg QPM ATTILA Administration Buspirone HCl 10 mg 06/20/25 17:00 06/21/25 08:53 Buspirone Hcl 10 Mg Tablet PO 10 mg BID ATTIL[facility] Administration Celecoxib 100 mg 06/21/25 08:00 06/21/25 08:54 Celecoxib 100 Mg Capsule PO 100 mg Q24H ATT[facility] Administration Cyclobenzaprine HCl 10 mg 06/20/25 17:00 06/21/25 08:54 Cyclobenzaprine Hcl 10 Mg Tablet PO 10 mg TID [facility] Administration Enoxaparin Sodium 40 mg 06/21/25 09:00 06/21/25 08:56 Enoxaparin 40 Mg/0.4 Ml Syringe SUB-Q 40 mg DAILY [facility] Administration Hydralazine HCl 10 mg 06/21/25 08:05 Hydralazine Hcl 20 Mg/Ml Vial IV PUSH Q8H PRN Blood Pressure - High Piperacillin Sod/Tazobactam 50 mls @ 100 mls/hr 06/20/25 07:30 06/21/25 05:36 Sod 3.375 gm/ Sodium Chloride IVPB 100 mls/hr Q6HR [facility] Administration Potassium Chloride/Dextrose/Sod Cl 1,000 mls @ 100 mls/hr 06/20/25 17:56 06/21/25 09:31 Kcl 20 Meq/D5/0.9% Sod Chl IV CONT 100 mls/hr .Q10H [facility] Administration Levothyroxine Sodium 50 mcg 06/21/25 06:30 06/21/25 05:37 Levothyroxine Sodium 50 Mcg Tablet PO 50 mcg DAILY@0630 [facility] Administration Lisinopril 20 mg 06/21/25 09:00 06/21/25 08:53 Lisinopril 20 Mg Tablet PO 20 mg DAILY [facility] Administration Miscellaneous Information 0 each 06/20/25 00:01 Lunesta = Nonformulary. Suggest Zolpidem While Hospitalized XX 07/20/25 00:00 CLARIFY [facility] Morphine Sulfate 2 mg 06/20/25 07:29 06/21/25 05:22 Morphine Sulfate (*Crx) 2 Mg/Ml Inj IV PUSH 2 mg Q2H PRN Administration Breakthrough Pain Rated 4-6 or NPO Morphine Sulfate 4 mg 06/20/25 07:29 06/21/25 00:08 Morphine Sulfate (*Crx) 4 Mg/Ml Inj IV PUSH 4 mg Q2H PRN Administration Breakthrough Pain Rated 7-10 or NPO Naloxone HCl 0.1 mg 06/20/25 17:56 Naloxone Hcl 0.4 Mg/Ml Vial IV PUSH Q2M PRN Opiate Reversal Non-Formulary Medication 3 mg 06/20/25 21:00 Eszopiclone [Lunesta] PO 07/20/25 20:59 QHS [facility] Ondansetron HCl 4 mg 06/20/25 02:21 06/21/25 05:23 Ondansetron Inj 4 Mg/2 Ml Vial IV PUSH 4 mg Q6HR PRN Administration Nausea And Vomiting Pantoprazole Sodium 40 mg 06/20/25 09:00 06/21/25 08:56 Pantoprazole Sodium Iv 40 Mg Vial IV PUSH 40 mg DAILY [facility] Administration Polyethylene Glycol 17 gm 06/21/25 09:00 06/21/25 08:51 Polyethylene Glycol 3350 17 Gm Powd.Pack PO 17 gm QAM [facility] Administration Propranolol HCl 40 mg 06/20/25 21:00 06/21/25 08:56 Propranolol Hcl 20 Mg Tablet PO 40 mg Q12HR [facility] Administration Senna/Docusate Sodium 2 tab 06/20/25 21:00 06/20/25 20:44 Senna/Docusate Sodium Tablet PO 2 tab HS [facility] Administration Sumatriptan Succinate 100 mg 06/20/25 17:56 06/21/25 05:20 Sumatriptan Succinate 25 Mg Tablet PO 100 mg Q2H PRN Administration Migraine Headache Tamoxifen Citrate 10 mg 06/21/25 09:00 06/21/25 08:53 Tamoxifen Citrate (*Chemo) 10 Mg Tablet PO 10 mg DAILY [facility] Administration Radiology Results: ITS Impressions Abdomen/Pelvis CT 06/19/25 20:51 IMPRESSION: High-grade bowel obstruction secondary to an umbilical hernia containing a short segment of transverse colon which demonstrates significant hyperemia suggesting venous compression, for which early strangulation is suspected. Labs Labs: Laboratory Results - last 24 hr 06/21/25 05:48 WBC 11.2 H RBC 4.23 Hgb 12.9 Hct 40.2 MCV 95.0 MCH 30.5 MCHC 32.1 RDW 12.4 Plt Count 199 MPV 11.8 H Immature Gran % (Auto) 0.8 H Neut % (Auto) 81.4 H Lymph % (Auto) 9.5 L [place] % (Auto) 8.1 Eos % (Auto) 0.0 Baso % (Auto) 0.2 Lymph # (Auto) 1.07 [place] # (Auto) 0.9 H Eos # (Auto) 0.0 Baso # (Auto) 0.0 Abs Immat Gran (auto) 0.09 H Absolute Neuts (auto) 9.1 H Absolute Nucleated RBC 0.000 Nucleated RBC % 0.0 PT 14.6 INR 1.1 APTT 30.5 Sodium 137 Potassium 4.4 Chloride 106 Carbon Dioxide 27 Anion Gap 4 BUN 10 Creatinine 0.75 Estim Creat Clear Calc 90 Estimated GFR > 60 Glucose 141 H Calcium 8.9 Magnesium 2.2 Total Bilirubin 1.0 AST 28 ALT 16 Alkaline Phosphatase 76 Total Protein 6.6 Albumin 3.7
[2025-06-21] MEDS: ATORVASTATIN 40 MG TABLET 80 MG PO (17:02)
[2025-06-21] MEDS: SENNA/DOCUSATE SODIUM TABLET 2 TAB PO (20:17)
[2025-06-22] MEDS: KCL 20 MEQ/D5/0.9% SOD CHL 1,000 ML 100 ML IV CONT (05:09)
[2025-06-22] MEDS: HYDROcodone/acetaminophen (*CRX) 10-325 MG TABLET 1 TAB PO (05:10)
[2025-06-22] MEDS: LEVOTHYROXINE SODIUM 50 MCG TABLET PO (05:10)
[2025-06-22 06:00] VITALS: BP 122/63; PULSE 88; RESP 18; TEMP 36.4; O2SAT 95
--- NOTE | 2025-06-22 07:44 | P.PNIM_ITS ---
Progress Note: A&P Assessment and Plan (1) Umbilical hernia with obstruction but no gangrene: Code(s): K42.0 - Umbilical hernia with obstruction, without gangrene Status: Acute Assessment and Plan: - presented with worsening abdominal pain, nausea/vomiting in setting of known umbilical hernia after a fall onto her abdomen - CT A/P showed high-grade bowel obstruction secondary to umbilical hernia containing short segment of transverse colon, early strangulation suspected -s/p open repair of 5cm incarcerated incisional hernia with obstruction by Dr. Gatica 06/20/25 - advance diet per general surgery -PRN antiemetics and analgesics. Wean morphine - tolerating PO, IV fluids stopped (2) Hypertension: Qualifiers: Hypertension type: primary hypertension Qualified Code(s): I10 - Essential (primary) hypertension Code(s): I10 - Essential (primary) hypertension Status: Chronic Assessment and Plan: -BP trend stable after resuming home meds - continue home lisinopril, propanol - resume lasix and HCTZ as PO intake improves - IV hydralazine ordered for SBP >180 (3) Morbid obesity with BMI of 45.0-49.9, adult: Code(s): E66.01 - Morbid (severe) obesity due to excess calories; Z68.42 - Body mass index [BMI] 45.0-49.9, adult Status: Chronic Assessment and Plan: -Recommend lifestyle changes upon discharge (4) GERD (gastroesophageal reflux disease): Code(s): K21.9 - Gastro-esophageal reflux disease without esophagitis Status: Chronic Assessment and Plan: -resume home PPI (5) Fibromyalgia: Code(s): M79.7 - Fibromyalgia Status: Chronic Assessment and Plan: -continue home amitriptyline and gabapentin. [place] resumed (PDMP reviewed, patient states she takes 1/2 of a [place] 10-325 q8H PRN) (6) Anxiety: Code(s): F41.9 - Anxiety disorder, unspecified Status: Chronic Assessment and Plan: -continue home Buspar (7) Breast cancer: Qualifiers: Breast location: unspecified site of breast Estrogen receptor status: unspecified Laterality: unspecified laterality Patient sex: female Qualified Code(s): C50.919 - Malignant neoplasm of unspecified site of unspecified female breast Code(s): C50.919 - Malignant neoplasm of unspecified site of unspecified female breast Status: Chronic Assessment and Plan: -Currently in remission. - continue home tamoxifen (8) Abnormal urinalysis: Code(s): R82.90 - Unspecified abnormal findings in urine Status: Acute Assessment and Plan: - UA with 11-20 WBC, 1+ bacteria - patient denies urinary symptoms other than some hesitancy - urine culture pending (9) Lymphedema: Code(s): I89.0 - Lymphedema, not elsewhere classified Status: Acute Assessment and Plan: - resume home Lasix and HCTZ once taking better PO (10) Hyperglycemia: Code(s): R73.9 - Hyperglycemia, unspecified Status: Acute Assessment and Plan: - BG 140s - no history of DM - check Hgb A1c (11) Leukocytosis: Code(s): D72.829 - Elevated white blood cell count, unspecified Status: Acute Assessment and Plan: - WBC 11 - afebrile, no signs of infection - likely reactive from surgery - monitor CBC Plan DVT prophylaxis: lovenox Dispoistion: 1-2 days pending clinical course. PT/OT recommended home with [facility]. Subjective Date/time seen: 06/22/25 07:44 Interval history: 64-year-old female patient with past medical history significant of a known umbilical hernia, fibromyalgia, hypertension, GERD, anxiety, depression and breast cancer status post radiation and on oral chemo who presented to the emergency with complaints of persistent abdominal pain. Patient seen and examined at bedside. Having some pain, but improving. Still no BM and passing minimal flatus. Worked with therapy. Review of Systems Review of Systems: All systems reviewed & are unremarkable except as noted in HPI and below Exam Narrative: General: NAD, obese Eyes: EOMI ENT: neck supple Cardiovascular: Regular rate and rhythm Respiratory: Clear to auscultation, respirations even and unlabored on RA Gastrointestinal: surgical incision well-approximated with no surrounding erythema. Mild TTP. Bowel sounds active. Genitourinary: no suprapubic tenderness Musculoskeletal:mild BLE lymphedema Skin: warm, dry Neuro: Alert. Psych: Mood appropriate Objective Data Vital Signs Vital Signs: Vital Signs - 24 hr 06/21/25 08:00 06/21/25 08:56 06/21/25 16:02 Temperature 97.3 F L Pulse Rate 71 70 Respiratory Rate 18 Blood Pressure 120/63 Pulse Oximetry 98 99 Oxygen Delivery Room Air 06/21/25 20:18 06/21/25 20:27 06/21/25 22:00 Temperature 97.8 F Pulse Rate 85 93 Respiratory Rate 18 Blood Pressure 120/51 L Pulse Oximetry 93 Oxygen Delivery Room Air 06/22/25 06:00 Temperature 97.5 F L Pulse Rate 88 Respiratory Rate 18 Blood Pressure 122/63 Pulse Oximetry 95 Oxygen Delivery Intake/Output Intake/Output: Intake & Output 06/19/25 06/20/25 06/21/2524/25 23:59 23:59 23:59 23:59 Intake Total 7889 226 9554.6 1200 Balance 7209 090 6435.6 1200 Meds/Results Medications: Active Medications Generic Name Dose Route Start Last Admin Trade Name Freq PRN Reason Stop Dose Admin Hydrocodone Bitart/Acetaminophen 1 tab 06/20/25 13:50 06/22/25 05:10 Hydrocodone/Acetaminophen (*Crx) 10-325 Mg Tablet PO 1 tab Q8H PRN Administration Pain Rated 7-10 Hydrocodone Bitart/Acetaminophen 1 tab 06/21/25 12:03 Hydrocodone/Acetaminophen (*Crx) 5-325 Mg Tablet PO Q6H PRN Pain Rated 4-6 Albuterol 2 puff 06/21/25 08:05 Albuterol Sulfate (*Sp) Aerosol 1 Puff INHALATION Q6H PRN Shortness Of Breath Or Wheezing Albuterol/Ipratropium 3 ml 06/20/25 13:50 Ipratropium 0.5 Mg/Albuterol Sulfate 2.5 Mg Ampul.Neb 3 Ml INHALATION Q6H PRN Shortness Of Breath Or Wheezing Atorvastatin Calcium 80 mg 06/20/25 18:00 06/21/25 17:02 Atorvastatin 40 Mg Tablet PO 80 mg QPM ATTILA Administration Buspirone HCl 10 mg 06/20/25 17:00 06/21/25 17:02 Buspirone Hcl 10 Mg Tablet PO 10 mg BID ATTILA Administration Celecoxib 100 mg 06/21/25 08:00 06/21/25 08:54 Celecoxib 100 Mg Capsule PO 100 mg Q24H ATTILA Administration Cyclobenzaprine HCl 10 mg 06/20/25 17:00 06/21/25 17:02 Cyclobenzaprine Hcl 10 Mg Tablet PO 10 mg TID ATTILA Administration Enoxaparin Sodium 40 mg 06/21/25 09:00 06/21/25 08:56 Enoxaparin 40 Mg/0.4 Ml Syringe SUB-Q 40 mg DAILY ATTILA Administration Hydralazine HCl 10 mg 06/21/25 08:05 Hydralazine Hcl 20 Mg/Ml Vial IV PUSH Q8H PRN Blood Pressure - High Potassium Chloride/Dextrose/Sod Cl 1,000 mls @ 100 mls/hr 06/20/25 17:56 06/22/25 05:09 Kcl 20 Meq/D5/0.9% Sod Chl IV CONT 100 mls/hr .Q10H ATTILA Administration Levothyroxine Sodium 50 mcg 06/21/25 06:30 06/22/25 05:10 Levothyroxine Sodium 50 Mcg Tablet PO 50 mcg DAILY@0630 ATTILA Administration Lisinopril 20 mg 06/21/25 09:00 06/21/25 08:53 Lisinopril 20 Mg Tablet PO 20 mg DAILY ATTILA Administration Miscellaneous Information 0 each 06/20/25 00:01 Lunesta = Nonformulary. Suggest Zolpidem While Hospitalized XX 07/20/25 00:00 CLARIFY ATTILA Morphine Sulfate 2 mg 06/21/25 12:40 06/21/25 15:58 Morphine Sulfate (*Crx) 2 Mg/Ml Inj IV PUSH 2 mg Q2H PRN Administration Pain Rated 4-6 Morphine Sulfate 4 mg 06/21/25 12:40 06/21/25 20:27 Morphine Sulfate (*Crx) 4 Mg/Ml Inj IV PUSH 4 mg Q2H PRN Administration Pain Rated 7-10 Naloxone HCl 0.1 mg 06/20/25 17:56 Naloxone Hcl 0.4 Mg/Ml Vial IV PUSH Q2M PRN Opiate Reversal Non-Formulary Medication 3 mg 06/20/25 21:00 Eszopiclone [Lunesta] PO 07/20/25 20:59 QHS ATTILA Ondansetron HCl 4 mg 06/20/25 02:21 06/21/25 05:23 Ondansetron Inj 4 Mg/2 Ml Vial IV PUSH 4 mg Q6HR PRN Administration Nausea And Vomiting Pantoprazole Sodium 40 mg 06/22/25 09:00 Pantoprazole 40 Mg Tablet PO QAM ATTILA Polyethylene Glycol 17 gm 06/21/25 09:00 06/21/25 08:51 Polyethylene Glycol 3350 17 Gm Powd.Pack PO 17 gm QAM ATTILA Administration Propranolol HCl 40 mg 06/20/25 21:00 06/21/25 20:18 Propranolol Hcl 20 Mg Tablet PO 40 mg Q12HR ATTILA Administration Senna/Docusate Sodium 2 tab 06/20/25 21:00 06/21/25 20:17 Senna/Docusate Sodium Tablet PO 2 tab HS ATTILA Administration Sumatriptan Succinate 100 mg 06/20/25 17:56 06/21/25 05:20 Sumatriptan Succinate 25 Mg Tablet PO 100 mg Q2H PRN Administration Migraine Headache Tamoxifen Citrate 10 mg 06/21/25 09:00 06/21/25 08:53 Tamoxifen Citrate (*Chemo) 10 Mg Tablet PO 10 mg DAILY ATTILA Administration Radiology Results: ITS Impressions Abdomen/Pelvis CT 06/19/25 20:51 IMPRESSION: High-grade bowel obstruction secondary to an umbilical hernia containing a short segment of transverse colon which demonstrates significant hyperemia suggesting venous compression, for which early strangulation is suspected. Quality VTE Prophylaxis VTE prophylaxis: pharmacologic ordered
[2025-06-22 08:00] VITALS: PULSE 88; RESP 18; O2SAT 95
[2025-06-22 08:07] LABS: Hemoglobin A1C 5.5 % (<5.7)
[2025-06-22] MEDS: TAMOXIFEN CITRATE (*CHEMO) 10 MG TABLET PO (09:02)
[2025-06-22] MEDS: PROPRANOLOL HCL 20 MG TABLET 40 MG PO ×2 (09:02→21:03)
[2025-06-22] MEDS: CYCLOBENZAPRINE HCL 10 MG TABLET PO ×3 (09:02→14:03)
[2025-06-22] MEDS: PANTOPRAZOLE 40 MG TABLET PO (09:03)
[2025-06-22] MEDS: ENOXAPARIN 40 MG/0.4 ML SYRINGE SUB-Q (09:03)
[2025-06-22] MEDS: MORPHINE SULFATE (*CRX) 2 MG/ML INJ IV PUSH (09:07)
[2025-06-22] MEDS: CELECOXIB 100 MG CAPSULE PO (09:11)
--- NOTE | 2025-06-22 10:38 | PCOTNOTE ---
Attempted OT evaluation. Patient reports she just finished working with PT and is in too much pain and feeling too tired. Will continue to attempt.
--- NOTE | 2025-06-22 13:09 | PM.PNGS ---
Progress Note: A&P Assessment and Plan (1) Incisional hernia, with obstruction, without gangrene: Code(s): K43.0 - Incisional hernia with obstruction, without gangrene Status: Acute Assessment and Plan: Patient began using her [place] pain medication with much improvement in pain control. She still takes some occasional morphine sulfate but is getting up and is able to eat. No bowel movement as yet. Wound is healing well. She is receiving MiraLax and Senokot to facilitate bowel activity. I discussed the patient with Roderick Couch, hospitalist caring for her. She is doing well for postop day 2. Will advance diet to low-fiber. Can advance to regular as she desires. (2) Opioid dependence with current use: Code(s): F11.20 - Opioid dependence, uncomplicated Status: Acute Assessment and Plan: [place] 08/01/2025 q.8 hours used chronically. Subjective Subjective Date/Time Seen: 06/22/25 13:09 Patient reports: feels better, still having pain, voiding w/o difficulty, no flatus, no bowel movement and afebrile Exam Const: General: cooperative, comfortable (Currently up in a chair) and awake; No acute distress Orientation/consciousness: patient oriented x3 and No confusion GI: Inspection: incision (Minimal drainage, intact, no hematoma or signs of infection) and obesity GI Palp: Yes Soft to palpation and Yes Tenderness to palpation present (GI) Auscultation: normal bowel sounds Objective Data Vital Signs Vital Signs: Vital Signs - 24 hr 06/21/25 16:02 06/21/25 20:18 06/21/25 20:27 Temperature 36.3 C L Pulse Rate 70 85 Respiratory Rate 18 Blood Pressure 120/63 Pulse Oximetry 99 Oxygen Delivery Room Air 06/21/25 22:00 06/22/25 06:00 06/22/25 08:00 Temperature 36.6 C 36.4 C L Pulse Rate 93 88 88 Respiratory Rate 18 18 18 Blood Pressure 120/51 L 122/63 Pulse Oximetry 93 95 95 Oxygen Delivery Room Air 06/22/25 09:43 Temperature Pulse Rate Respiratory Rate Blood Pressure Pulse Oximetry Oxygen Delivery Room Air Intake/Output Intake/Output: Intake & Output 06/19/25 06/20/25 06/21/25 06/22/25 23:59 23:59 23:59 23:59 Intake Total 0747 076 7457.6 1554 Balance 3022 912 1327.6 1554 Meds/Results Medications: Active Medications Generic Name Dose Route Start Last Admin Trade Name Freq PRN Reason Stop Dose Admin Hydrocodone Bitart/Acetaminophen 1 tab 06/20/25 13:50 06/22/25 05:10 Hydrocodone/Acetaminophen (*Crx) 10-325 Mg Tablet PO 1 tab Q8H PRN Administration Pain Rated 7-10 Hydrocodone Bitart/Acetaminophen 1 tab 06/21/25 12:03 Hydrocodone/Acetaminophen (*Crx) 5-325 Mg Tablet PO Q6H PRN Pain Rated 4-6 Albuterol 2 puff 06/21/25 08:05 Albuterol Sulfate (*Sp) Aerosol 1 Puff INHALATION Q6H PRN Shortness Of Breath Or Wheezing Albuterol/Ipratropium 3 ml 06/20/25 13:50 Ipratropium 0.5 Mg/Albuterol Sulfate 2.5 Mg Ampul.Neb 3 Ml INHALATION Q6H PRN Shortness Of Breath Or Wheezing Atorvastatin Calcium 80 mg 06/20/25 18:00 06/21/25 17:02 Atorvastatin 40 Mg Tablet PO 80 mg QPM ATTILA Administration Buspirone HCl 10 mg 06/20/25 17:00 06/22/25 09:03 Buspirone Hcl 10 Mg Tablet PO 10 mg BID ATTILA Administration Celecoxib 100 mg 06/21/25 08:00 06/22/25 09:11 Celecoxib 100 Mg Capsule PO 100 mg Q24H ATTILA Administration Cyclobenzaprine HCl 10 mg 06/20/25 17:00 06/22/25 09:02 Cyclobenzaprine Hcl 10 Mg Tablet PO 10 mg TID ATTILA Administration Enoxaparin Sodium 40 mg 06/21/25 09:00 06/22/25 09:03 Enoxaparin 40 Mg/0.4 Ml Syringe SUB-Q 40 mg DAILY ATTILA Administration Hydralazine HCl 10 mg 06/21/25 08:05 Hydralazine Hcl 20 Mg/Ml Vial IV PUSH Q8H PRN Blood Pressure - High Levothyroxine Sodium 50 mcg 06/21/25 06:30 06/22/25 05:10 Levothyroxine Sodium 50 Mcg Tablet PO 50 mcg DAILY@0630 ATTILA Administration Lisinopril 20 mg 06/21/25 09:00 06/22/25 09:03 Lisinopril 20 Mg Tablet PO 20 mg DAILY ATTILA Administration Miscellaneous Information 0 each 06/20/25 00:01 Lunesta = Nonformulary. Suggest Zolpidem While Hospitalized XX 07/20/25 00:00 CLARIFY ATTILA Morphine Sulfate 2 mg 06/22/25 12:46 Morphine Sulfate (*Crx) 4 Mg/Ml Inj IV PUSH Q4H PRN Pain Rated 7-10 Naloxone HCl 0.1 mg 06/20/25 17:56 Naloxone Hcl 0.4 Mg/Ml Vial IV PUSH Q2M PRN Opiate Reversal Non-Formulary Medication 3 mg 06/20/25 21:00 Eszopiclone [Lunesta] PO 07/20/25 20:59 QHS ATTILA Ondansetron HCl 4 mg 06/20/25 02:21 06/21/25 05:23 Ondansetron Inj 4 Mg/2 Ml Vial IV PUSH 4 mg Q6HR PRN Administration Nausea And Vomiting Pantoprazole Sodium 40 mg 06/22/25 09:00 06/22/25 09:03 Pantoprazole 40 Mg Tablet PO 40 mg QAM ATTILA Administration Polyethylene Glycol 17 gm 06/21/25 09:00 06/22/25 09:02 Polyethylene Glycol 3350 17 Gm Powd.Pack PO 17 gm QAM ATTILA Administration Propranolol HCl 40 mg 06/20/25 21:00 06/22/25 09:02 Propranolol Hcl 20 Mg Tablet PO 40 mg Q12HR ATTILA Administration Senna/Docusate Sodium 2 tab 06/20/25 21:00 06/21/25 20:17 Senna/Docusate Sodium Tablet PO 2 tab HS ATTILA Administration Sumatriptan Succinate 100 mg 06/20/25 17:56 06/21/25 05:20 Sumatriptan Succinate 25 Mg Tablet PO 100 mg Q2H PRN Administration Migraine Headache Tamoxifen Citrate 10 mg 06/21/25 09:00 06/22/25 09:02 Tamoxifen Citrate (*Chemo) 10 Mg Tablet PO 10 mg DAILY ATTILA Administration Radiology Results: ITS Impressions Abdomen/Pelvis CT 06/19/25 20:51 IMPRESSION: High-grade bowel obstruction secondary to an umbilical hernia containing a short segment of transverse colon which demonstrates significant hyperemia suggesting venous compression, for which early strangulation is suspected. Labs Labs: Laboratory Results - last 24 hr 06/21/25 05:34 Hemoglobin A1c 5.5
[2025-06-22 14:00] VITALS: BP 121/65; PULSE 65; RESP 16; TEMP 36.3; O2SAT 100
[2025-06-22] MEDS: MORPHINE SULFATE (*CRX) 4 MG/ML INJ 2 MG IV PUSH (15:43)
[2025-06-22] MEDS: ATORVASTATIN 40 MG TABLET 80 MG PO (17:23)
[2025-06-22 21:03] VITALS: PULSE 76
[2025-06-22] MEDS: SENNA/DOCUSATE SODIUM TABLET 2 TAB PO (21:03)
[2025-06-22] MEDS: HYDROcodone/acetaminophen (*CRX) 5-325 MG TABLET 1 TAB PO (21:04)
[2025-06-22 21:51] VITALS: BP 105/56; PULSE 75; RESP 18; TEMP 36.6; O2SAT 99
[2025-06-23] MEDS: LEVOTHYROXINE SODIUM 50 MCG TABLET PO (05:39)
[2025-06-23 06:00] VITALS: BP 125/84; PULSE 64; RESP 18; TEMP 36.6; O2SAT 96
--- NOTE | 2025-06-23 07:11 | PM.PNGS ---
Progress Note: A&P Assessment and Plan (1) Incisional hernia, with obstruction, without gangrene: Code(s): K43.0 - Incisional hernia with obstruction, without gangrene Status: Acute Assessment and Plan: continues to improve. Increase ambulation. Advance to regular diet. If no BM by tomorrow, will try enema. Making progress. (2) Opioid dependence with current use: Code(s): F11.20 - Opioid dependence, uncomplicated Status: Acute Subjective Subjective Date/Time Seen: 06/23/25 07:11 Post Op day: 3 Patient reports: no new complaints, pain is less, voiding w/o difficulty, flatus, no bowel movement and afebrile Exam Const: General: comfortable, alert and awake GI: Inspection: non-distended, incision ( incision intact, minimal drainage, appears to be healing well.), obesity and no visible herniation ( No sign recurrent hernia) GI Palp: Yes Soft to palpation, Yes Tenderness to palpation present (GI) and No Hernia present Objective Data Vital Signs Vital Signs: Vital Signs - 24 hr 06/22/25 08:00 06/22/25 09:43 06/22/25 14:00 Temperature 36.3 C L Pulse Rate 88 65 Respiratory Rate 18 16 Blood Pressure 121/65 Pulse Oximetry 95 100 Oxygen Delivery Room Air Room Air 06/22/25 21:03 06/22/25 21:03 06/22/25 21:51 Temperature 36.6 C Pulse Rate 76 75 Respiratory Rate 18 Blood Pressure 105/56 L Pulse Oximetry 99 Oxygen Delivery Room Air 06/23/25 06:00 Temperature 36.6 C Pulse Rate 64 Respiratory Rate 18 Blood Pressure 125/84 Pulse Oximetry 96 Oxygen Delivery Intake/Output Intake/Output: Intake & Output 06/20/25 06/21/25 06/22/25 06/23/25 23:59 23:59 23:59 23:59 Intake Total 900 2521.6 2994 550 Balance 900 2521.6 2994 550 Meds/Results Medications: Active Medications Generic Name Dose Route Start Last Admin Trade Name Freq PRN Reason Stop Dose Admin Hydrocodone Bitart/Acetaminophen 1 tab 06/20/25 13:50 06/22/25 05:10 Hydrocodone/Acetaminophen (*Crx) 10-325 Mg Tablet PO 1 tab Q8H PRN Administration Pain Rated 7-10 Hydrocodone Bitart/Acetaminophen 1 tab 06/21/25 12:03 06/22/25 21:04 Hydrocodone/Acetaminophen (*Crx) 5-325 Mg Tablet PO 1 tab Q6H PRN Administration Pain Rated 4-6 Albuterol 2 puff 06/21/25 08:05 Albuterol Sulfate (*Sp) Aerosol 1 Puff INHALATION Q6H PRN Shortness Of Breath Or Wheezing Albuterol/Ipratropium 3 ml 06/20/25 13:50 Ipratropium 0.5 Mg/Albuterol Sulfate 2.5 Mg Ampul.Neb 3 Ml INHALATION Q6H PRN Shortness Of Breath Or Wheezing Atorvastatin Calcium 80 mg 06/20/25 18:00 06/22/25 17:23 Atorvastatin 40 Mg Tablet PO 80 mg QPM ATTILA Administration Buspirone HCl 10 mg 06/20/25 17:00 06/22/25 17:23 Buspirone Hcl 10 Mg Tablet PO 10 mg BID ATTILA Administration Celecoxib 100 mg 06/21/25 08:00 06/22/25 09:11 Celecoxib 100 Mg Capsule PO 100 mg Q24H ATTILA Administration Cyclobenzaprine HCl 10 mg 06/20/25 17:00 06/22/25 14:03 Cyclobenzaprine Hcl 10 Mg Tablet PO 10 mg TID ATTILA Administration Enoxaparin Sodium 40 mg 06/21/25 09:00 06/22/25 09:03 Enoxaparin 40 Mg/0.4 Ml Syringe SUB-Q 40 mg DAILY ATTILA Administration Hydralazine HCl 10 mg 06/21/25 08:05 Hydralazine Hcl 20 Mg/Ml Vial IV PUSH Q8H PRN Blood Pressure - High Levothyroxine Sodium 50 mcg 06/21/25 06:30 06/23/25 05:39 Levothyroxine Sodium 50 Mcg Tablet PO 50 mcg DAILY@0630 ATTILA Administration Lisinopril 20 mg 06/21/25 09:00 06/22/25 09:03 Lisinopril 20 Mg Tablet PO 20 mg DAILY ATTILA Administration Miscellaneous Information 0 each 06/20/25 00:01 Lunesta = Nonformulary. Suggest Zolpidem While Hospitalized XX 07/20/25 00:00 CLARIFY ATTILA Morphine Sulfate 2 mg 06/22/25 12:46 06/22/25 15:43 Morphine Sulfate (*Crx) 4 Mg/Ml Inj IV PUSH 2 mg Q4H PRN Administration Pain Rated 7-10 Naloxone HCl 0.1 mg 06/20/25 17:56 Naloxone Hcl 0.4 Mg/Ml Vial IV PUSH Q2M PRN Opiate Reversal Non-Formulary Medication 3 mg 06/20/25 21:00 Eszopiclone [Lunesta] PO 07/20/25 20:59 QHS ATTILA Ondansetron HCl 4 mg 06/20/25 02:21 06/21/25 05:23 Ondansetron Inj 4 Mg/2 Ml Vial IV PUSH 4 mg Q6HR PRN Administration Nausea And Vomiting Pantoprazole Sodium 40 mg 06/22/25 09:00 06/22/25 09:03 Pantoprazole 40 Mg Tablet PO 40 mg QAM ATTILA Administration Polyethylene Glycol 17 gm 06/21/25 09:00 06/22/25 09:02 Polyethylene Glycol 3350 17 Gm Powd.Pack PO 17 gm QAM ATTILA Administration Propranolol HCl 40 mg 06/20/25 21:00 06/22/25 21:03 Propranolol Hcl 20 Mg Tablet PO 40 mg Q12HR ATTILA Administration Senna/Docusate Sodium 2 tab 06/20/25 21:00 06/22/25 21:03 Senna/Docusate Sodium Tablet PO 2 tab HS ATTILA Administration Sumatriptan Succinate 100 mg 06/20/25 17:56 06/21/25 05:20 Sumatriptan Succinate 25 Mg Tablet PO 100 mg Q2H PRN Administration Migraine Headache Tamoxifen Citrate 10 mg 06/21/25 09:00 06/22/25 09:02 Tamoxifen Citrate (*Chemo) 10 Mg Tablet PO 10 mg DAILY ATTILA Administration Radiology Results: ITS Impressions Abdomen/Pelvis CT 06/19/25 20:51 IMPRESSION: High-grade bowel obstruction secondary to an umbilical hernia containing a short segment of transverse colon which demonstrates significant hyperemia suggesting venous compression, for which early strangulation is suspected. Labs Labs: Laboratory Results - last 24 hr 06/21/25 05:34 Hemoglobin A1c 5.5
--- NOTE | 2025-06-23 07:54 | P.PNIM_ITS ---
Progress Note: A&P Assessment and Plan (1) Umbilical hernia with obstruction but no gangrene: Code(s): K42.0 - Umbilical hernia with obstruction, without gangrene Status: Acute Assessment and Plan: - presented with worsening abdominal pain, nausea/vomiting in setting of known umbilical hernia after a fall onto her abdomen - CT A/P showed high-grade bowel obstruction secondary to umbilical hernia containing short segment of transverse colon, early strangulation suspected -s/p open repair of 5 cm incarcerated incisional hernia with obstruction by Dr. Gatica 06/20/25 - advance diet per general surgery - PRN antiemetics and analgesics. Wean morphine. - tolerating PO, IV fluids stopped (2) Hypertension: Qualifiers: Hypertension type: primary hypertension Qualified Code(s): I10 - Essential (primary) hypertension Code(s): I10 - Essential (primary) hypertension Status: Chronic Assessment and Plan: -BP trend stable after resuming home meds - continue home lisinopril, propanol - resume lasix and HCTZ as PO intake improves - IV hydralazine ordered for SBP >180 (3) Morbid obesity with BMI of 45.0-49.9, adult: Code(s): E66.01 - Morbid (severe) obesity due to excess calories; Z68.42 - Body mass index [BMI] 45.0-49.9, adult Status: Chronic Assessment and Plan: -Recommend lifestyle changes upon discharge (4) GERD (gastroesophageal reflux disease): Code(s): K21.9 - Gastro-esophageal reflux disease without esophagitis Status: Chronic Assessment and Plan: -resume home PPI (5) Fibromyalgia: Code(s): M79.7 - Fibromyalgia Status: Chronic Assessment and Plan: -continue home amitriptyline and gabapentin. [place] resumed (PDMP reviewed, patient states she takes 1/2 of a [place] 10-325 q8H PRN) (6) Anxiety: Code(s): F41.9 - Anxiety disorder, unspecified Status: Chronic Assessment and Plan: -continue home Buspar (7) Breast cancer: Qualifiers: Breast location: unspecified site of breast Estrogen receptor status: unspecified Laterality: unspecified laterality Patient sex: female Qualified Code(s): C50.919 - Malignant neoplasm of unspecified site of unspecified female breast Code(s): C50.919 - Malignant neoplasm of unspecified site of unspecified female breast Status: Chronic Assessment and Plan: -Currently in remission. - continue home tamoxifen (8) Abnormal urinalysis: Code(s): R82.90 - Unspecified abnormal findings in urine Status: Acute Assessment and Plan: - UA with 11-20 WBC, 1+ bacteria - patient denies urinary symptoms other than some hesitancy - urine culture pending (9) Lymphedema: Code(s): I89.0 - Lymphedema, not elsewhere classified Status: Acute Assessment and Plan: - resume home Lasix and HCTZ once taking better PO (10) Leukocytosis: Code(s): D72.829 - Elevated white blood cell count, unspecified Status: Acute Assessment and Plan: - WBC 11 - afebrile, no signs of infection - likely reactive from surgery - monitor CBC Plan DVT prophylaxis: lovenox Dispoistion: 1-2 days pending clinical course. PT/OT recommended home with [facility]. Subjective Date/time seen: 06/23/25 07:54 Interval history: 64-year-old female patient with past medical history significant of a known umbilical hernia, fibromyalgia, hypertension, GERD, anxiety, depression and breast cancer status post radiation and on oral chemo who presented to the emergency with complaints of persistent abdominal pain. Patient seen and examined up in chair. Having some pain and nausea this AM. Still no BM. Review of Systems Review of Systems: All systems reviewed & are unremarkable except as noted in HPI and below Exam Narrative: General: NAD, obese Eyes: EOMI ENT: neck supple Cardiovascular: Regular rate and rhythm Respiratory: Clear to auscultation, respirations even and unlabored on RA Gastrointestinal: surgical incision well-approximated with no surrounding erythema. Mild TTP. Bowel sounds active. Genitourinary: no suprapubic tenderness Musculoskeletal:mild BLE lymphedema Skin: warm, dry Neuro: Alert. Psych: Mood appropriate Objective Data Vital Signs Vital Signs: Vital Signs - 24 hr 06/22/25 08:00 06/22/25 09:43 06/22/25 14:00 Temperature 97.3 F L Pulse Rate 88 65 Respiratory Rate 18 16 Blood Pressure 121/65 Pulse Oximetry 95 100 Oxygen Delivery Room Air Room Air 06/22/25 21:03 06/22/25 21:03 06/22/25 21:51 Temperature 97.9 F Pulse Rate 76 75 Respiratory Rate 18 Blood Pressure 105/56 L Pulse Oximetry 99 Oxygen Delivery Room Air 06/23/25 06:00 Temperature 97.8 F Pulse Rate 64 Respiratory Rate 18 Blood Pressure 125/84 Pulse Oximetry 96 Oxygen Delivery Intake/Output Intake/Output: Intake & Output 06/20/25 06/21/25 06/22/25 06/23/25 23:59 23:59 23:59 23:59 Intake Total 900 2521.6 2994 550 Balance 900 2521.6 2994 550 Meds/Results Medications: Active Medications Generic Name Dose Route Start Last Admin Trade Name Freq PRN Reason Stop Dose Admin Hydrocodone Bitart/Acetaminophen 1 tab 06/20/25 13:50 06/22/25 05:10 Hydrocodone/Acetaminophen (*Crx) 10-325 Mg Tablet PO 1 tab Q8H PRN Administration Pain Rated 7-10 Hydrocodone Bitart/Acetaminophen 1 tab 06/21/25 12:03 06/22/25 21:04 Hydrocodone/Acetaminophen (*Crx) 5-325 Mg Tablet PO 1 tab Q6H PRN Administration Pain Rated 4-6 Albuterol 2 puff 06/21/25 08:05 Albuterol Sulfate (*Sp) Aerosol 1 Puff INHALATION Q6H PRN Shortness Of Breath Or Wheezing Albuterol/Ipratropium 3 ml 06/20/25 13:50 Ipratropium 0.5 Mg/Albuterol Sulfate 2.5 Mg Ampul.Neb 3 Ml INHALATION Q6H PRN Shortness Of Breath Or Wheezing Atorvastatin Calcium 80 mg 06/20/25 18:00 06/22/25 17:23 Atorvastatin 40 Mg Tablet PO 80 mg QPM ATTILA Administration Buspirone HCl 10 mg 06/20/25 17:00 06/22/25 17:23 Buspirone Hcl 10 Mg Tablet PO 10 mg BID ATTILA Administration Celecoxib 100 mg 06/21/25 08:00 06/22/25 09:11 Celecoxib 100 Mg Capsule PO 100 mg Q24H ATTILA Administration Cyclobenzaprine HCl 10 mg 06/20/25 17:00 06/22/25 14:03 Cyclobenzaprine Hcl 10 Mg Tablet PO 10 mg TID ATTILA Administration Enoxaparin Sodium 40 mg 06/21/25 09:00 06/22/25 09:03 Enoxaparin 40 Mg/0.4 Ml Syringe SUB-Q 40 mg DAILY ATTILA Administration Hydralazine HCl 10 mg 06/21/25 08:05 Hydralazine Hcl 20 Mg/Ml Vial IV PUSH Q8H PRN Blood Pressure - High Levothyroxine Sodium 50 mcg 06/21/25 06:30 06/23/25 05:39 Levothyroxine Sodium 50 Mcg Tablet PO 50 mcg DAILY@0630 ATTILA Administration Lisinopril 20 mg 06/21/25 09:00 06/22/25 09:03 Lisinopril 20 Mg Tablet PO 20 mg DAILY ATTILA Administration Miscellaneous Information 0 each 06/20/25 00:01 Lunesta = Nonformulary. Suggest Zolpidem While Hospitalized XX 07/20/25 00:00 CLARIFY ATTILA Morphine Sulfate 2 mg 06/22/25 12:46 06/22/25 15:43 Morphine Sulfate (*Crx) 4 Mg/Ml Inj IV PUSH 2 mg Q4H PRN Administration Pain Rated 7-10 Naloxone HCl 0.1 mg 06/20/25 17:56 Naloxone Hcl 0.4 Mg/Ml Vial IV PUSH Q2M PRN Opiate Reversal Non-Formulary Medication 3 mg 06/20/25 21:00 Eszopiclone [Lunesta] PO 07/20/25 20:59 QHS ATTILA Ondansetron HCl 4 mg 06/20/25 02:21 06/21/25 05:23 Ondansetron Inj 4 Mg/2 Ml Vial IV PUSH 4 mg Q6HR PRN Administration Nausea And Vomiting Pantoprazole Sodium 40 mg 06/22/25 09:00 06/22/25 09:03 Pantoprazole 40 Mg Tablet PO 40 mg QAM ATTILA Administration Polyethylene Glycol 17 gm 06/21/25 09:00 06/22/25 09:02 Polyethylene Glycol 3350 17 Gm Powd.Pack PO 17 gm QAM ATTILA Administration Propranolol HCl 40 mg 06/20/25 21:00 06/22/25 21:03 Propranolol Hcl 20 Mg Tablet PO 40 mg Q12HR ATTILA Administration Senna/Docusate Sodium 2 tab 06/20/25 21:00 06/22/25 21:03 Senna/Docusate Sodium Tablet PO 2 tab HS ATTILA Administration Sumatriptan Succinate 100 mg 06/20/25 17:56 06/21/25 05:20 Sumatriptan Succinate 25 Mg Tablet PO 100 mg Q2H PRN Administration Migraine Headache Tamoxifen Citrate 10 mg 06/21/25 09:00 06/22/25 09:02 Tamoxifen Citrate (*Chemo) 10 Mg Tablet PO 10 mg DAILY ATTILA Administration Radiology Results: ITS Impressions Abdomen/Pelvis CT 06/19/25 20:51 IMPRESSION: High-grade bowel obstruction secondary to an umbilical hernia containing a short segment of transverse colon which demonstrates significant hyperemia suggesting venous compression, for which early strangulation is suspected. Labs Labs: Laboratory Results - last 24 hr 06/21/25 05:34 Hemoglobin A1c 5.5 Quality VTE Prophylaxis VTE prophylaxis: pharmacologic ordered
[2025-06-23 08:29] LABS: Hematocrit 39.1 % (37.0-47.0); Hemoglobin 12.5 g/dL (12.0-15.0); Immature Granulocyte Percent A 0.3 % (0-0.5); Lymphocytes Absolute Auto 1.43 K/mm3 (0.9-3.2); Mean Corpuscular HGB Conc 32.0 g/dl (32-36); Mean Corpuscular Hemoglobin 30.8 pg (26-34); Mean Corpuscular Volume 96.3 fl (80-100); Nucleated Red Blood Cells Absolute Auto 0.000 K/mm3 (0.0-0.012); Nucleated Red Blood Cells Perc 0.0 % (0.0-0.2); Platelet Count Result 194 k/mm3 (150-375); Red Blood Count 4.06 M/mm3 (4.2-5.4); White Blood Count 6.4 K/mm3 (4.5-10.0)
[2025-06-23] MEDS: ONDANSETRON INJ 4 MG/2 ML VIAL IV PUSH (08:30)
[2025-06-23] MEDS: MORPHINE SULFATE (*CRX) 4 MG/ML INJ 2 MG IV PUSH (08:30)
[2025-06-23 08:43] VITALS: PULSE 68
[2025-06-23] MEDS: PROPRANOLOL HCL 20 MG TABLET 40 MG PO ×2 (08:43→21:15)
[2025-06-23] MEDS: PANTOPRAZOLE 40 MG TABLET PO (08:43)
[2025-06-23] MEDS: CYCLOBENZAPRINE HCL 10 MG TABLET PO ×3 (08:43→16:48)
[2025-06-23] MEDS: ENOXAPARIN 40 MG/0.4 ML SYRINGE SUB-Q (08:43)
[2025-06-23] MEDS: TAMOXIFEN CITRATE (*CHEMO) 10 MG TABLET PO (08:43)
[2025-06-23] MEDS: CELECOXIB 100 MG CAPSULE PO (08:43)
[2025-06-23 08:49] LABS: Alanine Aminotransferase 16 U/L (6-35); Albumin Level 3.6 g/dL (3.5-5.1); Alkaline Phosphatase 76 U/L (38-126); Anion Gap 5 mmol/L (4-12); Aspartate Amino Transferase 32 U/L (14-36); Bilirubin,Total 0.8 mg/dL (0.2-1.3); Blood Urea Nitrogen 13 mg/dL (7-17); Calcium 8.9 mg/dL (8.4-10.2); Carbon Dioxide 25 mmol/L (22-30); Chloride 109 mmol/L (98-107); Estimated CRCL calculation 91 ml/min; Estimated Glomerular Filt Rate > 60; Glucose 128 mg/dL (65-110); Potassium 4.1 mmol/L (3.4-5.0); Sodium 139 mmol/L (137-145); Total Protein 6.5 g/dL (6.3-8.2)
--- NOTE | 2025-06-23 11:35 | PCNFU ---
Nutrition Follow-Up Complete: Unintentional weight loss related to abdominal pain and reduced appetite as evidenced by pt report Goal:Diet order PO intake 50% or greater Pt meeting goal, continue with same goal Pt current nutrition is Regular. Nutrition recommendation: Ensure shakes daily Last recorded weight is 141.5 kg. Bowel Motility: +BM 06/22 Labs Reviewed: NA:128 Meds Noted:lovenox, protonix Skin: WNL Additional Notes: Pt continues on a regular diet, intake improved to 75-100% at this time. Pt interested in Ensure shakes, will order daily, vanilla for preference. monitor diet orders, intake, wt, labs. Follow up in 7 days.
[2025-06-23 13:59] VITALS: BP 125/91; PULSE 78; RESP 18; TEMP 36.3; O2SAT 99
[2025-06-23] MEDS: HYDROcodone/acetaminophen (*CRX) 10-325 MG TABLET 1 TAB PO (16:48)
[2025-06-23] MEDS: ATORVASTATIN 40 MG TABLET 80 MG PO (17:34)
[2025-06-23 20:15] VITALS: BP 139/75; PULSE 80; RESP 18; TEMP 36.7; O2SAT 98
[2025-06-23 21:15] VITALS: PULSE 75
[2025-06-23] MEDS: SENNA/DOCUSATE SODIUM TABLET 2 TAB PO (21:15)
[2025-06-24 05:30] VITALS: BP 129/68; PULSE 66; RESP 16; TEMP 36.2; O2SAT 98
[2025-06-24] MEDS: LEVOTHYROXINE SODIUM 50 MCG TABLET PO (05:36)
[2025-06-24 05:44] LABS: Hematocrit 34.6 % (37.0-47.0); Hemoglobin 11.2 g/dL (12.0-15.0); Mean Corpuscular HGB Conc 32.4 g/dl (32-36); Mean Corpuscular Hemoglobin 30.9 pg (26-34); Mean Corpuscular Volume 95.3 fl (80-100); Platelet Count Result 208 k/mm3 (150-375); Red Blood Count 3.63 M/mm3 (4.2-5.4); White Blood Count 4.6 K/mm3 (4.5-10.0)
[2025-06-24 06:14] LABS: Alanine Aminotransferase 14 U/L (6-35); Albumin Level 3.0 g/dL (3.5-5.1); Alkaline Phosphatase 67 U/L (38-126); Anion Gap 6 mmol/L (4-12); Aspartate Amino Transferase 27 U/L (14-36); Bilirubin,Total 0.6 mg/dL (0.2-1.3); Blood Urea Nitrogen 17 mg/dL (7-17); Calcium 8.4 mg/dL (8.4-10.2); Carbon Dioxide 25 mmol/L (22-30); Chloride 107 mmol/L (98-107); Estimated CRCL calculation 101 ml/min; Estimated Glomerular Filt Rate > 60; Glucose 128 mg/dL (65-110); Potassium 3.9 mmol/L (3.4-5.0); Sodium 138 mmol/L (137-145); Total Protein 5.7 g/dL (6.3-8.2)
--- NOTE | 2025-06-24 08:54 | P.PNGS_ITS ---
Progress Note: A&P Assessment and Plan (1) Incisional hernia, with obstruction, without gangrene: Code(s): K43.0 - Incisional hernia with obstruction, without gangrene Status: Acute Assessment and Plan: still no bowel movement. Will give soapsuds enema today. Requiring less morphine. Wound is healing nicely. If continues to do well, probably home tomorrow. H&H lower today, probably due to dilution. Will give a dose of Bumex as her JAYA is markedly positive. (2) Opioid dependence with current use: Code(s): F11.20 - Opioid dependence, uncomplicated Status: Acute Assessment and Plan: Little need for morphine sulfate, taking primarily her usual dose of [place] 10/325 3 times a day Subjective Subjective Date/Time Seen: 06/24/25 08:54 Post Op day: 4 Patient reports: no new complaints, feels better, pain is less, voiding w/o difficulty, flatus, no bowel movement and afebrile Exam Const: General: comfortable and no acute distress Orientation/consciousness: patient oriented x3 GI: Inspection: no abdominal wall ecchymosis and incision ( dry and continues to heal well) GI Palp: Yes Soft to palpation, Yes Tenderness to palpation present (GI) and No Guarding due to palpation present (GI) Neuro: General: patient oriented x3 and no focal motor deficits Extrem: General: no calf tenderness and no edema Psych: Affect: normal affect Insight: Good insight present (Psych) Judgement: Good judgement present (Psych) Objective Data Vital Signs Vital Signs: Vital Signs - 24 hr 06/23/25 13:59 06/23/25 20:15 06/23/25 21:15 Temperature 36.3 C L 36.7 C Pulse Rate 78 80 75 Respiratory Rate 18 18 Blood Pressure 125/91 H 139/75 Pulse Oximetry 99 98 Oxygen Delivery 06/23/25 21:15 06/24/25 05:30 Temperature 36.2 C L Pulse Rate 66 Respiratory Rate 16 Blood Pressure 129/68 Pulse Oximetry 98 Oxygen Delivery Room Air Intake/Output Intake/Output: Intake & Output 06/21/25 06/22/25 06/23/25 06/24/25 23:59 23:59 23:59 23:59 Intake Total 2521.6 2994 1666 450 Balance 2521.6 2994 1666 450 Meds/Results Medications: Active Medications Generic Name Dose Route Start Last Admin Trade Name Freq PRN Reason Stop Dose Admin Hydrocodone Bitart/Acetaminophen 1 tab 06/20/25 13:50 06/23/25 16:48 Hydrocodone/Acetaminophen (*Crx) 10-325 Mg Tablet PO 1 tab Q8H PRN Administration Pain Rated 7-10 Hydrocodone Bitart/Acetaminophen 1 tab 06/21/25 12:03 06/22/25 21:04 Hydrocodone/Acetaminophen (*Crx) 5-325 Mg Tablet PO 1 tab Q6H PRN Administration Pain Rated 4-6 Albuterol 2 puff 06/21/25 08:05 Albuterol Sulfate (*Sp) Aerosol 1 Puff INHALATION Q6H PRN Shortness Of Breath Or Wheezing Albuterol/Ipratropium 3 ml 06/20/25 13:50 Ipratropium 0.5 Mg/Albuterol Sulfate 2.5 Mg Ampul.Neb 3 Ml INHALATION Q6H PRN Shortness Of Breath Or Wheezing Atorvastatin Calcium 80 mg 06/20/25 18:00 06/23/25 17:34 Atorvastatin 40 Mg Tablet PO 80 mg QPM ATTILA Administration Buspirone HCl 10 mg 06/20/25 17:00 06/23/25 16:48 Buspirone Hcl 10 Mg Tablet PO 10 mg BID ATTILA Administration Celecoxib 100 mg 06/21/25 08:00 06/23/25 08:43 Celecoxib 100 Mg Capsule PO 100 mg Q24H ATTILA Administration Cyclobenzaprine HCl 10 mg 06/20/25 17:00 06/23/25 16:48 Cyclobenzaprine Hcl 10 Mg Tablet PO 10 mg TID ATTILA Administration Enoxaparin Sodium 40 mg 06/21/25 09:00 06/23/25 08:43 Enoxaparin 40 Mg/0.4 Ml Syringe SUB-Q 40 mg DAILY ATTILA Administration Hydralazine HCl 10 mg 06/21/25 08:05 Hydralazine Hcl 20 Mg/Ml Vial IV PUSH Q8H PRN Blood Pressure - High Levothyroxine Sodium 50 mcg 06/21/25 06:30 06/24/25 05:36 Levothyroxine Sodium 50 Mcg Tablet PO 50 mcg DAILY@0630 ATTILA Administration Lisinopril 20 mg 06/21/25 09:00 06/23/25 08:43 Lisinopril 20 Mg Tablet PO 20 mg DAILY ATTILA Administration Miscellaneous Information 0 each 06/20/25 00:01 Lunesta = Nonformulary. Suggest Zolpidem While Hospitalized XX 07/20/25 00:00 CLARIFY [facility] Morphine Sulfate 2 mg 06/22/25 12:46 06/23/25 08:30 Morphine Sulfate (*Crx) 4 Mg/Ml Inj IV PUSH 2 mg Q4H PRN Administration Pain Rated 7-10 Naloxone HCl 0.1 mg 06/20/25 17:56 Naloxone Hcl 0.4 Mg/Ml Vial IV PUSH Q2M PRN Opiate Reversal Non-Formulary Medication 3 mg 06/20/25 21:00 Eszopiclone [Lunesta] PO 07/20/25 20:59 QHS ATTILA Ondansetron HCl 4 mg 06/20/25 02:21 06/23/25 08:30 Ondansetron Inj 4 Mg/2 Ml Vial IV PUSH 4 mg Q6HR PRN Administration Nausea And Vomiting Pantoprazole Sodium 40 mg 06/22/25 09:00 06/23/25 08:43 Pantoprazole 40 Mg Tablet PO 40 mg QAM ATTILA Administration Polyethylene Glycol 17 gm 06/21/25 09:00 06/23/25 08:43 Polyethylene Glycol 3350 17 Gm Powd.Pack PO 17 gm QAM ATTILA Administration Propranolol HCl 40 mg 06/20/25 21:00 06/23/25 21:15 Propranolol Hcl 20 Mg Tablet PO 40 mg Q12HR ATTILA Administration Senna/Docusate Sodium 2 tab 06/20/25 21:00 06/23/25 21:15 Senna/Docusate Sodium Tablet PO 2 tab HS ATTILA Administration Sumatriptan Succinate 100 mg 06/20/25 17:56 06/21/25 05:20 Sumatriptan Succinate 25 Mg Tablet PO 100 mg Q2H PRN Administration Migraine Headache Tamoxifen Citrate 10 mg 06/21/25 09:00 06/23/25 08:43 Tamoxifen Citrate (*Chemo) 10 Mg Tablet PO 10 mg DAILY ATTILA Administration Radiology Results: ITS Impressions Abdomen/Pelvis CT 06/19/25 20:51 IMPRESSION: High-grade bowel obstruction secondary to an umbilical hernia containing a short segment of transverse colon which demonstrates significant hyperemia suggesting venous compression, for which early strangulation is suspected. Labs Labs: Laboratory Results - last 24 hr 06/24/25 05:26 WBC 4.6 RBC 3.63 L Hgb 11.2 L Hct 34.6 L MCV 95.3 MCH 30.9 MCHC 32.4 RDW 12.3 Plt Count 208 MPV 11.5 H Sodium 138 Potassium 3.9 Chloride 107 Carbon Dioxide 25 Anion Gap 6 BUN 17 Creatinine 0.66 L Estim Creat Clear Calc 101 Estimated GFR > 60 Glucose 128 H Calcium 8.4 Total Bilirubin 0.6 AST 27 ALT 14 Alkaline Phosphatase 67 Total Protein 5.7 L Albumin 3.0 L
[2025-06-24] MEDS: CELECOXIB 100 MG CAPSULE PO (09:43)
[2025-06-24] MEDS: PANTOPRAZOLE 40 MG TABLET PO (09:43)
[2025-06-24] MEDS: CYCLOBENZAPRINE HCL 10 MG TABLET PO ×3 (09:43→17:35)
[2025-06-24] MEDS: PROPRANOLOL HCL 20 MG TABLET 40 MG PO ×2 (09:43→20:12)
[2025-06-24] MEDS: TAMOXIFEN CITRATE (*CHEMO) 10 MG TABLET PO (09:43)
[2025-06-24] MEDS: BUMETANIDE INJ 2.5 MG/10 ML VIAL 2 MG IV PUSH (09:46)
[2025-06-24] MEDS: ENOXAPARIN 40 MG/0.4 ML SYRINGE SUB-Q (09:46)
--- NOTE | 2025-06-24 12:55 | P.PNIM_ITS ---
Progress Note: A&P Assessment and Plan (1) Umbilical hernia with obstruction but no gangrene: Code(s): K42.0 - Umbilical hernia with obstruction, without gangrene Status: Acute Assessment and Plan: - presented with worsening abdominal pain, nausea/vomiting in setting of known umbilical hernia after a fall onto her abdomen - CT A/P showed high-grade bowel obstruction secondary to umbilical hernia containing short segment of transverse colon, early strangulation suspected -s/p open repair of 5 cm incarcerated incisional hernia with obstruction by Dr. Gatica 06/20/25 - advance diet per general surgery - PRN antiemetics and analgesics. Wean morphine. - tolerating PO, IV fluids stopped - still no BM, general surgery planning on enema today (2) Hypertension: Qualifiers: Hypertension type: primary hypertension Qualified Code(s): I10 - Essential (primary) hypertension Code(s): I10 - Essential (primary) hypertension Status: Chronic Assessment and Plan: - BP trend stable after resuming home meds - continue home lisinopril, propanol - positive fluid balance, received IV Bumex x1 this AM. Restart home Lasix tomorrow. - IV hydralazine ordered for SBP >180 (3) Morbid obesity with BMI of 45.0-49.9, adult: Code(s): E66.01 - Morbid (severe) obesity due to excess calories; Z68.42 - Body mass index [BMI] 45.0-49.9, adult Status: Chronic Assessment and Plan: -Recommend lifestyle changes upon discharge (4) GERD (gastroesophageal reflux disease): Code(s): K21.9 - Gastro-esophageal reflux disease without esophagitis Status: Chronic Assessment and Plan: -resume home PPI (5) Fibromyalgia: Code(s): M79.7 - Fibromyalgia Status: Chronic Assessment and Plan: -continue home amitriptyline and gabapentin. [place] jadoned (PDMP reviewed, patient states she takes 1/2 of a [place] 10-325 q8H PRN) (6) Anxiety: Code(s): F41.9 - Anxiety disorder, unspecified Status: Chronic Assessment and Plan: -continue home Buspar (7) Breast cancer: Qualifiers: Breast location: unspecified site of breast Estrogen receptor status: unspecified Patient sex: female Laterality: unspecified laterality Qualified Code(s): C50.919 - Malignant neoplasm of unspecified site of unspecified female breast Code(s): C50.919 - Malignant neoplasm of unspecified site of unspecified female breast Status: Chronic Assessment and Plan: -Currently in remission. - continue home tamoxifen (8) Abnormal urinalysis: Code(s): R82.90 - Unspecified abnormal findings in urine Status: Acute Assessment and Plan: - UA with 11-20 WBC, 1+ bacteria - patient denies urinary symptoms other than some hesitancy - urine culture pending (9) Lymphedema: Code(s): I89.0 - Lymphedema, not elsewhere classified Status: Acute Assessment and Plan: - resume home Lasix and HCTZ once taking better PO (10) Leukocytosis: Code(s): D72.829 - Elevated white blood cell count, unspecified Status: Acute Assessment and Plan: - WBC 11 - afebrile, no signs of infection - likely reactive from surgery - monitor CBC Plan DVT prophylaxis: lovenox Dispoistion: 1-2 days pending clinical course. PT/OT recommended home with [facility]. Subjective Date/time seen: 06/24/25 12:55 Interval history: 64-year-old female patient with past medical history significant of a known umbilical hernia, fibromyalgia, hypertension, GERD, anxiety, depression and breast cancer status post radiation and on oral chemo who presented to the emergency with complaints of persistent abdominal pain. Patient seen and examined up in chair. Having some pain and nausea this AM. Still no BM. Review of Systems Review of Systems: All systems reviewed & are unremarkable except as noted in HPI and below Exam Narrative: General: NAD, obese Eyes: EOMI ENT: neck supple Cardiovascular: extremities appear well-perfused Respiratory: respirations even and unlabored on RA Gastrointestinal: nondistended Genitourinary: no suprapubic tenderness Musculoskeletal:mild BLE lymphedema Skin: warm, dry Neuro: Alert. Psych: Mood appropriate Objective Data Vital Signs Vital Signs: Vital Signs - 24 hr 06/23/25 13:59 06/23/25 20:15 06/23/25 21:15 Temperature 97.3 F L 98.1 F Pulse Rate 78 80 75 Respiratory Rate 18 18 Blood Pressure 125/91 H 139/75 Pulse Oximetry 99 98 Oxygen Delivery 06/23/25 21:15 06/24/25 05:30 Temperature 97.2 F L Pulse Rate 66 Respiratory Rate 16 Blood Pressure 129/68 Pulse Oximetry 98 Oxygen Delivery Room Air Intake/Output Intake/Output: Intake & Output 06/21/25 06/22/25 06/23/25 06/24/25 23:59 23:59 23:59 23:59 Intake Total 2521.6 2994 1666 690 Balance 2521.6 2994 1666 690 Meds/Results Medications: Active Medications Generic Name Dose Route Start Last Admin Trade Name Freq PRN Reason Stop Dose Admin Hydrocodone Bitart/Acetaminophen 1 tab 06/20/25 13:50 06/23/25 16:48 Hydrocodone/Acetaminophen (*Crx) 10-325 Mg Tablet PO 1 tab Q8H PRN Administration Pain Rated 7-10 Hydrocodone Bitart/Acetaminophen 1 tab 06/21/25 12:03 06/22/25 21:04 Hydrocodone/Acetaminophen (*Crx) 5-325 Mg Tablet PO 1 tab Q6H PRN Administration Pain Rated 4-6 Albuterol 2 puff 06/21/25 08:05 Albuterol Sulfate (*Sp) Aerosol 1 Puff INHALATION Q6H PRN Shortness Of Breath Or Wheezing Albuterol/Ipratropium 3 ml 06/20/25 13:50 Ipratropium 0.5 Mg/Albuterol Sulfate 2.5 Mg Ampul.Neb 3 Ml INHALATION Q6H PRN Shortness Of Breath Or Wheezing Atorvastatin Calcium 80 mg 06/20/25 18:00 06/23/25 17:34 Atorvastatin 40 Mg Tablet PO 80 mg QPM ATTILA Administration Buspirone HCl 10 mg 06/20/25 17:00 06/24/25 09:43 Buspirone Hcl 10 Mg Tablet PO 10 mg BID ATTILA Administration Celecoxib 100 mg 06/21/25 08:00 06/24/25 09:43 Celecoxib 100 Mg Capsule PO 100 mg Q24H ATTILA Administration Cyclobenzaprine HCl 10 mg 06/20/25 17:00 06/24/25 12:48 Cyclobenzaprine Hcl 10 Mg Tablet PO 10 mg TID ATTILA Administration Enoxaparin Sodium 40 mg 06/21/25 09:00 06/24/25 09:46 Enoxaparin 40 Mg/0.4 Ml Syringe SUB-Q 40 mg DAILY ATTILA Administration Hydralazine HCl 10 mg 06/21/25 08:05 Hydralazine Hcl 20 Mg/Ml Vial IV PUSH Q8H PRN Blood Pressure - High Levothyroxine Sodium 50 mcg 06/21/25 06:30 06/24/25 05:36 Levothyroxine Sodium 50 Mcg Tablet PO 50 mcg DAILY@0630 ATTILA Administration Lisinopril 20 mg 06/21/25 09:00 06/24/25 09:43 Lisinopril 20 Mg Tablet PO 20 mg DAILY ATTILA Administration Miscellaneous Information 0 each 06/20/25 00:01 Lunesta = Nonformulary. Suggest Zolpidem While Hospitalized XX 07/20/25 00:00 CL[facility]IFY [facility] Morphine Sulfate 2 mg 06/22/25 12:46 06/23/25 08:30 Morphine Sulfate (*Crx) 4 Mg/Ml Inj IV PUSH 2 mg Q4H PRN Administration Pain Rated 7-10 Naloxone HCl 0.1 mg 06/20/25 17:56 Naloxone Hcl 0.4 Mg/Ml Vial IV PUSH Q2M PRN Opiate Reversal Non-Formulary Medication 3 mg 06/20/25 21:00 Eszopiclone [Lunesta] PO 07/20/25 20:59 QHS ATTILA Ondansetron HCl 4 mg 06/20/25 02:21 06/23/25 08:30 Ondansetron Inj 4 Mg/2 Ml Vial IV PUSH 4 mg Q6HR PRN Administration Nausea And Vomiting Pantoprazole Sodium 40 mg 06/22/25 09:00 06/24/25 09:43 Pantoprazole 40 Mg Tablet PO 40 mg QAM ATTILA Administration Polyethylene Glycol 17 gm 06/21/25 09:00 06/24/25 09:41 Polyethylene Glycol 3350 17 Gm Powd.Pack PO 17 gm QAM ATTILA Administration Propranolol HCl 40 mg 06/20/25 21:00 06/24/25 09:43 Propranolol Hcl 20 Mg Tablet PO 40 mg Q12HR ATTILA Administration Senna/Docusate Sodium 2 tab 06/20/25 21:00 06/23/25 21:15 Senna/Docusate Sodium Tablet PO 2 tab HS ATTILA Administration Sumatriptan Succinate 100 mg 06/20/25 17:56 06/21/25 05:20 Sumatriptan Succinate 25 Mg Tablet PO 100 mg Q2H PRN Administration Migraine Headache Tamoxifen Citrate 10 mg 06/21/25 09:00 06/24/25 09:43 Tamoxifen Citrate (*Chemo) 10 Mg Tablet PO 10 mg DAILY ATTILA Administration Radiology Results: ITS Impressions Abdomen/Pelvis CT 06/19/25 20:51 IMPRESSION: High-grade bowel obstruction secondary to an umbilical hernia containing a short segment of transverse colon which demonstrates significant hyperemia suggesting venous compression, for which early strangulation is suspected. Labs Labs: Laboratory Results - last 24 hr 06/24/25 05:26 WBC 4.6 RBC 3.63 L Hgb 11.2 L Hct 34.6 L MCV 95.3 MCH 30.9 MCHC 32.4 RDW 12.3 Plt Count 208 MPV 11.5 H Sodium 138 Potassium 3.9 Chloride 107 Carbon Dioxide 25 Anion Gap 6 BUN 17 Creatinine 0.66 L Estim Creat Clear Calc 101 Estimated GFR > 60 Glucose 128 H Calcium 8.4 Total Bilirubin 0.6 AST 27 ALT 14 Alkaline Phosphatase 67 Total Protein 5.7 L Albumin 3.0 L Quality VTE Prophylaxis VTE prophylaxis: pharmacologic ordered
[2025-06-24 13:50] VITALS: BP 151/85; PULSE 72; RESP 20; TEMP 36.4; O2SAT 99
[2025-06-24] MEDS: ATORVASTATIN 40 MG TABLET 80 MG PO (17:35)
[2025-06-24] MEDS: HYDROcodone/acetaminophen (*CRX) 10-325 MG TABLET 1 TAB PO (20:10)
[2025-06-24 20:12] VITALS: PULSE 86
[2025-06-24] MEDS: SENNA/DOCUSATE SODIUM TABLET 2 TAB PO (20:12)
[2025-06-24 21:04] VITALS: BP 155/79; PULSE 74; RESP 20; TEMP 36.8; O2SAT 96
[2025-06-25 05:26] VITALS: BP 142/84; PULSE 64; RESP 16; TEMP 36.4; O2SAT 97
[2025-06-25] MEDS: LEVOTHYROXINE SODIUM 50 MCG TABLET PO (05:48)
[2025-06-25 06:46] LABS: Hematocrit 36.7 % (37.0-47.0); Hemoglobin 11.7 g/dL (12.0-15.0); Immature Granulocyte Percent A 0.2 % (0-0.5); Lymphocytes Absolute Auto 1.80 K/mm3 (0.9-3.2); Mean Corpuscular HGB Conc 31.9 g/dl (32-36); Mean Corpuscular Hemoglobin 30.4 pg (26-34); Mean Corpuscular Volume 95.3 fl (80-100); Nucleated Red Blood Cells Absolute Auto 0.000 K/mm3 (0.0-0.012); Nucleated Red Blood Cells Perc 0.0 % (0.0-0.2); Platelet Count Result 218 k/mm3 (150-375); Red Blood Count 3.85 M/mm3 (4.2-5.4); White Blood Count 5.1 K/mm3 (4.5-10.0)
[2025-06-25 07:00] LABS: Alanine Aminotransferase 14 U/L (6-35); Albumin Level 3.1 g/dL (3.5-5.1); Alkaline Phosphatase 67 U/L (38-126); Anion Gap 4 mmol/L (4-12); Aspartate Amino Transferase 26 U/L (14-36); Bilirubin,Total 0.6 mg/dL (0.2-1.3); Blood Urea Nitrogen 16 mg/dL (7-17); Calcium 8.5 mg/dL (8.4-10.2); Carbon Dioxide 31 mmol/L (22-30); Chloride 104 mmol/L (98-107); Estimated CRCL calculation 90 ml/min; Estimated Glomerular Filt Rate > 60; Glucose 128 mg/dL (65-110); Potassium 3.9 mmol/L (3.4-5.0); Sodium 139 mmol/L (137-145); Total Protein 5.9 g/dL (6.3-8.2)
--- NOTE | 2025-06-25 07:17 | PM.PNGS ---
Progress Note: A&P Assessment and Plan (1) Incisional hernia, with obstruction, without gangrene: Code(s): K43.0 - Incisional hernia with obstruction, without gangrene Status: Acute Assessment and Plan: no bowel movement yesterday. Still okay to discharge today from surgical standpoint. I will need to see her on next week, 07/03/2025 for follow-up eval and removal of wound riaz. Discharge instructions given. Will give dulcolax tabs this morning and another enema. Home on MiraLax, twice a day, and Senokot at HS. If patient needs any more pain medication than her usual [place] does, she will need to call her provider, Jhon purdy, for him to prescribe. (2) Opioid dependence with current use: Code(s): F11.20 - Opioid dependence, uncomplicated Status: Acute Assessment and Plan: Continue home dose of [place] 10/325 Subjective Subjective Date/Time Seen: 06/25/25 07:17 Post Op day: 5 Patient reports: no new complaints and no bowel movement Exam Const: General: cooperative, comfortable and awake GI: Inspection: incision ( healing well) and obesity GI Palp: Yes Soft to palpation and Yes Tenderness to palpation present (GI) Objective Data Vital Signs Vital Signs: Vital Signs - 24 hr 06/24/25 08:00 06/24/25 13:50 06/24/25 20:12 Temperature 36.4 C L Pulse Rate 72 86 Respiratory Rate 20 Blood Pressure 151/85 H Pulse Oximetry 99 Oxygen Delivery Room Air 06/24/25 21:04 06/25/25 05:26 Temperature 36.8 C 36.4 C L Pulse Rate 74 64 Respiratory Rate 20 16 Blood Pressure 155/79 H 142/84 H Pulse Oximetry 96 97 Oxygen Delivery Intake/Output Intake/Output: Intake & Output 06/22/25 06/23/25 06/24/25 06/25/25 23:59 23:59 23:59 23:59 Intake Total 2994 1666 1170 50 Balance 2994 1666 1170 50 Meds/Results Medications: Active Medications Generic Name Dose Route Start Last Admin Trade Name Freq PRN Reason Stop Dose Admin Hydrocodone Bitart/Acetaminophen 1 tab 06/20/25 13:50 06/24/25 20:10 Hydrocodone/Acetaminophen (*Crx) 10-325 Mg Tablet PO 1 tab Q8H PRN Administration Pain Rated 7-10 Hydrocodone Bitart/Acetaminophen 1 tab 06/21/25 12:03 06/22/25 21:04 Hydrocodone/Acetaminophen (*Crx) 5-325 Mg Tablet PO 1 tab Q6H PRN Administration Pain Rated 4-6 Albuterol 2 puff 06/21/25 08:05 Albuterol Sulfate (*Sp) Aerosol 1 Puff INHALATION Q6H PRN Shortness Of Breath Or Wheezing Albuterol/Ipratropium 3 ml 06/20/25 13:50 Ipratropium 0.5 Mg/Albuterol Sulfate 2.5 Mg Ampul.Neb 3 Ml INHALATION Q6H PRN Shortness Of Breath Or Wheezing Atorvastatin Calcium 80 mg 06/20/25 18:00 06/24/25 17:35 Atorvastatin 40 Mg Tablet PO 80 mg QPM ATTILA Administration Bisacodyl 10 mg 06/25/25 07:16 Bisacodyl 5 Mg Tablet Ec PO 06/25/25 07:17 ONCE ONE Buspirone HCl 10 mg 06/20/25 17:00 06/24/25 17:35 Buspirone Hcl 10 Mg Tablet PO 10 mg BID ATTILA Administration Celecoxib 100 mg 06/21/25 08:00 06/24/25 09:43 Celecoxib 100 Mg Capsule PO 100 mg Q24H ATTILA Administration Cyclobenzaprine HCl 10 mg 06/20/25 17:00 06/24/25 17:35 Cyclobenzaprine Hcl 10 Mg Tablet PO 10 mg TID ATTILA Administration Enoxaparin Sodium 40 mg 06/21/25 09:00 06/24/25 09:46 Enoxaparin 40 Mg/0.4 Ml Syringe SUB-Q 40 mg DAILY ATTILA Administration Furosemide 40 mg 06/25/25 09:00 Furosemide 40 Mg Tablet PO QID ATTILA Hydralazine HCl 10 mg 06/21/25 08:05 Hydralazine Hcl 20 Mg/Ml Vial IV PUSH Q8H PRN Blood Pressure - High Levothyroxine Sodium 50 mcg 06/21/25 06:30 06/25/25 05:48 Levothyroxine Sodium 50 Mcg Tablet PO 50 mcg DAILY@0630 ATTILA Administration Lisinopril 20 mg 06/21/25 09:00 06/24/25 09:43 Lisinopril 20 Mg Tablet PO 20 mg DAILY ATTILA Administration Miscellaneous Information 0 each 06/20/25 00:01 Lunesta = Nonformulary. Suggest Zolpidem While Hospitalized XX 07/20/25 00:00 CLARIFY ATTILA Morphine Sulfate 2 mg 06/22/25 12:46 06/23/25 08:30 Morphine Sulfate (*Crx) 4 Mg/Ml Inj IV PUSH 2 mg Q4H PRN Administration Pain Rated 7-10 Naloxone HCl 0.1 mg 06/20/25 17:56 Naloxone Hcl 0.4 Mg/Ml Vial IV PUSH Q2M PRN Opiate Reversal Non-Formulary Medication 3 mg 06/20/25 21:00 Eszopiclone [Lunesta] PO 07/20/25 20:59 QHS ATTILA Ondansetron HCl 4 mg 06/20/25 02:21 06/23/25 08:30 Ondansetron Inj 4 Mg/2 Ml Vial IV PUSH 4 mg Q6HR PRN Administration Nausea And Vomiting Pantoprazole Sodium 40 mg 06/22/25 09:00 06/24/25 09:43 Pantoprazole 40 Mg Tablet PO 40 mg QAM ATTILA Administration Polyethylene Glycol 17 gm 06/21/25 09:00 06/24/25 09:41 Polyethylene Glycol 3350 17 Gm Powd.Pack PO 17 gm QAM ATTILA Administration Propranolol HCl 40 mg 06/20/25 21:00 06/24/25 20:12 Propranolol Hcl 20 Mg Tablet PO 40 mg Q12HR ATTILA Administration Senna/Docusate Sodium 2 tab 06/20/25 21:00 06/24/25 20:12 Senna/Docusate Sodium Tablet PO 2 tab HS ATTILA Administration Sumatriptan Succinate 100 mg 06/20/25 17:56 06/21/25 05:20 Sumatriptan Succinate 25 Mg Tablet PO 100 mg Q2H PRN Administration Migraine Headache Tamoxifen Citrate 10 mg 06/21/25 09:00 06/24/25 09:43 Tamoxifen Citrate (*Chemo) 10 Mg Tablet PO 10 mg DAILY ATTILA Administration Radiology Results: ITS Impressions Abdomen/Pelvis CT 06/19/25 20:51 IMPRESSION: High-grade bowel obstruction secondary to an umbilical hernia containing a short segment of transverse colon which demonstrates significant hyperemia suggesting venous compression, for which early strangulation is suspected. Labs Labs: Laboratory Results - last 24 hr 08/27/25 05:30 WBC 5.1 RBC 3.85 L Hgb 11.7 L Hct 36.7 L MCV 95.3 MCH 30.4 MCHC 31.9 L RDW 12.2 Plt Count 218 MPV 11.7 H Immature Gran % (Auto) 0.2 Neut % (Auto) 49.7 Lymph % (Auto) 35.6 [place] % (Auto) 11.3 H Eos % (Auto) 2.8 Baso % (Auto) 0.4 Lymph # (Auto) 1.80 [place] # (Auto) 0.6 Eos # (Auto) 0.1 Baso # (Auto) 0.0 Abs Immat Gran (auto) 0.01 Absolute Neuts (auto) 2.5 Absolute Nucleated RBC 0.000 Nucleated RBC % 0.0 Sodium 139 Potassium 3.9 Chloride 104 Carbon Dioxide 31 H Anion Gap 4 BUN 16 Creatinine 0.75 Estim Creat Clear Calc 90 Estimated GFR > 60 Glucose 128 H Calcium 8.5 Total Bilirubin 0.6 AST 26 ALT 14 Alkaline Phosphatase 67 Total Protein 5.9 L Albumin 3.1 L
[2025-06-25] MEDS: HYDROcodone/acetaminophen (*CRX) 5-325 MG TABLET 1 TAB PO (08:52)
[2025-06-25] MEDS: BISACODYL 5 MG TABLET EC 10 MG PO (08:52)
[2025-06-25 08:53] VITALS: PULSE 68
[2025-06-25] MEDS: TAMOXIFEN CITRATE (*CHEMO) 10 MG TABLET PO (08:53)
[2025-06-25] MEDS: ENOXAPARIN 40 MG/0.4 ML SYRINGE SUB-Q (08:53)
[2025-06-25] MEDS: CYCLOBENZAPRINE HCL 10 MG TABLET PO (08:53)
[2025-06-25] MEDS: PROPRANOLOL HCL 20 MG TABLET 40 MG PO (08:53)
[2025-06-25] MEDS: FUROSEMIDE 40 MG TABLET PO (08:53)
[2025-06-25] MEDS: PANTOPRAZOLE 40 MG TABLET PO (08:54)
[2025-06-25] MEDS: CELECOXIB 100 MG CAPSULE PO (09:06)
--- NOTE | 2025-06-25 12:41 | P.DS_ITS ---
DS: Admitting Diagnosis Discharge Date 06/25/2025 Admitting Diagnosis Umbilical hernia with obstruction but no gangrene DS: Discharge Diagnosis Discharge Diagnosis (1) Umbilical hernia with obstruction but no gangrene: Code(s): K42.0 - Umbilical hernia with obstruction, without gangrene Status: Acute Assessment and Plan: - presented with worsening abdominal pain, nausea/vomiting in setting of known umbilical hernia after a fall onto her abdomen - CT A/P showed high-grade bowel obstruction secondary to umbilical hernia containing short segment of transverse colon, early strangulation suspected -s/p open repair of 5 cm incarcerated incisional hernia with obstruction by Dr. Gatica 06/20/25 - advance diet per general surgery - PRN antiemetics and analgesics. Wean morphine. - tolerating PO, IV fluids stopped - still no BM, general surgery planning on enema today (2) Hypertension: Qualifiers: Hypertension type: primary hypertension Qualified Code(s): I10 - Essential (primary) hypertension Code(s): I10 - Essential (primary) hypertension Status: Chronic Assessment and Plan: - BP trend stable after resuming home meds - continue home lisinopril, propanol - positive fluid balance, received IV Bumex x1 this AM. Restart home Lasix tomorrow. - IV hydralazine ordered for SBP >180 (3) Morbid obesity with BMI of 45.0-49.9, adult: Code(s): E66.01 - Morbid (severe) obesity due to excess calories; Z68.42 - Body mass index [BMI] 45.0-49.9, adult Status: Chronic Assessment and Plan: -Recommend lifestyle changes upon discharge (4) GERD (gastroesophageal reflux disease): Code(s): K21.9 - Gastro-esophageal reflux disease without esophagitis Status: Chronic Assessment and Plan: -resume home PPI (5) Fibromyalgia: Code(s): M79.7 - Fibromyalgia Status: Chronic Assessment and Plan: -continue home amitriptyline and gabapentin. Zebulon resumed (PDMP reviewed, patient states she takes 1/2 of a Z[place]ul[place] 10-325 q8H PRN) (6) Anxiety: Code(s): F41.9 - Anxiety disorder, unspecified Status: Chronic Assessment and Plan: -continue home Buspar (7) Breast cancer: Qualifiers: Breast location: unspecified site of breast Estrogen receptor status: unspecified Laterality: unspecified laterality Patient sex: female Qualified Code(s): C50.919 - Malignant neoplasm of unspecified site of unspecified female breast Code(s): C50.919 - Malignant neoplasm of unspecified site of unspecified female breast Status: Chronic Assessment and Plan: -Currently in remission. - continue home tamoxifen (8) Abnormal urinalysis: Code(s): R82.90 - Unspecified abnormal findings in urine Status: Acute Assessment and Plan: - UA with 11-20 WBC, 1+ bacteria - patient denies urinary symptoms other than some hesitancy - urine culture pending (9) Lymphedema: Code(s): I89.0 - Lymphedema, not elsewhere classified Status: Acute Assessment and Plan: - resume home Lasix and HCTZ once taking better PO (10) Leukocytosis: Code(s): D72.829 - Elevated white blood cell count, unspecified Status: Acute Assessment and Plan: - WBC 11 - afebrile, no signs of infection - likely reactive from surgery - monitor CBC Plan DVT prophylaxis: lovenox Dispoistion: 1-2 days pending clinical course. PT/OT recommended home with [facility]. DS: Summary Hospital Course Reason for hospitalization: abd pain Hospital Course: This is a very pleasant 64-year-old female patient with past medical history significant of a known umbilical hernia, fibromyalgia, hypertension, GERD, anxiety, depression and breast cancer status post radiation and on oral chemo who presented to the emergency room today with complaints of persistent abdominal pain. Patient states that in July of last year her primary care provider started her on Wegovy and it made her very ill. Throughout the time that she was on the medication it was found that she had an umbilical hernia. She was to reach out and have a hernia evaluated by a surgeon and repaired, however she subsequently was told that she had breast cancer and that was no longer the prior or any as she had to undergo radiation for her breast cancer. Patient completed all of her radiation and did not require any Chemotherapy. She states she had upcoming appointment to be evaluated regarding her hernia in late June. Patient reports that 2 days ago she sustained a ground level fall and fell directly on to her abdomen by accident and ever since that fall she has had increasing periumbilical pain, enlargement of the hernia and onset of nausea and vomiting. As it has worsened over the course of the past couple of days made her present to the emergency room overnight for evaluation. In the emergency room workup was performed that consisted of labs and imaging. CBC is noted to be normal as is metabolic panel, lactic acid, magnesium and lipase. Vital signs were noted with elevated blood pressure of 153/102. CT scan of the abdomen and pelvis was performed that shows a high-grade bowel obstruction secondary to umbilical hernia with short segment transverse colon which demonstrates significant hyperemia suggestive of venous compression for which early strangulation is suspected. ER physician reached at to general surgeon Dr. Gatica who agrees to accept patient here for further evaluation and management. Patient is being admitted in the current setting for continued management, pain control and definitive treatment. Per hospitalist notes: 06/20/25 08:33 Patient seen and examined at bedside. Still having 7/10 abdominal pain. 06/21/25 08:00 Patient seen and examined at bedside. Having a lot of pain this AM. Vomited this AM after pills. Urinating without difficulty. Passing some flatus. No BM. 06/22/25 07:44 Patient seen and examined at bedside. Having some pain, but improving. Still no BM and passing minimal flatus. Worked with therapy. 06/23/25 07:54 Patient seen and examined up in chair. Having some pain and nausea this AM. Still no BM. 06/24/25 07:54 Patient seen and examined up in chair. Having some pain and nausea this AM. Still no BM. On 06/20, patient was taken for open repair of 5 cm incarcerated incisional hernia with obstruction. Throughout hospitalization, General surgery continue to follow. Repair incision site was intact and wound continued to heal well. Ambulation continued to improve as well and diet was advanced as tolerated. As patient had difficulty with bowel movements, soapsuds enema was administered on 06/24. Wound continued to heal nicely with a slight decrease in H&H, likely secondary to over dilation. On 06/25, patient was cleared for discharge from a general surgery standpoint. Patient endorsed significant improvement in overall symptomatology and felt ready for discharge as well. Home mild low set up through care coordination and patient has been given strict return to ED instructions and follow-up instructions with General surgery in the outpatient setting. Medications have been managed by General surgery and discharge instructions specified by General surgery. Patient otherwise hemodynamically s table can be discharged to home with home health services. Patient is amenable to this plan. Status at Discharge Functional status at discharge: independent ambulation Overall status at discharge: patient is progressing back to baseline Time Spent with Patient Time attestation: Total time spent providing and/or coordinating discharge services: 45 Exam Narrative: General: NAD, obese Eyes: EOMI ENT: neck supple Cardiovascular: extremities appear well-perfused Respiratory: respirations even and unlabored on RA Gastrointestinal: nondistended Genitourinary: no suprapubic tenderness Musculoskeletal: No calf tenderness/edema Skin: warm, dry. Incision healing well, no abdominal wall ecchymosis Neuro: Alert. Psych: Mood appropriate Const: General: comfortable Other: Obese female patient sitting at bedside. She is pleasant to converse with. HENMT: Face/Nose/Sinus: Normal nares present Mouth: Yes moist mucous membranes Eyes: General: appearance normal, both eyes and all related structures Sclera: sclerae normal Pupils: Equal, round and reactive pupils present EOM: EOMs intact bilaterally Neck: Neck: supple and no JVD Lymphatic: lymphadenopathy not noted Chest: Other: Nontender Resp: Effort & Inspection: normal respiratory effort Auscultation: clear to auscultation bilaterally Cardio: Rate: regular rate Rhythm: regular rhythm Heart sounds: no gallops, no murmurs and no rubs GI: Inspection: non-distended Auscultation: normal bowel sounds Skin: General skin exam: normal color, no rashes or lesions noted and no erythema Wounds: no wounds Neuro: Cranial nerves: Yes Equal, round and reactive pupils present Speech: normal speech Motor exam (neuro): 5/5 motor strength present throughout and Normal motor muscle tone present throughout Sensory Exam: normal sensation Extrem: Other: Moves all extremities well without any deficits. Psych: Mental Status: mental status grossly normal Affect: normal affect DS: Data Data Completed and Pending Completed studies during hospitalization: Pending at discharge 06/20/25 15:28 Surgical [PTH] Routine Labs on day of discharge: Labs from last 24 hours 06/25/25 05:30 WBC 5.1 RBC 3.85 L Hgb 11.7 L Hct 36.7 L MCV 95.3 MCH 30.4 MCHC 31.9 L RDW 12.2 Plt Count 218 MPV 11.7 H Immature Gran % (Auto) 0.2 Neut % (Auto) 49.7 Lymph % (Auto) 35.6 [place] % (Auto) 11.3 H Eos % (Auto) 2.8 Baso % (Auto) 0.4 Lymph # (Auto) 1.80 [place] # (Auto) 0.6 Eos # (Auto) 0.1 Baso # (Auto) 0.0 Abs Immat Gran (auto) 0.01 Absolute Neuts (auto) 2.5 Absolute Nucleated RBC 0.000 Nucleated RBC % 0.0 Sodium 139 Potassium 3.9 Chloride 104 Carbon Dioxide 31 H Anion Gap 4 BUN 16 Creatinine 0.75 Estim Creat Clear Calc 90 Estimated GFR > 60 Glucose 128 H Calcium 8.5 Total Bilirubin 0.6 AST 26 ALT 14 Alkaline Phosphatase 67 Total Protein 5.9 L Albumin 3.1 L Preliminary micro results at discharge 06/20/25 00:39 Blood Culture - Preliminary Blood 06/20/25 00:39 Blood Culture - Preliminary Blood Discharge Plan Discharge Attending physician on discharge: Ehsan Iraheta Consulting providers: Sheri Alicea; Ulysses Gatica; Brennen Gonzales Discharging Clinician: Brennen Gonzales Anticipated Discharge Date/Time: 06/25/25 12:38 Patient Disposition: Home with Home Health Service Activity: may shower, no straining and as tolerated Diet: regular Wound Care Instructions: keep dressing dry, remove dressing to shower and change dressing daily Discharge Instructions: Per Care Coordination, patient to discharge with [facility] for PT/OT and residential services. Agency will call to arrange initial visit. General Surgery discharge instructions- * Ambulate 3-4 x per day and as tolerated. * No lifting over 15-20lbs. * May bathe or shower. * Stairs are OK. * May drive a car in 3 days. * Remove any dressings before shower and replace after. * See Dr. Gatica in the office on 07/03/2025. Call for appointment. Patient Instructions: Antibiotic Form, Umbilical Hernia (GEN) Patient Language: [place] Stand Alone Forms: General Discharge Information Follow-up/Referrals: Ulysses Gatica MD [Physician, General Surgery] - 07/03/25 Referral Note: Call office for appointment. Discharge Medications: New polyethylene glycol 3350 [Miralax] 17 gram Powder In Packet 17 g PO BID Qty: 14 0RF sennosides-docusate sodium [Senokot-S] 8.6-50 mg Tablet 2 tab-cap PO HS Qty: 10 0RF Continued eszopiclone [Lunesta] 3 mg tablet 3 mg PO QHS cyclobenzaprine 10 mg tablet 10 mg PO TID hydrochlorothiazide 25 mg tablet 25 mg PO DAILY lisinopril 20 mg tablet 20 mg PO DAILY ondansetron 4 mg tablet,disintegrating 4 mg PO Q6H PRN (Reason: nausea and vomiting) Qty: 10 0RF albuterol sulfate 90 mcg/actuation HFA aerosol inhaler 2 puff INHALATION Q4-6H PRN (Reason: shortness of breath or wheezing) atorvastatin 40 mg tablet 80 mg PO QPM buspirone 10 mg tablet 10 mg PO BID celecoxib 100 mg capsule 100 mg PO Q24H furosemide 40 mg tablet 40 mg PO DAILY hydrocodone-acetaminophen 10-325 mg tablet 1 tablet PO Q8H PRN (Reason: pain) hydroxyzine HCl 25 mg tablet 25 mg PO QID PRN (Reason: itching) ipratropium-albuterol 0.5 mg-3 mg(2.5 mg base)/3 mL solution for nebulization 3 ml INHALATION Q6H PRN (Reason: shortness of breath or wheezing) levothyroxine 25 mcg tablet 50 mcg PO DAILY propranolol 20 mg tablet 40 mg PO BID sumatriptan succinate 100 mg tablet 100 mg PO Q2H PRN (Reason: migraine headache) tamoxifen 10 mg tablet 10 mg PO DAILY triamcinolone acetonide 0.1 % cream 1 applic TOPICAL QID Patient Comments: FEET Discontinued benzonatate 200 mg capsule 200 mg PO BID PRN (Reason: cough) cefuroxime axetil 500 mg tablet 500 mg PO Q12H ondansetron HCl [Zofran] 4 mg tablet 4 mg PO Q8H ondansetron 4 mg tablet,disintegrating 4 mg PO Q8H PRN (Reason: nausea and vomiting) Qty: 15 0RF Date of admission: 06/20/25 07:29 Primary Care Provider: EnJhon Admitting Provider: Max Ochoa Attending physician on admission: Ulysses Gatica Condition: Stable Quality VTE Prophylaxis VTE prophylaxis: pharmacologic ordered
== END 2025-06-25 15:25 | disposition home health service (06) | DRG 354 ==
LOC: ANHED 06-20 01:19 → ANH3MEDSUR 06-20 06:53
PROVIDERS: Nurse Practitioner Adult Health; Physician Assistant; Surgery; Admitting Provider Family Medicine; Emergency Provider Emergency Medicine; PCP Physician Assistant Medical; Visit Provider Physician Assistant
PROC: 0WQF0ZZ Repair Abdominal Wall, Open Approach (ICD-10-PCS; principal; 2025-06-20 15:00)
DX: K43.0 Incisional hernia with obstruction, without gangrene (principal); F11.20 Opioid dependence, uncomplicated; Z68.43 Body mass index [BMI] 50.0-59.9, adult; I10 Essential (primary) hypertension; E66.01 Morbid (severe) obesity due to excess calories; K21.9 Gastro-esophageal reflux disease without esophagitis; C50.919 Malignant neoplasm of unspecified site of unspecified female breast; R73.9 Hyperglycemia, unspecified; R82.90 Unspecified abnormal findings in urine; I89.0 Lymphedema, not elsewhere classified; M79.7 Fibromyalgia; F41.1 Generalized anxiety disorder; Z90.49 Acquired absence of other specified parts of digestive tract; Z90.711 Acquired absence of uterus with remaining cervical stump
CPT/HCPCS: 36415; 74177; 80048; 80053; 81001; 83036; 83605; 83690; 83735; 85025; 85027; 85610; 85730; 86850; 86900; 86901; 87040; 87086; 88302; 96361; 96365; 96375; 96376; 97110; 97161; 97166; 97535; 99285; A9270; J0360; J1100; J1171; J1650; J1939; J2003; J2250; J2270; J2405; J2470; J2543; J2704; J3010; J3360; J3480; J7030; J7120; Q9967